=== PATIENT | male | born 1940 | race Caucasian/White ===

== ENCOUNTER 2016-10-30 15:02 | Outpatient (CLI) | payer MEDICARE | END 2016-10-30 15:03 | disposition home or self-care (01) | DX: Z95.4 Presence of other heart-valve replacement (principal) ==

== ENCOUNTER 2016-11-02 15:19 | Outpatient (CLI) | payer MEDICARE | END 2016-11-02 15:20 | disposition home or self-care (01) | DX: Z95.4 Presence of other heart-valve replacement (principal) ==

== ENCOUNTER 2016-11-15 14:00 | Outpatient (CLI) | payer MEDICARE | END 2016-11-15 14:01 | disposition home or self-care (01) | DX: Z95.4 Presence of other heart-valve replacement (principal) ==

== ENCOUNTER 2016-11-27 15:44 | Outpatient (CLI) | payer MEDICARE | END 2016-11-27 15:45 | disposition home or self-care (01) | DX: Z95.4 Presence of other heart-valve replacement (principal) ==

== ENCOUNTER 2016-12-11 08:00 | Outpatient (CLI) | payer MEDICARE | END 2016-12-11 08:01 | DX: Z95.4 Presence of other heart-valve replacement (principal) ==

== ENCOUNTER 2016-12-26 08:00 | Outpatient (CLI) | payer MEDICARE | END 2016-12-26 08:01 | disposition home or self-care (01) | DX: Z95.4 Presence of other heart-valve replacement (principal) ==

== ENCOUNTER 2017-01-08 14:13 | Outpatient (CLI) | payer MEDICARE | END 2017-01-08 14:14 | disposition home or self-care (01) | DX: Z95.4 Presence of other heart-valve replacement (principal) ==

== ENCOUNTER 2017-01-22 08:00 | Outpatient (CLI) | payer MEDICARE | END 2017-01-22 08:01 | disposition home or self-care (01) | DX: Z95.4 Presence of other heart-valve replacement (principal) ==

== ENCOUNTER 2017-01-30 15:36 | Outpatient (CLI) | payer MEDICARE | END 2017-01-30 15:37 | disposition home or self-care (01) | DX: I10 Essential (primary) hypertension (principal); Z95.4 Presence of other heart-valve replacement; E11.9 Type 2 diabetes mellitus without complications; N40.0 Benign prostatic hyperplasia without lower urinary tract symptoms | CPT/HCPCS: 36415; 80053; 80061; 83036; 84443; 85025; 85610; G0103 ==

== ENCOUNTER 2017-02-13 08:00 | Outpatient (CLI) | payer MEDICARE | END 2017-02-13 08:01 | DX: Z95.4 Presence of other heart-valve replacement (principal) ==

== ENCOUNTER 2017-03-07 08:00 | Outpatient (CLI) | payer MEDICARE | END 2017-03-07 08:01 | disposition home or self-care (01) | DX: Z95.4 Presence of other heart-valve replacement (principal) ==

== ENCOUNTER 2017-04-01 14:45 | Outpatient (CLI) | payer MEDICARE | END 2017-04-01 14:46 | disposition home or self-care (01) | LOC: LAB.F 14:45 | PROVIDERS: ATTEND Internal Medicine Cardiovascular Disease | DX: Z95.4 Presence of other heart-valve replacement (principal) | CPT/HCPCS: 85610 ==

== ENCOUNTER 2017-04-29 16:26 | Outpatient (CLI) | payer MEDICARE | END 2017-04-29 16:27 | disposition home or self-care (01) | LOC: LAB.F 16:26 | PROVIDERS: ATTEND Internal Medicine Cardiovascular Disease | DX: Z95.4 Presence of other heart-valve replacement (principal) | CPT/HCPCS: 85610 ==

== ENCOUNTER 2017-05-13 15:21 | Outpatient (CLI) | payer MEDICARE | END 2017-05-13 15:22 | disposition home or self-care (01) | LOC: LAB.F 15:21 | PROVIDERS: ATTEND Internal Medicine Cardiovascular Disease | DX: Z95.4 Presence of other heart-valve replacement (principal) | CPT/HCPCS: 85610 ==

== ENCOUNTER 2017-05-29 13:32 | Outpatient (CLI) | payer MEDICARE | END 2017-05-29 13:33 | disposition home or self-care (01) | LOC: LAB.F 13:32 | PROVIDERS: ATTEND Internal Medicine Cardiovascular Disease | DX: Z95.4 Presence of other heart-valve replacement (principal) | CPT/HCPCS: 85610 ==

== ENCOUNTER 2017-05-31 13:19 | Outpatient (CLI) | payer MEDICARE | END 2017-05-31 13:20 | disposition home or self-care (01) | LOC: LAB.F 13:19 | PROVIDERS: ATTEND Internal Medicine Cardiovascular Disease | DX: Z95.4 Presence of other heart-valve replacement (principal) | CPT/HCPCS: 85610 ==

== ENCOUNTER 2017-06-03 14:26 | Outpatient (CLI) | payer MEDICARE | END 2017-06-03 14:27 | disposition home or self-care (01) | LOC: LAB.F 14:26 | PROVIDERS: ATTEND Internal Medicine Cardiovascular Disease | DX: Z95.4 Presence of other heart-valve replacement (principal) | CPT/HCPCS: 85610 ==

== ENCOUNTER 2017-06-10 14:35 | Outpatient (CLI) | payer MEDICARE | END 2017-06-10 14:36 | disposition home or self-care (01) | LOC: LAB.F 14:35 | PROVIDERS: ATTEND Internal Medicine Cardiovascular Disease | DX: Z95.4 Presence of other heart-valve replacement (principal) | CPT/HCPCS: 85610 ==

== ENCOUNTER 2017-06-17 15:08 | Outpatient (CLI) | payer MEDICARE | END 2017-06-17 15:09 | disposition home or self-care (01) | LOC: LAB.F 15:08 | PROVIDERS: ATTEND Internal Medicine Cardiovascular Disease | DX: Z95.4 Presence of other heart-valve replacement (principal) | CPT/HCPCS: 85610 ==

== ENCOUNTER 2017-07-04 14:24 | Outpatient (CLI) | payer MEDICARE | END 2017-07-04 14:25 | disposition home or self-care (01) | LOC: LAB.F 14:24 | PROVIDERS: ATTEND Internal Medicine Cardiovascular Disease | DX: Z95.4 Presence of other heart-valve replacement (principal) | CPT/HCPCS: 85610 ==

== ENCOUNTER → 2017-07-18 | Outpatient (CLI) | payer MEDICARE | LOC: LAB.F 08:00 | PROVIDERS: ATTEND Internal Medicine Cardiovascular Disease | DX: Z95.4 Presence of other heart-valve replacement (principal) | CPT/HCPCS: 85610 ==

== ENCOUNTER 2017-08-02 14:09 | Outpatient (CLI) | payer MEDICARE | END 2017-08-02 14:10 | disposition home or self-care (01) | LOC: LAB.F 14:09 | PROVIDERS: ATTEND Internal Medicine Cardiovascular Disease | DX: Z95.4 Presence of other heart-valve replacement (principal) | CPT/HCPCS: 85610 ==

== ENCOUNTER 2017-08-22 15:53 | Outpatient (CLI) | payer MEDICARE | END 2017-08-22 15:54 | disposition home or self-care (01) | LOC: LAB.F 15:53 | PROVIDERS: ATTEND Internal Medicine Cardiovascular Disease | DX: Z95.4 Presence of other heart-valve replacement (principal) | CPT/HCPCS: 85610 ==

== ENCOUNTER 2017-08-29 08:00 | Outpatient (CLI) | payer MEDICARE | END 2017-08-29 08:01 | LOC: LAB.F 08:00 | PROVIDERS: ATTEND Internal Medicine Cardiovascular Disease | DX: Z95.4 Presence of other heart-valve replacement (principal) | CPT/HCPCS: 85610 ==

== ENCOUNTER 2017-09-13 08:00 | Outpatient (CLI) | payer MEDICARE | END 2017-09-13 08:01 | disposition home or self-care (01) | LOC: LAB.F 08:00 | PROVIDERS: ATTEND Internal Medicine Cardiovascular Disease | DX: Z95.4 Presence of other heart-valve replacement (principal) | CPT/HCPCS: 85610 ==

== ENCOUNTER 2017-09-23 16:22 | Outpatient (CLI) | payer MEDICARE | END 2017-09-23 16:23 | disposition home or self-care (01) | LOC: LAB.F 16:22 | PROVIDERS: ATTEND Internal Medicine Cardiovascular Disease | DX: Z95.4 Presence of other heart-valve replacement (principal) | CPT/HCPCS: 85610 ==

== ENCOUNTER 2017-10-07 08:00 | Outpatient (CLI) | payer MEDICARE | END 2017-10-07 08:01 | disposition home or self-care (01) | LOC: LAB.F 08:00 | PROVIDERS: ATTEND Internal Medicine Cardiovascular Disease | DX: Z95.4 Presence of other heart-valve replacement (principal) | CPT/HCPCS: 85610 ==

== ENCOUNTER 2017-10-23 08:00 | Outpatient (CLI) | payer MEDICARE | END 2017-10-23 08:01 | disposition home or self-care (01) | LOC: LAB.F 08:00 | PROVIDERS: ATTEND Internal Medicine Cardiovascular Disease | DX: Z95.4 Presence of other heart-valve replacement (principal) | CPT/HCPCS: 85610 ==

== ENCOUNTER 2017-11-07 15:19 | Outpatient (CLI) | payer MEDICARE | END 2017-11-07 15:20 | disposition home or self-care (01) | LOC: LAB.F 15:19 | PROVIDERS: ATTEND Internal Medicine Cardiovascular Disease | DX: Z95.4 Presence of other heart-valve replacement (principal) | CPT/HCPCS: 85610 ==

== ENCOUNTER 2017-11-14 08:00 | Outpatient (CLI) | payer MEDICARE | END 2017-11-14 08:01 | LOC: LAB.F 08:00 | PROVIDERS: ATTEND Internal Medicine Cardiovascular Disease | DX: Z95.4 Presence of other heart-valve replacement (principal) | CPT/HCPCS: 85610 ==

== ENCOUNTER 2017-11-18 08:00 | Outpatient (CLI) | payer MEDICARE | END 2017-11-18 08:01 | disposition home or self-care (01) | LOC: LAB.F 08:00 | PROVIDERS: ATTEND Internal Medicine Cardiovascular Disease | DX: Z95.4 Presence of other heart-valve replacement (principal) | CPT/HCPCS: 85610 ==

== ENCOUNTER 2017-11-29 15:10 | Outpatient (CLI) | payer MEDICARE | END 2017-11-29 15:11 | disposition home or self-care (01) | LOC: LAB.F 15:10 | PROVIDERS: ATTEND Internal Medicine Cardiovascular Disease | DX: Z95.4 Presence of other heart-valve replacement (principal) | CPT/HCPCS: 85610 ==

== ENCOUNTER 2017-12-06 15:08 | Outpatient (CLI) | payer MEDICARE | END 2017-12-06 15:09 | disposition home or self-care (01) | LOC: LAB.F 15:08 | PROVIDERS: ATTEND Internal Medicine Cardiovascular Disease | DX: Z95.4 Presence of other heart-valve replacement (principal) | CPT/HCPCS: 85610 ==

== ENCOUNTER 2017-12-18 08:00 | Outpatient (CLI) | payer MEDICARE | END 2017-12-18 08:01 | LOC: LAB.F 08:00 | PROVIDERS: ATTEND Internal Medicine Cardiovascular Disease | DX: Z95.4 Presence of other heart-valve replacement (principal) | CPT/HCPCS: 85610 ==

== ENCOUNTER 2018-01-01 15:47 | Outpatient (CLI) | payer MEDICARE | END 2018-01-01 15:48 | disposition home or self-care (01) | LOC: LAB.F 15:47 | PROVIDERS: ATTEND Internal Medicine Cardiovascular Disease | DX: Z95.4 Presence of other heart-valve replacement (principal) | CPT/HCPCS: 85610 ==

== ENCOUNTER 2018-01-07 08:00 | Outpatient (CLI) | payer MEDICARE | END 2018-01-07 08:01 | disposition home or self-care (01) | LOC: LAB.F 08:00 | PROVIDERS: ATTEND Internal Medicine Cardiovascular Disease | DX: Z95.4 Presence of other heart-valve replacement (principal) | CPT/HCPCS: 85610 ==

== ENCOUNTER 2018-01-14 08:00 | Outpatient (CLI) | payer MEDICARE | END 2018-01-14 08:01 | disposition home or self-care (01) | LOC: LAB.F 08:00 | PROVIDERS: ATTEND Internal Medicine Cardiovascular Disease | DX: Z95.4 Presence of other heart-valve replacement (principal) | CPT/HCPCS: 85610 ==

== ENCOUNTER 2018-01-28 15:58 | Outpatient (CLI) | payer MEDICARE | END 2018-01-28 15:59 | disposition home or self-care (01) | LOC: LAB.F 15:58 | PROVIDERS: ATTEND Internal Medicine Cardiovascular Disease | DX: Z95.4 Presence of other heart-valve replacement (principal) | CPT/HCPCS: 85610 ==

== ENCOUNTER 2018-02-11 14:42 | Outpatient (CLI) | payer MEDICARE | END 2018-02-11 14:43 | disposition home or self-care (01) | LOC: LAB.F 14:42 | PROVIDERS: ATTEND Internal Medicine Cardiovascular Disease | DX: Z95.4 Presence of other heart-valve replacement (principal) | CPT/HCPCS: 85610 ==

== ENCOUNTER 2018-03-05 14:45 | Outpatient (CLI) | payer MEDICARE | END 2018-03-05 14:46 | disposition home or self-care (01) | LOC: LAB.F 14:45 | PROVIDERS: ATTEND Internal Medicine Cardiovascular Disease | DX: Z95.4 Presence of other heart-valve replacement (principal) | CPT/HCPCS: 85610 ==

== ENCOUNTER 2018-03-20 15:00 | Outpatient (CLI) | payer MEDICARE | END 2018-03-20 15:01 | disposition home or self-care (01) | LOC: LAB.F 15:00 | PROVIDERS: ATTEND Internal Medicine Cardiovascular Disease | DX: Z95.4 Presence of other heart-valve replacement (principal) | CPT/HCPCS: 85610 ==

== ENCOUNTER 2018-04-03 14:56 | Outpatient (CLI) | payer MEDICARE | END 2018-04-03 14:57 | disposition home or self-care (01) | LOC: LAB.F 14:56 | PROVIDERS: ATTEND Internal Medicine Cardiovascular Disease | DX: Z95.4 Presence of other heart-valve replacement (principal) | CPT/HCPCS: 85610 ==

== ENCOUNTER 2018-05-02 13:25 | Outpatient (CLI) | payer MEDICARE | END 2018-05-02 13:26 | disposition home or self-care (01) | LOC: LAB.F 13:25 | PROVIDERS: ATTEND Internal Medicine Cardiovascular Disease | DX: Z95.4 Presence of other heart-valve replacement (principal) | CPT/HCPCS: 85610 ==

== ENCOUNTER 2018-05-21 14:55 | Outpatient (CLI) | payer MEDICARE | END 2018-05-21 14:56 | disposition home or self-care (01) | LOC: LAB.F 14:55 | PROVIDERS: ATTEND Internal Medicine Cardiovascular Disease | DX: Z95.4 Presence of other heart-valve replacement (principal) | CPT/HCPCS: 85610 ==

== ENCOUNTER 2018-06-05 14:16 | Outpatient (CLI) | payer MEDICARE | END 2018-06-05 14:17 | disposition home or self-care (01) | LOC: LAB.F 14:16 | PROVIDERS: ATTEND Internal Medicine Cardiovascular Disease | DX: Z95.4 Presence of other heart-valve replacement (principal) | CPT/HCPCS: 85610 ==

== ENCOUNTER 2018-06-26 14:22 | Outpatient (CLI) | payer MEDICARE | END 2018-06-26 14:23 | disposition home or self-care (01) | LOC: LAB.F 14:22 | PROVIDERS: ATTEND Internal Medicine Cardiovascular Disease | DX: Z95.4 Presence of other heart-valve replacement (principal) | CPT/HCPCS: 85610 ==

== ENCOUNTER 2018-07-10 14:47 | Outpatient (CLI) | payer MEDICARE | END 2018-07-10 14:48 | disposition home or self-care (01) | LOC: LAB.F 14:47 | PROVIDERS: ATTEND Internal Medicine Cardiovascular Disease | DX: Z95.4 Presence of other heart-valve replacement (principal) | CPT/HCPCS: 85610 ==

== ENCOUNTER 2018-07-17 13:20 | Outpatient (CLI) | payer MEDICARE ==
[2018-07-17] MEDS ORDERED: ALBUTEROL NEB 2.5 MG/3 ML INH ONE (15:00)
== END 2018-07-17 13:21 | disposition home or self-care (01) ==
LOC: RT 13:20
PROVIDERS: ATTEND Physician Assistant
DX: R06.02 Shortness of breath (principal); I48.0 Paroxysmal atrial fibrillation; E66.01 Morbid (severe) obesity due to excess calories; E11.9 Type 2 diabetes mellitus without complications
CPT/HCPCS: 94060

== ENCOUNTER 2018-07-24 14:57 | Outpatient (CLI) | payer MEDICARE | END 2018-07-24 14:58 | disposition home or self-care (01) | LOC: LAB.F 14:57 | PROVIDERS: ATTEND Internal Medicine Cardiovascular Disease | DX: Z95.4 Presence of other heart-valve replacement (principal) | CPT/HCPCS: 85610 ==

== ENCOUNTER 2018-07-29 13:53 | Outpatient (CLI) | payer MEDICARE | END 2018-07-29 13:54 | disposition home or self-care (01) | LOC: DI 13:53 | PROVIDERS: ATTEND Physician Assistant | DX: I48.91 Unspecified atrial fibrillation (principal); R60.0 Localized edema; Z95.2 Presence of prosthetic heart valve | CPT/HCPCS: 93306 ==

== ENCOUNTER 2018-08-07 08:00 | Outpatient (CLI) | payer MEDICARE ==
[2018-08-07 17:34] LABS: INR 4.4 (0.8-1.2); PT - PROTHROMBIN TIME 47.2 secs (9.9-12.6)
== END 2018-08-07 08:01 | disposition home or self-care (01) ==
LOC: LAB.F 08:00
PROVIDERS: ATTEND Internal Medicine Cardiovascular Disease
DX: I48.91 Unspecified atrial fibrillation (principal)
CPT/HCPCS: 36415; 85610

== ENCOUNTER 2018-08-15 14:41 | Outpatient (CLI) | payer MEDICARE | END 2018-08-15 14:42 | disposition home or self-care (01) | LOC: LAB.F 14:41 | PROVIDERS: ATTEND Internal Medicine Cardiovascular Disease | DX: Z95.4 Presence of other heart-valve replacement (principal) | CPT/HCPCS: 85610 ==

== ENCOUNTER 2018-09-03 14:42 | Outpatient (CLI) | payer MEDICARE ==
[2018-09-03 18:17] LABS: INR 3.8 (0.8-1.2); PT - PROTHROMBIN TIME 42.4 secs (9.9-12.6)
== END 2018-09-03 14:43 | disposition home or self-care (01) ==
LOC: LAB.F 14:42
PROVIDERS: ATTEND Internal Medicine Cardiovascular Disease
DX: Z51.81 Encounter for therapeutic drug level monitoring (principal); Z79.01 Long term (current) use of anticoagulants; I48.91 Unspecified atrial fibrillation
CPT/HCPCS: 36415; 85610

== ENCOUNTER 2018-09-26 14:20 | Outpatient (CLI) | payer MEDICARE | END 2018-09-26 14:21 | disposition home or self-care (01) | LOC: LAB.F 14:20 | PROVIDERS: ATTEND Internal Medicine Cardiovascular Disease | DX: Z95.4 Presence of other heart-valve replacement (principal) | CPT/HCPCS: 85610 ==

== ENCOUNTER 2018-10-22 14:43 | Outpatient (CLI) | payer MEDICARE | END 2018-10-22 14:44 | disposition home or self-care (01) | LOC: LAB.F 14:43 | PROVIDERS: ATTEND Internal Medicine Cardiovascular Disease | DX: Z95.4 Presence of other heart-valve replacement (principal) | CPT/HCPCS: 85610 ==

== ENCOUNTER 2018-11-20 14:27 | Outpatient (CLI) | payer MEDICARE | END 2018-11-20 14:28 | disposition home or self-care (01) | LOC: LAB.F 14:27 | PROVIDERS: ATTEND Internal Medicine Cardiovascular Disease | DX: Z95.4 Presence of other heart-valve replacement (principal) | CPT/HCPCS: 85610 ==

== ENCOUNTER 2018-12-18 15:44 | Outpatient (CLI) | payer MEDICARE | END 2018-12-18 15:45 | disposition home or self-care (01) | LOC: LAB.F 15:44 | PROVIDERS: ATTEND Internal Medicine Cardiovascular Disease | DX: Z95.4 Presence of other heart-valve replacement (principal) | CPT/HCPCS: 85610 ==

== ENCOUNTER 2019-01-01 14:52 | Outpatient (CLI) | payer MEDICARE | END 2019-01-01 14:53 | disposition home or self-care (01) | LOC: LAB.F 14:52 | PROVIDERS: ATTEND Internal Medicine Cardiovascular Disease | DX: Z95.4 Presence of other heart-valve replacement (principal) | CPT/HCPCS: 85610 ==

== ENCOUNTER 2019-01-16 13:52 | Outpatient (CLI) | payer MEDICARE | END 2019-01-16 13:53 | disposition home or self-care (01) | LOC: LAB.F 13:52 | PROVIDERS: ATTEND Internal Medicine Cardiovascular Disease | DX: Z95.4 Presence of other heart-valve replacement (principal) | CPT/HCPCS: 85610 ==

== ENCOUNTER 2019-02-12 14:59 | Outpatient (CLI) | payer MEDICARE | END 2019-02-12 15:00 | disposition home or self-care (01) | LOC: LAB.F 14:59 | PROVIDERS: ATTEND Internal Medicine Cardiovascular Disease | DX: Z95.4 Presence of other heart-valve replacement (principal) | CPT/HCPCS: 85610 ==

== ENCOUNTER 2019-03-13 14:57 | Outpatient (CLI) | payer MEDICARE | END 2019-03-13 14:58 | disposition home or self-care (01) | LOC: LAB.F 14:57 | PROVIDERS: ATTEND Internal Medicine Cardiovascular Disease | DX: Z95.4 Presence of other heart-valve replacement (principal) | CPT/HCPCS: 85610 ==

== ENCOUNTER 2019-04-10 14:48 | Outpatient (CLI) | payer MEDICARE | END 2019-04-10 14:49 | disposition home or self-care (01) | LOC: LAB.F 14:48 | PROVIDERS: ATTEND Internal Medicine Cardiovascular Disease | DX: Z95.4 Presence of other heart-valve replacement (principal) | CPT/HCPCS: 85610 ==

== ENCOUNTER 2019-04-23 16:05 | Outpatient (CLI) | payer MEDICARE | END 2019-04-23 23:59 | disposition home or self-care (01) | LOC: LAB.F 16:05 | PROVIDERS: ATTEND Internal Medicine Cardiovascular Disease | DX: Z95.4 Presence of other heart-valve replacement (principal) | CPT/HCPCS: 85610 ==

== ENCOUNTER 2019-05-08 14:29 | Outpatient (CLI) | payer MEDICARE | END 2019-05-08 14:30 | disposition home or self-care (01) | LOC: LAB.S 14:29 | PROVIDERS: ATTEND Internal Medicine Cardiovascular Disease | DX: Z95.4 Presence of other heart-valve replacement (principal) | CPT/HCPCS: 85610 ==

== ENCOUNTER 2019-06-01 | Outpatient (CLI) | payer MEDICARE | END 2019-06-01 15:54 | disposition home or self-care (01) | DX: Z95.4 Presence of other heart-valve replacement (principal) ==

== ENCOUNTER 2019-06-15 13:47 | Outpatient (CLI) | payer MEDICARE | END 2019-06-15 13:48 | disposition home or self-care (01) | LOC: LAB.S 13:47 | PROVIDERS: ATTEND Internal Medicine Cardiovascular Disease | DX: Z95.4 Presence of other heart-valve replacement (principal) | CPT/HCPCS: 85610 ==

== ENCOUNTER 2019-07-07 10:44 | Outpatient (CLI) | payer MEDICARE ==
[2019-07-07 17:59] LABS: BASOPHILS % (AUTO) 0.5 %; EOSINOPHILS # (AUTO) 0.1 10^3/uL (0.0-0.7); EOSINOPHILS % (AUTO) 1.7 %; HGB - HEMOGLOBIN 14.2 g/dL (14.0-18.0); LYMPHOCYTES # (AUTO) 0.9 10^3/uL (1.5-3.5); LYMPHOCYTES % (AUTO) 12.3 %; MEAN CORPUSCULAR HEMOGLOBIN 32.1 pg (27.0-31.0); MEAN CORPUSCULAR HGB CONC 32.7 g/dL (32.0-36.0); MEAN PLATELET VOLUME 11.6 fL (7.4-11.4); MONOCYTES # (AUTO) 0.7 10^3/uL (0.0-1.0); NEUTROPHILS # (AUTO) 5.7 10^3/uL (1.5-6.6); NEUTROPHILS % (AUTO) 75.8 %; PLT - PLATELET COUNT 123 10^3/uL (130-450); RED BLOOD COUNT 4.43 10^6/uL (4.70-6.10); RED CELL DISTRIBUTION WIDTH 14.4 % (12.0-15.0); WHITE BLOOD COUNT 7.5 x10^3/uL (4.8-10.8)
[2019-07-07 18:00] LABS: INR 2.7 (0.8-1.2); PT - PROTHROMBIN TIME 30.2 secs (9.9-12.6)
[2019-07-07 18:52] LABS: HB2 TOTAL 14.2 g/dL; HEMOGLOBIN A1C 0.67 g/dL; HEMOGLOBIN A1C % 6.5 % (4.6-6.2)
[2019-07-07 18:58] LABS: ALBUMIN 3.7 g/dL (3.2-5.5); ALBUMIN/GLOBULIN RATIO 0.9 (1.0-2.2); ALKALINE PHOSPHATASE 60 IU/L (42-121); ALT ALANINE AMINOTRANSFERASE 22 IU/L (10-60); AST ASPARTATE AMINOTRANSFERASE 23 IU/L (10-42); BILIRUBIN,TOTAL 0.8 mg/dL (0.2-1.0); BUN - BLOOD UREA NITROGEN 17 mg/dL (6-20); CALCIUM 9.2 mg/dL (8.5-10.3); CARBON DIOXIDE - CO2 27 mmol/L (21-32); CHLORIDE 102 mmol/L (101-111); CHOL/HDL RATIO 4.3 (<5.0); CHOLESTEROL 138 mg/dL; CREATININE 0.8 mg/dL (0.6-1.2); GFR - MDRD 93 (>89); GLUCOSE 134 mg/dL (70-100); HDL CHOLESTEROL 32 mg/dL; LDL CHOLESTEROL,CALCULATED 87 mg/dL; LDL/HDL RATIO 2.7 (<3.6); SODIUM 138 mmol/L (135-145); TOTAL PROTEIN 7.7 g/dL (6.7-8.2); VLDL CHOLESTEROL 19 mg/dL
== END 2019-07-07 10:45 | disposition home or self-care (01) ==
LOC: LAB.S 10:44
PROVIDERS: ATTEND Physician Assistant
DX: Z95.4 Presence of other heart-valve replacement (principal); I87.2 Venous insufficiency (chronic) (peripheral); E78.5 Hyperlipidemia, unspecified; N40.1 Benign prostatic hyperplasia with lower urinary tract symptoms; E11.9 Type 2 diabetes mellitus without complications
CPT/HCPCS: 36415; 80053; 80061; 83036; 83721; 84153; 85025; 85610

== ENCOUNTER 2019-07-24 15:01 | Outpatient (CLI) | payer MEDICARE | END 2019-07-24 15:02 | disposition home or self-care (01) | LOC: LAB.S 15:01 | PROVIDERS: ATTEND Internal Medicine Cardiovascular Disease | DX: Z95.4 Presence of other heart-valve replacement (principal) | CPT/HCPCS: 85610 ==

== ENCOUNTER 2019-08-10 15:55 | Outpatient (CLI) | payer MEDICARE | END 2019-08-10 15:56 | disposition home or self-care (01) | LOC: LAB.S 15:55 | PROVIDERS: ATTEND Internal Medicine Cardiovascular Disease | DX: Z95.4 Presence of other heart-valve replacement (principal) | CPT/HCPCS: 85610 ==

== ENCOUNTER 2019-08-18 15:30 | Outpatient (CLI) | payer MEDICARE | END 2019-08-18 15:31 | disposition EMS.NT | LOC: EMS 15:30 | PROVIDERS: ATTEND Surgery | DX: R42 Dizziness and giddiness (principal) ==

== ENCOUNTER 2019-09-08 15:20 | Outpatient (CLI) | payer MEDICARE | END 2019-09-08 15:21 | disposition home or self-care (01) | LOC: LAB.S 15:20 | PROVIDERS: ATTEND Internal Medicine Cardiovascular Disease | DX: Z51.81 Encounter for therapeutic drug level monitoring (principal); Z95.4 Presence of other heart-valve replacement; Z79.01 Long term (current) use of anticoagulants; I48.91 Unspecified atrial fibrillation | CPT/HCPCS: 85610 ==

== ENCOUNTER 2019-09-30 14:56 | Outpatient (CLI) | payer MEDICARE ==
--- NOTE | 2019-10-01 16:10 | XRAY Report ---
Reason: DYSPNEA, UNSPECIFIED Procedure Date: 09/30/2019 Accession Number: [id number] / [id number] Procedure: XRS - Chest 2 View X-Ray CPT Code: 86025 Final Report FULL RESULT: EXAM: CHEST RADIOGRAPHY EXAM DATE: 09/30/2019 03:15 PM. CLINICAL HISTORY: DYSPNEA, UNSPECIFIED. COMPARISON: 05/20/2013 5:00 AM, CHEST CT W/O 10/25/2016 2:16 PM. TECHNIQUE: 2 views. FINDINGS: Lungs/Pleura: Vascular redistribution, indistinct density at both lung bases. New since the most recent CT from 10/25/2016. Mediastinum: Cardiomegaly, previous median sternal suture placement. Mitral valve prosthesis. Other: None. IMPRESSION: 1. Vascular redistribution, indistinct density both lung bases, probably related to early pulmonary venous redistribution, perhaps early edema and right heart dysfunction. 2. These features are new since the CT study from 10/25/2016. RADIA
== END 2019-09-30 14:57 | disposition home or self-care (01) ==
LOC: DI.S 14:56
PROVIDERS: ATTEND Nurse Practitioner Family
DX: R91.8 Other nonspecific abnormal finding of lung field (principal)
CPT/HCPCS: 71046

== ENCOUNTER 2019-10-08 14:58 | Outpatient (CLI) | payer MEDICARE ==
[2019-10-08 17:27] LABS: BASOPHILS % (AUTO) 0.7 %; EOSINOPHILS # (AUTO) 0.1 10^3/uL (0.0-0.7); EOSINOPHILS % (AUTO) 1.6 %; HGB - HEMOGLOBIN 13.9 g/dL (14.0-18.0); LYMPHOCYTES # (AUTO) 0.9 10^3/uL (1.5-3.5); LYMPHOCYTES % (AUTO) 14.7 %; MEAN CORPUSCULAR HGB CONC 31.9 g/dL (32.0-36.0); MEAN CORPUSCULAR VOLUME 100.5 fL (80.0-94.0); MONOCYTES # (AUTO) 0.6 10^3/uL (0.0-1.0); MONOCYTES % (AUTO) 9.3 %; NEUTROPHILS # (AUTO) 4.5 10^3/uL (1.5-6.6); PLT - PLATELET COUNT 98 10^3/uL (130-450); RED BLOOD COUNT 4.34 10^6/uL (4.70-6.10); RED CELL DISTRIBUTION WIDTH 14.7 % (12.0-15.0); WHITE BLOOD COUNT 6.1 x10^3/uL (4.8-10.8)
[2019-10-08 17:39] LABS: ALBUMIN 3.8 g/dL (3.2-5.5); BILIRUBIN,TOTAL 1.1 mg/dL (0.2-1.0); CREATININE 0.8 mg/dL (0.6-1.2); TOTAL PROTEIN 7.8 g/dL (6.7-8.2)
[2019-10-08 17:47] LABS: HB2 TOTAL 13.7 g/dL; HEMOGLOBIN A1C 0.68 g/dL; HEMOGLOBIN A1C % 6.7 % (4.6-6.2)
== END 2019-10-08 14:59 | disposition home or self-care (01) ==
LOC: LAB.S 14:58
PROVIDERS: ATTEND Internal Medicine Cardiovascular Disease
DX: Z51.81 Encounter for therapeutic drug level monitoring (principal); Z79.01 Long term (current) use of anticoagulants; R06.00 Dyspnea, unspecified
CPT/HCPCS: 36415; 80053; 83036; 83880; 85025; 85610

== ENCOUNTER 2019-10-15 12:14 | Outpatient (CLI) | payer MEDICARE | END 2019-10-15 12:15 | disposition home or self-care (01) | LOC: DI 12:14 | PROVIDERS: ATTEND Physician Assistant | DX: R06.00 Dyspnea, unspecified (principal); I07.1 Rheumatic tricuspid insufficiency | CPT/HCPCS: 93306 ==

== ENCOUNTER 2019-11-17 15:45 | Outpatient (CLI) | payer MEDICARE | END 2019-11-17 23:59 | disposition home or self-care (01) | LOC: LAB.S 15:45 | PROVIDERS: ATTEND Internal Medicine Cardiovascular Disease | DX: Z51.81 Encounter for therapeutic drug level monitoring (principal); Z79.01 Long term (current) use of anticoagulants | CPT/HCPCS: 85610 ==

== ENCOUNTER 2019-12-10 15:50 | Outpatient (CLI) | payer MEDICARE | END 2019-12-10 23:59 | disposition home or self-care (01) | LOC: LAB.S 15:50 | PROVIDERS: ATTEND Internal Medicine Cardiovascular Disease | DX: Z51.81 Encounter for therapeutic drug level monitoring (principal); Z79.01 Long term (current) use of anticoagulants | CPT/HCPCS: 85610 ==

== ENCOUNTER 2020-01-14 12:05 | Outpatient (CLI) | payer MEDICARE | END 2020-01-14 12:06 | disposition critical access hospital (66) | LOC: EMS 12:05 | PROVIDERS: ATTEND Surgery | DX: K92.0 Hematemesis (principal); R53.1 Weakness; R11.0 Nausea | CPT/HCPCS: A0425; A0429 ==

== ENCOUNTER 2020-01-14 12:43 | Inpatient (IN) | payer MEDICARE ==
[2020-01-14] MEDS ORDERED: SODIUM CHLORIDE 0.9% 1,000 ML IV ONE (12:52)
[2020-01-14] MEDS ORDERED: PANTOPRAZOLE 40 MG VIAL IVP STA (12:56)
[2020-01-14] MEDS ORDERED: ONDANSETRON 4 MG/2 ML VIAL IVP STA (12:56)
--- NOTE | 2020-01-14 12:57 | ED Physician Documentation ---
PD HPI GI BLEED - Stated complaint Stated Complaint: VOMITING BLOOD - History obtained from History obtained from: Patient, EMS - History of Present Illness Timing - onset: Last night Timing - duration: Days (1) Timing - details: Gradual onset Associated symptoms: Vomiting, Coffee ground emesis Contributing factors: Anticoagulated (warfarin for an artificial heart valve 15 years ago.). No: Sick contact, Bad food, Travel, Recent antibiotics, Alcohol use, Aspirin use, NSAID use, Stress, Diabetes, Other Improved by: Other (nothing) Worsened by: Other (nothing) Similar symptoms before: Has not had sx before Recently seen: Not recently seen Review of Systems Constitutional: denies: Fever, Chills Nose: denies: Rhinorrhea / runny nose, Congestion Respiratory: denies: Cough GI: reports: Nausea, Vomiting. denies: Diarrhea, Bloody / black stool : denies: Dysuria Skin: denies: Rash Musculoskeletal: denies: Neck pain, Back pain Neurologic: denies: Headache PD PAST MEDICAL HISTORY - Past Medical History Cardiovascular: Hypertension Endocrine/Autoimmune: Type 2 diabetes Psych: Depression - Past Surgical History Past Surgical History: Yes Cardiovascular: Valve replacement - Present Medications Home Medications: Ambulatory Orders Medication Instructions Recorded Confirmed Carvedilol 1 tab BID 11/15/14 08/29/17 Doxazosin [Cardura] 8 mg DAILY 11/15/14 08/29/17 Hydrochlorothiazide 1 tab DAILY 11/15/14 08/29/17 Loratadine [Claritin] 1 tab DAILY PRN 11/15/14 08/29/17 Losartan [Cozaar] 2 tab DAILY 11/15/14 08/29/17 Phenazopyridine [Pyridium] 200 mg PO TID 6 Days tablet 11/15/14 08/29/17 Warfarin [Coumadin] 1 tab DAILY 11/15/14 08/29/17 lisinopriL [Lisinopril] 1 tab DAILY 11/15/14 08/29/17 metFORMIN [Glucophage] 250 mg DAILY 11/15/14 08/29/17 Amoxicillin 1 tab PO DAILY 08/29/17 08/29/17 Cephalexin [Keflex] 500 mg PO Q6HR #28 capsule 08/29/17 Furosemide 1 tab PO DAILY 08/29/17 08/29/17 Terbinafine HCl [Lamisil] 1 applic TP BID #1 spray 08/29/17 Cephalexin [Keflex] 500 mg PO Q6H #40 capsule 07/25/19 Furosemide [Lasix] 40 mg PO DAILY #7 tablet 07/25/19 - Allergies Allergies/Adverse Reactions: Allergies Allergy/AdvReac Type Severity Reaction Status Date / Time No Known Drug Allergies Allergy Verified 01/14/20 13:04 - Social History Does the pt smoke?: No Smoking Status: Former smoker Does the pt drink ETOH?: Yes Does the pt have substance abuse?: No - Immunizations Immunizations are current?: Yes - POLST Patient has POLST: No PD ED PE NORMAL - Vitals Vital signs reviewed: Yes - General General: Alert and oriented X 3, No acute distress - HEENT HEENT: Moist mucous membranes - Neck Neck: Supple, no meningeal sign - Cardiac Cardiac: RRR, Strong equal pulses - Respiratory Respiratory: No respiratory distress, Clear bilaterally - Abdomen Abdomen: Soft, Non tender, Non distended - Back Back: No spinal TTP - Derm Derm: Warm and dry - Extremities Extremities: Other (1+ B LE edema, scaling to B legs, chronic skin changes) - Neuro Neuro: Alert and oriented X 3 Results - Vitals Vitals: Vital Signs - 24 hr 01/14/20 01/14/20 12:42 13:07 Temperature 37 C Heart Rate 85 86 Respiratory 28 H 24 Rate Blood Pressure 161/94 H 149/77 H O2 Saturation 93 92 Oxygen O2 Source Room air - Labs Labs: Laboratory Tests 01/14/20 01/14/20 01/14/20 12:46 12:46 12:46 WBC 10.8 RBC 3.82 L Hgb 12.4 L Hct 38.2 L MCV 100.0 H MCH 32.5 H MCHC 32.5 RDW 15.1 H Plt Count 179 MPV 11.6 H Neut # (Auto) 8.5 H Lymph # (Auto) 1.3 L [place] # (Auto) 0.9 Eos # (Auto) 0.0 Baso # (Auto) 0.0 Absolute Nucleated RBC 0.00 Nucleated RBC % 0.0 PT 45.0 H INR 4.3 H APTT 40.4 H Sodium 141 Potassium 3.8 Chloride 103 Carbon Dioxide 29 Anion Gap 9.0 BUN 47 H Creatinine 0.8 Estimated GFR (MDRD) 93 Glucose 168 H Calcium 9.3 Total Bilirubin 1.5 H AST 24 ALT 23 Alkaline Phosphatase 56 Total Protein 7.4 Albumin 3.4 Globulin 4.0 Albumin/Globulin Ratio 0.9 L Lipase 24 Urine Color Urine Clarity Urine pH Ur Specific [place] Urine Protein Urine Glucose (UA) Urine Ketones Urine Occult Blood Urine Nitrite Urine Bilirubin Urine Urobilinogen Ur Leukocyte Esterase Urine RBC Urine WBC Ur Squamous Epith Cells Urine Bacteria Ur Microscopic Review Urine Culture Comments Blood Type Antibody Screen 01/14/20 01/14/20 12:46 13:59 WBC RBC Hgb Hct MCV MCH MCHC RDW Plt Count MPV Neut # (Auto) Lymph # (Auto) [place] # (Auto) Eos # (Auto) Baso # (Auto) Absolute Nucleated RBC Nucleated RBC % PT INR APTT Sodium Potassium Chloride Carbon Dioxide Anion Gap BUN Creatinine Estimated GFR (MDRD) Glucose Calcium Total Bilirubin AST ALT Alkaline Phosphatase Total Protein Albumin Globulin Albumin/Globulin Ratio Lipase Urine Color YELLOW Urine Clarity CLEAR Urine pH 7.0 Ur Specific [place] 1.010 Urine Protein NEGATIVE Urine Glucose (UA) NEGATIVE Urine Ketones TRACE Urine Occult Blood TRACE-INTA Urine Nitrite NEGATIVE Urine Bilirubin NEGATIVE Urine Urobilinogen 0.2 (NORMAL) Ur Leukocyte Esterase TRACE H Urine RBC 0-5 Urine WBC 0-3 Ur Squamous Epith Cells RARE Squamous Urine Bacteria Rare Ur Microscopic Review INDICATED Urine Culture Comments INDICATED Blood Type A POSITIVE Antibody Screen NEGATIVE - Rads (name of study) CT abdomen pelvis Radiology: Prelim report reviewed, EMP read contemporaneously, See rad report (1. No acute abnormality of the bowel demonstrated. No evidence of obstruction. There is moderate fluid distention of the stomach. 2. Stable cardiac enlargement. 3. Prostate enlargement, mildly improved. 4. Small bandlike area of high density along the posterior inferior wall of the bladder on this postcontrast exam could represent calcium/calcification. Focal wall enhancement such as can be seen with urothelial neoplasm cannot be excluded on this exam. Follow-up CT with pre-and post imaging could be considered, versus cystoscopy. 5. Additional chronic findings, as above. ) PD MEDICAL DECISION MAKING - ED course Complexity details: reviewed results, re-evaluated patient, considered differential, d/w patient, d/w risk control consultant ED course: 79-year-old male with hematemesis. Given IV fluids, Protonix, Zofran. CT scan does not show any acute abnormalities. Discussed the case with Dr. Freeman, general surgery who will consult on the patient. Also discussed with Dr. Baltazar, hospitalist who accepts. FFP given to lower his supratherapeutic INR. Does have a mechanical heart valve. This document was made in part using voice recognition software. While efforts are made to proofread this document, sound alike and grammatical errors may occur. Departure - Departure Disposition: 66 [facility] DC/Xfer Clinical Impression: Over-anticoagulated Hematemesis Qualifiers: Nausea presence: with nausea Qualified Code(s): K92.0 - Hematemesis Condition: Stable
[2020-01-14 13:12] LABS: BASOPHILS % (AUTO) 0.4 %; EOSINOPHILS % (AUTO) 0.1 %; HGB - HEMOGLOBIN 12.4 g/dL (14.0-18.0); LYMPHOCYTES # (AUTO) 1.3 10^3/uL (1.5-3.5); LYMPHOCYTES % (AUTO) 12.3 %; MEAN CORPUSCULAR HEMOGLOBIN 32.5 pg (27.0-31.0); MEAN CORPUSCULAR HGB CONC 32.5 g/dL (32.0-36.0); MEAN PLATELET VOLUME 11.6 fL (7.4-11.4); MONOCYTES # (AUTO) 0.9 10^3/uL (0.0-1.0); MONOCYTES % (AUTO) 7.9 %; NEUTROPHILS # (AUTO) 8.5 10^3/uL (1.5-6.6); NEUTROPHILS % (AUTO) 78.7 %; PLT - PLATELET COUNT 179 10^3/uL (130-450); RED BLOOD COUNT 3.82 10^6/uL (4.70-6.10); RED CELL DISTRIBUTION WIDTH 15.1 % (12.0-15.0); WHITE BLOOD COUNT 10.8 x10^3/uL (4.8-10.8)
[2020-01-14 13:20] LABS: INR 4.3 (0.8-1.2)
[2020-01-14 13:25] LABS: ALBUMIN 3.4 g/dL (3.2-5.5); ALBUMIN/GLOBULIN RATIO 0.9 (1.0-2.2); BILIRUBIN,TOTAL 1.5 mg/dL (0.2-1.0); CALCIUM 9.3 mg/dL (8.5-10.3); CREATININE 0.8 mg/dL (0.6-1.2); TOTAL PROTEIN 7.4 g/dL (6.7-8.2)
[2020-01-14 13:27] LABS: PARTIAL THROMBOPLASTIN TIME 40.4 secs (24.9-33.3)
[2020-01-14] MEDS ORDERED: IOVERSOL 320 100 ML VIAL IVP ONE ×2 (13:36→14:18)
[2020-01-14] MEDS ORDERED: PHYTONADIONE 10 MG/ML AMP SUBQ STA (13:36)
[2020-01-14] MEDS ORDERED: ONDANSETRON ODT 4 MG TABLET TL PRN (14:10)
[2020-01-14 14:12] LABS: BILIRUBIN,URINE NEGATIVE (NEGATIVE); GLUCOSE, URINE (UA) NEGATIVE (NEGATIVE); KETONES,URINE (UA) TRACE mg/dL (NEGATIVE); LEUKOCYTE ESTERASE, URINE TRACE (NEGATIVE); NITRITE,URINE NEGATIVE (NEGATIVE); OCCULT BLOOD,URINE TRACE-INTA (NEGATIVE); PROTEIN,URINE NEGATIVE (NEGATIVE); UROBILINOGEN,URINE 0.2 (NORMAL) E.U./dL (NORMAL)
[2020-01-14 14:13] LABS: CLARITY,URINE CLEAR (CLEAR)
[2020-01-14 14:33] LABS: BACTERIA,URINE Rare /HPF (None Seen); RBC,URINE 0-5 /HPF (0-5); SQUAMOUS EPITHELIAL CELL,UR RARE Squamous (<= Few)
--- NOTE | 2020-01-14 14:45 | CT Report ---
Reason: vomiting, abd pain Procedure Date: 01/14/2020 Accession Number: [id number] / [id number] Procedure: CT - Abdomen/Pelvis W CPT Code: Final Report FULL RESULT: EXAM: CT ABDOMEN AND PELVIS EXAM DATE: 01/14/2020 02:16 PM. CLINICAL HISTORY: Vomiting, abd pain. COMPARISONS: CHEST W/O 10/25/2016 2:16 PM KUB 04/02/2016 4:06 PM. TECHNIQUE: Routine helical CT imaging was performed through the abdomen and pelvis. IV contrast: 100 cc OPTIRAY 320. Enteric contrast: No. Reconstructions: Coronal and sagittal. In accordance with CT protocol optimization, one or more of the following dose reduction techniques were utilized for this exam: automated exposure control, adjustment of mA and/or KV based on patient size, or use of iterative reconstructive technique. FINDINGS: Lung Bases: Motion artifact limits evaluation. Mild bibasilar probable atelectasis, scarring or fibrosis is mildly increased. Stable small right lower lobe solid nodule is consistent with a benign finding. Cardiac enlargement redemonstrated. Partial redemonstration of aortic valve replacement and median sternotomy changes. Liver: Mild diffuse fatty infiltration demonstrated. No mass. Gallbladder/Bile Ducts: Unremarkable. Spleen: Normal. Pancreas: Normal. Adrenal Glands: Normal. Kidneys: Normal. No masses or hydronephrosis. Peritoneal Cavity/Bowel: No free fluid or free air. Multiple subcentimeter para-aortic and pelvic lymph nodes are stable. There is a borderline enlarged 9-10 mm distal right external iliac lymph node (3/60) which is unchanged compared with 2016, consistent with a benign finding. No masses or acute inflammatory process. The appendix is not clearly visualized but there is no evidence of appendicitis. Moderate gastric fluid distention. No bowel dilatation/obstruction. Pelvic Organs: No definite bladder wall thickening or definite mass. Just left of the midline along the posterior, inferior floor of the bladder there is bandlike high density measuring approximately 4 x 17 x 13 mm. There is no other indication of excreted contrast within the urinary tract to suggest that this represents layering excreted contrast. Layering tiny stones or milk of calcium is a consideration. Bladder wall calcification is not excluded. Focal abnormal bladder wall enhancement such as can be seen in the setting of urothelial carcinoma cannot be excluded on this exam which was performed only following contrast administration (no precontrast images). The appearance was not present previously. Mild prostate enlargement has improved, transverse diameter 4.77 m, previously 5.1 cm. Vasculature: Moderate calcifications, without aneurysm. Bones: Stable small right pelvic sclerotic foci, consistent with benign findings. Degenerative disease of the spine appears similar. No definite acute abnormalities. Other: Small fat-containing umbilical hernia and left larger than right fat-containing inguinal hernias appear similar. IMPRESSION: 1. No acute abnormality of the bowel demonstrated. No evidence of obstruction. There is moderate fluid distention of the stomach. 2. Stable cardiac enlargement. 3. Prostate enlargement, mildly improved. 4. Small bandlike area of high density along the posterior inferior wall of the bladder on this postcontrast exam could represent calcium/calcification. Focal wall enhancement such as can be seen with urothelial neoplasm cannot be excluded on this exam. Follow-up CT with pre-and post imaging could be considered, versus cystoscopy. 5. Additional chronic findings, as above. RADIA
[2020-01-14] MEDS: SODIUM CHLORIDE 0.9% 1,000 ML IV SCH (15:16)
[2020-01-14] MEDS: SODIUM CHLORIDE FLUSH 0.9% 10 ML SYRINGE IVP PRN (15:16)
[2020-01-14 17:33] LABS: INR 3.3 (0.8-1.2); PT - PROTHROMBIN TIME 35.4 secs (9.9-12.6)
--- NOTE | 2020-01-14 17:44 | CONSULTATION NOTE ---
Referring Provider Name of Referring Provider:: ED Dr. Funk Consult Date: 01/14/20 Chief Complaint - Chief Complaint Chief Complaint: vomiting blood History of Present Illness - History of Present Illness HPI Comment/Other: 79yo M brought to hospital by gifted program teacher after several bouts of vomiting which included dark blood. He is a bit difficult to get a clear story from but he says he was experiencing 'personal issues' a few days ago and has not eaten much so he felt ill and started to vomit. He has never had blood in stools or vomit before. He is a remote smoker and says he is not a heavy drinker. No history of reflux or abd pain other than very intermittently. He is an unclear historian but does not state much in the way of medical or surgical history. He is on coumadin and has been for 15 years since he had a mechanical heart valve placed. He frequently has trouble with INR being off the teresita; it is currently 4.1. He has never had upper endoscopy but did have a flex sig around 15 years ago. History - Past Medical History Cardiovascular: reports: Hypertension Endocrine/Autoimmune: reports: Type 2 diabetes Psych: reports: Depression MRSA Hx?: No - Past Surgical History Cardiovascular: reports: Valve replacement (mechanical (Luanne's) valve) - Substance History Tobacco Details: Other (remote smoker) - POLST Patient has POLST: No Meds/Allgy - Home Medications Home Medications: Ambulatory Orders Medication Instructions Recorded Confirmed Carvedilol 1 tab BID 11/15/14 08/29/17 Doxazosin [Cardura] 8 mg DAILY 11/15/14 08/29/17 Hydrochlorothiazide 1 tab DAILY 11/15/14 08/29/17 Loratadine [Claritin] 1 tab DAILY PRN 11/15/14 08/29/17 Losartan [Cozaar] 2 tab DAILY 11/15/14 08/29/17 Phenazopyridine [Pyridium] 200 mg PO TID 6 Days tablet 11/15/14 08/29/17 Warfarin [Coumadin] 1 tab DAILY 11/15/14 08/29/17 lisinopriL [Lisinopril] 1 tab DAILY 11/15/14 08/29/17 metFORMIN [Glucophage] 250 mg DAILY 11/15/14 08/29/17 Amoxicillin 1 tab PO DAILY 08/29/17 08/29/17 Cephalexin [Keflex] 500 mg PO Q6HR #28 capsule 08/29/17 Furosemide 1 tab PO DAILY 08/29/17 08/29/17 Terbinafine HCl [Lamisil] 1 applic TP BID #1 spray 08/29/17 Cephalexin [Keflex] 500 mg PO Q6H #40 capsule 07/25/19 Furosemide [Lasix] 40 mg PO DAILY #7 tablet 07/25/19 - Allergies Allergies/Adverse Reactions: Allergies Allergy/AdvReac Type Severity Reaction Status Date / Time No Known Drug Allergies Allergy Verified 01/14/20 13:04 Review of Systems - Constitutional Constitutional: reports: Poor appetite - Gastrointestinal Gastrointestinal: reports: Nausea, Vomiting, Coffee grounds emesis - Psychiatric Psychiatric: reports: Other (loss of appetite due to emotional issues) - All Other Systems All Other Systems: reports: Reviewed and negative Exam - Vital Signs Reviewed Vital Signs: Yes Vital Signs: Vital Signs x48h Temp Pulse Pulse Resp BP BP Pulse Ox 01/14/20 15:13 37.4 C 95 22 162/76 H 93 01/14/20 14:57 36.2 C L 87 17 147/74 H 01/14/20 14:49 88 24 152/83 H 94 01/14/20 14:48 37.2 C 83 27 H 152/83 H 01/14/20 14:35 36 C L 92 22 154/62 H 01/14/20 14:29 36 C L 86 22 154/62 H 01/14/20 13:07 86 24 149/77 H 92 01/14/20 12:42 37 C 85 28 H 161/94 H 93 - Physical Exam Comments/Other: AAO, NAD, obese male; strong body odor EOMI, MMM unlabored RA soft, nt/nd MAEW Conclusion and Plan - Lab Results Laboratory Results 01/14/20 17:20: PT 35.4 H, INR 3.3 H 01/14/20 14:26: Whole Blood INR 4.1 H 01/14/20 13:59: Urine Color YELLOW, Urine Clarity CLEAR, Urine pH 7.0, Ur Specific [place] 1.010, Urine Protein NEGATIVE, Urine Glucose (UA) NEGATIVE, Urine Ketones TRACE, Urine Occult Blood TRACE-INTA, Urine Nitrite NEGATIVE, Urine Bilirubin NEGATIVE, Urine Urobilinogen 0.2 (NORMAL), Ur Leukocyte Esterase TRACE H, Urine RBC 0-5, Urine WBC 0-3, Ur Squamous Epith Cells RARE Squamous, Urine Bacteria Rare, Ur Microscopic Review INDICATED, Urine Culture Comments INDICATED 01/14/20 12:46: Blood Type A POSITIVE, Antibody Screen NEGATIVE 01/14/20 12:46: PT 45.0 H, INR 4.3 H, APTT 40.4 H 01/14/20 12:46: Sodium 141, Potassium 3.8, Chloride 103, Carbon Dioxide 29, Anion Gap 9.0, BUN 47 H, Creatinine 0.8, Estimated GFR (MDRD) 93, Glucose 168 H, Calcium 9.3, Total Bilirubin 1.5 H, AST 24, ALT 23, Alkaline Phosphatase 56, Total Protein 7.4, Albumin 3.4, Globulin 4.0, Albumin/Globulin Ratio 0.9 L, Lipase 24 01/14/20 12:46: WBC 10.8, RBC 3.82 L, Hgb 12.4 L, Hct 38.2 L, MCV 100.0 H, MCH 32.5 H, MCHC 32.5, RDW 15.1 H, Plt Count 179, MPV 11.6 H, Neut # (Auto) 8.5 H, Lymph # (Auto) 1.3 L, [place] # (Auto) 0.9, Eos # (Auto) 0.0, Baso # (Auto) 0.0, Absolute Nucleated RBC 0.00, Nucleated RBC % 0.0 - Diagnostic Imaging Results Diagnostic Imaging Results: positive: Final report reviewed - Diagnosis Diagnosis: UGIB. supratherapeutic INR - Plan Plan: - no clear etiology for gastritis or ulcer disease but poor historian - supratherapeutic INR: getting FFP, not able to truly stop anticoagulation due to valve - plan for EGD tomorrow pending INR --> NPO at midnight, ok for CLD now from my standpoint - not on PPI at home
[2020-01-14 18:16] LABS: HGB - HEMOGLOBIN 10.8 g/dL (14.0-18.0); MEAN CORPUSCULAR HEMOGLOBIN 32.3 pg (27.0-31.0); MEAN CORPUSCULAR VOLUME 100.9 fL (80.0-94.0); MEAN PLATELET VOLUME 10.5 fL (7.4-11.4); RED BLOOD COUNT 3.34 10^6/uL (4.70-6.10); RED CELL DISTRIBUTION WIDTH 15.1 % (12.0-15.0); WHITE BLOOD COUNT 9.8 x10^3/uL (4.8-10.8)
[2020-01-14 18:21] LABS: INR 3.4 (0.8-1.2); PT - PROTHROMBIN TIME 35.7 secs (9.9-12.6)
[2020-01-14] MEDS: SODIUM CHLORIDE FLUSH 0.9% 10 ML SYRINGE IVP SCH (18:31)
[2020-01-14] MEDS: LOSARTAN 50 MG TABLET PO SCH (19:27)
--- NOTE | 2020-01-14 20:11 | ADVANCE CARE PLANNING NOTE ---
Advance Care Planning - Planning Encounter Date: 01/14/20 Time: 19:00 Purpose: establish code status Parties in Attendance: patient and hospitalist Decisional Capacity of the Patient: alert, oriented, but has cognitive deficit with suttering slow speech - Encounter Subjective/Patient's Story: He is 79 years old and was born in [place]. From [place] he immigrated to [place] within the [place]. He has been twice, has 2 daughters with his first and his son with a second . He has been from his second for probably 27 years. He is a loner. I did speak to the son on the phone before speaking to the patient and he is not taking care of himself. The house is a mess, the patient is not bathing, and he seems to be slowing down with regards to endurance. His second told her their son that dad was an alcoholic anonymous in the past. But he stopped going because "it was of no use to him". Patient states that he is drinking 2 glasses of wine every other day and 2 bottles of wine a week. He loves his home. [place] of [place]. His face lights up when he talks about this and tells me how happy he is to live there in solitude. He hopes to live there until he dies. He never wants to leave it. His sister sees him about once a week for lunch. She last saw him 2 days ago. He describes himself as a private person. Gets anxious when people come over to the house. Reluctantly admits that he is probably a hoarder, and has not been taking care of himself and his become bad with personal hygiene. However, he still drives a car. Drives to the [employer] or to [employer] to get groceries. Pays his own bills. Has hired a emergency planning and response manager to help him around the house and stoutly maintains that someone has been hired to do his laundry, and clean his house at least once a week. Son belies that history. He says that he divides his eating habits between eating out. His favorite restaurant is [employer] in [place]. Or he makes food in his own kitchen. Son states that he last saw his father 4 months ago and spoke to him on the phone 3 months ago. He feels that his father has not done well and tried to visit him. Father kept on putting him off. Finally son put his foot down and said dad "on coming over anyway" [place] He found the house in a mess. Hoarding. Bottles of wine and cases of it in the bedroom. The patient acknowledges that he has to get his life in order. At this rate, if he does not straighten up his house, make arrangements, he acknowledges that he may have to leave his home which is something he never wants to do. He acknowledges that his son, Uriah, is his power of attorney general by legal right. Although he does like the idea of us keeping in contact with his good friend, Nirav Molina. His son's phone number is [phone]. His sister's phone number is [phone]. And Nirav's phone number is [phone]. We discussed his CODE STATUS. He states that he wants to be resuscitated in the event of a cardiopulmonary arrest. We talked about the poor statistics with in- hospital resuscitation. I explained that he may not end up at the baseline status that he started out with. If that happens, he may need to hire in-home caregivers, or be placed in a fpc facility. He did not want to do that but states he is willing to do that if he has to. However, if after resuscitation he is "brain ", he wants us to let him go. He does not want to be kept alive. Objective/Medical Story: 79-year-old white male with morbid obesity. He appears to be an alcohol abuser, has a history of hypertension, diabetes, obstructive sleep apnea, bioprosthetic aortic valve approximately 2002. He lives alone, appears to have poor hygiene, lack of self-care, and appears to be a hoarder by description. He has been failing with regards to self-care, and letting people help him. While he denies being an alcoholic, he was in AA in the past. Denies any history of alcoholic liver disease, esophageal varices. He is on Coumadin. He presents to the emergency room with hematemesis since the day before. His son states that dad has been failing for at least 4 to 6 months for unknown reasons. Less endurance, more "puffy puffy" when he tries to walk. They had an argument 4 months ago and son has not seen him since. In the emergency room he is hemodynamically stable. His hemoglobin and hematocrit appear stable. INR is greater than 4. The plan is to reverse anticoagulation keeping in mind that his INR needs to stay relatively high because of his bioprosthetic aortic valve. Check serial hemoglobins and hematocrits. Surgery consult for EGD. Goals of Care: 1. To remain in his house for the rest of his life if he can 2. We will consider SNF placement if he is so disabled he can no longer do that 3. Get more help in the house to clean it up and make it so that he can be safely in his home 4. Be evaluated for the vomiting of blood Plan: Endoscopy to evaluate for varices. Check serial hemoglobins and transfuse as needed. Will acknowledge in chart that the patient is a full code and the reasons stated why. Code Status: Attempt Resuscitation Time spent on advance care plannin minutes
[2020-01-14] MEDS ORDERED: PHYTONADIONE 10 MG/ML AMP PO ONE (20:30)
[2020-01-14] MEDS ORDERED: CHERRY SYRUP 10 ML UDC PO ONE (20:30)
--- NOTE | 2020-01-14 21:41 | HISTORY & PHYSICAL EXAMINATION ---
DATE OF SERVICE: 01/14/2020 Physician: Julianna Baltazar MD PRIMARY CARE PROVIDER: Jeanne Trujillo ADMITTING PROVIDER: Julianna Baltazar MD CHIEF COMPLAINT: Vomiting blood. HISTORY OF PRESENT ILLNESS: The patient is an 79-year-old male who is morbidly obese, lives in his own home and has been gently failing. History is obtained from the patient, as well as his son. The patient reluctantly endorses two bottles of wine a week or two large glasses of wine "every other day." He denies alcohol abuse, but his son states that dad has been in AA in the remote past. This is when he was still to his second according to the patient's son. He does not use non-steroidals. He states that he feels like "all of this" is due to an encounter with his mobility specialist, Crow, two days ago. Crow is a gentleman that he hires to do some light work around the house and the yard. Crow showed up intoxicated at his house on Saturday. there was an "incident", and ever since then, the patient feels like he has had epigastric discomfort. He feels like he is "always hungry." But even if he ate, it did not make him feel better and sometimes made him feel worse, so he was not eating or drinking very much. Last night, he started having emesis, and the emesis changed from just regular vomit to dark blood. He is on Coumadin and takes that because he has a mechanical valve. He denies any melanotic stool. He has never had vomiting of blood before. He has never been told that he has alcoholic liver disease. He was seen in the Emergency Room by Dr. Funk. He is a morbidly obese, alert and oriented white male, who was hemodynamically stable, other than mild tachycardia. Hemoglobin is relatively stable. His highest hemoglobin has been 14.2 in review of the medical record and right now, he is 12.4. In September 2019, he was 13.9. His MCV is elevated. He has chronic macrocytosis. No thrombocytopenia. General Surgery has been contacted. Dr. Freeman has seen the patient and we are admitting the patient to our service under observation status. She will be evaluating him for possible EGD over the next few hours. He has had no recent travel, is not taking any antibiotics, is not taking any non-steroidals, doesn't smoke. He attributes all of this to the severe stress of the incident in his home on Saturday. PAST MEDICAL HISTORY 1. Hypertension. 2. TIA, a little over a year ago for which he was seen in our Emergency Room, but never admitted. 3. Aortic valve replacement, approximately 2002. Followed by Jacqui Mccracken MD. His last echocardiogram September 2019 showed an ejection fraction of 65- 70%. Right ventricular systolic pressure of 53 mmHg, and with moderate pulmonary hypertension. His aortic bioprosthetic valve was a good situation with minimal gradient of 3 mm. 4. Benign prostatic hypertrophy with a UTI admission October 2014. 5. 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 6. Chronic leg edema with an episode of cellulitis, treated in the outpatient setting in June 2019. MEDICATIONS 1. Carvedilol 25 b.i.d. 2. Cardura 8 mg daily. 3. Hydrochlorothiazide daily. 4. Claritin daily. 5. Cozaar 50 mg tablets, 2 tablets daily. 6. Coumadin, unknown dose, 1 tablet daily. 7. Metformin 250 mg daily. 8. He is also on lisinopril, but he is not sure if he is really on that tablet or not. Medication reconciliation needs to occur with pharmacy and I will confer with pharmacy again at a later date. ALLERGIES: NO KNOWN DRUG ALLERGIES. SOCIAL HISTORY: He is from [place]. Left [place] in his 20s and moved to [place] and then from [place] to [facility]. He has lived on [facility] ever since he got work, working on the [employer] system for 20 years. He has been twice. from both wives. With his first , he had two daughters who live in [place], probably [place] and [place]. With his second , he has a son who lives in the [place] area. He denies any tobacco use in the past. Alcohol use is two bottles a week of wine and two glasses of wine every other day. He is most likely underestimating this use after speaking to his son, who describes a bedroom full of used bottles of wine, as well as cases of bottles of wine still yet to be drank. FAMILY HISTORY: Dad at age 57 of an unknown type of cancer that was diffusely metastatic at his . Mom at age 72 with alcoholism. He has one sister, Tabitha, who he describes as healthy. He is not in contact with his two older daughters, but he thinks they are healthy. He thinks his son is healthy. REVIEW OF SYSTEMS GENERAL: He denies any recent weight changes, constitutional complaints of sweats or fevers. ENT: Vision is occasionally blurred, he is developing presbyopia he thinks. He denies dysphagia or dysarthria. Sometimes he has problems finding words. The more stressed out he is, the harder it is for him to speak. PULMONARY: He denies cough, wheezing, chest congestion. CARDIOVASCULAR: He has chronic pedal edema and chronic changes of his legs with that. That is unchanged. He denies orthopnea, chest pain, palpitations, or s change in his heart rhythm. He acknowledges that is getting harder and harder for him to do things. His son describes him as being with diminished endurance and more dyspneic on exertion than the last time he was seen four months ago. The patient will agree with that. He uses a cane at home. GASTROINTESTINAL: Denies melena. Hematemesis started last night. Epigastric pain started two days ago. Denies any other generalized abdominal pain and had a flexible sigmoidoscopy years ago. Denies any other abdominal pain until two days ago. GENITOURINARY: He has urgency, frequency, but no dysuria. He has nocturia, decreased stream. No flank pain. This status is unchanged over several months, if not years. JOINTS: Kind of hurts all over. Hard to pin down what exactly the problem is, but all of this worsened when his mobility specialist showed up drunk on Saturday. He just has a general sense of arthralgias and myalgias, but no specific joint effusions. SKIN: Easily bruised. No new rashes. PSYCHIATRIC: He says that change is difficult for him. Just having his mobility specialist have a confrontation with his sister deeply upset him. He will deteriorate with regard to speech patterns and memory because of this. He states that he probably is a hoarder, is not taking care of himself very well, probably has not had a bath in close to a week. When I speak to his son, son endorses that dad is most likely a hoarder. One of the reasons he and his father have had an argument is that his father kept putting off seeing him. He kept on saying that his house was not clean enough for his son to see him. It had been several months since his son saw him, so finally son put his foot down and said "dad, I am coming over." Found the bedroom with the creases of empty wine and full wine bottles. That was the last time they saw each other, was about four months ago after the argument. APPEALS BOARD REFEREE:The patient says that he has no real problems with memory, but does have a problem walking around because his feet are numb. Denies seizures or syncope. Denies alcohol withdrawal. PHYSICAL EXAMINATION GENERAL: He is a slow moving, slow speaking, slightly stuttering, white male with probable cognitive deficits. He is 6 feet tall, weighs 131.5 kilograms and is very disheveled and malodorous. HEENT: Shows bad dentition, unshaven, stringy hair, but normal facial symmetry. Oral mucosa is pink and moist. NECK: Shotty adenopathy. Thick neck and difficult to assess for JVD, but none seen. No bruit. No goiter palpable. LUNGS: Diminished breath sounds at the bases without crackles, rhonchi or wheezing. As he gets up out of the bed to sit up and let me examine him, there is a little bit of increased respiratory effort, but quickly resolves within 1-2 breaths of sitting up and being stable. HEART: PMI is not palpable, distant cardiac tones with a regular rate and rhythm. ABDOMEN: Obese, soft, nontender. Difficult to assess for organomegaly and I am not able to palpate a fluid wave. Underneath the pannus, there is dirt, mild Meghan intertrigo. EXTREMITIES: Large legs, pitting edema. Again, poor hygiene of the toes and feet. Minimal pinkness of venous stasis. No skin breakdown. NEUROLOGIC: With effort, he is able to grunt himself up to a sitting position. Cooperative with my exam with no focal deficits. The main thing I am noticing is deafness, psychomotor slowing, word finding difficulty. IMAGING: Abdomen and pelvis CT shows mild bibasilar probable atelectasis, scarring or fibrosis. Stable small right lower lobe nodule when compared to 2016 CT. Cardiac enlargement. Aortic valve replacement. Median sternotomy changes. Mild diffuse fatty liver. No masses. No free fluid or free air in the peritoneal cavity. Multiple subcentimeter periaortic and pelvic lymph nodes. No masses. Moderate gastric fluid distention. No bowel dilatation. Just left of the midline along the posterior inferior floor of the bladder, there is a band-like high density measuring 4 x 17 x 13 mm. Layering tiny stones or milk of calcium is a consideration. Bladder wall calcification is not excluded. Focal abnormal bladder wall enhancement such as seen in the setting of urothelial carcinoma cannot be excluded. This was not present previously. Moderate prostate enlargement has improved with this CT. Small fat-containing umbilical hernia and left larger than right fat-containing inguinal hernias present. LABORATORY: Sodium 141, potassium 3.8, BUN 47, creatinine 0.8, random glucose 168, total bilirubin 1.5. INR is 4.3. Given FFP and INR is 3.3 and then 3.4. White cell count is 10.8. Hemoglobin 12.4. Repeat hemoglobin 6 hours later is 10.8. MCV is 100. Platelet count is 179. Urinalysis has trace leukocyte esterase, trace ketones. Rare squamous cells and rare bacteria. ASSESSMENT/PLAN 1. Hematemesis. In a gentleman who does not take non-steroidals, does not smoke, but does have a history of alcohol abuse, I would think that the differential would include gastritis (alcoholic), esophagitis, or esophageal variceal bleeding. PLAN a. Observation status. b. ATTESTATION that the patient will be discharged within 96 hours. c. Surgery consult with possible EGD in the morning. d. N.p.o. after midnight. e. Clear liquid diet. f. Reversal of INR. He has been given FFP. I will give him oral vitamin K tonight at 2.5 mg and repeat INR in the morning. 2. Alcohol abuse. The patient feels that "culturally" [facility] is much more forgiving. He would not regard this as alcohol abuse. Nevertheless, I explained to him that alcohol use in a patient with Coumadin use is contraindicated. In spite of his cultural beliefs, he is probably drinking too much right now. He denies a history of alcohol withdrawal. PLAN a. I will give him a banana bag. b. Encouraged to stop drinking. c. If he gets tachycardic and hypertensive, consider CIWA protocol. 3. Anxiety disorder. At this time, unknown type. He exhibits hoarding by description, anxiety with people coming into the house and helping clean, and has become a slight danger to himself with regard to self neglect. He is disheveled, is malodorous, and does not appear to have a good social support system in that he refuses to let people into his house. PLAN: Social work consult. 4. Status post aortic valve replacement. He has a bioprosthetic valve. Reversal of anticoagulation will need to be bridged if he drops below 2. I have discussed this with surgery. I would like him to be at an INR of at least less than 2 during his stay so that surgery feels comfortable doing an EGD with an INR of 2. With FFP, he has gone down to 3.4 INR. We will give him oral vitamin K tonight and recheck in the morning. If he drops below 2, he will need Lovenox and then quick resumption of Coumadin once the EGD is done (if it is done). 5. Hypertension. The patient will be resumed on his usual medications. 6. Type 2 diabetes mellitus, by history. Check A1c. In 2019, his glucoses, random, have all been in the 130s to 140s. Not severely elevated. As such, I do not think I am going to do a sliding scale. 7. Obstructive sleep apnea. Unfortunately, he did not bring his mask with him and he says he really does not use it at home right now. Anesthesia will need to take that into account, as will General Surgery if they do his endoscopy tomorrow. 8. FULL CODE status. Please see advanced care planning discussion. 9. Deep venous thrombosis prophylaxis will be BON zabala. TD: 01/14/2020 19:55 cc: Jeanne DENNIS
[2020-01-14] MEDS: carvediloL 12.5 MG TABLET PO SCH (21:44)
[2020-01-14] MEDS: DOXAZOSIN 4 MG TABLET PO SCH (21:44)
[2020-01-14] MEDS: ONDANSETRON 4 MG/2 ML VIAL IVP PRN (23:55)
[2020-01-15 00:28] LABS: HGB - HEMOGLOBIN 10.6 g/dL (14.0-18.0); MEAN CORPUSCULAR HEMOGLOBIN 32.3 pg (27.0-31.0); MEAN CORPUSCULAR HGB CONC 31.7 g/dL (32.0-36.0); MEAN CORPUSCULAR VOLUME 101.8 fL (80.0-94.0); MEAN PLATELET VOLUME 11.3 fL (7.4-11.4); RED BLOOD COUNT 3.28 10^6/uL (4.70-6.10); RED CELL DISTRIBUTION WIDTH 15.3 % (12.0-15.0); WHITE BLOOD COUNT 13.6 x10^3/uL (4.8-10.8)
[2020-01-15] MEDS: SODIUM CHLORIDE 0.9% 1,000 ML IV SCH ×2 (00:28→20:56)
[2020-01-15] MEDS: ONDANSETRON 4 MG/2 ML VIAL IVP PRN (02:54)
[2020-01-15 05:49] LABS: INR 3.3 (0.8-1.2); PT - PROTHROMBIN TIME 35.4 secs (9.9-12.6)
[2020-01-15 06:00] LABS: ALBUMIN 3.1 g/dL (3.2-5.5); BILIRUBIN,TOTAL 0.9 mg/dL (0.2-1.0); CALCIUM 8.6 mg/dL (8.5-10.3); CREATININE 0.7 mg/dL (0.6-1.2); TOTAL PROTEIN 6.2 g/dL (6.7-8.2)
[2020-01-15 06:09] LABS: HGB - HEMOGLOBIN 9.5 g/dL (14.0-18.0); MEAN CORPUSCULAR HEMOGLOBIN 32.3 pg (27.0-31.0); MEAN CORPUSCULAR HGB CONC 31.6 g/dL (32.0-36.0); MEAN CORPUSCULAR VOLUME 102.4 fL (80.0-94.0); MEAN PLATELET VOLUME 11.4 fL (7.4-11.4); RED BLOOD COUNT 2.94 10^6/uL (4.70-6.10); RED CELL DISTRIBUTION WIDTH 15.6 % (12.0-15.0); WHITE BLOOD COUNT 14.3 x10^3/uL (4.8-10.8)
[2020-01-15] MEDS: SODIUM CHLORIDE FLUSH 0.9% 10 ML SYRINGE IVP SCH ×3 (06:27→20:41)
[2020-01-15] MEDS ORDERED: PANTOPRAZOLE 40 MG VIAL IVP SCH (07:00)
[2020-01-15] MEDS ORDERED: LORazepam 2 MG/ML VIAL IVP STA (09:05)
[2020-01-15] MEDS: NYSTATIN POWDER 15 GM TOP SCH ×2 (09:16→20:42)
[2020-01-15] MEDS: MULTIVITAMIN 10 ML, THIAMINE INJ 100 MG, FOLIC ACID INJ 1 MG in D5.45NS W/20 MEQ KCL 1,... IV SCH (10:00)
--- NOTE | 2020-01-15 10:36 | PROVIDER PROGRESS NOTE ---
Subjective - Prog Note Date Prog Note Date: 01/15/20 Prog Note Time: 10:34 - Subjective Pt reports feeling: No change Objective - Vital Signs/Intake & Output Vital Signs: Vital Signs x48h Temp Pulse Pulse Pulse Resp BP BP 01/15/20 09:56 36.5 C 119 H 26 H 162/88 H 01/15/20 09:45 36.5 C 107 H 24 166/75 H 01/15/20 09:35 36.4 C L 115 H 26 H 157/65 H 01/15/20 09:30 36.4 C L 108 H 26 H 142/66 H 01/15/20 08:43 36.6 C 88 26 H 138/76 H 01/15/20 08:36 36.4 C L 91 26 H 120/62 01/15/20 08:26 36.5 C 93 22 142/67 H 01/15/20 08:18 37 C 100 22 149/79 H 01/15/20 08:16 37 C 94 20 149/79 H 01/15/20 05:40 93 01/15/20 03:14 36.5 C 86 20 152/78 H Pulse Ox 01/15/20 09:56 01/15/20 09:45 01/15/20 09:35 01/15/20 09:30 01/15/20 08:43 01/15/20 08:36 01/15/20 08:26 01/15/20 08:18 96 01/15/20 08:16 01/15/20 05:40 95 01/15/20 03:14 94 Intake & Output: Intake & Output 01/12/20 01/13/20 01/14/20 01/15/20 23:59 23:59 23:59 23:59 Intake Total 500 2420.33 Output Total 1900 800 Balance -1400 1620.33 - Objective General Appearance: positive: Other Respiratory: positive: No respiratory distress Cardiovascular: positive: Regular rate & rhythm Abdomen: positive: Non-tender, No distention - Lab Results Fish Bones: 01/15/20 05:15 01/15/20 05:15 Other Labs: Lab Results x24hrs 01/15/20 01/15/20 01/15/20 Range/Units 05:15 05:15 05:15 WBC 14.3 H (4.8-10.8) x10^3/uL RBC 2.94 L (4.70-6.10) 10^6/uL Hgb 9.5 L (14.0-18.0) g/dL Hct 30.1 L (42.0-52.0) % MCV 102.4 H (80.0-94.0) fL MCH 32.3 H (27.0-31.0) pg MCHC 31.6 L (32.0-36.0) g/dL RDW 15.6 H (12.0-15.0) % Plt Count 176 (130-450) 10^3/uL MPV 11.4 (7.4-11.4) fL Neut # (Auto) (1.5-6.6) 10^3/uL Lymph # (Auto) (1.5-3.5) 10^3/uL [place] # (Auto) (0.0-1.0) 10^3/uL Eos # (Auto) (0.0-0.7) 10^3/uL Baso # (Auto) (0.0-0.1) 10^3/uL Absolute Nucleated RBC x10^3/uL Nucleated RBC % /100WBC PT 35.4 H (9.9-12.6) secs INR 3.3 H (0.8-1.2) Whole Blood INR (0.8-1.2) APTT (24.9-33.3) secs Sodium 146 H (135-145) mmol/L Potassium 3.8 (3.5-5.0) mmol/L Chloride 115 H (101-111) mmol/L Carbon Dioxide 26 (21-32) mmol/L Anion Gap 5.0 L (6-13) BUN 54 H (6-20) mg/dL Creatinine 0.7 (0.6-1.2) mg/dL Estimated GFR (MDRD) 109 (>89) Glucose 167 H (70-100) mg/dL Calcium 8.6 (8.5-10.3) mg/dL Total Bilirubin 0.9 (0.2-1.0) mg/dL AST 21 (10-42) IU/L ALT 18 (10-60) IU/L Alkaline Phosphatase 42 (42-121) IU/L Total Protein 6.2 L (6.7-8.2) g/dL Albumin 3.1 L (3.2-5.5) g/dL Globulin 3.1 (2.1-4.2) g/dL Albumin/Globulin Ratio 1.0 (1.0-2.2) Lipase (22-51) U/L Urine Color Urine Clarity (CLEAR) Urine pH (5.0-7.5) PH Ur Specific Arion (1.002-1.030) Urine Protein (NEGATIVE) mg/dL Urine Glucose (UA) (NEGATIVE) mg/dL Urine Ketones (NEGATIVE) mg/dL Urine Occult Blood (NEGATIVE) Urine Nitrite (NEGATIVE) Urine Bilirubin (NEGATIVE) Urine Urobilinogen (NORMAL) E.U./dL Ur Leukocyte Esterase (NEGATIVE) Urine RBC (0-5) /HPF Urine WBC (0-3) /HPF Ur Squamous Epith Cells (<= Few) Urine Bacteria (None Seen) /HPF Ur Microscopic Review Urine Culture Comments Blood Type Blood Type Recheck Antibody Screen 01/15/20 01/14/20 01/14/20 Range/Units 00:10 18:08 18:08 WBC 13.6 H 9.8 (4.8-10.8) x10^3/uL RBC 3.28 L 3.34 L (4.70-6.10) 10^6/uL Hgb 10.6 L 10.8 L (14.0-18.0) g/dL Hct 33.4 L 33.7 L (42.0-52.0) % MCV 101.8 H 100.9 H (80.0-94.0) fL MCH 32.3 H 32.3 H (27.0-31.0) pg MCHC 31.7 L 32.0 (32.0-36.0) g/dL RDW 15.3 H 15.1 H (12.0-15.0) % Plt Count 176 162 (130-450) 10^3/uL MPV 11.3 10.5 (7.4-11.4) fL Neut # (Auto) (1.5-6.6) 10^3/uL Lymph # (Auto) (1.5-3.5) 10^3/uL [place] # (Auto) (0.0-1.0) 10^3/uL Eos # (Auto) (0.0-0.7) 10^3/uL Baso # (Auto) (0.0-0.1) 10^3/uL Absolute Nucleated RBC x10^3/uL Nucleated RBC % /100WBC PT 35.7 H (9.9-12.6) secs INR 3.4 H (0.8-1.2) Whole Blood INR (0.8-1.2) APTT (24.9-33.3) secs Sodium (135-145) mmol/L Potassium (3.5-5.0) mmol/L Chloride (101-111) mmol/L Carbon Dioxide (21-32) mmol/L Anion Gap (6-13) BUN (6-20) mg/dL Creatinine (0.6-1.2) mg/dL Estimated GFR (MDRD) (>89) Glucose (70-100) mg/dL Calcium (8.5-10.3) mg/dL Total Bilirubin (0.2-1.0) mg/dL AST (10-42) IU/L ALT (10-60) IU/L Alkaline Phosphatase (42-121) IU/L Total Protein (6.7-8.2) g/dL Albumin (3.2-5.5) g/dL Globulin (2.1-4.2) g/dL Albumin/Globulin Ratio (1.0-2.2) Lipase (22-51) U/L Urine Color Urine Clarity (CLEAR) Urine pH (5.0-7.5) PH Ur Specific Arion (1.002-1.030) Urine Protein (NEGATIVE) mg/dL Urine Glucose (UA) (NEGATIVE) mg/dL Urine Ketones (NEGATIVE) mg/dL Urine Occult Blood (NEGATIVE) Urine Nitrite (NEGATIVE) Urine Bilirubin (NEGATIVE) Urine Urobilinogen (NORMAL) E.U./dL Ur Leukocyte Esterase (NEGATIVE) Urine RBC (0-5) /HPF Urine WBC (0-3) /HPF Ur Squamous Epith Cells (<= Few) Urine Bacteria (None Seen) /HPF Ur Microscopic Review Urine Culture Comments Blood Type Blood Type Recheck Antibody Screen 01/14/20 01/14/20 01/14/20 Range/Units 17:20 17:20 14:26 WBC (4.8-10.8) x10^3/uL RBC (4.70-6.10) 10^6/uL Hgb (14.0-18.0) g/dL Hct (42.0-52.0) % MCV (80.0-94.0) fL MCH (27.0-31.0) pg MCHC (32.0-36.0) g/dL RDW (12.0-15.0) % Plt Count (130-450) 10^3/uL MPV (7.4-11.4) fL Neut # (Auto) (1.5-6.6) 10^3/uL Lymph # (Auto) (1.5-3.5) 10^3/uL [place] # (Auto) (0.0-1.0) 10^3/uL Eos # (Auto) (0.0-0.7) 10^3/uL Baso # (Auto) (0.0-0.1) 10^3/uL Absolute Nucleated RBC x10^3/uL Nucleated RBC % /100WBC PT 35.4 H (9.9-12.6) secs INR 3.3 H (0.8-1.2) Whole Blood INR 4.1 H (0.8-1.2) APTT (24.9-33.3) secs Sodium (135-145) mmol/L Potassium (3.5-5.0) mmol/L Chloride (101-111) mmol/L Carbon Dioxide (21-32) mmol/L Anion Gap (6-13) BUN (6-20) mg/dL Creatinine (0.6-1.2) mg/dL Estimated GFR (MDRD) (>89) Glucose (70-100) mg/dL Calcium (8.5-10.3) mg/dL Total Bilirubin (0.2-1.0) mg/dL AST (10-42) IU/L ALT (10-60) IU/L Alkaline Phosphatase (42-121) IU/L Total Protein (6.7-8.2) g/dL Albumin (3.2-5.5) g/dL Globulin (2.1-4.2) g/dL Albumin/Globulin Ratio (1.0-2.2) Lipase (22-51) U/L Urine Color Urine Clarity (CLEAR) Urine pH (5.0-7.5) PH Ur Specific Arion (1.002-1.030) Urine Protein (NEGATIVE) mg/dL Urine Glucose (UA) (NEGATIVE) mg/dL Urine Ketones (NEGATIVE) mg/dL Urine Occult Blood (NEGATIVE) Urine Nitrite (NEGATIVE) Urine Bilirubin (NEGATIVE) Urine Urobilinogen (NORMAL) E.U./dL Ur Leukocyte Esterase (NEGATIVE) Urine RBC (0-5) /HPF Urine WBC (0-3) /HPF Ur Squamous Epith Cells (<= Few) Urine Bacteria (None Seen) /HPF Ur Microscopic Review Urine Culture Comments Blood Type Blood Type Recheck A POSITIVE Antibody Screen 01/14/20 01/14/20 01/14/20 Range/Units 13:59 12:46 12:46 WBC (4.8-10.8) x10^3/uL RBC (4.70-6.10) 10^6/uL Hgb (14.0-18.0) g/dL Hct (42.0-52.0) % MCV (80.0-94.0) fL MCH (27.0-31.0) pg MCHC (32.0-36.0) g/dL RDW (12.0-15.0) % Plt Count (130-450) 10^3/uL MPV (7.4-11.4) fL Neut # (Auto) (1.5-6.6) 10^3/uL Lymph # (Auto) (1.5-3.5) 10^3/uL [place] # (Auto) (0.0-1.0) 10^3/uL Eos # (Auto) (0.0-0.7) 10^3/uL Baso # (Auto) (0.0-0.1) 10^3/uL Absolute Nucleated RBC x10^3/uL Nucleated RBC % /100WBC PT 45.0 H (9.9-12.6) secs INR 4.3 H (0.8-1.2) Whole Blood INR (0.8-1.2) APTT 40.4 H (24.9-33.3) secs Sodium (135-145) mmol/L Potassium (3.5-5.0) mmol/L Chloride (101-111) mmol/L Carbon Dioxide (21-32) mmol/L Anion Gap (6-13) BUN (6-20) mg/dL Creatinine (0.6-1.2) mg/dL Estimated GFR (MDRD) (>89) Glucose (70-100) mg/dL Calcium (8.5-10.3) mg/dL Total Bilirubin (0.2-1.0) mg/dL AST (10-42) IU/L ALT (10-60) IU/L Alkaline Phosphatase (42-121) IU/L Total Protein (6.7-8.2) g/dL Albumin (3.2-5.5) g/dL Globulin (2.1-4.2) g/dL Albumin/Globulin Ratio (1.0-2.2) Lipase (22-51) U/L Urine Color YELLOW Urine Clarity CLEAR (CLEAR) Urine pH 7.0 (5.0-7.5) PH Ur Specific Arion 1.010 (1.002-1.030) Urine Protein NEGATIVE (NEGATIVE) mg/dL Urine Glucose (UA) NEGATIVE (NEGATIVE) mg/dL Urine Ketones TRACE (NEGATIVE) mg/dL Urine Occult Blood TRACE-INTA (NEGATIVE) Urine Nitrite NEGATIVE (NEGATIVE) Urine Bilirubin NEGATIVE (NEGATIVE) Urine Urobilinogen 0.2 (NORMAL) (NORMAL) E.U./dL Ur Leukocyte Esterase TRACE H (NEGATIVE) Urine RBC 0-5 (0-5) /HPF Urine WBC 0-3 (0-3) /HPF Ur Squamous Epith Cells RARE Squamous (<= Few) Urine Bacteria Rare (None Seen) /HPF Ur Microscopic Review INDICATED Urine Culture Comments INDICATED Blood Type A POSITIVE Blood Type Recheck Antibody Screen NEGATIVE 01/14/20 01/14/20 Range/Units 12:46 12:46 WBC 10.8 (4.8-10.8) x10^3/uL RBC 3.82 L (4.70-6.10) 10^6/uL Hgb 12.4 L (14.0-18.0) g/dL Hct 38.2 L (42.0-52.0) % MCV 100.0 H (80.0-94.0) fL MCH 32.5 H (27.0-31.0) pg MCHC 32.5 (32.0-36.0) g/dL RDW 15.1 H (12.0-15.0) % Plt Count 179 (130-450) 10^3/uL MPV 11.6 H (7.4-11.4) fL Neut # (Auto) 8.5 H (1.5-6.6) 10^3/uL Lymph # (Auto) 1.3 L (1.5-3.5) 10^3/uL [place] # (Auto) 0.9 (0.0-1.0) 10^3/uL Eos # (Auto) 0.0 (0.0-0.7) 10^3/uL Baso # (Auto) 0.0 (0.0-0.1) 10^3/uL Absolute Nucleated RBC 0.00 x10^3/uL Nucleated RBC % 0.0 /100WBC PT (9.9-12.6) secs INR (0.8-1.2) Whole Blood INR (0.8-1.2) APTT (24.9-33.3) secs Sodium 141 (135-145) mmol/L Potassium 3.8 (3.5-5.0) mmol/L Chloride 103 (101-111) mmol/L Carbon Dioxide 29 (21-32) mmol/L Anion Gap 9.0 (6-13) BUN 47 H (6-20) mg/dL Creatinine 0.8 (0.6-1.2) mg/dL Estimated GFR (MDRD) 93 (>89) Glucose 168 H (70-100) mg/dL Calcium 9.3 (8.5-10.3) mg/dL Total Bilirubin 1.5 H (0.2-1.0) mg/dL AST 24 (10-42) IU/L ALT 23 (10-60) IU/L Alkaline Phosphatase 56 (42-121) IU/L Total Protein 7.4 (6.7-8.2) g/dL Albumin 3.4 (3.2-5.5) g/dL Globulin 4.0 (2.1-4.2) g/dL Albumin/Globulin Ratio 0.9 L (1.0-2.2) Lipase 24 (22-51) U/L Urine Color Urine Clarity (CLEAR) Urine pH (5.0-7.5) PH Ur Specific Arion (1.002-1.030) Urine Protein (NEGATIVE) mg/dL Urine Glucose (UA) (NEGATIVE) mg/dL Urine Ketones (NEGATIVE) mg/dL Urine Occult Blood (NEGATIVE) Urine Nitrite (NEGATIVE) Urine Bilirubin (NEGATIVE) Urine Urobilinogen (NORMAL) E.U./dL Ur Leukocyte Esterase (NEGATIVE) Urine RBC (0-5) /HPF Urine WBC (0-3) /HPF Ur Squamous Epith Cells (<= Few) Urine Bacteria (None Seen) /HPF Ur Microscopic Review Urine Culture Comments Blood Type Blood Type Recheck Antibody Screen Assessment/Plan - Problem List (1) Hematemesis Impression: Small emesis this am. no bm or bloody bm. slow decline in hct. hct 30 mental status change concerning for etoh withdrawal receiving second unit ffp for inr > 3 good urine out put and vitals agree with current treatment follow hcts plan urgent egd if he seems to have active bleeding. hold on egd for now given lack of active bleeding and mental status change if bleeding is minimal or has stopped plan elective egd as an out patient Qualifiers: Nausea presence: with nausea Qualified Code(s): K92.0 - Hematemesis Assess/Plan - Patient Problems Active Problems List: Current Active Problems Hematemesis (Acute) Over-anticoagulated (Acute) - Additional Planning Condition/Complexity: Stable Consult/Specialty: Surgery
[2020-01-15] MEDS: carvediloL 12.5 MG TABLET PO SCH ×2 (11:47→20:42)
[2020-01-15] MEDS: LOSARTAN 50 MG TABLET PO SCH (11:47)
[2020-01-15 12:05] LABS: MEAN CORPUSCULAR HEMOGLOBIN 32.7 pg (27.0-31.0); MEAN CORPUSCULAR HGB CONC 31.7 g/dL (32.0-36.0); MEAN CORPUSCULAR VOLUME 102.9 fL (80.0-94.0); MEAN PLATELET VOLUME 11.2 fL (7.4-11.4); RED BLOOD COUNT 2.45 10^6/uL (4.70-6.10); RED CELL DISTRIBUTION WIDTH 15.8 % (12.0-15.0)
--- NOTE | 2020-01-15 12:15 | CONSULTATION NOTE ---
Consultation Report: I came into see this patient today. He has had some hematemesis and some drop in his HnH. EGD was recommended by the surgery. This patient is very likely an alcoholic and going through ETOH withdrawals right now. Dr Perkins requested that I see the patient. he thinks that the patient is not actively bleeding right now. As per nursing, he is confused, trying to get out of bed. He has been given some ativan. He is sleeping in the bed, barely opened his eyes when I called him, Does not follow commands. He is morbidly obese, has sleep apnea. He is on O2 via NC. He had a small emesis this morning at 0600. My concern as far as anesthesia goes is that there is a high likely durant of having to intubate him today to maintain his airway keeping his current condition/mentation in mind. I spoke with the hospitalist and she graciously agreed to move the EGD to tomorrow. Dr Perkins agrees as well. Please see Dr Perkins note. I have requested the hospitalist to hold any long acting sedatives and keep him NPO after midnight. I am hoping that his mentation will be a little improved tomorrow. Also, if he does not have anymore emesis that also decreases the chances of having to endotracheally intubate him.
--- NOTE | 2020-01-15 13:34 | PROVIDER PROGRESS NOTE ---
Subjective - Prog Note Date Prog Note Date: 01/15/20 Prog Note Time: 13:32 - Subjective Subjective: this morning wouldn't be promted and was starting to resist IV, treatment, disoriented. given 2 mg ativan and now sedated. slowly waking up. His hb has dropped but no emesis or melena. BP stable. Current Medications - Current Medications Current Medications: Active Medications Carvedilol (Coreg) 25 mg PO BID COUNTS INCLUDE 234 BEDS AT THE [facility] Last Admin: 01/15/20 11:47 Dose: Not Given Doxazosin Mesylate (Cardura) 4 mg PO QPM COUNTS INCLUDE 234 BEDS AT THE [facility] Last Admin: 01/14/20 21:44 Dose: 4 mg Sodium Chloride (Normal Saline 0.9%) 1,000 mls @ 100 mls/hr IV .Q10H COUNTS INCLUDE 234 BEDS AT THE [facility] Last Infusion: 01/15/20 10:03 Dose: Infused Multivitamins 10 ml/ Thiamine HCl 100 mg/ Folic Acid 1 mg/Potassium Chloride/Dextrose/Sod Cl 1,011.2 mls @ 100 mls/hr IV DAILY COUNTS INCLUDE 234 BEDS AT THE [facility] Last Admin: 01/15/20 10:00 Dose: 100 mls/hr Losartan Potassium (Cozaar) 50 mg PO DAILY COUNTS INCLUDE 234 BEDS AT THE [facility] Last Admin: 01/15/20 11:47 Dose: Not Given Nystatin (Nystop) 1 applic TOP BID COUNTS INCLUDE 234 BEDS AT THE [facility] Last Admin: 01/15/20 09:16 Dose: 1 applic Ondansetron HCl (Zofran Inj) 4 mg IVP Q6HR PRN PRN Reason: Nausea / Vomiting Last Admin: 01/14/20 23:55 Dose: 4 mg Ondansetron HCl (Zofran Odt) 4 mg TL Q6HR PRN PRN Reason: Nausea / Vomiting Last Admin: 01/14/20 19:30 Dose: 4 mg Pantoprazole Sodium (Protonix) 40 mg IVP QDAC COUNTS INCLUDE 234 BEDS AT THE [facility] Last Admin: 01/15/20 06:28 Dose: 40 mg Sodium Chloride (Normal Saline Flush 0.9%) 10 ml IVP PRN PRN PRN Reason: NEEDED PER PROVIDER ORDERS Last Admin: 01/14/20 15:16 Dose: 10 ml Sodium Chloride (Normal Saline Flush 0.9%) 10 ml IVP 0100,0900,1700 COUNTS INCLUDE 234 BEDS AT THE [facility] Last Admin: 01/15/20 10:02 Dose: 10 ml Carvedilol 25 mg PO BID 11/15/14 Doxazosin [Cardura] 8 mg PO DAILY 11/15/14 Losartan [Cozaar] 100 mg PO DAILY 11/15/14 Warfarin [Coumadin] 5 mg PO DAILY 11/15/14 metFORMIN [Glucophage] 250 mg DAILY 11/15/14 Albuterol Sulf [Ventolin Hfa Inhaler] 2 puffs INH Q4H 01/15/20 Finasteride 5 mg PO DAILY 01/15/20 Fluticasone/Salmeterol [Advair Hfa 230-21 Mcg Inhaler] 2 puffs INH BID 01/15/20 Fluticasone/Umeclidin/Vilanter [Trelegy Ellipta 100-62.5-25] 1 puffs INH DAILY 01/15/20 Mometasone Furoate [Asmanex Hfa] 2 puffs INH BID 01/15/20 Sertraline [Zoloft] 50 mg PO DAILY 01/15/20 Objective - Vital Signs/Intake & Output Reviewed Vital Signs: Yes Vital Signs: Vital Signs x48h Temp Pulse Pulse Pulse Resp BP BP 01/15/20 12:20 36.6 C 108 H 28 H 153/80 H 01/15/20 09:56 36.5 C 119 H 26 H 162/88 H 01/15/20 09:45 36.5 C 107 H 24 166/75 H 01/15/20 09:35 36.4 C L 115 H 26 H 157/65 H 01/15/20 09:30 36.4 C L 108 H 26 H 142/66 H 01/15/20 08:43 36.6 C 88 26 H 138/76 H 01/15/20 08:36 36.4 C L 91 26 H 120/62 01/15/20 08:26 36.5 C 93 22 142/67 H 01/15/20 08:18 37 C 100 22 149/79 H 01/15/20 08:16 37 C 94 20 149/79 H 01/15/20 05:40 93 Pulse Ox 01/15/20 12:20 94 01/15/20 09:56 01/15/20 09:45 01/15/20 09:35 01/15/20 09:30 01/15/20 08:43 01/15/20 08:36 01/15/20 08:26 01/15/20 08:18 96 01/15/20 08:16 01/15/20 05:40 95 Intake & Output: Intake & Output 01/12/20 01/13/20 01/14/20 01/15/20 23:59 23:59 23:59 23:59 Intake Total 500 2420.33 Output Total 1900 800 Balance -1400 1620.33 - Objective General Appearance: positive: No acute distress, Lethargic Eyes Bilateral: positive: PERRL Neck: positive: Other (difficult to assess for JVD due to thick neck). negative: Stiff neck Respiratory: positive: Chest non-tender, Other (sonorous respiration in obese man with CALEB). negative: Wheezes, Rales, Rhonchi Cardiovascular: positive: Regular rate & rhythm. negative: Systolic murmur, Gallop/S4, Friction rub Abdomen: positive: Non-tender, Nml bowel sounds, No distention. negative: Guarding, Rebound Skin: positive: Warm, Dry Extremities: positive: Pedal edema (mild) Neurologic/Psychiatric: positive: Motor nml, Disoriented to person, Disoriented to place, Disoriented to time - Lab Results Fish Bones: 01/15/20 11:50 01/15/20 05:15 Other Labs: Lab Results x24hrs 01/15/20 01/15/20 01/15/20 Range/Units 11:50 05:15 05:15 WBC 14.0 H 14.3 H (4.8-10.8) x10^3/uL RBC 2.45 L 2.94 L (4.70-6.10) 10^6/uL Hgb 8.0 L 9.5 L (14.0-18.0) g/dL Hct 25.2 L 30.1 L (42.0-52.0) % MCV 102.9 H 102.4 H (80.0-94.0) fL MCH 32.7 H 32.3 H (27.0-31.0) pg MCHC 31.7 L 31.6 L (32.0-36.0) g/dL RDW 15.8 H 15.6 H (12.0-15.0) % Plt Count 159 176 (130-450) 10^3/uL MPV 11.2 11.4 (7.4-11.4) fL PT (9.9-12.6) secs INR (0.8-1.2) Whole Blood INR (0.8-1.2) Sodium 146 H (135-145) mmol/L Potassium 3.8 (3.5-5.0) mmol/L Chloride 115 H (101-111) mmol/L Carbon Dioxide 26 (21-32) mmol/L Anion Gap 5.0 L (6-13) BUN 54 H (6-20) mg/dL Creatinine 0.7 (0.6-1.2) mg/dL Estimated GFR (MDRD) 109 (>89) Glucose 167 H (70-100) mg/dL Calcium 8.6 (8.5-10.3) mg/dL Total Bilirubin 0.9 (0.2-1.0) mg/dL AST 21 (10-42) IU/L ALT 18 (10-60) IU/L Alkaline Phosphatase 42 (42-121) IU/L Total Protein 6.2 L (6.7-8.2) g/dL Albumin 3.1 L (3.2-5.5) g/dL Globulin 3.1 (2.1-4.2) g/dL Albumin/Globulin Ratio 1.0 (1.0-2.2) Urine Color Urine Clarity (CLEAR) Urine pH (5.0-7.5) PH Ur Specific [place] (1.002-1.030) Urine Protein (NEGATIVE) mg/dL Urine Glucose (UA) (NEGATIVE) mg/dL Urine Ketones (NEGATIVE) mg/dL Urine Occult Blood (NEGATIVE) Urine Nitrite (NEGATIVE) Urine Bilirubin (NEGATIVE) Urine Urobilinogen (NORMAL) E.U./dL Ur Leukocyte Esterase (NEGATIVE) Urine RBC (0-5) /HPF Urine WBC (0-3) /HPF Ur Squamous Epith Cells (<= Few) Urine Bacteria (None Seen) /HPF Ur Microscopic Review Urine Culture Comments Blood Type Blood Type Recheck Antibody Screen 01/15/20 01/15/20 01/14/20 Range/Units 05:15 00:10 18:08 WBC 13.6 H 9.8 (4.8-10.8) x10^3/uL RBC 3.28 L 3.34 L (4.70-6.10) 10^6/uL Hgb 10.6 L 10.8 L (14.0-18.0) g/dL Hct 33.4 L 33.7 L (42.0-52.0) % MCV 101.8 H 100.9 H (80.0-94.0) fL MCH 32.3 H 32.3 H (27.0-31.0) pg MCHC 31.7 L 32.0 (32.0-36.0) g/dL RDW 15.3 H 15.1 H (12.0-15.0) % Plt Count 176 162 (130-450) 10^3/uL MPV 11.3 10.5 (7.4-11.4) fL PT 35.4 H (9.9-12.6) secs INR 3.3 H (0.8-1.2) Whole Blood INR (0.8-1.2) Sodium (135-145) mmol/L Potassium (3.5-5.0) mmol/L Chloride (101-111) mmol/L Carbon Dioxide (21-32) mmol/L Anion Gap (6-13) BUN (6-20) mg/dL Creatinine (0.6-1.2) mg/dL Estimated GFR (MDRD) (>89) Glucose (70-100) mg/dL Calcium (8.5-10.3) mg/dL Total Bilirubin (0.2-1.0) mg/dL AST (10-42) IU/L ALT (10-60) IU/L Alkaline Phosphatase (42-121) IU/L Total Protein (6.7-8.2) g/dL Albumin (3.2-5.5) g/dL Globulin (2.1-4.2) g/dL Albumin/Globulin Ratio (1.0-2.2) Urine Color Urine Clarity (CLEAR) Urine pH (5.0-7.5) PH Ur Specific [place] (1.002-1.030) Urine Protein (NEGATIVE) mg/dL Urine Glucose (UA) (NEGATIVE) mg/dL Urine Ketones (NEGATIVE) mg/dL Urine Occult Blood (NEGATIVE) Urine Nitrite (NEGATIVE) Urine Bilirubin (NEGATIVE) Urine Urobilinogen (NORMAL) E.U./dL Ur Leukocyte Esterase (NEGATIVE) Urine RBC (0-5) /HPF Urine WBC (0-3) /HPF Ur Squamous Epith Cells (<= Few) Urine Bacteria (None Seen) /HPF Ur Microscopic Review Urine Culture Comments Blood Type Blood Type Recheck Antibody Screen 01/14/20 01/14/20 01/14/20 Range/Units 18:08 17:20 17:20 WBC (4.8-10.8) x10^3/uL RBC (4.70-6.10) 10^6/uL Hgb (14.0-18.0) g/dL Hct (42.0-52.0) % MCV (80.0-94.0) fL MCH (27.0-31.0) pg MCHC (32.0-36.0) g/dL RDW (12.0-15.0) % Plt Count (130-450) 10^3/uL MPV (7.4-11.4) fL PT 35.7 H 35.4 H (9.9-12.6) secs INR 3.4 H 3.3 H (0.8-1.2) Whole Blood INR (0.8-1.2) Sodium (135-145) mmol/L Potassium (3.5-5.0) mmol/L Chloride (101-111) mmol/L Carbon Dioxide (21-32) mmol/L Anion Gap (6-13) BUN (6-20) mg/dL Creatinine (0.6-1.2) mg/dL Estimated GFR (MDRD) (>89) Glucose (70-100) mg/dL Calcium (8.5-10.3) mg/dL Total Bilirubin (0.2-1.0) mg/dL AST (10-42) IU/L ALT (10-60) IU/L Alkaline Phosphatase (42-121) IU/L Total Protein (6.7-8.2) g/dL Albumin (3.2-5.5) g/dL Globulin (2.1-4.2) g/dL Albumin/Globulin Ratio (1.0-2.2) Urine Color Urine Clarity (CLEAR) Urine pH (5.0-7.5) PH Ur Specific [place] (1.002-1.030) Urine Protein (NEGATIVE) mg/dL Urine Glucose (UA) (NEGATIVE) mg/dL Urine Ketones (NEGATIVE) mg/dL Urine Occult Blood (NEGATIVE) Urine Nitrite (NEGATIVE) Urine Bilirubin (NEGATIVE) Urine Urobilinogen (NORMAL) E.U./dL Ur Leukocyte Esterase (NEGATIVE) Urine RBC (0-5) /HPF Urine WBC (0-3) /HPF Ur Squamous Epith Cells (<= Few) Urine Bacteria (None Seen) /HPF Ur Microscopic Review Urine Culture Comments Blood Type Blood Type Recheck A POSITIVE Antibody Screen 01/14/20 01/14/20 01/14/20 Range/Units 14:26 13:59 12:46 WBC (4.8-10.8) x10^3/uL RBC (4.70-6.10) 10^6/uL Hgb (14.0-18.0) g/dL Hct (42.0-52.0) % MCV (80.0-94.0) fL MCH (27.0-31.0) pg MCHC (32.0-36.0) g/dL RDW (12.0-15.0) % Plt Count (130-450) 10^3/uL MPV (7.4-11.4) fL PT (9.9-12.6) secs INR (0.8-1.2) Whole Blood INR 4.1 H (0.8-1.2) Sodium (135-145) mmol/L Potassium (3.5-5.0) mmol/L Chloride (101-111) mmol/L Carbon Dioxide (21-32) mmol/L Anion Gap (6-13) BUN (6-20) mg/dL Creatinine (0.6-1.2) mg/dL Estimated GFR (MDRD) (>89) Glucose (70-100) mg/dL Calcium (8.5-10.3) mg/dL Total Bilirubin (0.2-1.0) mg/dL AST (10-42) IU/L ALT (10-60) IU/L Alkaline Phosphatase (42-121) IU/L Total Protein (6.7-8.2) g/dL Albumin (3.2-5.5) g/dL Globulin (2.1-4.2) g/dL Albumin/Globulin Ratio (1.0-2.2) Urine Color YELLOW Urine Clarity CLEAR (CLEAR) Urine pH 7.0 (5.0-7.5) PH Ur Specific [place] 1.010 (1.002-1.030) Urine Protein NEGATIVE (NEGATIVE) mg/dL Urine Glucose (UA) NEGATIVE (NEGATIVE) mg/dL Urine Ketones TRACE (NEGATIVE) mg/dL Urine Occult Blood TRACE-INTA (NEGATIVE) Urine Nitrite NEGATIVE (NEGATIVE) Urine Bilirubin NEGATIVE (NEGATIVE) Urine Urobilinogen 0.2 (NORMAL) (NORMAL) E.U./dL Ur Leukocyte Esterase TRACE H (NEGATIVE) Urine RBC 0-5 (0-5) /HPF Urine WBC 0-3 (0-3) /HPF Ur Squamous Epith Cells RARE Squamous (<= Few) Urine Bacteria Rare (None Seen) /HPF Ur Microscopic Review INDICATED Urine Culture Comments INDICATED Blood Type A POSITIVE Blood Type Recheck Antibody Screen NEGATIVE ABX Reporting Has patient been on IV antibiotics over the past 48 hours?: No Assessment/Plan - Problem List (1) Hematemesis Impression: General surgery has seen the patient in consultation. Anesthesia has also evaluated him. Due to his sedation with Ativan this morning, they feel that he is too sleepy to undergo the procedure safely. He would have to be intubated. General surgery is leaning toward not scoping him at all but will see how he is exam does over the next day. So far the patient has not had any further hematemesis. He did have emesis this morning in spite of being n.p.o. since midnight. He has not had any black tarry stools. At this time source of bleeding is undocumented. He is an alcoholic so the idea of alcoholic gastritis or esophageal varices are at the forefront. Hemoglobin started at 12.4 on admission and he then went to 10.8> 10.6> 9.5> 8.0 Plan: Continue observation status after discussing with case management Continue to check hemoglobin and hematocrit but decrease interval to every 8 hours -Continue Protonix -Maintain n.p.o. for the rest of the day per request of anesthesia -Reevaluate with surgery and anesthesia tomorrow to see if he can go to scope tomorrow. Qualifiers: Nausea presence: with nausea Qualified Code(s): K92.0 - Hematemesis (2) Supratherapeutic INR Impression: He received FFP in the emergency room, then vitamin K last night, this morning he was 3.3. Received more FFP with the idea that he was going to the OR today for endoscopy. Since he is not going to the OR, will recheck INR, bridge with Lovenox. (3) Aortic valve prosthesis present Impression: Risk of emboli is 4% in a non anticoagulated aortic valve. 2% with use of aspirin, less than 1% with Coumadin. At this time, I will check his INR. Bridge with Lovenox if necessary. Plan for possibility of scope tomorrow morning. If not he will need to be resumed on his anticoagulation. General surgery feels that the risk is low of rebleed at this time if they opt to do the EGD in the outpatient setting. (4) Alcohol abuse Impression: Mild disorientation this morning, resistant to care, and received Ativan. Now very sedated and gradually waking up. I will give a banana bag, and watch for withdrawal. (5) HTN (hypertension) Impression: Hypertensive in the 140s to 160s systolic. His home medication list has been reconciled. He is not on lisinopril but only on losartan. That will be continued. Qualifiers: Hypertension type: essential hypertension Qualified Code(s): I10 - Essential (primary) hypertension (6) Type 2 diabetes mellitus with complication, without long-term current use of insulin Impression: Random glucose was 168 yesterday, and fasting glucose was 167 this morning. We will start low-dose sliding scale insulin. (7) At risk for unsafe behavior Impression: bottle line worker shared with me a video the son brought in from his home. He is public living areas of kitchen and living room seem relatively tidy and safe. However when you go into the patient's bathroom and bedroom the bottles of alcohol, and empty bottles of alcohol with urine instead are everywhere. They were stacked up against the sheth. As such social work will be doing and Adult Protective Services referral for evaluation.
[2020-01-15 19:54] LABS: HGB - HEMOGLOBIN 7.3 g/dL (14.0-18.0)
[2020-01-15] MEDS: DOXAZOSIN 4 MG TABLET PO SCH (20:42)
[2020-01-15] MEDS: LORazepam 2 MG/ML VIAL IVP PRN (22:48)
[2020-01-16] MEDS ORDERED: DEXTROSE 5% 500 ML IV ONE ×2 (00:34→19:26)
[2020-01-16] MEDS: LORazepam 2 MG/ML VIAL IVP PRN ×3 (01:41→17:03)
[2020-01-16] MEDS: SODIUM CHLORIDE FLUSH 0.9% 10 ML SYRINGE IVP SCH ×3 (01:42→20:33)
[2020-01-16 02:16] LABS: HGB - HEMOGLOBIN 7.4 g/dL (14.0-18.0)
[2020-01-16 07:57] LABS: INR 2.5 (0.8-1.2); PT - PROTHROMBIN TIME 26.8 secs (9.9-12.6)
[2020-01-16] MEDS: SODIUM CHLORIDE 0.9% 1,000 ML IV SCH ×2 (08:07→09:17)
--- NOTE | 2020-01-16 08:56 | XRAY Report ---
Reason: hypoxia, tachypnea, persistent leukocytosis Procedure Date: 01/16/2020 Accession Number: [id number] / [id number] Procedure: XR - Chest 1 View X-Ray CPT Code: 41540 Final Report FULL RESULT: EXAM: CHEST RADIOGRAPHY EXAM DATE: 01/16/2020 08:34 AM. CLINICAL HISTORY: Hypoxia, tachypnea, persistent leukocytosis. COMPARISON: CHEST 2 VIEW 09/30/2019 3:24 PM. TECHNIQUE: 1 view. FINDINGS: Lungs/Pleura: Unchanged interstitial pulmonary prominence. Hazy left mid and right basilar opacities are also unchanged. No new focal dense consolidation. No pneumothorax. Mediastinum: Stable heart size and mediastinum. Tortuous thoracic aorta without a splenic calcification of the arch. Other: Sternal wires again noted. IMPRESSION: 1. Interstitial prominence and mild lower lung opacities are unchanged. No new focal airspace consolidation. 2. Stable heart size. RADIA
[2020-01-16] MEDS: LOSARTAN 50 MG TABLET PO SCH ×2 (09:16→09:26)
[2020-01-16] MEDS: carvediloL 12.5 MG TABLET PO SCH ×3 (09:16→21:13)
[2020-01-16] MEDS: MULTIVITAMIN 10 ML, THIAMINE INJ 100 MG, FOLIC ACID INJ 1 MG in D5.45NS W/20 MEQ KCL 1,... IV SCH (09:17)
[2020-01-16] MEDS: NYSTATIN POWDER 15 GM TOP SCH ×2 (09:20→20:46)
[2020-01-16] MEDS ORDERED: OCTREOTIDE 100 MCG/ML VIAL IVP SCH (10:00)
[2020-01-16] MEDS ORDERED: OCTREOTIDE 500 MCG in SODIUM CHLORIDE 0.9% 100ML 99 ML IV SCH (10:00)
[2020-01-16 10:08] LABS: HGB - HEMOGLOBIN 7.2 g/dL (14.0-18.0)
[2020-01-16] MEDS ORDERED: FUROSEMIDE 20 MG/2 ML VIAL IVP SCH ×2 (10:30→20:00)
[2020-01-16] MEDS ORDERED: LIDO GARGLE 30 ML BOTTLE ONE (11:03)
[2020-01-16] MEDS ORDERED: LIDO GARGLE 30 ML BOTTLE PO ONE (11:10)
[2020-01-16] MEDS ORDERED: EPINEPHrine 1 MG/ML AMP ONE (11:14)
--- NOTE | 2020-01-16 11:21 | ANESTHESIA ---
Pre-Anesthesia VS, & Labs - Diagnosis Diagnosis UGIB supratherapeutic INR - Procedure EGD Vital Signs: Temp Pulse Resp BP Pulse Ox 36.6 C 91 25 H 158/72 H 100 01/16/20 08:21 01/16/20 08:21 01/16/20 08:21 01/16/20 08:21 01/16/20 08:21 Height 6 ft Weight (kg) 131.5 kg Body Mass Index 39.3 - NPO >8 hours - Lab Results Current Lab Results: Laboratory Tests 01/16/20 10:03: Hgb 7.2 L, Hct 23.4 L 01/16/20 07:18: PT 26.8 H, INR 2.5 H 01/16/20 02:08: Hgb 7.4 L, Hct 23.7 L 01/15/20 19:47: Hgb 7.3 L, Hct 23.6 L 01/15/20 11:50: WBC 14.0 H, RBC 2.45 L, Hgb 8.0 L, Hct 25.2 L, MCV 102.9 H, MCH 32.7 H, MCHC 31.7 L, RDW 15.8 H, Plt Count 159, MPV 11.2 01/15/20 05:15: WBC 14.3 H, RBC 2.94 L, Hgb 9.5 L, Hct 30.1 L, MCV 102.4 H, MCH 32.3 H, MCHC 31.6 L, RDW 15.6 H, Plt Count 176, MPV 11.4 01/15/20 05:15: Sodium 146 H, Potassium 3.8, Chloride 115 H, Carbon Dioxide 26, Anion Gap 5.0 L, BUN 54 H, Creatinine 0.7, Estimated GFR (MDRD) 109, Glucose 167 H, Calcium 8.6, Total Bilirubin 0.9, AST 21, ALT 18, Alkaline Phosphatase 42, Total Protein 6.2 L, Albumin 3.1 L, Globulin 3.1, Albumin/Globulin Ratio 1.0 01/15/20 05:15: PT 35.4 H, INR 3.3 H 01/15/20 00:10: WBC 13.6 H, RBC 3.28 L, Hgb 10.6 L, Hct 33.4 L, MCV 101.8 H, MCH 32.3 H, MCHC 31.7 L, RDW 15.3 H, Plt Count 176, MPV 11.3 01/14/20 18:08: WBC 9.8, RBC 3.34 L, Hgb 10.8 L, Hct 33.7 L, MCV 100.9 H, MCH 32.3 H, MCHC 32.0, RDW 15.1 H, Plt Count 162, MPV 10.5 01/14/20 18:08: PT 35.7 H, INR 3.4 H 01/14/20 17:20: PT 35.4 H, INR 3.3 H 01/14/20 17:20: Blood Type Recheck A POSITIVE 01/14/20 14:26: Whole Blood INR 4.1 H 01/14/20 12:46: Blood Type A POSITIVE, Antibody Screen NEGATIVE, Crossmatch IS Only See Detail 01/14/20 12:46: PT 45.0 H, INR 4.3 H, APTT 40.4 H 01/14/20 12:46: Sodium 141, Potassium 3.8, Chloride 103, Carbon Dioxide 29, Anion Gap 9.0, BUN 47 H, Creatinine 0.8, Estimated GFR (MDRD) 93, Glucose 168 H, Calcium 9.3, Total Bilirubin 1.5 H, AST 24, ALT 23, Alkaline Phosphatase 56, Total Protein 7.4, Albumin 3.4, Globulin 4.0, Albumin/Globulin Ratio 0.9 L, Lipase 24 01/14/20 12:46: WBC 10.8, RBC 3.82 L, Hgb 12.4 L, Hct 38.2 L, MCV 100.0 H, MCH 32.5 H, MCHC 32.5, RDW 15.1 H, Plt Count 179, MPV 11.6 H, Neut # (Auto) 8.5 H, Lymph # (Auto) 1.3 L, [place] # (Auto) 0.9, Eos # (Auto) 0.0, Baso # (Auto) 0.0, Absolute Nucleated RBC 0.00, Nucleated RBC % 0.0 Lab results reviewed: Yes Fish Bones: 01/16/20 10:03 01/15/20 05:15 Home Medications and Allergies Home Medications: Ambulatory Orders Albuterol Sulf [Ventolin Hfa Inhaler] 2 puffs INH Q4H 01/15/20 Finasteride 5 mg PO DAILY 01/15/20 Fluticasone/Salmeterol [Advair Hfa 230-21 Mcg Inhaler] 2 puffs INH BID 01/15/20 Fluticasone/Umeclidin/Vilanter [Trelegy Ellipta 100-62.5-25] 1 puffs INH DAILY 01/15/20 Mometasone Furoate [Asmanex Hfa] 2 puffs INH BID 01/15/20 Sertraline [Zoloft] 50 mg PO DAILY 01/15/20 Active Medications Doxazosin Mesylate (Cardura) 4 mg PO QPM [facility] Last Admin: 01/15/20 20:42 Dose: Not Given Furosemide (Lasix Inj 20mg Vial) 20 mg IVP BID [facility] Stop: 01/16/20 21:01 Sodium Chloride (Normal Saline 0.9%) 1,000 mls @ 100 mls/hr IV .Q10H [facility] Last Admin: 01/16/20 09:17 Dose: Not Given Multivitamins 10 ml/ Thiamine HCl 100 mg/ Folic Acid 1 mg/Potassium Chloride/Dextrose/Sod Cl 1,011.2 mls @ 100 mls/hr IV DAILY [facility] Last Admin: 01/16/20 09:17 Dose: 100 mls/hr Octreotide Acetate 500 mcg/ (Sodium Chloride) 100 mls @ 10 mls/hr IV .Q10H [facility] Last Admin: 01/16/20 10:53 Dose: 50 mcg/hr, 10 mls/hr Lorazepam (Ativan Inj (Vial)) 0.5 mg IVP Q2H PRN PRN Reason: Anxiety Last Admin: 01/16/20 01:41 Dose: 0.5 mg Losartan Potassium (Cozaar) 50 mg PO DAILY [facility] Last Admin: 01/16/20 09:26 Dose: Not Given Metoprolol Tartrate (Lopressor Inj) 2.5 mg IVP Q6HR [facility] Nystatin (Nystop) 1 applic TOP BID [facility] Last Admin: 01/16/20 09:20 Dose: 1 applic Ondansetron HCl (Zofran Inj) 4 mg IVP Q6HR PRN PRN Reason: Nausea / Vomiting Last Admin: 01/14/20 23:55 Dose: 4 mg Ondansetron HCl (Zofran Odt) 4 mg TL Q6HR PRN PRN Reason: Nausea / Vomiting Last Admin: 01/14/20 19:30 Dose: 4 mg Pantoprazole Sodium (Protonix) 40 mg IV BID [facility] Sodium Chloride (Normal Saline Flush 0.9%) 10 ml IVP PRN PRN PRN Reason: NEEDED PER PROVIDER ORDERS Last Admin: 01/14/20 15:16 Dose: 10 ml Sodium Chloride (Normal Saline Flush 0.9%) 10 ml IVP 0100,0900,1700 [facility] Last Admin: 01/16/20 09:20 Dose: 10 ml Carvedilol 25 mg PO BID 11/15/14 Doxazosin [Cardura] 8 mg PO DAILY 11/15/14 Losartan [Cozaar] 100 mg PO DAILY 11/15/14 Warfarin [Coumadin] 5 mg PO DAILY 11/15/14 Albuterol Sulf [Ventolin Hfa Inhaler] 2 puffs INH Q4H 01/15/20 Finasteride 5 mg PO DAILY 01/15/20 Fluticasone/Salmeterol [Advair Hfa 230-21 Mcg Inhaler] 2 puffs INH BID 01/15/20 Fluticasone/Umeclidin/Vilanter [Trelegy Ellipta 100-62.5-25] 1 puffs INH DAILY 01/15/20 Mometasone Furoate [Asmanex Hfa] 2 puffs INH BID 01/15/20 Sertraline [Zoloft] 50 mg PO DAILY 01/15/20 Allergies/Adverse Reactions: Allergies Allergy/AdvReac Type Severity Reaction Status Date / Time No Known Drug Allergies Allergy Verified 01/14/20 13:04 Anes History & Medical History - Anesthetic History Anesthesia Complications: reports: No previous complications Family history of Anesthesia Complications: Denies Family history of Malignant Hyperthermia: Denies - Medical History Cardiovascular: reports: Hypertension Endocrine/Autoimmune: reports: Type 2 diabetes Smoking Status: Former smoker - Surgical History Cardiothoracic: Valve replacement (mechanical (Luanne's) valve) Exam General: Cooperative, Mild distress Mouth Openin Fingerbreadth Neck Mobility: Normal Thyromental Distance: greater than 6 cm Respiratory: Decreased breath sounds, Other (cpap) Cardiovascular: Regular rate Mental/Cognitive Status: Lethargic, Oriented to name Cognitive Status: Drug/alcohol affected, Other (describe below) (uncooperative t/o noc) Plan Anesthesia Type: MAC Consent for Procedure(s) Verified and Reviewed: Yes Code Status: Attempt Resuscitation ASA classification: 3-Severe systemic disease Is this case an emergency?: Yes
[2020-01-16] MEDS ORDERED: LACTATED RINGERS 1,000 ML IV ONE (11:58)
[2020-01-16] MEDS ORDERED: METOPROLOL 5 MG/5 ML VIAL IVP SCH (12:00)
[2020-01-16] MEDS: METOPROLOL 5 MG/5 ML VIAL IVP SCH ×2 (13:59→14:02)
[2020-01-16] MEDS ORDERED: PHENOL THROAT SPRAY 177 ML MM PRN (14:00)
--- NOTE | 2020-01-16 14:21 | PROVIDER PROGRESS NOTE ---
Subjective - Prog Note Date Prog Note Date: 01/16/20 Prog Note Time: 14:12 - Subjective Subjective: Reports mild SOB, no cough. Able to follow simple commands. Pt slept well overnight on CPAP. Patient denies abdominal pain, nausea, or vomiting. Current Medications - Current Medications Current Medications: Doxazosin Mesylate (Cardura) 4 mg PO QPM [facility] Last Admin: 01/15/20 20:42 Dose: Not Given Folic Acid () 1 mg PO DAILY [facility] Furosemide (Lasix Inj 20mg Vial) 20 mg IVP BID [facility] Stop: 01/16/20 21:01 Last Admin: 01/16/20 11:17 Dose: 20 mg Sodium Chloride (Normal Saline 0.9%) 1,000 mls @ 100 mls/hr IV .Q10H [facility] Last Admin: 01/16/20 09:17 Dose: Not Given Octreotide Acetate 500 mcg/ (Sodium Chloride) 100 mls @ 10 mls/hr IV .Q10H [facility] Last Admin: 01/16/20 10:53 Dose: 50 mcg/hr, 10 mls/hr Lorazepam (Ativan Inj (Vial)) 0.5 mg IVP Q2H PRN PRN Reason: Anxiety Last Admin: 01/16/20 01:41 Dose: 0.5 mg Losartan Potassium (Cozaar) 50 mg PO DAILY [facility] Last Admin: 01/16/20 09:26 Dose: Not Given Metoprolol Tartrate (Lopressor Inj) 2.5 mg IVP Q6HR [facility] Last Admin: 01/16/20 14:02 Dose: 2.5 mg Multivitamins (Theragran) 1 tab PO DAILYWM [facility] Nystatin (Nystop) 1 applic TOP BID [facility] Last Admin: 01/16/20 09:20 Dose: 1 applic Ondansetron HCl (Zofran Inj) 4 mg IVP Q6HR PRN PRN Reason: Nausea / Vomiting Last Admin: 01/14/20 23:55 Dose: 4 mg Ondansetron HCl (Zofran Odt) 4 mg TL Q6HR PRN PRN Reason: Nausea / Vomiting Last Admin: 01/14/20 19:30 Dose: 4 mg Pantoprazole Sodium (Protonix) 40 mg IV BID [facility] Phenol/Menthol (Chloraseptic) 2 sprays MM Q6HR PRN PRN Reason: Mouth Sore Pain Stop: 01/17/20 23:59 Sodium Chloride (Normal Saline Flush 0.9%) 10 ml IVP PRN PRN PRN Reason: NEEDED PER PROVIDER ORDERS Last Admin: 01/14/20 15:16 Dose: 10 ml Sodium Chloride (Normal Saline Flush 0.9%) 10 ml IVP 0100,0900,1700 [facility] Last Admin: 01/16/20 09:20 Dose: 10 ml Thiamine HCl (Vitamin B-1) 100 mg PO DAILY [facility] Objective - Vital Signs/Intake & Output Reviewed Vital Signs: Yes Vital Signs: Vital Signs x48h Temp Pulse Pulse Resp BP BP Pulse Ox 01/16/20 14:02 121/64 01/16/20 13:00 36.5 C 106 H 20 127/63 90 L 01/16/20 12:29 36.2 C L 102 H 27 H 111/59 L 98 01/16/20 12:23 102 H 27 H 88/66 L 96 01/16/20 12:18 36.2 C L 99 23 104/44 L 97 01/16/20 11:21 36.6 C 87 20 141/70 H 01/16/20 11:04 36.5 C 89 20 149/81 H 01/16/20 08:21 36.6 C 91 25 H 158/72 H 100 Intake & Output: Intake & Output 01/13/20 01/14/20 01/15/20 01/16/20 23:59 23:59 23:59 23:59 Intake Total 500 3564.863 866.667 Output Total 1900 1100 250 Balance -1400 2464.863 616.667 - Objective General Appearance: positive: No acute distress Eyes Bilateral: positive: Conjunctivae nml ENT: positive: No signs of dehydration Respiratory: positive: Other (Tachypnea, bibasilar rales) Cardiovascular: positive: Irregularly irregular Abdomen: positive: Non-tender, No organomegaly, No distention Skin: positive: Pallor Extremities: positive: No pedal edema Neurologic/Psychiatric: positive: Other (Mild tremors of bilateral BUE) - Lab Results Fish Bones: 01/16/20 10:03 01/15/20 05:15 Other Labs: Lab Results x24hrs 01/16/20 01/16/20 01/16/20 Range/Units 10:03 07:18 02:08 Hgb 7.2 L 7.4 L (14.0-18.0) g/dL Hct 23.4 L 23.7 L (42.0-52.0) % PT 26.8 H (9.9-12.6) secs INR 2.5 H (0.8-1.2) Blood Type Antibody Screen Crossmatch IS Only 01/15/20 01/14/20 Range/Units 19:47 12:46 Hgb 7.3 L (14.0-18.0) g/dL Hct 23.6 L (42.0-52.0) % PT (9.9-12.6) secs INR (0.8-1.2) Blood Type A POSITIVE Antibody Screen NEGATIVE Crossmatch IS Only See Detail - Diagnostic Imaging Diagnostic Imaging Results: positive: Final report reviewed (Personally reviewed imaging, bilateral vascular congestion), Other ABX Reporting Has patient been on IV antibiotics over the past 48 hours?: No Assessment/Plan - Problem List (1) Hematemesis Qualifiers: Nausea presence: without nausea Qualified Code(s): K92.0 - Hematemesis (2) Acute blood loss anemia Impression: Secondary to GI bleed characterized by hematemesis and melena. Downtrending H&H with increasing, elevated BUN. Hemodynamically stable Plan: Continue with transfusion 1U PRBC. Transfuse for Hb<7 Trend H&H every 8 hours General surgery to perform EGD today. Follow up report Increase IV PPI from QAM BID Started IV octreotide gtt this AM. Will discontinue if no varices per pending EGD report Hold home warfarin. No NSAIDS Hold chemical DVT ppx Evaluate macrocytic anemia with B12/folate and TSH (3) Leukocytosis Impression: Negative UA. Possibly reactive due to GI bleed and probable ETOH withdrawal. Difficult to exclude aspiration in setting of SOB, no cough Plan: -CXR ordered today and reviewed lung findings of CT AP. No new focal consolidation -Hold off on antibiotics for now -Recheck CBC in AM Qualifiers: Leukocytosis type: unspecified Qualified Code(s): D72.829 - Elevated white blood cell count, unspecified (4) Shortness of breath Impression: Suspect due to volume overload in setting of elevated BNP and CXR findings on 01/15. Suspect due to blood transfusions and IVF Plan: -Gentle IV diuresis in setting of GI bleed and mild hypernatremia (6) Supratherapeutic INR Impression: Secondary to warfarin for AVR. Admit INR 4.3. Improved to INR 2.5 status post PO vitamin K on 01/13 and 3 units of FFP. Plan: -Recheck INR in AM -Will consider restart warfarin tomorrow pending EGD report and repeat INR (7) Atrial fibrillation Impression: Pt with history of this on chart review since at least 2013. EKG ordered 01/15 confirmed this. Borderline RVR with HR 90-100s. Already on home anticoagulation Plan: -Hold warfarin. Start heparin gtt as above pending EGD report -Continue carvedilol. Received IV metoprolol 2.5mg q6h while pt NPO Qualifiers: Atrial fibrillation type: unspecified Qualified Code(s): I48.91 - Unspecified atrial fibrillation (9) Alcohol withdrawal Impression: Pt with hypertension, tachycardia, mild confusion, and mild BUE tremors Plan: -IV PRN Ativan -CIWA protocol -Thiamine, folate, multivitamin (10) Hypernatremia Impression: Mild, due to decreased free water intake Plan: -Recheck BMP in AM (11) HTN (hypertension) Impression: Mildly elevated SBPs 140-160s Plan: -Continue losartan, carvedilol, and doxazosin Qualifiers: Hypertension type: essential hypertension Qualified Code(s): I10 - Essential (primary) hypertension (12) Type 2 diabetes mellitus with complication, without long-term current use of insulin Impression: Mildly elevated blood sugars Plan: -Start low dose insulin sliding scale
[2020-01-16] MEDS: INSULIN ASPART 300 UNIT/3 ML PEN SUBQ SCH ×2 (17:14→20:58)
[2020-01-16 18:05] LABS: BILIRUBIN,URINE NEGATIVE (NEGATIVE); GLUCOSE, URINE (UA) NEGATIVE (NEGATIVE); KETONES,URINE (UA) NEGATIVE (NEGATIVE); LEUKOCYTE ESTERASE, URINE NEGATIVE (NEGATIVE); NITRITE,URINE NEGATIVE (NEGATIVE); OCCULT BLOOD,URINE SMALL (NEGATIVE); PROTEIN,URINE NEGATIVE (NEGATIVE); UROBILINOGEN,URINE 0.2 (NORMAL) E.U./dL (NORMAL)
[2020-01-16 18:11] LABS: CLARITY,URINE CLEAR (CLEAR)
[2020-01-16 18:16] LABS: BACTERIA,URINE None Seen /HPF (None Seen); CASTS, URINE 0-2 Hyaline Casts /LPF; SQUAMOUS EPITHELIAL CELL,UR NONE SEEN (<= Few)
[2020-01-16 18:56] LABS: THYROID STIMULATING HORMONE 0.19 uIU/mL (0.34-5.60)
[2020-01-16] MEDS ORDERED: LIDOCAINE 2% URO-JET 5 ML SYRINGE UR ONE ×2 (18:59→19:49)
[2020-01-16 19:07] LABS: FOLATE 13.12 ng/mL (5.90 - >24.8)
[2020-01-16 19:14] LABS: CALCIUM 8.3 mg/dL (8.5-10.3); CREATININE 0.8 mg/dL (0.6-1.2)
[2020-01-16 19:14] LABS: HB2 TOTAL 7.6 g/dL; HEMOGLOBIN A1C 0.34 g/dL; HEMOGLOBIN A1C % 6.2 % (4.6-6.2)
[2020-01-16] MEDS ORDERED: POTASSIUM CHLOR 20 MEQ/100 ML 20 MEQ/100 ML BAG IV ONE (19:26)
[2020-01-16] MEDS ORDERED: LIDOCAINE JELLY 2% 5 ML TUBE TOP ONE (19:52)
[2020-01-16] MEDS: SODIUM CHLORIDE FLUSH 0.9% 10 ML SYRINGE IVP PRN (20:27)
[2020-01-16] MEDS ORDERED: MORPHINE 2 MG/ML CARPUJECT IVP ONE (20:30)
[2020-01-16] MEDS: PANTOPRAZOLE 40 MG VIAL IV SCH (20:46)
[2020-01-16] MEDS: DOXAZOSIN 4 MG TABLET PO SCH (21:13)
[2020-01-16] MEDS ORDERED: LIDOCAINE 1% 2 ML VIAL SUBQ STA (21:29)
[2020-01-16] MEDS ORDERED: LIDOCAINE 2% 50 ML MDV SUBQ SCH (22:00)
[2020-01-16] MEDS: CLOTRIMAZOLE 1% CREAM 15 GM TUBE TOP SCH (22:41)
[2020-01-17 00:12] LABS: HGB - HEMOGLOBIN 8.4 g/dL (14.0-18.0)
[2020-01-17 00:24] LABS: CALCIUM 8.4 mg/dL (8.5-10.3); CREATININE 0.8 mg/dL (0.6-1.2)
[2020-01-17] MEDS: LORazepam 2 MG/ML VIAL IVP PRN ×7 (01:16→22:47)
[2020-01-17] MEDS: POTASSIUM CHLOR 10 MEQ/100 ML 10 MEQ/100 ML BAG IV SCH ×12 (01:21→22:55)
[2020-01-17] MEDS: SODIUM CHLORIDE FLUSH 0.9% 10 ML SYRINGE IVP SCH ×5 (01:52→21:41)
[2020-01-17] MEDS: SODIUM CHLORIDE FLUSH 0.9% 10 ML SYRINGE IVP PRN ×5 (03:12→22:50)
[2020-01-17 05:48] LABS: BASOPHILS # (AUTO) 0.1 10^3/uL (0.0-0.1); BASOPHILS % (AUTO) 0.4 %; EOSINOPHILS # (AUTO) 0.2 10^3/uL (0.0-0.7); EOSINOPHILS % (AUTO) 1.3 %; HGB - HEMOGLOBIN 8.4 g/dL (14.0-18.0); LYMPHOCYTES % (AUTO) 6.7 %; MEAN CORPUSCULAR HEMOGLOBIN 30.9 pg (27.0-31.0); MEAN CORPUSCULAR HGB CONC 29.7 g/dL (32.0-36.0); MEAN PLATELET VOLUME 11.4 fL (7.4-11.4); MONOCYTES # (AUTO) 1.3 10^3/uL (0.0-1.0); MONOCYTES % (AUTO) 8.3 %; NEUTROPHILS # (AUTO) 12.5 10^3/uL (1.5-6.6); NEUTROPHILS % (AUTO) 82.6 %; PLT - PLATELET COUNT 185 10^3/uL (130-450); RED BLOOD COUNT 2.72 10^6/uL (4.70-6.10); RED CELL DISTRIBUTION WIDTH 17.4 % (12.0-15.0); WHITE BLOOD COUNT 15.1 x10^3/uL (4.8-10.8)
[2020-01-17 05:51] LABS: INR 2.1 (0.8-1.2); PT - PROTHROMBIN TIME 22.8 secs (9.9-12.6)
[2020-01-17 06:00] LABS: CALCIUM 8.4 mg/dL (8.5-10.3); CREATININE 0.8 mg/dL (0.6-1.2); MAGNESIUM 2.2 mg/dL (1.7-2.8); PHOSPHORUS 3.3 mg/dL (2.5-4.6)
--- NOTE | 2020-01-17 08:48 | PROCEDURE REPORT ---
DATE OF SERVICE: 01/16/2020 Physician: Leonid Perkins MD PREOPERATIVE DIAGNOSIS: Acute upper gastrointestinal bleed 2 days ago. POSTOPERATIVE DIAGNOSES 1. Acute upper gastrointestinal bleed 2 days ago. 2. No active bleeding. PROCEDURE: Esophagogastroduodenoscopy. SURGEON: Leonid Perkins MD TYPE OF ANESTHESIA: Monitored anesthesia care, IV sedation. SPECIMENS: None. COMPLICATIONS: None. FINDINGS: Mild inflammation and swelling at the pylorus and first portion of the duodenum. No evide nce of cancer, gastric inflammation, or esophagitis. PATHOLOGY: None. INDICATIONS FOR PROCEDURE: The patient is an 79-year-old gentleman who presented 2 days earlier to [facility] medical service with acute upper GI bleed. He had a large emesis prior to admission. Since admis artis, he had 1 small emesis and then today had dark stools. Shortly after admission, he developed al cohol withdrawal with agitation. This has improved. He presents for EGD. Risks discussed. Alterna tives discussed. All questions answered, and consent was obtained from the family. At the time of [facility] procedure, the patient was more coherent; however, not coherent enough to allow for personal conse nt. DETAILS OF PROCEDURE: The patient was properly identified, brought to the operating room. While on his hospital bed, he was positioned head up. Monitored anesthesia care was given as well as IV sedat ion. Endoscopy was performed. The scope was placed into the mouth. Copious secretions were aspirat ed. The scope was then placed down the esophagus. There was no evidence of esophagitis, esophageal varices, or ulcerations. The scope was retroflexed. There was no evidence of Sunday ulcers or hiat al hernia. The scope was then further placed on the body of the stomach. Again, no gastric inflamma tion. A small amount of old clot was present. He had swelling and mild inflammation of the pylorus. The scope was then placed through the pylorus, which was slightly tight. The scope was placed easi ly. There was no evidence of an ulcer at the duodenum; however, there was inflammation and swelling at the pylorus and early first portion of the duodenum. The scope was placed down towards the third portion of the duodenum and slowly withdrawn twice. There was no evidence of inflammation. Scope wa s then withdrawn and the stomach further aspirated. He tolerated the procedure well and was brought to his hospital room in stable condition, similar to his condition prior to the procedure. TD: 01/16/2020 17:40
[2020-01-17] MEDS: DEXTROSE 5% 1,000 ML IV SCH ×2 (08:57→17:50)
[2020-01-17] MEDS: INSULIN ASPART 300 UNIT/3 ML PEN SUBQ SCH ×4 (08:57→21:12)
[2020-01-17] MEDS: FOLIC ACID 1 MG TABLET PO SCH (08:58)
[2020-01-17] MEDS: carvediloL 12.5 MG TABLET PO SCH ×2 (08:58→21:28)
[2020-01-17] MEDS: MULTIVITAMIN TABLET PO SCH (08:58)
[2020-01-17] MEDS: LOSARTAN 50 MG TABLET PO SCH (08:58)
[2020-01-17] MEDS ORDERED: THIAMINE 100 MG TABLET PO SCH (09:00)
[2020-01-17] MEDS: CLOTRIMAZOLE 1% CREAM 15 GM TUBE TOP SCH ×2 (10:14→21:11)
[2020-01-17] MEDS: PANTOPRAZOLE 40 MG VIAL IV SCH ×2 (10:14→21:39)
[2020-01-17] MEDS: NYSTATIN POWDER 15 GM TOP SCH ×2 (10:15→21:11)
--- NOTE | 2020-01-17 11:54 | PHARMACY PROGRESS NOTE ---
- Monitoring Indication for anticoagulation: Atrial Fibrillation Previous home regime: 5 MG PO DAILY Risk factors for bleed: Recent injury or surgery, Hypertension, History of past bleeding, Cerebrovascular disease, Age >65, Hematocrit <30%, Diabetes - Recommendations Dosing: Anticoagulation Monitoring 01/17/20 01/17/20 01/17/20 05:12 05:12 00:04 Hgb 8.4 L 8.4 L Hct 28.3 L 28.4 L PT 22.8 H INR 2.1 H Whole Blood INR 01/16/20 01/16/20 01/16/20 10:03 07:18 02:08 Hgb 7.2 L 7.4 L Hct 23.4 L 23.7 L PT 26.8 H INR 2.5 H Whole Blood INR 01/15/20 01/15/20 01/15/20 19:47 11:50 05:15 Hgb 7.3 L 8.0 L 9.5 L Hct 23.6 L 25.2 L 30.1 L PT INR Whole Blood INR 01/15/20 01/15/20 01/14/20 05:15 00:10 18:08 Hgb 10.6 L 10.8 L Hct 33.4 L 33.7 L PT 35.4 H INR 3.3 H Whole Blood INR 01/14/20 01/14/20 01/14/20 18:08 17:20 14:26 Hgb Hct PT 35.7 H 35.4 H INR 3.4 H 3.3 H Whole Blood INR 4.1 H 01/14/20 01/14/20 12:46 12:46 Hgb 12.4 L Hct 38.2 L PT 45.0 H INR 4.3 H Whole Blood INR GIVE 5 MG ON 01/16 ONE TIME DOSE, WILL FOLLOW WITH DAILY INR AND DOSING S&S of bleeding: Pharmacy recommendation: Continue current regime
[2020-01-17] MEDS ORDERED: THIAMINE INJ 500 MG in SODIUM CHLORIDE 0.9% 50 ML IV SCH (12:00)
[2020-01-17] MEDS: METOPROLOL 5 MG/5 ML VIAL IVP PRN ×2 (12:45→21:26)
--- NOTE | 2020-01-17 13:14 | PROVIDER PROGRESS NOTE ---
Subjective - Prog Note Date Prog Note Date: 01/17/20 Prog Note Time: 13:02 - Subjective Subjective: Today, pt with more confusion and lethargy compared to yesterday. CIWA score 13 this AM. He moans/mumbles incoherently and not following simple commands or answer simple questions like yesterday. Wrist restraints placed yesterday as pt became agitated post-EGD Current Medications - Current Medications Current Medications: Carvedilol (Coreg) 25 mg PO BID [facility] Last Admin: 01/17/20 08:58 Dose: Not Given Clotrimazole (Lotrimin 1% Cream) 1 applic TOP BID [facility] Last Admin: 01/17/20 10:14 Dose: 1 applic Doxazosin Mesylate (Cardura) 4 mg PO QPM [facility] Last Admin: 01/16/20 21:13 Dose: Not Given Folic Acid () 1 mg PO DAILY [facility] Last Admin: 01/17/20 08:58 Dose: Not Given Dextrose (D5w) 1,000 mls @ 125 mls/hr IV .Q8H [facility] Last Admin: 01/17/20 08:57 Dose: 125 mls/hr Thiamine HCl 500 mg/ Sodium (Chloride) 55 mls @ 100 mls/hr IV Q8HR [facility] Insulin Aspart (Novolog) 1 - 5 unit SUBQ 0800,1200,1700,2100 [facility]; Protocol Last Admin: 01/17/20 12:42 Dose: 1 unit Lorazepam (Ativan Inj (Vial)) 1 mg IVP Q2H PRN PRN Reason: Anxiety Last Admin: 01/17/20 09:08 Dose: 1 mg Losartan Potassium (Cozaar) 50 mg PO DAILY [facility] Last Admin: 01/17/20 08:58 Dose: Not Given Metoprolol Tartrate (Lopressor Inj) 2.5 mg IVP Q6H PRN PRN Reason: PER PHYSICIAN ORDER Last Admin: 01/17/20 12:45 Dose: 2.5 mg Multivitamins (Theragran) 1 tab PO DAILYWM [facility] Last Admin: 01/17/20 08:58 Dose: Not Given Nystatin (Nystop) 1 applic TOP BID [facility] Last Admin: 01/17/20 10:15 Dose: 1 applic Ondansetron HCl (Zofran Inj) 4 mg IVP Q6HR PRN PRN Reason: Nausea / Vomiting Last Admin: 01/14/20 23:55 Dose: 4 mg Ondansetron HCl (Zofran Odt) 4 mg TL Q6HR PRN PRN Reason: Nausea / Vomiting Last Admin: 01/14/20 19:30 Dose: 4 mg Pantoprazole Sodium (Protonix) 40 mg IV BID [facility] Last Admin: 01/17/20 10:14 Dose: 40 mg Phenol/Menthol (Chloraseptic) 2 sprays MM Q6HR PRN PRN Reason: Mouth Sore Pain Stop: 01/17/20 23:59 Sodium Chloride (Normal Saline Flush 0.9%) 10 ml IVP PRN PRN PRN Reason: NEEDED PER PROVIDER ORDERS Last Admin: 01/17/20 03:12 Dose: 10 ml Sodium Chloride (Normal Saline Flush 0.9%) 10 ml IVP 0100,0900,1700 [facility] Last Admin: 01/17/20 10:15 Dose: 10 ml Warfarin Sodium (Coumadin) 5 mg PO ONCE ONE Stop: 01/17/20 17:01 Objective - Vital Signs/Intake & Output Vital Signs: Vital Signs x48h Temp Pulse Pulse Resp BP BP Pulse Ox 01/17/20 12:55 84 95/50 L 01/17/20 12:50 88 103/57 L 01/17/20 12:45 116/67 01/17/20 08:21 36.7 C 104 H 22 131/68 H 92 Intake & Output: Intake & Output 01/14/20 01/15/20 01/16/20 01/17/20 23:59 23:59 23:59 23:59 Intake Total 500 3564.863 2427.867 1152.083 Output Total 1900 1100 3275 625 Balance -1400 2464.863 -847.133 527.083 - Objective General Appearance: positive: No acute distress, Lethargic, Other (COnfused) Eyes Bilateral: positive: Conjunctivae nml ENT: positive: ENT inspection nml Respiratory: positive: No respiratory distress, Other (Bibasilar rales) Cardiovascular: positive: Regular rate & rhythm, Other (Systolic murmur with click c/w mAVR) Abdomen: positive: Non-tender, No organomegaly, Other (Soft) Skin: positive: Color nml, Warm, Dry Extremities: positive: No pedal edema Neurologic/Psychiatric: positive: Disoriented to place, Disoriented to time, Other (Moving all extremities) - Lab Results Fish Bones: 01/17/20 05:12 01/17/20 05:12 Other Labs: Lab Results x24hrs 01/17/20 01/17/20 01/17/20 Range/Units 05:12 05:12 05:12 WBC 15.1 H (4.8-10.8) x10^3/uL RBC 2.72 L (4.70-6.10) 10^6/uL Hgb 8.4 L (14.0-18.0) g/dL Hct 28.3 L (42.0-52.0) % MCV 104.0 H (80.0-94.0) fL MCH 30.9 (27.0-31.0) pg MCHC 29.7 L (32.0-36.0) g/dL RDW 17.4 H (12.0-15.0) % Plt Count 185 (130-450) 10^3/uL MPV 11.4 (7.4-11.4) fL Neut # (Auto) 12.5 H (1.5-6.6) 10^3/uL Lymph # (Auto) 1.0 L (1.5-3.5) 10^3/uL [place] # (Auto) 1.3 H (0.0-1.0) 10^3/uL Eos # (Auto) 0.2 (0.0-0.7) 10^3/uL Baso # (Auto) 0.1 (0.0-0.1) 10^3/uL Absolute Nucleated RBC 0.09 x10^3/uL Nucleated RBC % 0.6 /100WBC PT 22.8 H (9.9-12.6) secs INR 2.1 H (0.8-1.2) Sodium 153 H (135-145) mmol/L Potassium 3.2 L (3.5-5.0) mmol/L Chloride 117 H (101-111) mmol/L Carbon Dioxide 30 (21-32) mmol/L Anion Gap 6.0 (6-13) BUN 25 H (6-20) mg/dL Creatinine 0.8 (0.6-1.2) mg/dL Estimated GFR (MDRD) 93 (>89) Glucose 147 H (70-100) mg/dL Glycated Hemoglobin (4.6-6.2) % Estim Average Glucose (70-100) Calcium 8.4 L (8.5-10.3) mg/dL Phosphorus 3.3 (2.5-4.6) mg/dL Magnesium 2.2 (1.7-2.8) mg/dL B-Natriuretic Peptide (5-100) pg/mL Vitamin B12 (180-914) pg/mL Folate (5.90 - >24.8) ng/mL TSH (0.34-5.60) uIU/mL Urine Color Urine Clarity (CLEAR) Urine pH (5.0-7.5) PH Ur Specific [place] (1.002-1.030) Urine Protein (NEGATIVE) mg/dL Urine Glucose (UA) (NEGATIVE) mg/dL Urine Ketones (NEGATIVE) mg/dL Urine Occult Blood (NEGATIVE) Urine Nitrite (NEGATIVE) Urine Bilirubin (NEGATIVE) Urine Urobilinogen (NORMAL) E.U./dL Ur Leukocyte Esterase (NEGATIVE) Urine RBC (0-5) /HPF Urine WBC (0-3) /HPF Ur Squamous Epith Cells (<= Few) Urine Bacteria (None Seen) /HPF Urine Casts /LPF Urine Culture Comments Blood Type Antibody Screen Crossmatch IS Only 01/17/20 01/17/20 01/16/20 Range/Units 00:04 00:04 18:20 WBC (4.8-10.8) x10^3/uL RBC (4.70-6.10) 10^6/uL Hgb 8.4 L (14.0-18.0) g/dL Hct 28.4 L (42.0-52.0) % MCV (80.0-94.0) fL MCH (27.0-31.0) pg MCHC (32.0-36.0) g/dL RDW (12.0-15.0) % Plt Count (130-450) 10^3/uL MPV (7.4-11.4) fL Neut # (Auto) (1.5-6.6) 10^3/uL Lymph # (Auto) (1.5-3.5) 10^3/uL [place] # (Auto) (0.0-1.0) 10^3/uL Eos # (Auto) (0.0-0.7) 10^3/uL Baso # (Auto) (0.0-0.1) 10^3/uL Absolute Nucleated RBC x10^3/uL Nucleated RBC % /100WBC PT (9.9-12.6) secs INR (0.8-1.2) Sodium 154 H 153 H (135-145) mmol/L Potassium 3.0 L 3.2 L (3.5-5.0) mmol/L Chloride 116 H 120 H* (101-111) mmol/L Carbon Dioxide 28 27 (21-32) mmol/L Anion Gap 10.0 6.0 (6-13) BUN 27 H 30 H (6-20) mg/dL Creatinine 0.8 0.8 (0.6-1.2) mg/dL Estimated GFR (MDRD) 93 93 (>89) Glucose 154 H 178 H (70-100) mg/dL Glycated Hemoglobin (4.6-6.2) % Estim Average Glucose (70-100) Calcium 8.4 L 8.3 L (8.5-10.3) mg/dL Phosphorus (2.5-4.6) mg/dL Magnesium (1.7-2.8) mg/dL B-Natriuretic Peptide (5-100) pg/mL Vitamin B12 (180-914) pg/mL Folate (5.90 - >24.8) ng/mL TSH (0.34-5.60) uIU/mL Urine Color Urine Clarity (CLEAR) Urine pH (5.0-7.5) PH Ur Specific [place] (1.002-1.030) Urine Protein (NEGATIVE) mg/dL Urine Glucose (UA) (NEGATIVE) mg/dL Urine Ketones (NEGATIVE) mg/dL Urine Occult Blood (NEGATIVE) Urine Nitrite (NEGATIVE) Urine Bilirubin (NEGATIVE) Urine Urobilinogen (NORMAL) E.U./dL Ur Leukocyte Esterase (NEGATIVE) Urine RBC (0-5) /HPF Urine WBC (0-3) /HPF Ur Squamous Epith Cells (<= Few) Urine Bacteria (None Seen) /HPF Urine Casts /LPF Urine Culture Comments Blood Type Antibody Screen Crossmatch IS Only 01/16/20 01/16/20 01/16/20 Range/Units 18:20 18:20 17:40 WBC (4.8-10.8) x10^3/uL RBC (4.70-6.10) 10^6/uL Hgb (14.0-18.0) g/dL Hct (42.0-52.0) % MCV (80.0-94.0) fL MCH (27.0-31.0) pg MCHC (32.0-36.0) g/dL RDW (12.0-15.0) % Plt Count (130-450) 10^3/uL MPV (7.4-11.4) fL Neut # (Auto) (1.5-6.6) 10^3/uL Lymph # (Auto) (1.5-3.5) 10^3/uL [place] # (Auto) (0.0-1.0) 10^3/uL Eos # (Auto) (0.0-0.7) 10^3/uL Baso # (Auto) (0.0-0.1) 10^3/uL Absolute Nucleated RBC x10^3/uL Nucleated RBC % /100WBC PT (9.9-12.6) secs INR (0.8-1.2) Sodium (135-145) mmol/L Potassium (3.5-5.0) mmol/L Chloride (101-111) mmol/L Carbon Dioxide (21-32) mmol/L Anion Gap (6-13) BUN (6-20) mg/dL Creatinine (0.6-1.2) mg/dL Estimated GFR (MDRD) (>89) Glucose (70-100) mg/dL Glycated Hemoglobin (4.6-6.2) % Estim Average Glucose (70-100) Calcium (8.5-10.3) mg/dL Phosphorus (2.5-4.6) mg/dL Magnesium (1.7-2.8) mg/dL B-Natriuretic Peptide 156 H (5-100) pg/mL Vitamin B12 606 (180-914) pg/mL Folate 13.12 (5.90 - >24.8) ng/mL TSH 0.19 L (0.34-5.60) uIU/mL Urine Color YELLOW Urine Clarity CLEAR (CLEAR) Urine pH 5.0 (5.0-7.5) PH Ur Specific [place] 1.020 (1.002-1.030) Urine Protein NEGATIVE (NEGATIVE) mg/dL Urine Glucose (UA) NEGATIVE (NEGATIVE) mg/dL Urine Ketones NEGATIVE (NEGATIVE) mg/dL Urine Occult Blood SMALL H (NEGATIVE) Urine Nitrite NEGATIVE (NEGATIVE) Urine Bilirubin NEGATIVE (NEGATIVE) Urine Urobilinogen 0.2 (NORMAL) (NORMAL) E.U./dL Ur Leukocyte Esterase NEGATIVE (NEGATIVE) Urine RBC 6-10 H (0-5) /HPF Urine WBC 0-3 (0-3) /HPF Ur Squamous Epith Cells NONE SEEN (<= Few) Urine Bacteria None Seen (None Seen) /HPF Urine Casts 0-2 Hyaline Casts /LPF Urine Culture Comments NOT INDICATED Blood Type Antibody Screen Crossmatch IS Only 01/16/20 01/14/20 Range/Units 14:08 12:46 WBC (4.8-10.8) x10^3/uL RBC (4.70-6.10) 10^6/uL Hgb (14.0-18.0) g/dL Hct (42.0-52.0) % MCV (80.0-94.0) fL MCH (27.0-31.0) pg MCHC (32.0-36.0) g/dL RDW (12.0-15.0) % Plt Count (130-450) 10^3/uL MPV (7.4-11.4) fL Neut # (Auto) (1.5-6.6) 10^3/uL Lymph # (Auto) (1.5-3.5) 10^3/uL [place] # (Auto) (0.0-1.0) 10^3/uL Eos # (Auto) (0.0-0.7) 10^3/uL Baso # (Auto) (0.0-0.1) 10^3/uL Absolute Nucleated RBC x10^3/uL Nucleated RBC % /100WBC PT (9.9-12.6) secs INR (0.8-1.2) Sodium (135-145) mmol/L Potassium (3.5-5.0) mmol/L Chloride (101-111) mmol/L Carbon Dioxide (21-32) mmol/L Anion Gap (6-13) BUN (6-20) mg/dL Creatinine (0.6-1.2) mg/dL Estimated GFR (MDRD) (>89) Glucose (70-100) mg/dL Glycated Hemoglobin 6.2 (4.6-6.2) % Estim Average Glucose 131 H (70-100) Calcium (8.5-10.3) mg/dL Phosphorus (2.5-4.6) mg/dL Magnesium (1.7-2.8) mg/dL B-Natriuretic Peptide (5-100) pg/mL Vitamin B12 (180-914) pg/mL Folate (5.90 - >24.8) ng/mL TSH (0.34-5.60) uIU/mL Urine Color Urine Clarity (CLEAR) Urine pH (5.0-7.5) PH Ur Specific [place] (1.002-1.030) Urine Protein (NEGATIVE) mg/dL Urine Glucose (UA) (NEGATIVE) mg/dL Urine Ketones (NEGATIVE) mg/dL Urine Occult Blood (NEGATIVE) Urine Nitrite (NEGATIVE) Urine Bilirubin (NEGATIVE) Urine Urobilinogen (NORMAL) E.U./dL Ur Leukocyte Esterase (NEGATIVE) Urine RBC (0-5) /HPF Urine WBC (0-3) /HPF Ur Squamous Epith Cells (<= Few) Urine Bacteria (None Seen) /HPF Urine Casts /LPF Urine Culture Comments Blood Type A POSITIVE Antibody Screen NEGATIVE Crossmatch IS Only See Detail - Diagnostic Imaging Diagnostic Imaging Results: positive: Final report reviewed (Imaging personally reviewed) Assessment/Plan - Problem List (1) Hematemesis Impression: (2) Acute blood loss anemia (3) GI bleed (4) Macrocytic anemia Impression: Secondary to duodenitis per verbal report from general surgery Dr. Perkins. Characterized by hematemesis and melena. BUN currently downtrending and H&H appropriately increased after 1U PRBC. Hemodynamically stable. B12/folate levels normal Plan: -Status post 1U PRBC on 01/15. Continue with transfusion 1U PRBC. Transfuse for Hb<7 -Trend H&H -IV PPI BID -No NSAIDS. Warfarin initally held, will restart warfarin today, pharmacy to dose -Hold chemical DVT ppx (5) Leukocytosis Impression: Possibly reactive due to GI bleed and probable ETOH withdrawal, but leukocytosis worsening. Negative UA. Difficult to exclude aspiration in setting of SOB, no cough Plan: -Start empiric ceftriaxone and Flagyl Qualifiers: Leukocytosis type: unspecified Qualified Code(s): D72.829 - Elevated white blood cell count, unspecified (6) Acute hypoxemic respiratory failure Impression: Suspect secondary to acute on chronic diastolic CHF in setting of pulmonary hypertension. Elevated BNP and CXR findings on 01/15, suspect due to daily, bana na bags, blood transfusions and IVF. TTE from 10/15/2019 reviewed, preserved EF 65-70 Plan: -Restart gentle IV diuresis possibly later today when hypernatremia improves -Repeat BNP in AM -D/C'ed daily banana bags (7) Alcohol withdrawal (8) Acute metabolic encephalopathy Impression: Significant alcohol use, refer to HPI and son confirmed numerous empty wine bottles found at pt's home. Pt with hypertension, tachycardia, mild confusion, and mild BUE tremors. Suspect worsened by sedation medications for EGD and hypernatremia Plan: -Obtain CT head without contrast -Start empiric IV thiamine at [place] doses -IV PRN Ativan -CIWA protocol -PO folate and multivitamin -Avoid deliriogenic meds (9) Supratherapeutic INR (10) Status post mechanical aortic valve replacement Impression: Secondary to warfarin. Admit INR 4.3. Improved to INR 2.5 status post PO vitamin K on 01/13 and 3 units of FFP. Attempted chart review, no cardiology notes; presume goal INR 2.5 Plan: -Restart warfarin today, pharmacy to dose. If unable to do take PO in the afternoon, will consider SQ therapeutic Lovenox q12h in the interim (11) Hypernatremia Impression: Worsened since yesterday due to decreased free water intake while NPO and encephalopathic, as well as IV diuresis. Plan: -Recheck BMP in AM -Continue D5W infusion. Serial Na (12) Atrial fibrillation Impression: Pt with history of Afib on chart review since at least 2013. EKG ordered 01/15 confirmed this. Borderline RVR with HR 90-100s. Already on home anticoagulation Plan: -Restart warfarin today, pharmacy to dose. If unable to do take PO in the afternoon, will consider SQ therapeutic Lovenox q12h in the interim -Continue carvedilol. IV metoprolol 2.5mg q6h PRN pt's inability to take PO Qualifiers: Atrial fibrillation type: unspecified Qualified Code(s): I48.91 - Unspecified atrial fibrillation (13) HTN (hypertension) Impression: Mildly elevated SBPs 140-160s. Suspect due to inability to take PO antihypertensives and ETOH withdrawal Plan: -Continue losartan, carvedilol, and doxazosin Qualifiers: Hypertension type: essential hypertension Qualified Code(s): I10 - Essential (primary) hypertension (14) Type 2 diabetes mellitus with complication, without long-term current use of insulin Impression: Blood sugars improved after starting sliding scale on 01/15 Plan: -Low dose insulin sliding scale Qualifiers: Nausea presence: without nausea Qualified Code(s): K92.0 - Hematemesis
[2020-01-17] MEDS: THIAMINE INJ 500 MG in SODIUM CHLORIDE 0.9% 50 ML IV SCH ×2 (13:49→22:27)
--- NOTE | 2020-01-17 14:03 | CT Report ---
Reason: acute encephalopathy Procedure Date: 01/17/2020 Accession Number: [id number] / [id number] Procedure: CT - HEAD WO CPT Code: Final Report FULL RESULT: EXAM: CT HEAD EXAM DATE: 01/17/2020 12:00 PM. CLINICAL HISTORY: 79 -year-old male. Acute encephalopathy. COMPARISON: CT head 05/20/2013 TECHNIQUE: Multiaxial CT images were obtained from the foramen magnum to the vertex. Reformats: Sagittal and coronal. IV contrast: None. In accordance with CT protocol optimization, one or more of the following dose reduction techniques were utilized for this exam: automated exposure control, adjustment of mA and/or KV based on patient size, or use of iterative reconstructive technique. FINDINGS: Parenchyma: No intraparenchymal hemorrhage. No evidence of mass, midline shift, or CT findings of acute infarction. Flanagan-white differentiation is distinct. Diffuse chronic microangiopathic white matter changes are evident. Redemonstration chronic left parieto-occipital infarction. Likely chronic right occipital infarction, although new since the prior CT (series 3 image 8). 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 No subdural or epidural collections identified. Ventricles: The ventricles and cortical sulci are enlarged, consistent with age-related tissue loss. Sinuses and orbits: Imaged paranasal sinuses, orbits, and mastoids show no significant abnormality. Bones: No evidence of fracture or calvarial defect. Other: None. IMPRESSION: 1. Generalized age-related cortical atrophic changes without evidence of acute intracranial abnormality. 2. Redemonstration chronic left parieto-occipital infarction. Likely chronic right occipital infarction, although new since the prior CT (series 3 image 8). 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
[2020-01-17 14:48] LABS: CALCIUM 8.6 mg/dL (8.5-10.3); CREATININE 0.9 mg/dL (0.6-1.2)
[2020-01-17] MEDS: cefTRIAXone 1 GM in SODIUM CHLORIDE 0.9% MINIBAG 100 ML IV SCH (14:51)
[2020-01-17 15:17] LABS: MAGNESIUM 2.3 mg/dL (1.7-2.8); PHOSPHORUS 2.2 mg/dL (2.5-4.6)
[2020-01-17] MEDS: metroNIDAZOLE 500 MG/100 ML 500 MG/100 ML BAG IV SCH ×2 (15:37→22:17)
[2020-01-17] MEDS ORDERED: POTASSIUM CHLOR 10 MEQ/100 ML 10 MEQ/100 ML BAG IV SCH (16:00)
[2020-01-17] MEDS ORDERED: WARFARIN 5 MG TABLET PO ONE (17:00)
[2020-01-17] MEDS ORDERED: WARFARIN 2.5 MG TABLET PO ONE (17:00)
[2020-01-17] MEDS ORDERED: POTASSIUM PHOSPHATE 15 MMOL in SODIUM CHLORIDE 0.9% 250 ML IV ONE (17:10)
[2020-01-17] MEDS: HALOPERIDOL 5 MG/ML VIAL IM PRN (19:37)
[2020-01-17] MEDS: ENOXAPARIN 120 MG/0.8 ML SYRINGE SUBQ SCH (21:17)
[2020-01-17] MEDS: DOXAZOSIN 4 MG TABLET PO SCH (21:28)
[2020-01-18] MEDS: MORPHINE 2 MG/ML CARPUJECT IVP PRN ×2 (00:31→16:59)
[2020-01-18] MEDS: SODIUM CHLORIDE FLUSH 0.9% 10 ML SYRINGE IVP PRN ×3 (00:34→06:08)
[2020-01-18] MEDS: LORazepam 2 MG/ML VIAL IVP PRN ×2 (00:59→05:15)
[2020-01-18] MEDS: DEXTROSE 5% 1,000 ML IV SCH ×3 (01:59→22:08)
[2020-01-18] MEDS ORDERED: INSULIN ASPART 300 UNIT/3 ML PEN SUBQ SCH (02:00)
[2020-01-18] MEDS: HALOPERIDOL 5 MG/ML VIAL IM PRN ×2 (04:41→22:12)
[2020-01-18] MEDS: INSULIN ASPART 300 UNIT/3 ML PEN SUBQ SCH ×3 (06:01→18:38)
[2020-01-18 06:05] LABS: BASOPHILS % (AUTO) 0.3 %; EOSINOPHILS # (AUTO) 0.4 10^3/uL (0.0-0.7); HGB - HEMOGLOBIN 7.9 g/dL (14.0-18.0); LYMPHOCYTES # (AUTO) 1.5 10^3/uL (1.5-3.5); LYMPHOCYTES % (AUTO) 12.5 %; MEAN CORPUSCULAR HEMOGLOBIN 32.2 pg (27.0-31.0); MEAN CORPUSCULAR HGB CONC 30.4 g/dL (32.0-36.0); MEAN CORPUSCULAR VOLUME 106.1 fL (80.0-94.0); MEAN PLATELET VOLUME 11.5 fL (7.4-11.4); MONOCYTES % (AUTO) 8.7 %; NEUTROPHILS # (AUTO) 8.8 10^3/uL (1.5-6.6); NEUTROPHILS % (AUTO) 74.7 %; PLT - PLATELET COUNT 167 10^3/uL (130-450); RED BLOOD COUNT 2.45 10^6/uL (4.70-6.10); RED CELL DISTRIBUTION WIDTH 17.4 % (12.0-15.0); WHITE BLOOD COUNT 11.8 x10^3/uL (4.8-10.8)
[2020-01-18] MEDS: metroNIDAZOLE 500 MG/100 ML 500 MG/100 ML BAG IV SCH ×3 (06:07→22:30)
[2020-01-18 06:10] LABS: INR 1.8 (0.8-1.2); PT - PROTHROMBIN TIME 19.4 secs (9.9-12.6)
[2020-01-18 06:13] LABS: CALCIUM 8.4 mg/dL (8.5-10.3); CREATININE 0.8 mg/dL (0.6-1.2)
[2020-01-18] MEDS: POTASSIUM CHLOR 10 MEQ/100 ML 10 MEQ/100 ML BAG IV SCH ×4 (06:54→10:18)
[2020-01-18] MEDS: THIAMINE INJ 500 MG in SODIUM CHLORIDE 0.9% 50 ML IV SCH ×3 (07:32→22:16)
[2020-01-18] MEDS ORDERED: GLYCOPYRROLATE 1 MG/5 ML VIAL IVP ONE (07:32)
[2020-01-18] MEDS ORDERED: MIDAZOLAM 2 MG/2 ML VIAL IVP ONE (07:32)
[2020-01-18] MEDS ORDERED: PROPOFOL 200 MG/20 ML VIAL IVP ONE (07:32)
[2020-01-18] MEDS ORDERED: KETAMINE 500 MG/10 ML VIAL IVP ONE (07:32)
[2020-01-18] MEDS: MULTIVITAMIN TABLET PO SCH (08:04)
[2020-01-18] MEDS: ENOXAPARIN 120 MG/0.8 ML SYRINGE SUBQ SCH ×2 (08:30→22:39)
[2020-01-18] MEDS: PANTOPRAZOLE 40 MG VIAL IV SCH ×2 (08:30→22:14)
[2020-01-18] MEDS: cefTRIAXone 1 GM in SODIUM CHLORIDE 0.9% MINIBAG 100 ML IV SCH (08:34)
[2020-01-18] MEDS: SODIUM CHLORIDE FLUSH 0.9% 10 ML SYRINGE IVP SCH ×7 (08:36→22:14)
[2020-01-18] MEDS ORDERED: THIAMINE INJ 500 MG in SODIUM CHLORIDE 0.9% 50 ML IV SCH (09:00)
[2020-01-18] MEDS: LOSARTAN 50 MG TABLET PO SCH (09:05)
[2020-01-18] MEDS: carvediloL 12.5 MG TABLET PO SCH ×2 (09:05→22:11)
[2020-01-18] MEDS: FOLIC ACID 1 MG TABLET PO SCH (09:05)
[2020-01-18 11:13] LABS: MAGNESIUM 2.2 mg/dL (1.7-2.8); PHOSPHORUS 2.7 mg/dL (2.5-4.6)
[2020-01-18] MEDS: NYSTATIN POWDER 15 GM TOP SCH ×2 (11:42→22:36)
[2020-01-18] MEDS: CLOTRIMAZOLE 1% CREAM 15 GM TUBE TOP SCH ×2 (11:43→22:11)
--- NOTE | 2020-01-18 13:50 | PROVIDER PROGRESS NOTE ---
Subjective - Prog Note Date Prog Note Date: 01/18/20 Prog Note Time: 15:46 - Subjective Subjective: He mutters. And when prompted or pokes, he grunts or moans. Otherwise is not tracking with his eyes, or verbally responsive in a lucid manner. Last Ativan was at 5:15 AM today. 1 mg. Nursing has noted foreskin of penis not coming down. Current Medications - Current Medications Current Medications: Active Medications Carvedilol (Coreg) 25 mg PO BID [facility] Last Admin: 01/18/20 09:05 Dose: Not Given Clotrimazole (Lotrimin 1% Cream) 1 applic TOP BID [facility] Last Admin: 01/18/20 11:43 Dose: 1 applic Doxazosin Mesylate (Cardura) 4 mg PO QPM [facility] Last Admin: 01/17/20 21:28 Dose: Not Given Enoxaparin Sodium (Lovenox) 120 mg SUBQ Q12H [facility] Last Admin: 01/18/20 08:30 Dose: 120 mg Folic Acid () 1 mg PO DAILY [facility] Last Admin: 01/18/20 09:05 Dose: Not Given Haloperidol (Haldol Inj) 2 mg IM Q6HR PRN PRN Reason: Agitation Last Admin: 01/18/20 04:41 Dose: 2 mg Dextrose (D5w) 1,000 mls @ 125 mls/hr IV .Q8H [facility] Last Admin: 01/18/20 10:08 Dose: 125 mls/hr Thiamine HCl 500 mg/ Sodium (Chloride) 55 mls @ 100 mls/hr IV Q8HR [facility] Last Infusion: 01/18/20 08:05 Dose: Infused Ceftriaxone Sodium 1 gm/ (Sodium Chloride) 100 mls @ 200 mls/hr IV DAILY [facility] Last Infusion: 01/18/20 09:05 Dose: Infused Metronidazole (Flagyl 500 Mg/100 Ml) 500 mg in 100 mls @ 100 mls/hr IV Q8H [facility] Last Infusion: 01/18/20 07:25 Dose: Infused Insulin Aspart (Novolog) 1 - 5 unit SUBQ Q6H [facility]; Protocol Last Admin: 01/18/20 06:01 Dose: Not Given Lorazepam (Ativan Inj (Vial)) 1 mg IVP Q30M PRN; Protocol PRN Reason: CIWA >8 Last Admin: 01/18/20 05:15 Dose: 1 mg Lorazepam (Ativan Inj (Vial)) 0.5 mg IVP Q2H PRN PRN Reason: Anxiety Last Admin: 01/17/20 20:37 Dose: 0.5 mg Losartan Potassium (Cozaar) 50 mg PO DAILY [facility] Last Admin: 01/18/20 09:05 Dose: Not Given Metoprolol Tartrate (Lopressor Inj) 2.5 mg IVP Q6H PRN PRN Reason: PER PHYSICIAN ORDER Last Admin: 01/17/20 21:26 Dose: 2.5 mg Morphine Sulfate (Morphine (Carpuject)) 1 mg IVP Q2HR PRN PRN Reason: PAIN Last Admin: 01/18/20 00:31 Dose: 1 mg Multivitamins (Theragran) 1 tab PO DAILYWM [facility] Last Admin: 01/18/20 08:04 Dose: Not Given Nystatin (Nystop) 1 applic TOP BID [facility] Last Admin: 01/18/20 11:42 Dose: 1 applic Ondansetron HCl (Zofran Inj) 4 mg IVP Q6HR PRN PRN Reason: Nausea / Vomiting Last Admin: 01/14/20 23:55 Dose: 4 mg Ondansetron HCl (Zofran Odt) 4 mg TL Q6HR PRN PRN Reason: Nausea / Vomiting Last Admin: 01/14/20 19:30 Dose: 4 mg Pantoprazole Sodium (Protonix) 40 mg IV BID [facility] Last Admin: 01/18/20 08:30 Dose: 40 mg Sodium Chloride (Normal Saline Flush 0.9%) 10 ml IVP PRN PRN PRN Reason: NEEDED PER PROVIDER ORDERS Last Admin: 01/18/20 06:08 Dose: 10 ml Sodium Chloride (Normal Saline Flush 0.9%) 10 ml IVP 0100,0900,1700 [facility] Last Admin: 01/18/20 08:36 Dose: 10 ml Sodium Chloride (Normal Saline Flush 0.9%) 10 ml IVP 0100,0900,1700 [facility] Last Admin: 01/18/20 08:36 Dose: 10 ml Sodium Chloride (Normal Saline Flush 0.9%) 10 ml IVP PRN PRN PRN Reason: NEEDED PER PROVIDER ORDERS Last Admin: 01/17/20 21:29 Dose: 10 ml Carvedilol 25 mg PO BID 11/15/14 Doxazosin [Cardura] 8 mg PO DAILY 11/15/14 Losartan [Cozaar] 100 mg PO DAILY 11/15/14 Warfarin [Coumadin] 5 mg PO DAILY 11/15/14 Albuterol Sulf [Ventolin Hfa Inhaler] 2 puffs INH Q4H 01/15/20 Finasteride 5 mg PO DAILY 01/15/20 Fluticasone/Salmeterol [Advair Hfa 230-21 Mcg Inhaler] 2 puffs INH BID 01/15/20 Fluticasone/Umeclidin/Vilanter [Trelegy Ellipta 100-62.5-25] 1 puffs INH DAILY 01/15/20 Mometasone Furoate [Asmanex Hfa] 2 puffs INH BID 01/15/20 Sertraline [Zoloft] 50 mg PO DAILY 01/15/20 Objective - Vital Signs/Intake & Output Reviewed Vital Signs: Yes Vital Signs: Vital Signs x48h Temp Pulse Resp BP Pulse Ox 01/18/20 10:42 77 16 97/67 100 01/18/20 09:00 94 20 131/84 H 98 01/18/20 08:00 36.4 C L 97 19 104/69 99 01/18/20 06:00 79 18 111/65 99 Intake & Output: Intake & Output 01/15/20 01/16/20 01/17/20 01/18/20 23:59 23:59 23:59 23:59 Intake Total 3564.863 2427.867 2987.750 3050.000 Output Total 1100 3275 1270 950 Balance 2464.863 -008.899 4053.750 2100.000 - Objective General Appearance: positive: No acute distress, Lethargic Eyes Bilateral: positive: PERRL ENT: positive: Other (Poor dentition). negative: Oral lesions Neck: positive: Other (Unable to assess JVD because of his thick neck. It is not stiff. No carotid bruit.) Respiratory: positive: Chest non-tender, No respiratory distress, Other (Sonorous upper airway tubular breathing.) Cardiovascular: positive: Regular rate & rhythm (He is in A. fib but I am hearing a predominantly regular rate.). negative: Gallop/S4, Friction rub Abdomen: positive: Non-tender, No organomegaly, Nml bowel sounds, No distention, Other (Rizo in place. Paraphimosis of one band of tissue from edema. Blanches well.) Skin: positive: Warm, Dry Extremities: positive: Non-tender, Pedal edema Neurologic/Psychiatric: positive: CN's nml (2-12), Motor nml, Disoriented to person, Disoriented to place, Disoriented to time, Slurred/abnml speech - Lab Results Fish Bones: 01/18/20 05:35 01/18/20 05:35 Other Labs: Lab Results x24hrs 01/18/20 01/18/20 01/18/20 Range/Units 07:30 05:35 05:35 WBC (4.8-10.8) x10^3/uL RBC (4.70-6.10) 10^6/uL Hgb (14.0-18.0) g/dL Hct (42.0-52.0) % MCV (80.0-94.0) fL MCH (27.0-31.0) pg MCHC (32.0-36.0) g/dL RDW (12.0-15.0) % Plt Count (130-450) 10^3/uL MPV (7.4-11.4) fL Neut # (Auto) (1.5-6.6) 10^3/uL Lymph # (Auto) (1.5-3.5) 10^3/uL Chase # (Auto) (0.0-1.0) 10^3/uL Eos # (Auto) (0.0-0.7) 10^3/uL Baso # (Auto) (0.0-0.1) 10^3/uL Absolute Nucleated RBC x10^3/uL Nucleated RBC % /100WBC PT (9.9-12.6) secs INR (0.8-1.2) Sodium (135-145) mmol/L Potassium (3.5-5.0) mmol/L Chloride (101-111) mmol/L Carbon Dioxide (21-32) mmol/L Anion Gap (6-13) BUN (6-20) mg/dL Creatinine (0.6-1.2) mg/dL Estimated GFR (MDRD) (>89) Glucose (70-100) mg/dL Calcium (8.5-10.3) mg/dL Phosphorus 2.7 (2.5-4.6) mg/dL Magnesium 2.2 (1.7-2.8) mg/dL Ammonia 27.7 (7-35) umol/L B-Natriuretic Peptide (5-100) pg/mL Albumin 2.9 L (3.2-5.5) g/dL Free T4 (0.58-1.64) ng/dL Nasal Screen MRSA (PCR) (NEGATIVE) 01/18/20 01/18/20 01/18/20 Range/Units 05:35 05:35 05:35 WBC (4.8-10.8) x10^3/uL RBC (4.70-6.10) 10^6/uL Hgb (14.0-18.0) g/dL Hct (42.0-52.0) % MCV (80.0-94.0) fL MCH (27.0-31.0) pg MCHC (32.0-36.0) g/dL RDW (12.0-15.0) % Plt Count (130-450) 10^3/uL MPV (7.4-11.4) fL Neut # (Auto) (1.5-6.6) 10^3/uL Lymph # (Auto) (1.5-3.5) 10^3/uL Chase # (Auto) (0.0-1.0) 10^3/uL Eos # (Auto) (0.0-0.7) 10^3/uL Baso # (Auto) (0.0-0.1) 10^3/uL Absolute Nucleated RBC x10^3/uL Nucleated RBC % /100WBC PT 19.4 H (9.9-12.6) secs INR 1.8 H (0.8-1.2) Sodium 148 H (135-145) mmol/L Potassium 3.4 L (3.5-5.0) mmol/L Chloride 114 H (101-111) mmol/L Carbon Dioxide 28 (21-32) mmol/L Anion Gap 6.0 (6-13) BUN 18 (6-20) mg/dL Creatinine 0.8 (0.6-1.2) mg/dL Estimated GFR (MDRD) 93 (>89) Glucose 153 H (70-100) mg/dL Calcium 8.4 L (8.5-10.3) mg/dL Phosphorus (2.5-4.6) mg/dL Magnesium (1.7-2.8) mg/dL Ammonia (7-35) umol/L B-Natriuretic Peptide 79 (5-100) pg/mL Albumin (3.2-5.5) g/dL Free T4 (0.58-1.64) ng/dL Nasal Screen MRSA (PCR) (NEGATIVE) 01/18/20 01/17/20 01/17/20 Range/Units 05:35 22:20 19:20 WBC 11.8 H (4.8-10.8) x10^3/uL RBC 2.45 L (4.70-6.10) 10^6/uL Hgb 7.9 L (14.0-18.0) g/dL Hct 26.0 L (42.0-52.0) % MCV 106.1 H (80.0-94.0) fL MCH 32.2 H (27.0-31.0) pg MCHC 30.4 L (32.0-36.0) g/dL RDW 17.4 H (12.0-15.0) % Plt Count 167 (130-450) 10^3/uL MPV 11.5 H (7.4-11.4) fL Neut # (Auto) 8.8 H (1.5-6.6) 10^3/uL Lymph # (Auto) 1.5 (1.5-3.5) 10^3/uL Chase # (Auto) 1.0 (0.0-1.0) 10^3/uL Eos # (Auto) 0.4 (0.0-0.7) 10^3/uL Baso # (Auto) 0.0 (0.0-0.1) 10^3/uL Absolute Nucleated RBC 0.05 x10^3/uL Nucleated RBC % 0.4 /100WBC PT (9.9-12.6) secs INR (0.8-1.2) Sodium 150 H (135-145) mmol/L Potassium (3.5-5.0) mmol/L Chloride (101-111) mmol/L Carbon Dioxide (21-32) mmol/L Anion Gap (6-13) BUN (6-20) mg/dL Creatinine (0.6-1.2) mg/dL Estimated GFR (MDRD) (>89) Glucose (70-100) mg/dL Calcium (8.5-10.3) mg/dL Phosphorus (2.5-4.6) mg/dL Magnesium (1.7-2.8) mg/dL Ammonia (7-35) umol/L B-Natriuretic Peptide (5-100) pg/mL Albumin (3.2-5.5) g/dL Free T4 (0.58-1.64) ng/dL Nasal Screen MRSA (PCR) NEGATIVE (NEGATIVE) 01/17/20 01/17/20 01/17/20 Range/Units 14:30 14:30 14:30 WBC (4.8-10.8) x10^3/uL RBC (4.70-6.10) 10^6/uL Hgb (14.0-18.0) g/dL Hct (42.0-52.0) % MCV (80.0-94.0) fL MCH (27.0-31.0) pg MCHC (32.0-36.0) g/dL RDW (12.0-15.0) % Plt Count (130-450) 10^3/uL MPV (7.4-11.4) fL Neut # (Auto) (1.5-6.6) 10^3/uL Lymph # (Auto) (1.5-3.5) 10^3/uL Chase # (Auto) (0.0-1.0) 10^3/uL Eos # (Auto) (0.0-0.7) 10^3/uL Baso # (Auto) (0.0-0.1) 10^3/uL Absolute Nucleated RBC x10^3/uL Nucleated RBC % /100WBC PT (9.9-12.6) secs INR (0.8-1.2) Sodium 152 H (135-145) mmol/L Potassium 3.2 L (3.5-5.0) mmol/L Chloride 114 H (101-111) mmol/L Carbon Dioxide 29 (21-32) mmol/L Anion Gap 9.0 (6-13) BUN 24 H (6-20) mg/dL Creatinine 0.9 (0.6-1.2) mg/dL Estimated GFR (MDRD) 81 L (>89) Glucose 155 H (70-100) mg/dL Calcium 8.6 (8.5-10.3) mg/dL Phosphorus 2.2 L (2.5-4.6) mg/dL Magnesium 2.3 (1.7-2.8) mg/dL Ammonia (7-35) umol/L B-Natriuretic Peptide (5-100) pg/mL Albumin (3.2-5.5) g/dL Free T4 0.79 (0.58-1.64) ng/dL Nasal Screen MRSA (PCR) (NEGATIVE) ABX Reporting Has patient been on IV antibiotics over the past 48 hours?: Yes Assessment/Plan - Problem List (1) Paraphimosis Impression: He needed a rizo put in and when foreskin pulled up, rizo inserted, foreskin n ot coming down. Will review Up to Date. General Surgery Consult requested but they have asked we call Urology. Will do so once we try what's in uptodate. (2) Upper GI bleed Impression: Presented as vomiting of blood and one melanotic stool. He is on Coumadin for a bioprosthetic aortic valve. As such INR had to be reversed for him to undergo EGD. Initially general surgery and anesthesia felt he was too "high risk" to scope January 14 due to sedation. Underwent EGD January 15. Found to have duodenitis per verbal report from general surgery Dr. Perkins. Reportedly there is some technical difficulties with OR reporting and formal EGD report is still not in the record. BUN currently downtrending and H&H appropriately increased after 1U PRBC. Hemodynamically stable. B12/folate levels normal . Baseline hemoglobin at home is 14. When he came into the hospital he was 12.4. Lowest hemoglobin was 7.2 and he was transfused 2 units to go back up to 8.4 g. Today is 7.9. Plan: -Status post 1U PRBC on 01/15. Transfuse for Hb<7 -Trend H&H -IV PPI BID -No NSAIDS. Warfarin initally held,Coumadin resumed January 16 with pharmacy to order. -Hold chemical DVT ppx (3) Leukocytosis Impression: Possibly reactive due to GI bleed and probable ETOH withdrawal, but leukocytosis worsening. Negative UA. Urine culture from January 13 with less than 10,000 colonies of urogenital susan. Difficult to exclude aspiration in setting of SOB, no cough Plan: -Start empiric ceftriaxone and Flagyl, Day #2 Qualifiers: Leukocytosis type: unspecified Qualified Code(s): D72.829 - Elevated white blood cell count, unspecified (4) Acute hypoxemic respiratory failure/CALEB with CPAP Impression: Suspect secondary to acute on chronic diastolic CHF in setting of pulmonary hypertension. Elevated BNP and CXR findings on 01/15, suspect due to daily, banana bags, blood transfusions and IVF. BNP was 156 January 15. It is 79 today. He also has CALEB and his mask wasn't working yesterday. recurrent problem with pt's home CPAP with nasal pillows due to the machine alarming and automatically turning off. Discussed [facility] RT who attempted to troubleshoot with machine and believes alarm due to pt's mouth breathing. Trialed different nasal mask with minimal success. Patient with intermittent but frequent desaturations to mid 80s whenever receiving IV Ativan PRN. Due to difficulty with CPAP and significant agitation/AMS secondary to ETOH withdrawal, will transfer to ICU . Overall no diuresis needed. TTE from 10/15/2019 reviewed, preserved EF 65-70 Plan: -Repeat BNP in AM -D/C'ed daily banana bags - on CPAP in ICU an working so far. (5) Alcohol withdrawal (6) Acute metabolic encephalopathy Impression: Significant alcohol use, refer to HPI and son confirmed numerous empty wine bottles found at pt's home. Pt with hypertension, tachycardia, mild confusion, and mild BUE tremors. Suspect worsened by sedation medications for EGD and hypernatremia. CT of head without intraparenchymal hemorrhage. No mass, midline shift, or acute infarction. 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 Likely chronic right occipital infarction although new since prior CT May 20, 2013. Chronic infarct right cerebellar hemisphere, also new since prior study. So his CT findings are chronic with acute superimposition of possible alcohol withdrawal. Plan: -Started empiric IV thiamine at [place] doses, Day #2/3 -IV PRN Ativan Only when absolutely necessary. This gentleman gets easily sedated. I would like to him to have less sedation to be able to get home. -CIMN protocol -PO folate and multivitamin -Avoid deliriogenic meds (7) Supratherapeutic INR (8) Status post mechanical aortic valve replacement Impression: Secondary to warfarin and use of alcohol. Admit INR 4.3. Improved to INR 2.5 status post PO vitamin K on 01/13 and 3 units of FFP. Attempted chart review, no cardiology notes; presume goal INR 2.5 Plan: -Restarted warfarin 01/16, pharmacy to dose. If unable to do take PO in the afternoon, will consider SQ therapeutic Lovenox q12h in the interim (9) Hypernatremia Impression: Worsened since 01/15 due to decreased free water intake while NPO and encephal opathic, as well as IV diuresis. Laboratory Tests 01/14/20 01/17/20 01/17/20 12:46 00:04 22: Sodium 141 154 H 150 H Started on D5W 01/16 and repeat this am: 01/18/20 05:35 Sodium 148 H Plan: -Recheck BMP in AM -Continue D5W infusion. Serial Na (10) Atrial fibrillation Impression: Pt with history of Afib on chart review since at least 2013. EKG ordered 01/15 confirmed this. Borderline RVR with HR 90-100s. Already on home anticoagulation Plan: -Restarted warfarin 01/16, pharmacy to dose. If unable to do take PO in the afternoon, will consider SQ therapeutic Lovenox q12h in the interim -Continue carvedilol when able to do po well, for now IV metoprolol 2.5mg q6h PRN pt's inability to take PO
[2020-01-18] MEDS ORDERED: LIDOCAINE 2% URO-JET 5 ML SYRINGE UR PRN (16:53)
--- NOTE | 2020-01-18 17:30 | MISCELLANEOUS PROVIDER NOTE ---
Miscellaneous Provider Note - - Note: The patient has continued swelling of his penis foreskin and it remains exquisitely painful on exam as he is reluctant to even allow cleaning or inspection. Exam findings: All areas are pink, juan m able, and tender with palpation. There are no necrotic areas, and no further attempts should be made to pull the skin over since he appears to be circumcised. There will not be penis necrosis if it is left the way it is and it should continue to heal if proper, frequent care is performed and manipulation does not occur. The patient appears to be circumcised upon my inspection, since there is a dorsal slit clearly seen on the posterior aspect. It appears that extra skin surrounding the penile shaft has been irritated causing more swelling to that area. Per [employer], using an osmotic to reduce swelling and compression may be helpful, which was trialed this afternoon x1 for just less than one hour without any reduced swelling noted. Plan: Add BID bacitracin which should be applied several times per day to heal any trauma caused by manipulation.
[2020-01-18 18:35] LABS: HGB - HEMOGLOBIN 8.7 g/dL (14.0-18.0); MEAN CORPUSCULAR HEMOGLOBIN 31.4 pg (27.0-31.0); MEAN CORPUSCULAR HGB CONC 30.6 g/dL (32.0-36.0); MEAN CORPUSCULAR VOLUME 102.5 fL (80.0-94.0); MEAN PLATELET VOLUME 11.6 fL (7.4-11.4); RED BLOOD COUNT 2.77 10^6/uL (4.70-6.10); RED CELL DISTRIBUTION WIDTH 17.5 % (12.0-15.0)
[2020-01-18] MEDS: BACITRACIN ZINC OINT 1 PACKET TOP SCH ×2 (18:39→22:36)
[2020-01-18] MEDS: METOPROLOL 5 MG/5 ML VIAL IVP PRN (21:02)
[2020-01-18] MEDS: DOXAZOSIN 4 MG TABLET PO SCH (22:11)
[2020-01-19] MEDS: LORazepam 2 MG/ML VIAL IVP PRN ×2 (01:50→12:17)
[2020-01-19] MEDS: SODIUM CHLORIDE FLUSH 0.9% 10 ML SYRINGE IVP SCH ×4 (01:51→18:01)
[2020-01-19] MEDS: BACITRACIN ZINC OINT 1 PACKET TOP SCH ×6 (04:11→23:38)
[2020-01-19] MEDS: SODIUM CHLORIDE FLUSH 0.9% 10 ML SYRINGE IVP PRN (04:11)
[2020-01-19] MEDS: MORPHINE 2 MG/ML CARPUJECT IVP PRN (04:11)
[2020-01-19] MEDS: metroNIDAZOLE 500 MG/100 ML 500 MG/100 ML BAG IV SCH ×3 (05:43→21:53)
[2020-01-19] MEDS: THIAMINE INJ 500 MG in SODIUM CHLORIDE 0.9% 50 ML IV SCH ×3 (05:45→21:14)
[2020-01-19] MEDS: INSULIN ASPART 300 UNIT/3 ML PEN SUBQ SCH ×4 (05:52→18:02)
[2020-01-19 06:19] LABS: BASOPHILS % (AUTO) 0.4 %; EOSINOPHILS # (AUTO) 0.4 10^3/uL (0.0-0.7); EOSINOPHILS % (AUTO) 3.6 %; HGB - HEMOGLOBIN 7.7 g/dL (14.0-18.0); LYMPHOCYTES # (AUTO) 1.2 10^3/uL (1.5-3.5); MEAN CORPUSCULAR HEMOGLOBIN 31.4 pg (27.0-31.0); MEAN CORPUSCULAR HGB CONC 30.1 g/dL (32.0-36.0); MEAN CORPUSCULAR VOLUME 104.5 fL (80.0-94.0); MEAN PLATELET VOLUME 11.9 fL (7.4-11.4); MONOCYTES % (AUTO) 9.1 %; NEUTROPHILS # (AUTO) 8.4 10^3/uL (1.5-6.6); NEUTROPHILS % (AUTO) 74.9 %; PLT - PLATELET COUNT 177 10^3/uL (130-450); RED BLOOD COUNT 2.45 10^6/uL (4.70-6.10); WHITE BLOOD COUNT 11.2 x10^3/uL (4.8-10.8)
[2020-01-19 06:31] LABS: CALCIUM 8.3 mg/dL (8.5-10.3); CREATININE 0.8 mg/dL (0.6-1.2)
[2020-01-19] MEDS: POTASSIUM CHLOR 10 MEQ/100 ML 10 MEQ/100 ML BAG IV SCH ×4 (08:15→11:21)
[2020-01-19] MEDS: DEXTROSE 5% 1,000 ML IV SCH (08:15)
[2020-01-19] MEDS: PANTOPRAZOLE 40 MG VIAL IV SCH ×2 (08:16→20:57)
[2020-01-19] MEDS: ENOXAPARIN 120 MG/0.8 ML SYRINGE SUBQ SCH ×2 (08:16→20:58)
[2020-01-19] MEDS: NYSTATIN POWDER 15 GM TOP SCH ×2 (08:17→20:57)
[2020-01-19] MEDS: cefTRIAXone 1 GM in SODIUM CHLORIDE 0.9% MINIBAG 100 ML IV SCH (08:17)
[2020-01-19] MEDS: METOPROLOL 5 MG/5 ML VIAL IVP PRN (08:29)
[2020-01-19] MEDS: carvediloL 12.5 MG TABLET PO SCH (10:02)
[2020-01-19] MEDS: CLOTRIMAZOLE 1% CREAM 15 GM TUBE TOP SCH ×2 (10:02→20:56)
--- NOTE | 2020-01-19 13:12 | PROVIDER PROGRESS NOTE ---
Assessment/Plan - Problem List (1) Acute tracheitis with airway obstruction Assessment/Plan: At about 1230 pm, the RN called me to see patient, who had acute upper airway obstruction after oral care was being done; she was concerned that a dry ball of secretions had become lodged in his trachea, and he could not cough it up, his BP and HR were rising, consistent with him being in distress. After I saw and examined the patient, I called for a STAT Anesthesia evaluation for laryngoscopy. Portillo Perry, Nurse [employer], saw the patient and needed to intubate him and put him on the ventilator, because he saw marked inflammation of the trachea along with dry, webbed secretions, partially covering the airway. The patient will be started on Solumedrol for treating airway inflammation. He will need about 48-72 hours of high dose steroids before attempting extubation. IV sedation needed while on the ventilator. Oral meds and diet stopped/NPO ordered. His iv fluids will be changed from D5 to D5NS with KCl for hydrating and mobilizing his secretions. Will start ng feeds with the ng that is needed for decompression of stomach while intubated. He will to be in the ICU for at least 3 days and his discharge postponed. (2) Altered mental status Assessment/Plan: Significant alcohol use history, and son had confirmed numerous empty wine bottles found at pt's home. He had hypertension, tachycardia, mild confusion, and mild BUE tremors. Then mental status worsened by sedation medications for EGD and by being hypernatremic. A CT of head was done and CT findings showed chronic findings. His altered mental status was felt to be acute superimposition of possible alcohol withdrawal on those chronic findings. He got 3 days of high dose iv Thiamine at [place] doses. We were avoiding sedatives to allow him to awaken. This morning, he was opening his eyes and starting to communicate. He needed to be intubated at 1300, for acute airway compromise, and will need sedation while on the ventilator now, however. Will use Propofol iv drip. (3) Upper GI bleed Assessment/Plan: Presented as vomiting of blood and one melanotic stool. He wa on Coumadin for a bioprosthetic aortic valve. As such INR had to be reversed for him to undergo EGD. Initially general surgery and anesthesia felt he was too "high risk" to scope January 14 due to sedation. Underwent EGD January 15. Found to have duodenitis per verbal report from general surgery Dr. Perkins. Hemodynamically stable. B12/folate levels normal . Baseline hemoglobin at home is 14. When he came into the hospital, Hgb was 12.4. Lowest hemoglobin was 7.2 and he was transfused 2 units to go back up to 8.4 g. Today Hgb down to 7.7 Continue IV PPI BID Monitor CBC daily. Transfuse if Hgb < 7 (4) Paraphimosis Assessment/Plan: Yesterday his penis was noted to have swelling from manipulation. A Beckman is in place now. The steroids to be started for airway inflammation, will help this as well. (5) Alcohol abuse Assessment/Plan: As in #2. He was getting a Banana bag which was stopped, he got 3 days of very high dose iv Thiamine, a CIWA protocol was in place. LFTs have not been followed daily, as they were normal 2 days at admission. (6) HTN (hypertension) Assessment/Plan: He was to be on Coreg and Losartan. This morning he was tachy and HTN when in respiratory distress. After intubation and sedation started his BP is low. Hold BP meds, give small bolus of saline and adjust his daily iv hydration from DS to D5NS with KCl. If BP rises, he will need iv forms of meds. (7) Leukocytosis Qualifiers: Leukocytosis type: unspecified Qualified Code(s): D72.829 - Elevated white blood cell count, unspecified Assessment/Plan: Possibly reactive due to stress of GI bleed and ETOH withdrawal. He had a negative UA. He may have also had aspiration in setting of hematemesis, intoxication. He was started on empiric ceftriaxone and Flagyl, Day #3 Follow CXR while intubated. (8) Hypokalemia Assessment/Plan: Related to iv hydration without K and getting no po diet for days. Will replace with ICU protocol. Follow BMP daily. (9) Atrial fibrillation Qualifiers: Atrial fibrillation type: unspecified Qualified Code(s): I48.91 - Unspeci fied atrial fibrillation Assessment/Plan: Patient has a history of Afib on chart review since at least 2013. Already on home anticoagulation; here he is currently on therapeutic dose of Lovenox. (10) Aortic valve prosthesis present Assessment/Plan: He has been NPO and unable to safely take his po meds for 4-5 days, therefore C oumadin was changed to therapeutic dose Lovenox at 120 mg sq b.i.d. The excessive INR at admission, has drifted down to subtherapeutic range. (11) Morbid obesity Assessment/Plan: BMI is 40 (12) CALEB on CPAP Assessment/Plan: The home CPAP device was being used here. Now he is on a vent. (13) Hypernatremia Assessment/Plan: Resolved after several days of D5 free water iv hydration. - Current Meds Current Meds: Current Medications Generic Name Dose Route Start Last Admin Trade Name Freq PRN Reason Stop Dose Admin Bacitracin 1 packet 01/18/20 19:00 01/19/20 06:45 Bacitracin TOP 1 packet Q4H THOMAS Administration Clotrimazole 1 applic 01/16/20 22:30 01/19/20 10:02 Lotrimin 1% Cream TOP Not Given BID THOMAS Enoxaparin Sodium 120 mg 01/17/20 21:00 01/19/20 08:16 Lovenox SUBQ 120 mg Q12H THOMAS Administration Haloperidol 2 mg 01/17/20 18:23 01/18/20 22:12 Haldol Inj IM 2 mg Q6HR PRN Administration Agitation Thiamine HCl 500 mg/ Sodium 55 mls @ 100 mls/hr 01/17/20 14:00 01/19/20 06:45 Chloride IV Infused Q8HR THOMAS Infusion Ceftriaxone Sodium 1 gm/ 100 mls @ 200 mls/hr 01/17/20 13:38 01/19/20 10:00 Sodium Chloride IV Infused DAILY THOMAS Infusion Metronidazole 500 mg in 100 mls @ 100 mls/hr 01/17/20 14:00 01/19/20 06:45 Flagyl 500 Mg/100 Ml IV Infused Q8H THOMAS Infusion Insulin Aspart 1 - 5 unit 01/18/20 06:00 01/19/20 05:52 Novolog SUBQ Not Given Q6H THOMAS Protocol Lidocaine HCl 2.5 ml 01/18/20 16:53 01/18/20 16:59 Xylocaine Uro-Jet 2% UR 2.5 ml Q6H PRN Administration PAIN Lorazepam 1 mg 01/17/20 17:26 01/19/20 12:17 Ativan Inj (Vial) IVP 1 mg Q30M PRN Administration CIWA >8 Protocol Lorazepam 0.5 mg 01/17/20 17:30 01/17/20 20:37 Ativan Inj (Vial) IVP 0.5 mg Q2H PRN Administration Anxiety Metoprolol Tartrate 2.5 mg 01/17/20 11:15 01/19/20 08:29 Lopressor Inj IVP 2.5 mg Q6H PRN Administration PER PHYSICIAN ORDER Nystatin 1 applic 01/15/20 09:00 01/19/20 08:17 Nystop TOP 1 applic BID THOMAS Administration Ondansetron HCl 4 mg 01/14/20 14:10 01/14/20 23:55 Zofran Inj IVP 4 mg Q6HR PRN Administration Nausea / Vomiting Ondansetron HCl 4 mg 01/14/20 14:10 01/14/20 19:30 Zofran Odt TL 4 mg Q6HR PRN Administration Nausea / Vomiting Pantoprazole Sodium 40 mg 01/16/20 21:00 01/19/20 08:16 Protonix IV 40 mg BID THOMAS Administration Sodium Chloride 10 ml 01/14/20 14:10 01/18/20 06:08 Normal Saline Flush 0.9% IVP 10 ml PRN PRN Administration NEEDED PER PROVIDER ORDERS Sodium Chloride 10 ml 01/14/20 17:00 01/19/20 08:17 Normal Saline Flush 0.9% IVP 10 ml 0100,0900,1700 THOMAS Administration Sodium Chloride 10 ml 01/18/20 01:00 01/19/20 08:18 Normal Saline Flush 0.9% IVP 10 ml 0100,0900,1700 THOMAS Administration Sodium Chloride 10 ml 01/17/20 18:25 01/19/20 04:11 Normal Saline Flush 0.9% IVP 10 ml PRN PRN Administration NEEDED PER PROVIDER ORDERS - Lab Result Fish Bone Diagrams: 01/19/20 05:18 01/19/20 05:18 - Additional Planning My Orders: My Active Orders 01/19/20 12:53 Chest for Line Placement [XR] Stat 01/19/20 12:58 Ng [Insert NG Tube] [RC] ONCE 01/19/20 13:09 Morphine Inj (Carpuject) [Morphine (Carpuject)] 2 mg IVP Q2HR PRN 03/24/20 14:00 D5ns W/20 Meq KCl 1,000 ml IV 100 mls/hr Propofol 1000 mg/100 ml [Diprivan] 100 ml IV 10 mcg/kg/min Objective Vital Signs: Vital Signs - 24 hr 01/18/20 01/18/20 01/18/20 14:00 15:00 16:00 Temperature 35.5 C L 36.5 C Heart Rate [ 104 H 77 75 Monitoring electrodes] Respiratory 21 16 15 Rate Blood Pressure Blood Pressure 102/89 H 124/76 125/63 [Right Brachial artery] O2 Saturation 99 100 100 01/18/20 01/18/20 01/18/20 17:00 19:00 20:00 Temperature 36.5 C Heart Rate [ 105 H 89 87 Monitoring electrodes] Respiratory 26 H 20 15 Rate Blood Pressure Blood Pressure 89/49 L 127/68 140/70 H [Right Brachial artery] O2 Saturation 99 100 100 01/18/20 01/18/20 01/18/20 21:00 21:02 21:15 Temperature Heart Rate [ 101 H 100 Monitoring electrodes] Respiratory 25 H 19 Rate Blood Pressure 156/72 H Blood Pressure 156/72 H 155/71 H [Right Brachial artery] O2 Saturation 97 100 01/18/20 01/18/20 01/18/20 21:30 21:32 22:00 Temperature Heart Rate [ 65 72 Monitoring electrodes] Respiratory 16 15 Rate Blood Pressure 118/65 Blood Pressure 118/65 114/71 [Right Brachial artery] O2 Saturation 100 100 01/18/20 01/19/20 01/19/20 23:00 00:00 01:00 Temperature 36.5 C Heart Rate [ 98 77 75 Monitoring electrodes] Respiratory 22 15 17 Rate Blood Pressure Blood Pressure 155/92 H 132/65 H 127/78 [Right Brachial artery] O2 Saturation 98 100 98 01/19/20 01/19/20 01/19/20 02:10 06:15 08:00 Temperature 36.5 C 36.9 C Heart Rate [ 93 96 105 H Monitoring electrodes] Respiratory 21 21 24 Rate Blood Pressure Blood Pressure 141/64 H 142/71 H 82/60 L [Right Brachial artery] O2 Saturation 96 98 100 01/19/20 01/19/20 01/19/20 08:29 08:59 09:00 Temperature Heart Rate [ 74 Monitoring electrodes] Respiratory 17 Rate Blood Pressure 160/70 H 109/69 Blood Pressure 109/57 L [Right Brachial artery] O2 Saturation 98 Oxygen O2 Source Nasal cannula I&O (Last 24 Hrs): Intake and Output Totals x24h 01/17/20 01/18/20 01/19/20 23:59 23:59 23:59 Intake Total 2987.750 4360.000 1555.000 Output Total 1270 1290 785 Balance 4280.669 7517.000 770.000 General: Moderate distress HEENT: Mucous membr. moist/pink Neck: Supple Neuro: Other (Obtunded) Cardiovascular: No murmurs, Other (Tachy) Respiratory: Other Abdomen: Other (Obese) Genitourinary: Abnormal Foreskin, Other (Beckman) Extremities: Other (edema vs lymphedema of legs) - Results Results: Laboratory Results WBC 11.2 x10^3/uL (4.8-10.8) H 01/19/20 05:18 RBC 2.45 10^6/uL (4.70-6.10) L 01/19/20 05:18 Hgb 7.7 g/dL (14.0-18.0) L 01/19/20 05:18 Hct 25.6 % (42.0-52.0) L 01/19/20 05:18 MCV 104.5 fL (80.0-94.0) H 01/19/20 05:18 MCH 31.4 pg (27.0-31.0) H 01/19/20 05:18 MCHC 30.1 g/dL (32.0-36.0) L 01/19/20 05:18 RDW 17.0 % (12.0-15.0) H 01/19/20 05:18 Plt Count 177 10^3/uL (130-450) 01/19/20 05:18 MPV 11.9 fL (7.4-11.4) H 01/19/20 05:18 Neut # (Auto) 8.4 10^3/uL (1.5-6.6) H 01/19/20 05:18 Lymph # (Auto) 1.2 10^3/uL (1.5-3.5) L 01/19/20 05:18 Payne # (Auto) 1.0 10^3/uL (0.0-1.0) 01/19/20 05:18 Eos # (Auto) 0.4 10^3/uL (0.0-0.7) 01/19/20 05:18 Baso # (Auto) 0.0 10^3/uL (0.0-0.1) 01/19/20 05:18 Absolute Nucleated RBC 0.07 x10^3/uL 01/19/20 05:18 Nucleated RBC % 0.6 /100WBC 01/19/20 05:18 PT 19.4 secs (9.9-12.6) H 01/18/20 05:35 INR 1.8 (0.8-1.2) H 01/18/20 05:35 Whole Blood INR 4.1 (0.8-1.2) H 01/14/20 14:26 APTT 40.4 secs (24.9-33.3) H 01/14/20 12:46 Sodium 144 mmol/L (135-145) 01/19/20 05:18 Potassium 3.1 mmol/L (3.5-5.0) L 01/19/20 05:18 Chloride 112 mmol/L (101-111) H 01/19/20 05:18 Carbon Dioxide 26 mmol/L (21-32) 01/19/20 05:18 Anion Gap 6.0 (6-13) 01/19/20 05:18 BUN 12 mg/dL (6-20) 01/19/20 05:18 Creatinine 0.8 mg/dL (0.6-1.2) 01/19/20 05:18 Estimated GFR (MDRD) 93 (>89) 01/19/20 05:18 Glucose 138 mg/dL (70-100) H 01/19/20 05:18 Glycated Hemoglobin 6.2 % (4.6-6.2) 01/16/20 14:08 Estim Average Glucose 131 (70-100) H 01/16/20 14:08 Calcium 8.3 mg/dL (8.5-10.3) L 01/19/20 05:18 Phosphorus 2.7 mg/dL (2.5-4.6) 01/19/20 05:18 Magnesium 1.9 mg/dL (1.7-2.8) 01/19/20 05:18 Total Bilirubin 0.9 mg/dL (0.2-1.0) 01/15/20 05:15 AST 21 IU/L (10-42) 01/15/20 05:15 ALT 18 IU/L (10-60) 01/15/20 05:15 Alkaline Phosphatase 42 IU/L (42-121) 01/15/20 05:15 Ammonia 27.7 umol/L (7-35) 01/18/20 07:30 B-Natriuretic Peptide 79 pg/mL (5-100) 01/18/20 05:35 Total Protein 6.2 g/dL (6.7-8.2) L 01/15/20 05:15 Albumin 2.9 g/dL (3.2-5.5) L 01/18/20 05:35 Globulin 3.1 g/dL (2.1-4.2) 01/15/20 05:15 Albumin/Globulin Ratio 1.0 (1.0-2.2) 01/15/20 05:15 Lipase 24 U/L (22-51) 01/14/20 12:46 Vitamin B12 606 pg/mL (180-914) 01/16/20 18:20 Folate 13.12 ng/mL (5.90 - >24.8) 01/16/20 18:20 TSH 0.19 uIU/mL (0.34-5.60) L 01/16/20 18:20 Free T4 0.79 ng/dL (0.58-1.64) 01/17/20 14:30 Urine Color YELLOW 01/16/20 17:40 Urine Clarity CLEAR (CLEAR) 01/16/20 17:40 Urine pH 5.0 PH (5.0-7.5) 01/16/20 17:40 Ur Specific [place] 1.020 (1.002-1.030) 01/16/20 17:40 Urine Protein NEGATIVE mg/dL (NEGATIVE) 01/16/20 17:40 Urine Glucose (UA) NEGATIVE mg/dL (NEGATIVE) 01/16/20 17:40 Urine Ketones NEGATIVE mg/dL (NEGATIVE) 01/16/20 17:40 Urine Occult Blood SMALL (NEGATIVE) H 01/16/20 17:40 Urine Nitrite NEGATIVE (NEGATIVE) 01/16/20 17:40 Urine Bilirubin NEGATIVE (NEGATIVE) 01/16/20 17:40 Urine Urobilinogen 0.2 (NORMAL) E.U./dL (NORMAL) 01/16/20 17:40 Ur Leukocyte Esterase NEGATIVE (NEGATIVE) 01/16/20 17:40 Urine RBC 6-10 /HPF (0-5) H 01/16/20 17:40 Urine WBC 0-3 /HPF (0-3) 01/16/20 17:40 Ur Squamous Epith Cells NONE SEEN (<= Few) 01/16/20 17:40 Urine Bacteria None Seen /HPF (None Seen) 01/16/20 17:40 Urine Casts 0-2 Hyaline Casts /LPF 01/16/20 17:40 Ur Microscopic Review INDICATED 01/14/20 13:59 Urine Culture Comments NOT INDICATED 01/16/20 17:40 Nasal Screen MRSA (PCR) NEGATIVE (NEGATIVE) 01/17/20 19:20 Blood Type A POSITIVE 01/14/20 12:46 Blood Type Recheck A POSITIVE 01/14/20 17:20 Antibody Screen NEGATIVE 01/14/20 12:46 Crossmatch IS Only See Detail 01/14/20 12:46
--- NOTE | 2020-01-19 13:40 | XRAY Report ---
Reason: ETT Procedure Date: 01/19/2020 Accession Number: [id number] / [id number] Procedure: XR - Chest for Line Placement CPT Code: Final Report FULL RESULT: EXAM: CHEST RADIOGRAPHY EXAM DATE: 01/19/2020 01:25 PM. CLINICAL HISTORY: Endotracheal tube placement. COMPARISON: CHEST 1 VIEW 01/16/2020 8:16 AM. TECHNIQUE: 1 view. FINDINGS: Lungs/Pleura: Groundglass opacities at the lung bases may represent small effusions and/or overlying soft tissue. Diffuse moderate pulmonary vascular congestion again present. No new focal opacities definitively identified. Mediastinum: The cardiac silhouette is moderately enlarged and increased in size in the interval. The vascular pedicle has also dilated. Other: A new endotracheal tube extends to 4.8 cm above the kyleigh in satisfactory position. An aortic valvular prosthesis is noted as before. Sternotomy wires overlie the midline. IMPRESSION: 1. Endotracheal tube in satisfactory position. 2. Increasing cardiopulmonary vascular congestion suggesting CHF or fluid overload. 3. Possible small bibasilar effusions. RADIA
--- NOTE | 2020-01-19 13:44 | ANESTHESIA PROCEDURE NOTE ---
Anesthesia Intubation Template - Intubation Blade: positive: Glidescope Tube: Size-enter number (8), Cuffed Route: Oral Placement Confirmation: End tidal CO2, Direct visualization (glidescope), Bilateral breath sounds Complications: No complications (Call to ICU for increased work of breathing. SAT 100% on SFM with nasal airway in. Audibly obstructing. Confused and moderately combative. HOB to 30 degrees. Propofol 100mg, [place] 10mg, Succ 120mg IV rapid push. Glidescope to view. Cords visualized but heavy strands of mucous and sputum obstructing direct path. Able to advance tube distal to cords and cuff inflated. BBS, +ETCO2, tube at 22@teeth, secured, to vent per RT.)
[2020-01-19] MEDS ORDERED: SODIUM CHLORIDE 0.9% 500 ML IV ONE (13:47)
--- NOTE | 2020-01-19 13:47 | CONSULTATION NOTE ---
Consultation Report: Asked to place additional working IVs. history of difficult start, infiltration. 18ga 1.88 placed at R AC attempt x2 with US. Easily aspirates and flushes with cap secured. 20ga 1.88" placed at L AC with attempt x1 using US. Easily aspirates and flushes with cap. secured.
[2020-01-19] MEDS: D5NS W/20 MEQ KCL 1,000 ML IV SCH ×2 (13:55→21:55)
[2020-01-19] MEDS ORDERED: PROPOFOL 1000 MG/100 ML 100 ML IV SCH (14:00)
[2020-01-19] MEDS ORDERED: D5NS W/20 MEQ KCL 1,000 ML IV SCH (14:00)
[2020-01-19] MEDS: methylPREDNISolone SUCCINATE 125 MG/2 ML VIAL IVP SCH ×2 (14:31→21:52)
[2020-01-19 14:43] LABS: ABG BASE EXCESS -0.4 mmol/L (-2.0-3.0); ABG HCO3 22.3 mmol/L (22.0-26.0); ABG PCO2 29 mmHg (34-45); ABG PO2 111 mmHg (80-100); ABG TCO2 23.2 MMOL/L (21.0-29.0)
[2020-01-19 14:44] LABS: ABG OXYGEN SATURATION 98 % (94-98); ALLEN TEST POSITIVE
[2020-01-19] MEDS ORDERED: DOBUTamine 500 MG/250 ML 500 MG/250 ML BAG IV ONE (14:52)
[2020-01-19] MEDS: DEXMEDETOMIDINE 400 MCG/100 ML 100 ML IV SCH ×2 (15:26→20:51)
[2020-01-19 15:52] LABS: ABG PH 7.46 (7.35-7.45)
[2020-01-19 15:53] LABS: ABG BASE EXCESS -1.2 mmol/L (-2.0-3.0); ABG HCO3 22.2 mmol/L (22.0-26.0); ABG OXYGEN SATURATION 98 % (94-98); ABG PCO2 32 mmHg (34-45); ABG PO2 110 mmHg (80-100); ABG TCO2 23.2 MMOL/L (21.0-29.0); ALLEN TEST POSITIVE
[2020-01-19] MEDS ORDERED: DOBUTamine 500 MG/250 ML 500 MG/250 ML BAG IV SCH (16:00)
[2020-01-19] MEDS: CHLORHEXIDINE GLUCONATE 15 ML UDC PO SCH (20:56)
[2020-01-20] MEDS: INSULIN ASPART 300 UNIT/3 ML PEN SUBQ SCH ×5 (00:03→23:58)
[2020-01-20] MEDS: SODIUM CHLORIDE FLUSH 0.9% 10 ML SYRINGE IVP SCH ×6 (00:04→17:58)
[2020-01-20] MEDS: MORPHINE 2 MG/ML CARPUJECT IVP PRN (00:39)
[2020-01-20] MEDS: DEXMEDETOMIDINE 400 MCG/100 ML 100 ML IV SCH ×4 (02:06→20:20)
[2020-01-20] MEDS: LORazepam 2 MG/ML VIAL IVP PRN ×3 (02:57→21:55)
[2020-01-20] MEDS: BACITRACIN ZINC OINT 1 PACKET TOP SCH ×6 (03:13→22:57)
[2020-01-20] MEDS: D5NS W/20 MEQ KCL 1,000 ML IV SCH (05:57)
[2020-01-20] MEDS: methylPREDNISolone SUCCINATE 125 MG/2 ML VIAL IVP SCH ×3 (05:57→22:01)
[2020-01-20] MEDS: THIAMINE INJ 500 MG in SODIUM CHLORIDE 0.9% 50 ML IV SCH ×3 (05:58→21:13)
[2020-01-20 06:04] LABS: BASOPHILS % (AUTO) 0.1 %; HGB - HEMOGLOBIN 7.9 g/dL (14.0-18.0); LYMPHOCYTES # (AUTO) 0.8 10^3/uL (1.5-3.5); LYMPHOCYTES % (AUTO) 7.4 %; MEAN CORPUSCULAR HEMOGLOBIN 33.2 pg (27.0-31.0); MEAN CORPUSCULAR HGB CONC 31.6 g/dL (32.0-36.0); MEAN PLATELET VOLUME 11.8 fL (7.4-11.4); MONOCYTES # (AUTO) 0.4 10^3/uL (0.0-1.0); MONOCYTES % (AUTO) 3.3 %; NEUTROPHILS # (AUTO) 9.3 10^3/uL (1.5-6.6); NEUTROPHILS % (AUTO) 88.3 %; PLT - PLATELET COUNT 170 10^3/uL (130-450); RED BLOOD COUNT 2.38 10^6/uL (4.70-6.10); WHITE BLOOD COUNT 10.6 x10^3/uL (4.8-10.8)
[2020-01-20 06:16] LABS: ALBUMIN 2.7 g/dL (3.2-5.5); ALBUMIN/GLOBULIN RATIO 0.9 (1.0-2.2); BILIRUBIN,TOTAL 1.3 mg/dL (0.2-1.0); CALCIUM 8.2 mg/dL (8.5-10.3); CREATININE 0.8 mg/dL (0.6-1.2); MAGNESIUM 2.2 mg/dL (1.7-2.8); PHOSPHORUS 2.8 mg/dL (2.5-4.6); TOTAL PROTEIN 5.8 g/dL (6.7-8.2)
[2020-01-20 06:26] LABS: ABG PCO2 33 mmHg (34-45); ABG PH 7.43 (7.35-7.45)
[2020-01-20 06:27] LABS: ABG BASE EXCESS -2.7 mmol/L (-2.0-3.0); ABG HCO3 21.2 mmol/L (22.0-26.0); ABG OXYGEN SATURATION 97 % (94-98); ABG PO2 101 mmHg (80-100); ABG TCO2 22.2 MMOL/L (21.0-29.0); ALLEN TEST POSITIVE
[2020-01-20] MEDS: metroNIDAZOLE 500 MG/100 ML 500 MG/100 ML BAG IV SCH ×3 (06:28→22:24)
[2020-01-20] MEDS: NYSTATIN POWDER 15 GM TOP SCH ×2 (08:52→21:12)
[2020-01-20] MEDS: cefTRIAXone 1 GM in SODIUM CHLORIDE 0.9% MINIBAG 100 ML IV SCH (09:03)
[2020-01-20] MEDS: CHLORHEXIDINE GLUCONATE 15 ML UDC PO SCH ×2 (09:04→21:11)
[2020-01-20] MEDS: PANTOPRAZOLE 40 MG VIAL IV SCH ×2 (09:04→21:12)
[2020-01-20] MEDS: ENOXAPARIN 120 MG/0.8 ML SYRINGE SUBQ SCH ×2 (09:04→21:12)
[2020-01-20] MEDS: CLOTRIMAZOLE 1% CREAM 15 GM TUBE TOP SCH ×2 (09:04→21:11)
--- NOTE | 2020-01-20 12:15 | PROVIDER PROGRESS NOTE ---
Assessment/Plan - Problem List (1) Acute tracheitis with airway obstruction Assessment/Plan: He is on Day#2 of iv steroids for tracheitis and getting gentle iv hydration for his dry secretions that were seen on yesterdays laryngoscopy done by Anesthesia when he got intubated. Continue vent today, wean planned for tomorrow NG tube feeds started yesterday (2) Altered mental status Assessment/Plan: He was slow to awaken over the past 4 days, after sedatives given during EGD and for CIWA protocol. Now he is purposefully sedated, while on vent. Will DC sedatives tomorrow a.m. to start weaning trials. Will follow ammonia levels when he is awake. (3) Upper GI bleed Assessment/Plan: NG tube feeds are doing fine. Hgb has been stable (4) Paraphimosis Assessment/Plan: Beckman in place. IV steroids for tracheitis are also treating the glans penis swelling (he is circumcised) (5) Alcohol abuse Assessment/Plan: The SW reported to me today, that the patient was hoarding empty wine boxes and bottles in his bedroom, which the son and family are dealing with currently. He got high dose Thiamine and iv Banana bags for hydration earlier this adm ission. NG tube feeds as per Slitting Machine Operator. Will follow ammonia levels when he is awake. (6) HTN (hypertension) Assessment/Plan: Current iv meds are controlling BP (7) Leukocytosis Qualifiers: Leukocytosis type: unspecified Qualified Code(s): D72.829 - Elevated white blood cell count, unspecified Assessment/Plan: Possibly reactive due to stress of GI bleed and ETOH withdrawal. He had a negative UA. He may have also had aspiration in setting of hematemesis during intoxication. He was started on empiric ceftriaxone and Flagyl, Day #4 WBC dropped to 10 today. Follow CXR while intubated. (8) Hypokalemia Assessment/Plan: Replace and follow BMP daily. (9) Atrial fibrillation Qualifiers: Atrial fibrillation type: unspecified Qualified Code(s): I48.91 - Unspecified atrial fibrillation Assessment/Plan: Patient has a history of Afib on chart review, since at least 2013. Already on home anticoagulation; here he is currently on therapeutic dose of Lovenox. (10) Aortic valve prosthesis present Assessment/Plan: As per Hx (11) Morbid obesity Assessment/Plan: As per Hx (12) CALEB on CPAP Assessment/Plan: As per Hx (13) Hypernatremia Assessment/Plan: Resolved - Current Meds Current Meds: Current Medications Generic Name Dose Route Start Last Admin Trade Name Freq PRN Reason Stop Dose Admin Bacitracin 1 packet 01/18/20 19:00 01/20/20 08:52 Bacitracin TOP 1 packet Q4H THOMAS Administration Chlorhexidine Gluconate 15 ml 01/19/20 21:00 01/20/20 09:04 Peridex PO 15 ml BID THOMAS Administration Clotrimazole 1 applic 01/16/20 22:30 01/20/20 09:04 Lotrimin 1% Cream TOP Not Given BID THOMAS Enoxaparin Sodium 120 mg 01/17/20 21:00 01/20/20 09:04 Lovenox SUBQ 120 mg Q12H THOMAS Administration Haloperidol 2 mg 01/17/20 18:23 01/18/20 22:12 Haldol Inj IM 2 mg Q6HR PRN Administration Agitation Thiamine HCl 500 mg/ Sodium 55 mls @ 100 mls/hr 01/17/20 14:00 01/20/20 06:44 Chloride IV Infused Q8HR THOMAS Infusion Ceftriaxone Sodium 1 gm/ 100 mls @ 200 mls/hr 01/17/20 13:38 01/20/20 09:30 Sodium Chloride IV Infused DAILY THOMAS Infusion Metronidazole 500 mg in 100 mls @ 100 mls/hr 01/17/20 14:00 01/20/20 07:25 Flagyl 500 Mg/100 Ml IV Infused Q8H THOMAS Infusion Potassium Chloride/Dextrose/Sod Cl 1,000 mls @ 125 mls/hr 01/19/20 14:00 01/20/20 11:00 IV 125 mls/hr .Q8H THOMAS Infusion Dexmedetomidine/Sodium Chloride 100 mls @ 6.15 mls/hr 01/19/20 15:00 01/20/20 10:48 Precedex Premix IV 0.6 mcg/kg/hr .[id number] THOMAS 18.45 mls/hr Administration Protocol 0.2 MCG/KG/HR Insulin Aspart 1 - 5 unit 01/18/20 06:00 01/20/20 06:26 Novolog SUBQ 2 unit Q6H THOMAS Administration Protocol Lidocaine HCl 2.5 ml 01/18/20 16:53 01/18/20 16:59 Xylocaine Uro-Jet 2% UR 2.5 ml Q6H PRN Administration PAIN Lorazepam 1 mg 01/17/20 17:26 01/19/20 12:17 Ativan Inj (Vial) IVP 1 mg Q30M PRN Administration CIWA >8 Protocol Lorazepam 0.5 mg 01/17/20 17:30 01/20/20 02:57 Ativan Inj (Vial) IVP 0.5 mg Q2H PRN Administration Anxiety Methylprednisolone Sodium Succinate 80 mg 01/19/20 14:00 01/20/20 05:57 Solu-Medrol (125mg Vial) IVP 80 mg TID THOMAS Administration Metoprolol Tartrate 2.5 mg 01/17/20 11:15 01/19/20 08:29 Lopressor Inj IVP 2.5 mg Q6H PRN Administration PER PHYSICIAN ORDER Morphine Sulfate 2 mg 01/19/20 13:09 01/20/20 00:39 Morphine (Carpuject) IVP 2 mg Q2HR PRN Administration PAIN Nystatin 1 applic 01/15/20 09:00 01/20/20 08:52 Nystop TOP 1 applic BID THOMAS Administration Ondansetron HCl 4 mg 01/14/20 14:10 01/14/20 23:55 Zofran Inj IVP 4 mg Q6HR PRN Administration Nausea / Vomiting Ondansetron HCl 4 mg 01/14/20 14:10 01/14/20 19:30 Zofran Odt TL 4 mg Q6HR PRN Administration Nausea / Vomiting Pantoprazole Sodium 40 mg 01/16/20 21:00 01/20/20 09:04 Protonix IV 40 mg BID THOMAS Administration Sodium Chloride 10 ml 01/14/20 14:10 01/18/20 06:08 Normal Saline Flush 0.9% IVP 10 ml PRN PRN Administration NEEDED PER PROVIDER ORDERS Sodium Chloride 10 ml 01/14/20 17:00 01/20/20 09:05 Normal Saline Flush 0.9% IVP 10 ml 0100,0900,1700 THOMAS Administration Sodium Chloride 10 ml 01/18/20 01:00 01/20/20 09:05 Normal Saline Flush 0.9% IVP 10 ml 0100,0900,1700 THOMAS Administration Sodium Chloride 10 ml 01/17/20 18:25 01/19/20 04:11 Normal Saline Flush 0.9% IVP 10 ml PRN PRN Administration NEEDED PER PROVIDER ORDERS - Lab Result Fish Bone Diagrams: 01/20/20 05:55 01/20/20 05:55 - Additional Planning My Orders: My Active Orders 01/19/20 13:00 Anesthesia Consult [CONS] Routine 01/19/20 13:09 Morphine Inj (Carpuject) [Morphine (Carpuject)] 2 mg IVP Q2HR PRN 01/19/20 14:00 D5ns W/20 Meq KCl 1,000 ml IV 125 mls/hr methylPREDNISolone SUCCINATE [SOLU-Medrol (125MG VIAL)] 80 mg IVP TID 01/19/20 14:59 Ventilator Setting Changes [RC] .ONCE 01/19/20 15:00 Dexmedetomidine 400 Mcg/100 ml [Precedex Premix] 100 ml IV 0.2 mcg/kg/hr 01/19/20 15:11 Daily Weight [RC] DAILY IO [RC] QSHIFT Tube Feeding [RC] QSHIFT 01/19/20 15:31 ABG [Arterial Blood Gases - RT] [RC] .ONCE 01/19/20 21:00 Chlorhexidine [Peridex] 15 ml PO BID 01/21/20 05:00 CBC - COMP BLD CT W/AUTO DIFF [HEME] DAILYLAB CMP [COMPREHENSIVE METABOLIC PANEL] [CHEM] DAILYLAB MAGNESIUM [CHEM] DAILYLAB PHOSPHORUS [CHEM] DAILYLAB 01/22/20 05:00 CBC - COMP BLD CT W/AUTO DIFF [HEME] DAILYLAB CMP [COMPREHENSIVE METABOLIC PANEL] [CHEM] DAILYLAB COMPREHENSIVE METABOLIC PANEL [CHEM] Timed MAGNESIUM [CHEM] DAILYLAB MAGNESIUM [CHEM] Timed PHOSPHORUS [CHEM] DAILYLAB PHOSPHORUS [CHEM] Timed PREALBUMIN [CHEM] Timed 01/23/20 05:00 CBC - COMP BLD CT W/AUTO DIFF [HEME] DAILYLAB 01/24/20 05:00 CBC - COMP BLD CT W/AUTO DIFF [HEME] DAILYLAB 01/25/20 05:00 COMPREHENSIVE METABOLIC PANEL [CHEM] Timed MAGNESIUM [CHEM] Timed PHOSPHORUS [CHEM] Timed PREALBUMIN [CHEM] Timed Subjective - Subjective Nursing Reports: Sedated (He is non iv sedatives while on the ventilator) Objective Vital Signs: Vital Signs - 24 hr 01/19/20 01/19/20 01/19/20 13:00 13:24 15:00 Temperature Heart Rate 92 60 Heart Rate [ 94 59 L Monitoring electrodes] Respiratory 18 29 H Rate Blood Pressure 135/74 H 79/45 L [Right Brachial artery] O2 Saturation 99 100 01/19/20 01/19/20 01/19/20 15:05 15:10 15:15 Temperature Heart Rate Heart Rate [ 70 68 70 Monitoring electrodes] Respiratory Rate Blood Pressure 83/50 L 96/60 91/51 L [Right Brachial artery] O2 Saturation 01/19/20 01/19/20 01/19/20 15:30 15:46 16:00 Temperature 37.2 C 37.2 C Heart Rate Heart Rate [ 85 74 Monitoring electrodes] Respiratory 27 H Rate Blood Pressure 112/67 119/68 [Right Brachial artery] O2 Saturation 100 01/19/20 01/19/20 01/19/20 17:00 17:19 19:00 Temperature Heart Rate 68 Heart Rate [ 75 67 Monitoring electrodes] Respiratory 25 H 19 Rate Blood Pressure 117/67 141/77 H [Right Brachial artery] O2 Saturation 100 100 01/19/20 01/19/20 01/19/20 20:00 20:10 21:00 Temperature 36.8 C Heart Rate 60 Heart Rate [ 60 60 Monitoring electrodes] Respiratory 19 21 Rate Blood Pressure 143/64 H 144/74 H [Right Brachial artery] O2 Saturation 100 100 01/19/20 01/19/20 01/19/20 22:00 22:45 23:00 Temperature Heart Rate 65 Heart Rate [ 66 68 Monitoring electrodes] Respiratory 19 20 Rate Blood Pressure 135/76 H 153/83 H [Right Brachial artery] O2 Saturation 100 100 01/20/20 01/20/20 01/20/20 00:00 01:00 02:00 Temperature 37.1 C Heart Rate 62 Heart Rate [ 66 57 L 50 L Monitoring electrodes] Respiratory 20 20 20 Rate Blood Pressure 164/76 H 107/60 136/59 H [Right Brachial artery] O2 Saturation 100 100 100 01/20/20 01/20/20 01/20/20 03:00 04:00 04:30 Temperature 36.9 C Heart Rate 53 L Heart Rate [ 48 L 44 L Monitoring electrodes] Respiratory 20 19 Rate Blood Pressure 112/55 L 105/53 L [Right Brachial artery] O2 Saturation 100 100 01/20/20 01/20/20 01/20/20 05:10 06:00 07:00 Temperature Heart Rate Heart Rate [ 51 L 48 L 65 Monitoring electrodes] Respiratory 18 18 19 Rate Blood Pressure 106/58 L 91/48 L 182/71 H [Right Brachial artery] O2 Saturation 100 100 100 01/20/20 01/20/20 01/20/20 07:35 08:00 09:00 Temperature 36.1 C L Heart Rate 75 Heart Rate [ 71 68 Monitoring electrodes] Respiratory 20 17 Rate Blood Pressure 157/63 H 177/76 H [Right Brachial artery] O2 Saturation 100 100 01/20/20 01/20/20 01/20/20 09:55 10:00 11:00 Temperature 36.3 C L Heart Rate 83 Heart Rate [ 64 75 Monitoring electrodes] Respiratory 19 21 Rate Blood Pressure 164/74 H 167/73 H [Right Brachial artery] O2 Saturation 100 100 Oxygen O2 Source Mechanical ventilator I&O (Last 24 Hrs): Intake and Output Totals x24h 01/18/20 01/19/20 01/20/20 23:59 23:59 23:59 Intake Total 4360.000 4768.157 3270.255 Output Total 1290 1230 468 Balance 3070.000 3538.157 2802.255 General: Other (sedated, HOB elevated) HEENT: Mucous membr. moist/pink, Other (ET tube and ng tube in place) Cardiovascular: No murmurs, Other (Distant heart sounds) Respiratory: Breath sounds nml Abdomen: Soft, Other (Obese with a pannus) Genitourinary: Other (Beckman in place) Extremities: No edema, Other (TEDS stockings on) - Results Results: Laboratory Results WBC 10.6 x10^3/uL (4.8-10.8) 01/20/20 05:55 RBC 2.38 10^6/uL (4.70-6.10) L 01/20/20 05:55 Hgb 7.9 g/dL (14.0-18.0) L 01/20/20 05:55 Hct 25.0 % (42.0-52.0) L 01/20/20 05:55 MCV 105.0 fL (80.0-94.0) H 01/20/20 05:55 MCH 33.2 pg (27.0-31.0) H 01/20/20 05:55 MCHC 31.6 g/dL (32.0-36.0) L 01/20/20 05:55 RDW 17.0 % (12.0-15.0) H 01/20/20 05:55 Plt Count 170 10^3/uL (130-450) 01/20/20 05:55 MPV 11.8 fL (7.4-11.4) H 01/20/20 05:55 Neut # (Auto) 9.3 10^3/uL (1.5-6.6) H 01/20/20 05:55 Lymph # (Auto) 0.8 10^3/uL (1.5-3.5) L 01/20/20 05:55 [place] # (Auto) 0.4 10^3/uL (0.0-1.0) 01/20/20 05:55 Eos # (Auto) 0.0 10^3/uL (0.0-0.7) 01/20/20 05:55 Baso # (Auto) 0.0 10^3/uL (0.0-0.1) 01/20/20 05:55 Absolute Nucleated RBC 0.06 x10^3/uL 01/20/20 05:55 Nucleated RBC % 0.6 /100WBC 01/20/20 05:55 PT 19.4 secs (9.9-12.6) H 01/18/20 05:35 INR 1.8 (0.8-1.2) H 01/18/20 05:35 Whole Blood INR 4.1 (0.8-1.2) H 01/14/20 14:26 APTT 40.4 secs (24.9-33.3) H 01/14/20 12:46 Bld Gas Analysis Time 0544 01/20/20 05:30 Sample Site RIGHT RADIAL 01/20/20 05:30 ABG pH 7.43 (7.35-7.45) 01/20/20 05:30 ABG pCO2 33 mmHg (34-45) L 01/20/20 05:30 ABG pO2 101 mmHg (80-100) H 01/20/20 05:30 ABG HCO3 21.2 mmol/L (22.0-26.0) L 01/20/20 05:30 ABG Total CO2 22.2 MMOL/L (21.0-29.0) 01/20/20 05:30 ABG O2 Saturation 97 % (94-98) 01/20/20 05:30 ABG Base Excess -2.7 mmol/L (-2.0-3.0) L 01/20/20 05:30 Yomi Test POSITIVE 01/20/20 05:30 Respiration Rate 16 b/min 01/20/20 05:30 O2 Delivery Device VENTILATOR 01/20/20 05:30 Vent Mode SIMV 01/20/20 05:30 FiO2 40.00 01/20/20 05:30 Tidal Volume 500 mL 01/20/20 05:30 PEEP 5 cmH2O 01/20/20 05:30 Pressure Support Vent 8 cmH2O 01/20/20 05:30 Sodium 141 mmol/L (135-145) 01/20/20 05:55 Potassium 4.1 mmol/L (3.5-5.0) 01/20/20 05:55 Chloride 115 mmol/L (101-111) H 01/20/20 05:55 Carbon Dioxide 21 mmol/L (21-32) 01/20/20 05:55 Anion Gap 5.0 (6-13) L 01/20/20 05:55 BUN 15 mg/dL (6-20) 01/20/20 05:55 Creatinine 0.8 mg/dL (0.6-1.2) 01/20/20 05:55 Estimated GFR (MDRD) 93 (>89) 01/20/20 05:55 Glucose 235 mg/dL (70-100) H 01/20/20 05:55 Glycated Hemoglobin 6.2 % (4.6-6.2) 01/16/20 14:08 Estim Average Glucose 131 (70-100) H 01/16/20 14:08 Calcium 8.2 mg/dL (8.5-10.3) L 01/20/20 05:55 Phosphorus 2.8 mg/dL (2.5-4.6) 01/20/20 05:55 Magnesium 2.2 mg/dL (1.7-2.8) 01/20/20 05:55 Total Bilirubin 1.3 mg/dL (0.2-1.0) H 01/20/20 05:55 AST 53 IU/L (10-42) H 01/20/20 05:55 ALT 38 IU/L (10-60) 01/20/20 05:55 Alkaline Phosphatase 42 IU/L (42-121) 01/20/20 05:55 Ammonia 54.6 umol/L (7-35) H 01/20/20 05:55 B-Natriuretic Peptide 182 pg/mL (5-100) H 01/20/20 05:55 Total Protein 5.8 g/dL (6.7-8.2) L 01/20/20 05:55 Albumin 2.7 g/dL (3.2-5.5) L 01/20/20 05:55 Globulin 3.1 g/dL (2.1-4.2) 01/20/20 05:55 Albumin/Globulin Ratio 0.9 (1.0-2.2) L 01/20/20 05:55 Prealbumin 9 mg/dL (18-45) L 01/20/20 05:55 Lipase 24 U/L (22-51) 01/14/20 12:46 Vitamin B12 606 pg/mL (180-914) 01/16/20 18:20 Folate 13.12 ng/mL (5.90 - >24.8) 01/16/20 18:20 TSH 0.19 uIU/mL (0.34-5.60) L 01/16/20 18:20 Free T4 0.79 ng/dL (0.58-1.64) 01/17/20 14:30 Urine Color YELLOW 01/16/20 17:40 Urine Clarity CLEAR (CLEAR) 01/16/20 17:40 Urine pH 5.0 PH (5.0-7.5) 01/16/20 17:40 Ur Specific [place] 1.020 (1.002-1.030) 01/16/20 17:40 Urine Protein NEGATIVE mg/dL (NEGATIVE) 01/16/20 17:40 Urine Glucose (UA) NEGATIVE mg/dL (NEGATIVE) 01/16/20 17:40 Urine Ketones NEGATIVE mg/dL (NEGATIVE) 01/16/20 17:40 Urine Occult Blood SMALL (NEGATIVE) H 01/16/20 17:40 Urine Nitrite NEGATIVE (NEGATIVE) 01/16/20 17:40 Urine Bilirubin NEGATIVE (NEGATIVE) 01/16/20 17:40 Urine Urobilinogen 0.2 (NORMAL) E.U./dL (NORMAL) 01/16/20 17:40 Ur Leukocyte Esterase NEGATIVE (NEGATIVE) 01/16/20 17:40 Urine RBC 6-10 /HPF (0-5) H 01/16/20 17:40 Urine WBC 0-3 /HPF (0-3) 01/16/20 17:40 Ur Squamous Epith Cells NONE SEEN (<= Few) 01/16/20 17:40 Urine Bacteria None Seen /HPF (None Seen) 01/16/20 17:40 Urine Casts 0-2 Hyaline Casts /LPF 01/16/20 17:40 Ur Microscopic Review INDICATED 01/14/20 13:59 Urine Culture Comments NOT INDICATED 01/16/20 17:40 Nasal Screen MRSA (PCR) NEGATIVE (NEGATIVE) 01/17/20 19:20 Blood Type A POSITIVE 01/14/20 12:46 Blood Type Recheck A POSITIVE 01/14/20 17:20 Antibody Screen NEGATIVE 01/14/20 12:46 Crossmatch IS Only See Detail 01/14/20 12:46
[2020-01-20] MEDS ORDERED: D5NS W/20 MEQ KCL 1,000 ML IV SCH (13:48)
--- NOTE | 2020-01-20 18:01 | XRAY Report ---
Reason: F/U ET tube position and CHF Procedure Date: 01/20/2020 Accession Number: [id number] / [id number] Procedure: XR - Chest 1 View X-Ray CPT Code: 19195 Final Report FULL RESULT: EXAM: CHEST RADIOGRAPHY EXAM DATE: 01/20/2020 05:39 PM. CLINICAL HISTORY: Congestive heart failure. The patient is intubated. COMPARISON: CHEST FOR LINE PLACEMENT 01/19/2020 12:53 PM. TECHNIQUE: 1 view. FINDINGS: Lungs/Pleura: Residual small bilateral pleural effusions. Improving [place] volume loss in the left lung base. Improving pulmonary vascular congestion and perihilar interstitial edema. No pneumothorax. No new focal opacities are evident. Mediastinum: Stable cardiomegaly and tortuous thoracic with arteriosclerosis. Stable postsurgical changes in the sternum and mediastinum. The endotracheal tube terminates 5.5 cm above the kyleigh. Other: Stable thoracic dextrocurvature with multilevel thoracic spondylosis. IMPRESSION: 1. The endotracheal tube terminates 5.5 cm above the kyleigh. 2. Stable cardiomegaly and postsurgical changes in the sternum and mediastinum. 3. Improving pulmonary vascular congestion and interstitial edema, with small residual bilateral pleural effusions. RADIA
[2020-01-20] MEDS: HALOPERIDOL 5 MG/ML VIAL IM PRN (22:54)
[2020-01-21] MEDS: SODIUM CHLORIDE FLUSH 0.9% 10 ML SYRINGE IVP SCH ×7 (00:13→23:05)
[2020-01-21] MEDS: DEXMEDETOMIDINE 400 MCG/100 ML 100 ML IV SCH (01:46)
[2020-01-21] MEDS ORDERED: SODIUM CHLORIDE 0.9% 500 ML IV PRN (02:50)
[2020-01-21] MEDS: BACITRACIN ZINC OINT 1 PACKET TOP SCH ×6 (03:13→23:05)
[2020-01-21] MEDS: LORazepam 2 MG/ML VIAL IVP PRN (03:52)
[2020-01-21] MEDS: MIN OIL/DIMETHICON/COCONUT OIL 92 GM TUBE TOP PRN ×2 (03:52→15:08)
[2020-01-21 05:25] LABS: BASOPHILS % (AUTO) 0.1 %; HGB - HEMOGLOBIN 7.8 g/dL (14.0-18.0); LYMPHOCYTES # (AUTO) 0.6 10^3/uL (1.5-3.5); LYMPHOCYTES % (AUTO) 3.7 %; MEAN CORPUSCULAR HEMOGLOBIN 32.6 pg (27.0-31.0); MEAN CORPUSCULAR VOLUME 105.4 fL (80.0-94.0); MEAN PLATELET VOLUME 12.5 fL (7.4-11.4); MONOCYTES # (AUTO) 0.7 10^3/uL (0.0-1.0); MONOCYTES % (AUTO) 4.4 %; NEUTROPHILS # (AUTO) 14.8 10^3/uL (1.5-6.6); NEUTROPHILS % (AUTO) 90.8 %; PLT - PLATELET COUNT 185 10^3/uL (130-450); RED BLOOD COUNT 2.39 10^6/uL (4.70-6.10); RED CELL DISTRIBUTION WIDTH 16.6 % (12.0-15.0); WHITE BLOOD COUNT 16.3 x10^3/uL (4.8-10.8)
[2020-01-21 05:37] LABS: ALBUMIN 2.5 g/dL (3.2-5.5); ALBUMIN/GLOBULIN RATIO 0.8 (1.0-2.2); CALCIUM 8.2 mg/dL (8.5-10.3); CREATININE 0.8 mg/dL (0.6-1.2); MAGNESIUM 2.4 mg/dL (1.7-2.8); PHOSPHORUS 2.6 mg/dL (2.5-4.6); TOTAL PROTEIN 5.5 g/dL (6.7-8.2)
[2020-01-21 06:03] LABS: ABG HCO3 24.4 mmol/L (22.0-26.0); ABG OXYGEN SATURATION 99 % (94-98); ABG PCO2 36 mmHg (34-45); ABG PH 7.44 (7.35-7.45); ABG PO2 135 mmHg (80-100); ALLEN TEST POSITIVE
[2020-01-21] MEDS: methylPREDNISolone SUCCINATE 125 MG/2 ML VIAL IVP SCH ×3 (06:03→21:36)
[2020-01-21] MEDS: THIAMINE INJ 500 MG in SODIUM CHLORIDE 0.9% 50 ML IV SCH (06:04)
[2020-01-21] MEDS: INSULIN ASPART 300 UNIT/3 ML PEN SUBQ SCH ×4 (06:09→23:54)
[2020-01-21] MEDS: metroNIDAZOLE 500 MG/100 ML 500 MG/100 ML BAG IV SCH ×3 (06:51→21:37)
[2020-01-21] MEDS: polyethylene glycoL 3350 17 GM PACKET PO SCH (08:08)
[2020-01-21] MEDS: cefTRIAXone 1 GM in SODIUM CHLORIDE 0.9% MINIBAG 100 ML IV SCH (08:10)
[2020-01-21] MEDS: CLOTRIMAZOLE 1% CREAM 15 GM TUBE TOP SCH ×2 (09:09→21:38)
[2020-01-21] MEDS: CHLORHEXIDINE GLUCONATE 15 ML UDC PO SCH ×2 (09:09→21:36)
[2020-01-21] MEDS: ENOXAPARIN 120 MG/0.8 ML SYRINGE SUBQ SCH ×2 (09:09→21:38)
[2020-01-21] MEDS: NYSTATIN POWDER 15 GM TOP SCH ×2 (09:10→21:36)
[2020-01-21] MEDS: PANTOPRAZOLE 40 MG VIAL IV SCH ×2 (09:10→21:36)
--- NOTE | 2020-01-21 12:05 | PROVIDER PROGRESS NOTE ---
Assessment/Plan - Problem List (1) Acute tracheitis with airway obstruction Assessment/Plan: He was able to be extubated this morning, after sedatives turned off. There is no stridor or upper airway sounds. Continue with high-dose iv steroids, today is day 3, tomorrow will start a rapid steroid taper (2) Altered mental status Assessment/Plan: When he was admitted he was intoxicated, he then needed sedatives to go through withdrawal. The sedatives took a long time to clear. Following that the intubation was required and he was on IV sedatives. This is the first day that he is awake and appropriate. Remain in ICU today since he has had hypotension and bradycardia during this hospitalization and since he was just extubated today. Will start with PT later today for dangling. Will start getting out of bed to chair for meals when he is able to swallow. (3) Anasarca Assessment/Plan: He got 4+ days of iv hydration when he was somnolent after alcohol withdrawal sedatives and during the days he was intubated. The Echo was done yesterday to assess fluid status and LV and RV contractility. This showed normal LV and RV sizes and normal LV and RV contractiltiy, indicating euvolemic. The iv hydration going at 125 cc/hr due to low BP, was stopped last night. He now has extensive 3rd spacing. Will try not to use diuretics,l which may cause hypotension, but await for him to absorb the third spaced fluids. Continue Beckman one more day, follow I's and O's. (4) Upper GI bleed Assessment/Plan: Stable even with 2 days of ng tube feeds. He is on iv protonix (5) Acute blood loss anemia Assessment/Plan: Hgb has been stable since transfused at admission. B12 and Folate levels are adequate. Will start oral Iron replacement when he is able to swallow. (6) Paraphimosis Assessment/Plan: Beckman in place due to edematous penile tip. The iv steroids are helping this problem as well as the tracheitis Will DC Beckman tomorrow (7) Alcohol abuse Assessment/Plan: The SW reported that the patient was hoarding empty wine boxes and bottles in his bedroom, which the son and family are dealing with currently. He got high dose Thiamine this admission. The son Osvaldo (DPOA) and I spoke on the phone and I got the information that the patient was in AA and was on Antabuse in his remote past. He also has had denial of being an alcoholic more recently, despite all the above hoarding. Will start oral diet slowly. Will change to oral daily Thaimine when possible. Will follow ammonia levels when he is awake. (8) HTN (hypertension) Assessment/Plan: BP labile, remain in ICU and on IV meds When he can swallow will transition to po meds (9) Leukocytosis Qualifiers: Leukocytosis type: unspecified Qualified Code(s): D72.829 - Elevated white blood cell count, unspecified Assessment/Plan: Possibly reactive due to stress of GI bleed and ETOH withdrawal. He had a negative UA. He may have also had aspiration in setting of hematemesis during intoxication. He was started on empiric ceftriaxone and Flagyl, Day #5 WBC dropped to 10 then kerrie, after startig iv steroids. Follow CBC daily. (10) Atrial fibrillation Qualifiers: Atrial fibrillation type: unspecified Qualified Code(s): I48.91 - Unspecified atrial fibrillation Assessment/Plan: Patient has a history of Afib since at least 2013. Already on home anticoagulation; here he is currently on therapeutic dose of Lovenox. 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 (11) Aortic valve prosthesis present Assessment/Plan: As per Hx, stable by echo exam done yesterday (12) Morbid obesity Assessment/Plan: As per Hx (13) CALEB on CPAP Assessment/Plan: Hs per Hx. Will resume the home device at bedtime, now that he is extubated. (14) Hypernatremia Assessment/Plan: Resolved (15) Hypokalemia Assessment/Plan: Resolved with replacement - Current Meds Current Meds: Current Medications Generic Name Dose Route Start Last Admin Trade Name Freq PRN Reason Stop Dose Admin Bacitracin 1 packet 01/18/20 19:00 01/21/20 11:29 Bacitracin TOP 1 packet Q4H THOMAS Administration Chlorhexidine Gluconate 15 ml 01/19/20 21:00 01/21/20 09:09 Peridex PO 15 ml BID THOMAS Administration Clotrimazole 1 applic 01/16/20 22:30 01/21/20 09:09 Lotrimin 1% Cream TOP 1 applic BID THOMAS Administration Enoxaparin Sodium 120 mg 03/22/20 21:00 01/21/20 09:09 Lovenox SUBQ 120 mg Q12H THOMAS Administration Haloperidol 2 mg 01/17/20 18:23 01/20/20 22:54 Haldol Inj IM 2 mg Q6HR PRN Administration Agitation Ceftriaxone Sodium 1 gm/ 100 mls @ 200 mls/hr 01/17/20 13:38 01/21/20 09:00 Sodium Chloride IV Infused DAILY THOMAS Infusion Metronidazole 500 mg in 100 mls @ 100 mls/hr 01/17/20 14:00 01/21/20 07:50 Flagyl 500 Mg/100 Ml IV Infused Q8H THOMAS Infusion Potassium Chloride/Dextrose/Sod Cl 1,000 mls @ 0 mls/hr 01/20/20 13:48 01/21/20 11:00 IV 20 mls/hr .Q0M THOMAS Infusion TKO Sodium Chloride 500 mls @ 0 mls/hr 01/21/20 02:50 01/21/20 11:00 Normal Saline 0.9% IV 20 mls/hr Q24H PRN Infusion TKO RATE TKO Insulin Aspart 1 - 5 unit 01/18/20 06:00 01/21/20 06:09 Novolog SUBQ 2 unit Q6H THOMAS Administration Protocol Lidocaine HCl 2.5 ml 01/18/20 16:53 01/18/20 16:59 Xylocaine Uro-Jet 2% UR 2.5 ml Q6H PRN Administration PAIN Lorazepam 0.5 mg 01/17/20 17:30 01/20/20 20:27 Ativan Inj (Vial) IVP 0.5 mg Q2H PRN Administration Anxiety Methylprednisolone Sodium Succinate 80 mg 01/19/20 14:00 01/21/20 06:03 Solu-Medrol (125mg Vial) IVP 80 mg TID THOMAS Administration Metoprolol Tartrate 2.5 mg 01/17/20 11:15 01/19/20 08:29 Lopressor Inj IVP 2.5 mg Q6H PRN Administration PER PHYSICIAN ORDER Mineral Oil 1 applic 01/21/20 04:00 01/21/20 03:52 Cavilon TOP 1 applic PRN PRN Administration Skin Care Morphine Sulfate 2 mg 01/19/20 13:09 01/20/20 00:39 Morphine (Carpuject) IVP 2 mg Q2HR PRN Administration PAIN Nystatin 1 applic 01/15/20 09:00 01/21/20 09:10 Nystop TOP 1 applic BID THOMAS Administration Ondansetron HCl 4 mg 01/14/20 14:10 01/14/20 23:55 Zofran Inj IVP 4 mg Q6HR PRN Administration Nausea / Vomiting Pantoprazole Sodium 40 mg 01/16/20 21:00 01/21/20 09:10 Protonix IV 40 mg BID THOMAS Administration Polyethylene Glycol 17 gm 01/21/20 09:00 01/21/20 08:08 Miralax PO 17 gm DAILY THOMAS Administration Sodium Chloride 10 ml 01/14/20 14:10 01/18/20 06:08 Normal Saline Flush 0.9% IVP 10 ml PRN PRN Administration NEEDED PER PROVIDER ORDERS Sodium Chloride 10 ml 01/14/20 17:00 01/21/20 09:11 Normal Saline Flush 0.9% IVP 10 ml 0100,0900,1700 THOMAS Administration Sodium Chloride 10 ml 01/18/20 01:00 01/21/20 09:12 Normal Saline Flush 0.9% IVP Not Given 0100,0900,1700 THOMAS Sodium Chloride 10 ml 01/17/20 18:25 01/19/20 04:11 Normal Saline Flush 0.9% IVP 10 ml PRN PRN Administration NEEDED PER PROVIDER ORDERS - Lab Result Fish Bone Diagrams: 01/21/20 04:30 01/21/20 04:30 - Additional Planning My Orders: My Active Orders 01/20/20 13:48 D5ns W/20 Meq KCl 1,000 ml IV TKO 01/20/20 14:38 Echo Transthoracic Complete [ECHO] Routine 01/21/20 02:50 Sodium Chloride 0.9% [Normal Saline 0.9%] 500 ml IV Q24H 01/21/20 04:00 Min Oil/Dimeth/Coconut Oil Crm [Cavilon] 1 applic TOP PRN PRN 01/21/20 08:31 Extubate [RC] ONCE 01/21/20 09:00 polyethylene glycoL 3350 [Miralax] 17 gm PO DAILY 01/22/20 05:00 AMMONIA [CHEM] DAILYLAB CBC - COMP BLD CT W/AUTO DIFF [HEME] DAILYLAB CMP [COMPREHENSIVE METABOLIC PANEL] [CHEM] DAILYLAB COMPREHENSIVE METABOLIC PANEL [CHEM] Timed MAGNESIUM [CHEM] DAILYLAB MAGNESIUM [CHEM] Timed PHOSPHORUS [CHEM] DAILYLAB PHOSPHORUS [CHEM] Timed PREALBUMIN [CHEM] Timed 01/23/20 05:00 AMMONIA [CHEM] DAILYLAB CBC - COMP BLD CT W/AUTO DIFF [HEME] DAILYLAB 01/24/20 05:00 AMMONIA [CHEM] DAILYLAB CBC - COMP BLD CT W/AUTO DIFF [HEME] DAILYLAB 01/25/20 05:00 MAGNESIUM [CHEM] Timed Subjective - Subjective Patient Reports: Other (Alert after extubation and spoke to me and his RN (in a whisper)) Nursing Reports: Other (Is tachypneic but no stridor or resp distress, after extubation this morning) Objective Vital Signs: Vital Signs - 24 hr 01/20/20 01/20/20 01/20/20 13:00 15:00 15:27 Temperature 36.2 C L Heart Rate 45 L Heart Rate [ 66 49 L Monitoring electrodes] Respiratory 20 20 Rate Blood Pressure 109/49 L 116/67 [Right Brachial artery] O2 Saturation 100 100 01/20/20 01/20/20 01/20/20 16:00 17:00 17:06 Temperature 36 C L 36 C L Heart Rate 60 Heart Rate [ 60 63 Monitoring electrodes] Respiratory 22 26 H Rate Blood Pressure 118/85 H 111/63 [Right Brachial artery] O2 Saturation 100 100 01/20/20 01/20/20 01/20/20 18:00 18:55 21:00 Temperature Heart Rate 64 Heart Rate [ 72 46 L Monitoring electrodes] Respiratory 26 H 20 Rate Blood Pressure 123/62 125/78 [Right Brachial artery] O2 Saturation 100 01/20/20 01/20/20 01/20/20 21:04 22:00 23:06 Temperature Heart Rate 49 L Heart Rate [ 48 L 49 L Monitoring electrodes] Respiratory 20 21 Rate Blood Pressure 130/73 131/59 H [Right Brachial artery] O2 Saturation 100 01/21/20 01/21/20 01/21/20 01:00 01:18 03:03 Temperature Heart Rate 58 L 56 L Heart Rate [ 50 L Monitoring electrodes] Respiratory 20 Rate Blood Pressure 124/71 [Right Brachial artery] O2 Saturation 95 01/21/20 01/21/20 01/21/20 03:11 04:00 05:00 Temperature 37.0 C Heart Rate Heart Rate [ 69 66 48 L Monitoring electrodes] Respiratory 26 H 29 H 19 Rate Blood Pressure 137/67 H 142/73 H 119/63 [Right Brachial artery] O2 Saturation 99 01/21/20 01/21/20 01/21/20 05:36 06:00 06:59 Temperature Heart Rate 86 Heart Rate [ 78 68 Monitoring electrodes] Respiratory 22 21 Rate Blood Pressure 135/67 H [Right Brachial artery] O2 Saturation 99 01/21/20 01/21/20 01/21/20 08:00 09:00 10:00 Temperature 36.5 C Heart Rate Heart Rate [ 79 88 94 Monitoring electrodes] Respiratory 28 H 30 H Rate Blood Pressure 123/66 122/69 142/72 H [Right Brachial artery] O2 Saturation 98 95 01/21/20 11:00 Temperature 36.5 C Heart Rate Heart Rate [ 92 Monitoring electrodes] Respiratory 25 H Rate Blood Pressure 136/84 H [Right Brachial artery] O2 Saturation 97 Oxygen O2 Source Cool Mist I&O (Last 24 Hrs): Intake and Output Totals x24h 01/19/20 01/20/20 01/21/20 23:59 23:59 23:59 Intake Total 4768.581 5212.088 2491.286 Output Total 1230 1183 1060 Balance 3538.581 4029.088 1431.286 General: Other (Lethargic but awakens and communicates, wearing O2 ventimask) HEENT: Mucous membr. moist/pink Neck: Supple Neuro: Non Focal Cardiovascular: No murmurs, Other (Distant heart sounds) Respiratory: No respiratory distress, Breath sounds nml Abdomen: Soft, Other (Obese with pannus) Extremities: Other (2+ edema of arms, 1+ edema of legs) - Results Results: Laboratory Results WBC 16.3 x10^3/uL (4.8-10.8) H 01/21/20 04:30 RBC 2.39 10^6/uL (4.70-6.10) L 01/21/20 04:30 Hgb 7.8 g/dL (14.0-18.0) L 01/21/20 04:30 Hct 25.2 % (42.0-52.0) L 01/21/20 04:30 MCV 105.4 fL (80.0-94.0) H 01/21/20 04:30 MCH 32.6 pg (27.0-31.0) H 01/21/20 04:30 MCHC 31.0 g/dL (32.0-36.0) L 01/21/20 04:30 RDW 16.6 % (12.0-15.0) H 01/21/20 04:30 Plt Count 185 10^3/uL (130-450) 01/21/20 04:30 MPV 12.5 fL (7.4-11.4) H 01/21/20 04:30 Neut # (Auto) 14.8 10^3/uL (1.5-6.6) H 01/21/20 04:30 Lymph # (Auto) 0.6 10^3/uL (1.5-3.5) L 01/21/20 04:30 [place] # (Auto) 0.7 10^3/uL (0.0-1.0) 01/21/20 04:30 Eos # (Auto) 0.0 10^3/uL (0.0-0.7) 01/21/20 04:30 Baso # (Auto) 0.0 10^3/uL (0.0-0.1) 01/21/20 04:30 Absolute Nucleated RBC 0.05 x10^3/uL 01/21/20 04:30 Nucleated RBC % 0.3 /100WBC 01/21/20 04:30 PT 19.4 secs (9.9-12.6) H 01/18/20 05:35 INR 1.8 (0.8-1.2) H 01/18/20 05:35 Whole Blood INR 4.1 (0.8-1.2) H 01/14/20 14:26 APTT 40.4 secs (24.9-33.3) H 01/14/20 12:46 Bld Gas Analysis Time 0600 01/21/20 05:50 Sample Site RIGHT BRACHIAL 01/21/20 05:50 ABG pH 7.44 (7.35-7.45) 01/21/20 05:50 ABG pCO2 36 mmHg (34-45) 01/21/20 05:50 ABG pO2 135 mmHg (80-100) H 01/21/20 05:50 ABG HCO3 24.4 mmol/L (22.0-26.0) 01/21/20 05:50 ABG Total CO2 25.0 MMOL/L (21.0-29.0) 01/21/20 05:50 ABG O2 Saturation 99 % (94-98) H 01/21/20 05:50 ABG Base Excess 0.0 mmol/L (-2.0-3.0) 01/21/20 05:50 Yomi Test POSITIVE 01/21/20 05:50 Respiration Rate 16 b/min 01/21/20 05:50 O2 Delivery Device VENTILATOR 01/21/20 05:50 Vent Mode SIMV 01/21/20 05:50 FiO2 40.00 01/21/20 05:50 Tidal Volume 500 mL 01/21/20 05:50 PEEP 5 cmH2O 01/21/20 05:50 Pressure Support Vent 40 cmH2O 01/21/20 05:50 Sodium 142 mmol/L (135-145) 01/21/20 04:30 Potassium 3.7 mmol/L (3.5-5.0) 01/21/20 04:30 Chloride 113 mmol/L (101-111) H 01/21/20 04:30 Carbon Dioxide 21 mmol/L (21-32) 01/21/20 04:30 Anion Gap 8.0 (6-13) 01/21/20 04:30 BUN 20 mg/dL (6-20) 01/21/20 04:30 Creatinine 0.8 mg/dL (0.6-1.2) 01/21/20 04:30 Estimated GFR (MDRD) 93 (>89) 01/21/20 04:30 Glucose 233 mg/dL (70-100) H 01/21/20 04:30 Glycated Hemoglobin 6.2 % (4.6-6.2) 01/16/20 14:08 Estim Average Glucose 131 (70-100) H 01/16/20 14:08 Calcium 8.2 mg/dL (8.5-10.3) L 01/21/20 04:30 Phosphorus 2.6 mg/dL (2.5-4.6) 01/21/20 04:30 Magnesium 2.4 mg/dL (1.7-2.8) 01/21/20 04:30 Total Bilirubin 1.0 mg/dL (0.2-1.0) 01/21/20 04:30 AST 71 IU/L (10-42) H 01/21/20 04:30 ALT 48 IU/L (10-60) 01/21/20 04:30 Alkaline Phosphatase 41 IU/L (42-121) L 01/21/20 04:30 Ammonia 27.9 umol/L (7-35) 01/21/20 09:02 B-Natriuretic Peptide 231 pg/mL (5-100) H 01/21/20 04:30 Total Protein 5.5 g/dL (6.7-8.2) L 01/21/20 04:30 Albumin 2.5 g/dL (3.2-5.5) L 01/21/20 04:30 Globulin 3.0 g/dL (2.1-4.2) 01/21/20 04:30 Albumin/Globulin Ratio 0.8 (1.0-2.2) L 01/21/20 04:30 Prealbumin 9 mg/dL (18-45) L 01/20/20 05:55 Lipase 24 U/L (22-51) 01/14/20 12:46 Vitamin B12 606 pg/mL (180-914) 01/16/20 18:20 Folate 13.12 ng/mL (5.90 - >24.8) 01/16/20 18:20 TSH 0.19 uIU/mL (0.34-5.60) L 01/16/20 18:20 Free T4 0.79 ng/dL (0.58-1.64) 01/17/20 14:30 Urine Color YELLOW 01/16/20 17:40 Urine Clarity CLEAR (CLEAR) 01/16/20 17:40 Urine pH 5.0 PH (5.0-7.5) 01/16/20 17:40 Ur Specific [place] 1.020 (1.002-1.030) 01/16/20 17:40 Urine Protein NEGATIVE mg/dL (NEGATIVE) 01/16/20 17:40 Urine Glucose (UA) NEGATIVE mg/dL (NEGATIVE) 01/16/20 17:40 Urine Ketones NEGATIVE mg/dL (NEGATIVE) 01/16/20 17:40 Urine Occult Blood SMALL (NEGATIVE) H 01/16/20 17:40 Urine Nitrite NEGATIVE (NEGATIVE) 01/16/20 17:40 Urine Bilirubin NEGATIVE (NEGATIVE) 01/16/20 17:40 Urine Urobilinogen 0.2 (NORMAL) E.U./dL (NORMAL) 01/16/20 17:40 Ur Leukocyte Esterase NEGATIVE (NEGATIVE) 01/16/20 17:40 Urine RBC 6-10 /HPF (0-5) H 01/16/20 17:40 Urine WBC 0-3 /HPF (0-3) 01/16/20 17:40 Ur Squamous Epith Cells NONE SEEN (<= Few) 01/16/20 17:40 Urine Bacteria None Seen /HPF (None Seen) 01/16/20 17:40 Urine Casts 0-2 Hyaline Casts /LPF 01/16/20 17:40 Ur Microscopic Review INDICATED 01/14/20 13:59 Urine Culture Comments NOT INDICATED 01/16/20 17:40 Nasal Screen MRSA (PCR) NEGATIVE (NEGATIVE) 01/17/20 19:20 Blood Type A POSITIVE 01/14/20 12:46 Blood Type Recheck A POSITIVE 01/14/20 17:20 Antibody Screen NEGATIVE 01/14/20 12:46 Crossmatch IS Only See Detail 01/14/20 12:46
[2020-01-21] MEDS: SODIUM CHLORIDE FLUSH 0.9% 10 ML SYRINGE IVP PRN (21:37)
[2020-01-22] MEDS: SODIUM CHLORIDE FLUSH 0.9% 10 ML SYRINGE IVP SCH ×6 (00:25→23:52)
[2020-01-22] MEDS: LORazepam 2 MG/ML VIAL IVP PRN (00:58)
[2020-01-22] MEDS: SODIUM CHLORIDE FLUSH 0.9% 10 ML SYRINGE IVP PRN ×3 (00:59→06:38)
[2020-01-22] MEDS: BACITRACIN ZINC OINT 1 PACKET TOP SCH ×6 (03:53→22:08)
[2020-01-22] MEDS: MORPHINE 2 MG/ML CARPUJECT IVP PRN (03:53)
[2020-01-22 04:47] LABS: BASOPHILS % (AUTO) 0.1 %; HGB - HEMOGLOBIN 7.8 g/dL (14.0-18.0); LYMPHOCYTES # (AUTO) 0.6 10^3/uL (1.5-3.5); LYMPHOCYTES % (AUTO) 4.2 %; MEAN CORPUSCULAR HEMOGLOBIN 30.8 pg (27.0-31.0); MEAN CORPUSCULAR VOLUME 102.8 fL (80.0-94.0); MEAN PLATELET VOLUME 12.2 fL (7.4-11.4); MONOCYTES # (AUTO) 0.6 10^3/uL (0.0-1.0); MONOCYTES % (AUTO) 4.1 %; NEUTROPHILS # (AUTO) 12.6 10^3/uL (1.5-6.6); NEUTROPHILS % (AUTO) 90.7 %; PLT - PLATELET COUNT 226 10^3/uL (130-450); RED BLOOD COUNT 2.53 10^6/uL (4.70-6.10); RED CELL DISTRIBUTION WIDTH 16.7 % (12.0-15.0); WHITE BLOOD COUNT 13.8 x10^3/uL (4.8-10.8)
[2020-01-22 04:56] LABS: ALBUMIN 2.8 g/dL (3.2-5.5); ALBUMIN/GLOBULIN RATIO 0.9 (1.0-2.2); BILIRUBIN,TOTAL 0.9 mg/dL (0.2-1.0); CALCIUM 8.3 mg/dL (8.5-10.3); CREATININE 0.8 mg/dL (0.6-1.2); MAGNESIUM 2.3 mg/dL (1.7-2.8); PHOSPHORUS 2.9 mg/dL (2.5-4.6)
[2020-01-22] MEDS: methylPREDNISolone SUCCINATE 125 MG/2 ML VIAL IVP SCH (06:38)
[2020-01-22] MEDS: metroNIDAZOLE 500 MG/100 ML 500 MG/100 ML BAG IV SCH ×3 (06:38→21:03)
--- NOTE | 2020-01-22 07:57 | PROVIDER PROGRESS NOTE ---
Assessment/Plan - Problem List (1) Acute tracheitis with airway obstruction Assessment/Plan: Extubated yesterday and tolerated nc and had no stridor He finished 3 days of high dose iv steroids Will order a Medrol dose-tesfaye orally to taper steroids down. Transfer out of ICU today (2) Weakness acquired in ICU Assessment/Plan: Patient to transfer out of ICU today. PT and OT rehab daily has been ordered>> the PT has indicated that he will need SNF for PT and OT rehab. The DC RN has been able to find a SNF that would accept him (in the near), if he is neg for COVID. Will do COVID nasal swab screening for the above reason, however, he does not have a clinical picture of COVID URI currently. Will not add COVID airborne isolation to his orders at this point. (3) Anasarca Assessment/Plan: He is >4L positive in fluids balance since in ICU. Because of low BPs, no LAsix was given, instead hopefully he will absorb and mobilize his peripheral edema as he moves and rehabs. (4) Upper GI bleed Assessment/Plan: Stable H/H since transfusions at admission. Protonix was used iv bid, will change to po bid, now that he is tolerating a diet. (5) Acute blood loss anemia Assessment/Plan: H/H stable since transfusions early this admission. Follow CBC daily. (6) Paraphimosis Assessment/Plan: Beckman to come out today. Medrol dose tesfaye will help any further swelling of tip (7) Alcohol abuse Assessment/Plan: He went thru alcohol withdrawal, was on a CIWA protocol. Following that he needed sedatives for intubation. Will start oral daily Thiamine instead of iv Follow daily ammonia level. Would start Lactulose if elevated ammonia is found and if he is encephalopathic. Transfer out of ICU and start PT ands OT rehab. I spoke to his son yesterday regarding the patient being in denial that the pt is abusing alcohol. Will have SW see the patient now that he is lucid, to determine what alcohol abuse management he needs now (he tried AA and "it didnt work for him" per the patient). (8) HTN (hypertension) Assessment/Plan: BP has actually been low in ICU, except when he is in distress Will change the iv Lopressor to po Toprol XL, with hold parameters in case of continued low BP (9) Leukocytosis Qualifiers: Leukocytosis type: unspecified Qualified Code(s): D72.829 - Elevated white blood cell count, unspecified Assessment/Plan: Expected on 3 days of high dose iv steroids. Will finish 7 days of empiric antibiotics (10) Atrial fibrillation Qualifiers: Atrial fibrillation type: unspecified Qualified Code(s): I48.91 - Unspecified atrial fibrillation Assessment/Plan: HR has been variable. Will change iv Lopressor to po Toprol. He has been on Lovenox at theraputic doses. Will resume Coumadin orally, and stop Lovenox, bridging, when INR therapeutic. Target INR is 1.8-2.5, due to recent GI bleed. (11) Aortic valve prosthesis present Assessment/Plan: Normal functioning bioprosthetic AVR by Echo. Since this is not a mechanical AVR, when his Coumadin is restarted, his target INR is 1.8-2.5 (due to recent GI bleed), the target INR is not 2.5-3.5 as it would be for a mechanical valve.. (12) Morbid obesity Assessment/Plan: as per Hx (13) CALEB on CPAP Assessment/Plan: Home CPAP device was reordered to use at night, after extubation yesterday (14) Hypokalemia Assessment/Plan: Replace and follow daily BMP (15) Hypernatremia Assessment/Plan: Resolved (16) Altered mental status Assessment/Plan: Resolved He is alert, communicative and swallowing his food. - Current Meds Current Meds: Current Medications Generic Name Dose Route Start Last Admin Trade Name Char PRN Reason Stop Dose Admin Bacitracin 1 packet 01/18/20 19:00 01/22/20 06:39 Bacitracin TOP Not Given Q4H THOMAS Clotrimazole 1 applic 01/16/20 22:30 01/21/20 21:38 Lotrimin 1% Cream TOP Not Given BID THOMAS Enoxaparin Sodium 120 mg 01/17/20 21:00 01/21/20 21:38 Lovenox SUBQ 120 mg Q12H THOMAS Administration Ceftriaxone Sodium 1 gm/ 100 mls @ 200 mls/hr 01/17/20 13:38 01/21/20 09:00 Sodium Chloride IV 01/24/20 00:00 Infused DAILY THMOAS Infusion Metronidazole 500 mg in 100 mls @ 100 mls/hr 01/17/20 14:00 01/22/20 06:38 Flagyl 500 Mg/100 Ml IV 01/24/20 00:00 100 mls/hr Q8H THOMAS Administration Potassium Chloride/Dextrose/Sod Cl 1,000 mls @ 0 mls/hr 01/20/20 13:48 01/21/20 18:00 IV 20 mls/hr .Q0M THOMAS Infusion TKO Insulin Aspart 1 - 9 unit 01/21/20 17:00 01/21/20 23:54 Novolog SUBQ 1 unit 0800,1200,1700,2100 THOMAS Administration Protocol Lidocaine HCl 2.5 ml 01/18/20 16:53 01/18/20 16:59 Xylocaine Uro-Jet 2% UR 2.5 ml Q6H PRN Administration PAIN Lorazepam 0.5 mg 01/17/20 17:30 01/22/20 00:58 Ativan Inj (Vial) IVP 0.5 mg Q2H PRN Administration Anxiety Mineral Oil 1 applic 01/21/20 04:00 01/21/20 15:08 Cavilon TOP 1 applic PRN PRN Administration Skin Care Nystatin 1 applic 01/15/20 09:00 01/21/20 21:36 Nystop TOP 1 applic BID THOMAS Administration Ondansetron HCl 4 mg 01/14/20 14:10 01/14/20 23:55 Zofran Inj IVP 4 mg Q6HR PRN Administration Nausea / Vomiting Polyethylene Glycol 17 gm 01/21/20 09:00 01/21/20 08:08 Miralax PO 17 gm DAILY THOMAS Administration Sodium Chloride 10 ml 01/14/20 14:10 01/22/20 06:38 Normal Saline Flush 0.9% IVP 10 ml PRN PRN Administration NEEDED PER PROVIDER ORDERS Sodium Chloride 10 ml 01/14/20 17:00 01/22/20 00:25 Normal Saline Flush 0.9% IVP Not Given 0100,0900,1700 THOMAS Sodium Chloride 10 ml 01/18/20 01:00 01/21/20 23:05 Normal Saline Flush 0.9% IVP 10 ml 0100,0900,1700 THOMAS Administration - Lab Result Fish Bone Diagrams: 01/22/20 04:10 01/22/20 04:10 - Additional Planning My Orders: My Active Orders 01/21/20 09:00 polyethylene glycoL 3350 [Miralax] 17 gm PO DAILY 01/21/20 12:20 Home CPAP/BiPAP [RC] .ONCE 01/21/20 17:00 Insulin Aspart [NovoLOG] 1 - 9 unit SUBQ 0800,1200,1700,2100 01/21/20 18:55 Miscellaenous Nursing Order [RC] QSHIFT 01/22/20 07:40 Telemetry- [RC] Q4HR Transfer [Admit \\ Transfer \\ Status] [RC] .ONCE 01/22/20 07:48 Beckman Discontinuation [RC] ONCE 01/22/20 09:00 Pantoprazole [Protonix] 40 mg PO BID 01/22/20 10:00 Metoprolol Succinate [Toprol Xl] 25 mg PO DAILY 01/22/20 12:00 methylPREDNISolone [Medrol] 16 mg PO ONCE 01/22/20 Breakfast Dysphagia Puree Diet [DIET] 01/22/20 Lunch Carb-controlled Diet [DIET] 01/23/20 05:00 AMMONIA [CHEM] DAILYLAB BMP - BASIC METABOLIC PANEL [CHEM] DAILYLAB CBC - COMP BLD CT W/AUTO DIFF [HEME] DAILYLAB 01/23/20 08:00 methylPREDNISolone [Medrol] 12 mg PO ONCE 01/23/20 09:00 Thiamine [Vitamin B-1] 100 mg PO DAILY 01/24/20 05:00 AMMONIA [CHEM] DAILYLAB BMP - BASIC METABOLIC PANEL [CHEM] DAILYLAB CBC - COMP BLD CT W/AUTO DIFF [HEME] DAILYLAB 01/24/20 08:00 methylPREDNISolone [Medrol] 8 mg PO ONCE 01/25/20 05:00 MAGNESIUM [CHEM] Timed 01/25/20 08:00 methylPREDNISolone [Medrol] 4 mg PO ONCE Subjective - Subjective Patient Reports: Feeling Better, Other (Slow speech) Nursing Reports: Other (Forgetful, needed promting) Objective Vital Signs: Vital Signs - 24 hr 01/21/20 01/21/20 01/21/20 08:00 09:00 10:00 Temperature 36.5 C Heart Rate [ 79 88 94 Monitoring electrodes] Respiratory 28 H 30 H Rate Blood Pressure 123/66 122/69 142/72 H [Right Brachial artery] O2 Saturation 98 95 01/21/20 01/21/20 01/21/20 11:00 12:00 13:00 Temperature 36.5 C 36.5 C Heart Rate [ 92 95 85 Monitoring electrodes] Respiratory 25 H 29 H 22 Rate Blood Pressure 136/84 H 146/80 H 139/71 H [Right Brachial artery] O2 Saturation 97 96 97 01/21/20 01/21/20 01/21/20 14:00 15:00 16:00 Temperature Heart Rate [ 90 78 90 Monitoring electrodes] Respiratory 22 24 24 Rate Blood Pressure 144/85 H 156/73 H 165/83 H [Right Brachial artery] O2 Saturation 98 92 92 01/21/20 01/21/20 01/21/20 17:00 18:00 19:00 Temperature 36.5 C 36.5 C Heart Rate [ 84 88 82 Monitoring electrodes] Respiratory 25 H 25 H 24 Rate Blood Pressure 160/80 H 163/72 H 158/76 H [Right Brachial artery] O2 Saturation 95 95 95 01/21/20 01/21/20 01/21/20 20:00 21:00 22:00 Temperature 36.9 C Heart Rate [ 87 90 89 Monitoring electrodes] Respiratory 26 H 26 H 22 Rate Blood Pressure 173/94 H 151/86 H 119/90 H [Right Brachial artery] O2 Saturation 97 01/21/20 01/22/20 01/22/20 23:00 00:00 01:00 Temperature 36.9 C Heart Rate [ 92 90 99 Monitoring electrodes] Respiratory 26 H 20 25 H Rate Blood Pressure 143/96 H 172/90 H [Right Brachial artery] O2 Saturation 95 01/22/20 01/22/20 01/22/20 02:00 03:45 04:00 Temperature 36.6 C Heart Rate [ 87 93 95 Monitoring electrodes] Respiratory 23 27 H 22 Rate Blood Pressure 138/82 H 164/88 H 156/95 H [Right Brachial artery] O2 Saturation 93 01/22/20 01/22/20 01/22/20 05:00 06:00 07:07 Temperature Heart Rate [ 95 93 95 Monitoring electrodes] Respiratory 27 H 25 H 18 Rate Blood Pressure 167/84 H 158/97 H 152/85 H [Right Brachial artery] O2 Saturation 95 Oxygen O2 Source Nasal cannula I&O (Last 24 Hrs): Intake and Output Totals x24h 01/20/20 01/21/20 01/22/20 23:59 23:59 23:59 Intake Total 5212.889 3661.286 250 Output Total 1183 2250 1600 Balance 4029.889 1411.286 -1350 General: Alert HEENT: Mucous membr. moist/pink Neck: Supple Neuro: Disoriented, Other (moving all extremities) Cardiovascular: Other (distant heart sounds) Abdomen: Soft, Other (Obese with pannus) Extremities: Other (1+ hand and pedal edema) - Results Results: Laboratory Results WBC 13.8 x10^3/uL (4.8-10.8) H 01/22/20 04:10 RBC 2.53 10^6/uL (4.70-6.10) L 01/22/20 04:10 Hgb 7.8 g/dL (14.0-18.0) L 01/22/20 04:10 Hct 26.0 % (42.0-52.0) L 01/22/20 04:10 MCV 102.8 fL (80.0-94.0) H 01/22/20 04:10 MCH 30.8 pg (27.0-31.0) 01/22/20 04:10 MCHC 30.0 g/dL (32.0-36.0) L 01/22/20 04:10 RDW 16.7 % (12.0-15.0) H 01/22/20 04:10 Plt Count 226 10^3/uL (130-450) 01/22/20 04:10 MPV 12.2 fL (7.4-11.4) H 01/22/20 04:10 Neut # (Auto) 12.6 10^3/uL (1.5-6.6) H 01/22/20 04:10 Lymph # (Auto) 0.6 10^3/uL (1.5-3.5) L 01/22/20 04:10 [place] # (Auto) 0.6 10^3/uL (0.0-1.0) 01/22/20 04:10 Eos # (Auto) 0.0 10^3/uL (0.0-0.7) 01/22/20 04:10 Baso # (Auto) 0.0 10^3/uL (0.0-0.1) 01/22/20 04:10 Absolute Nucleated RBC 0.03 x10^3/uL 01/22/20 04:10 Nucleated RBC % 0.2 /100WBC 01/22/20 04:10 PT 19.4 secs (9.9-12.6) H 01/18/20 05:35 INR 1.8 (0.8-1.2) H 01/18/20 05:35 Whole Blood INR 4.1 (0.8-1.2) H 01/14/20 14:26 APTT 40.4 secs (24.9-33.3) H 01/14/20 12:46 Bld Gas Analysis Time 0600 01/21/20 05:50 Sample Site RIGHT BRACHIAL 01/21/20 05:50 ABG pH 7.44 (7.35-7.45) 01/21/20 05:50 ABG pCO2 36 mmHg (34-45) 01/21/20 05:50 ABG pO2 135 mmHg (80-100) H 01/21/20 05:50 ABG HCO3 24.4 mmol/L (22.0-26.0) 01/21/20 05:50 ABG Total CO2 25.0 MMOL/L (21.0-29.0) 01/21/20 05:50 ABG O2 Saturation 99 % (94-98) H 01/21/20 05:50 ABG Base Excess 0.0 mmol/L (-2.0-3.0) 01/21/20 05:50 Yomi Test POSITIVE 01/21/20 05:50 Respiration Rate 16 b/min 01/21/20 05:50 O2 Delivery Device VENTILATOR 01/21/20 05:50 Vent Mode SIMV 01/21/20 05:50 FiO2 40.00 01/21/20 05:50 Tidal Volume 500 mL 01/21/20 05:50 PEEP 5 cmH2O 01/21/20 05:50 Pressure Support Vent 40 cmH2O 01/21/20 05:50 Sodium 142 mmol/L (135-145) 01/22/20 04:10 Potassium 3.4 mmol/L (3.5-5.0) L 01/22/20 04:10 Chloride 108 mmol/L (101-111) 01/22/20 04:10 Carbon Dioxide 26 mmol/L (21-32) 01/22/20 04:10 Anion Gap 8.0 (6-13) 01/22/20 04:10 BUN 20 mg/dL (6-20) 01/22/20 04:10 Creatinine 0.8 mg/dL (0.6-1.2) 01/22/20 04:10 Estimated GFR (MDRD) 93 (>89) 01/22/20 04:10 Glucose 172 mg/dL (70-100) H 01/22/20 04:10 Glycated Hemoglobin 6.2 % (4.6-6.2) 01/16/20 14:08 Estim Average Glucose 131 (70-100) H 01/16/20 14:08 Calcium 8.3 mg/dL (8.5-10.3) L 01/22/20 04:10 Phosphorus 2.9 mg/dL (2.5-4.6) 01/22/20 04:10 Magnesium 2.3 mg/dL (1.7-2.8) 01/22/20 04:10 Total Bilirubin 0.9 mg/dL (0.2-1.0) 01/22/20 04:10 AST 65 IU/L (10-42) H 01/22/20 04:10 ALT 56 IU/L (10-60) 01/22/20 04:10 Alkaline Phosphatase 45 IU/L (42-121) 01/22/20 04:10 Ammonia 26.5 umol/L (7-35) 01/22/20 04:10 B-Natriuretic Peptide 231 pg/mL (5-100) H 01/21/20 04:30 Total Protein 6.0 g/dL (6.7-8.2) L 01/22/20 04:10 Albumin 2.8 g/dL (3.2-5.5) L 01/22/20 04:10 Globulin 3.2 g/dL (2.1-4.2) 01/22/20 04:10 Albumin/Globulin Ratio 0.9 (1.0-2.2) L 01/22/20 04:10 Prealbumin 17 mg/dL (18-45) L 01/22/20 04:10 Lipase 24 U/L (22-51) 01/14/20 12:46 Vitamin B12 606 pg/mL (180-914) 01/16/20 18:20 Folate 13.12 ng/mL (5.90 - >24.8) 01/16/20 18:20 TSH 0.19 uIU/mL (0.34-5.60) L 01/16/20 18:20 Free T4 0.79 ng/dL (0.58-1.64) 01/17/20 14:30 Urine Color YELLOW 01/16/20 17:40 Urine Clarity CLEAR (CLEAR) 01/16/20 17:40 Urine pH 5.0 PH (5.0-7.5) 01/16/20 17:40 Ur Specific [place] 1.020 (1.002-1.030) 01/16/20 17:40 Urine Protein NEGATIVE mg/dL (NEGATIVE) 01/16/20 17:40 Urine Glucose (UA) NEGATIVE mg/dL (NEGATIVE) 01/16/20 17:40 Urine Ketones NEGATIVE mg/dL (NEGATIVE) 01/16/20 17:40 Urine Occult Blood SMALL (NEGATIVE) H 01/16/20 17:40 Urine Nitrite NEGATIVE (NEGATIVE) 01/16/20 17:40 Urine Bilirubin NEGATIVE (NEGATIVE) 01/16/20 17:40 Urine Urobilinogen 0.2 (NORMAL) E.U./dL (NORMAL) 01/16/20 17:40 Ur Leukocyte Esterase NEGATIVE (NEGATIVE) 01/16/20 17:40 Urine RBC 6-10 /HPF (0-5) H 01/16/20 17:40 Urine WBC 0-3 /HPF (0-3) 01/16/20 17:40 Ur Squamous Epith Cells NONE SEEN (<= Few) 01/16/20 17:40 Urine Bacteria None Seen /HPF (None Seen) 01/16/20 17:40 Urine Casts 0-2 Hyaline Casts /LPF 01/16/20 17:40 Ur Microscopic Review INDICATED 01/14/20 13:59 Urine Culture Comments NOT INDICATED 01/16/20 17:40 Nasal Screen MRSA (PCR) NEGATIVE (NEGATIVE) 01/17/20 19:20 Blood Type A POSITIVE 01/14/20 12:46 Blood Type Recheck A POSITIVE 01/14/20 17:20 Antibody Screen NEGATIVE 01/14/20 12:46 Crossmatch IS Only See Detail 01/14/20 12:46
[2020-01-22] MEDS ORDERED: methylPREDNISolone 4 MG TABLET PO SCH ×2 (08:00→12:00)
[2020-01-22] MEDS: polyethylene glycoL 3350 17 GM PACKET PO SCH (08:50)
[2020-01-22] MEDS: NYSTATIN POWDER 15 GM TOP SCH ×2 (08:50→21:02)
[2020-01-22] MEDS: ENOXAPARIN 120 MG/0.8 ML SYRINGE SUBQ SCH ×2 (08:52→21:02)
[2020-01-22] MEDS: PANTOPRAZOLE 40 MG TABLET PO SCH ×2 (08:55→21:01)
[2020-01-22] MEDS: FINASTERIDE 5 MG TABLET PO SCH (08:55)
[2020-01-22] MEDS ORDERED: POTASSIUM CHLORIDE 20 MEQ/15 ML UDC PO SCH (09:00)
[2020-01-22] MEDS ORDERED: THIAMINE INJ 100 MG in SODIUM CHLORIDE 0.9% 50 ML IV SCH (09:00)
[2020-01-22] MEDS: INSULIN ASPART 300 UNIT/3 ML PEN SUBQ SCH ×4 (09:19→21:02)
[2020-01-22] MEDS: METOPROLOL SUCCINATE 25 MG TABLET PO SCH (10:19)
[2020-01-22] MEDS: CLOTRIMAZOLE 1% CREAM 15 GM TUBE TOP SCH ×2 (13:25→21:03)
[2020-01-22] MEDS: cefTRIAXone 1 GM in SODIUM CHLORIDE 0.9% MINIBAG 100 ML IV SCH (13:44)
[2020-01-22] MEDS: WARFARIN 5 MG TABLET PO SCH (15:54)
[2020-01-22] MEDS: FERROUS SULFATE 325 MG TABLET PO SCH (17:38)
[2020-01-22 18:28] LABS: MAGNESIUM 2.5 mg/dL (1.7-2.8)
[2020-01-23] MEDS: SODIUM CHLORIDE FLUSH 0.9% 10 ML SYRINGE IVP SCH ×6 (00:06→23:45)
[2020-01-23] MEDS: BACITRACIN ZINC OINT 1 PACKET TOP SCH ×6 (03:16→23:44)
[2020-01-23] MEDS: SODIUM CHLORIDE FLUSH 0.9% 10 ML SYRINGE IVP PRN ×2 (05:45→21:15)
[2020-01-23] MEDS: metroNIDAZOLE 500 MG/100 ML 500 MG/100 ML BAG IV SCH ×3 (05:45→21:16)
[2020-01-23 06:51] LABS: BASOPHILS % (AUTO) 0.2 %; LYMPHOCYTES # (AUTO) 0.8 10^3/uL (1.5-3.5); LYMPHOCYTES % (AUTO) 6.4 %; MEAN CORPUSCULAR HEMOGLOBIN 31.7 pg (27.0-31.0); MEAN CORPUSCULAR HGB CONC 30.5 g/dL (32.0-36.0); MEAN PLATELET VOLUME 12.2 fL (7.4-11.4); MONOCYTES # (AUTO) 1.3 10^3/uL (0.0-1.0); MONOCYTES % (AUTO) 10.1 %; NEUTROPHILS # (AUTO) 10.3 10^3/uL (1.5-6.6); NEUTROPHILS % (AUTO) 82.3 %; PLT - PLATELET COUNT 215 10^3/uL (130-450); RED BLOOD COUNT 2.52 10^6/uL (4.70-6.10); RED CELL DISTRIBUTION WIDTH 16.3 % (12.0-15.0); WHITE BLOOD COUNT 12.5 x10^3/uL (4.8-10.8)
[2020-01-23 06:56] LABS: CALCIUM 7.9 mg/dL (8.5-10.3); CREATININE 0.8 mg/dL (0.6-1.2)
[2020-01-23] MEDS ORDERED: methylPREDNISolone 4 MG TABLET PO SCH (08:00)
[2020-01-23] MEDS: INSULIN ASPART 300 UNIT/3 ML PEN SUBQ SCH ×4 (09:18→21:15)
[2020-01-23] MEDS ORDERED: methylPREDNISolone 4 MG TABLET PO ONE (09:34)
[2020-01-23] MEDS: cefTRIAXone 1 GM in SODIUM CHLORIDE 0.9% MINIBAG 100 ML IV SCH (10:00)
[2020-01-23] MEDS: PRENATAL VITAMIN TABLET PO SCH (10:12)
[2020-01-23] MEDS: FERROUS SULFATE 325 MG TABLET PO SCH (10:12)
[2020-01-23] MEDS: METOPROLOL SUCCINATE 25 MG TABLET PO SCH (10:12)
[2020-01-23] MEDS: FINASTERIDE 5 MG TABLET PO SCH (10:12)
[2020-01-23] MEDS: THIAMINE 100 MG TABLET PO SCH (10:13)
[2020-01-23] MEDS: PANTOPRAZOLE 40 MG TABLET PO SCH ×2 (10:13→21:15)
[2020-01-23] MEDS: NYSTATIN POWDER 15 GM TOP SCH ×2 (10:13→21:17)
[2020-01-23] MEDS: polyethylene glycoL 3350 17 GM PACKET PO SCH (10:14)
--- NOTE | 2020-01-23 12:13 | PROVIDER PROGRESS NOTE ---
Assessment/Plan - Problem List (1) Acute tracheitis with airway obstruction Assessment/Plan: He is on a tapering down Medrol dose pack schedule (2) Weakness acquired in ICU Assessment/Plan: He is participating with PT and OT, with noticable improvement. He will need a SNF for PT and OT rehab. COVID testing is pending, it was done yesterday since SNFs now want to know the pt's COVID status (3) Anasarca Assessment/Plan: Improving without Lasix, just with mobility increasing. (4) Upper GI bleed Assessment/Plan: Resolved He is getting Protonix po bid Coumadin for a mechanical valve is being resumed (5) Acute blood loss anemia Assessment/Plan: Following H/H daily (6) Paraphimosis Assessment/Plan: Steroids are helping this as well as tracheitis Beckman out (7) Alcohol abuse Assessment/Plan: He did admit that he was "overdoing it" but has mentioned that AA did not help him in the past. SW to give resources (8) HTN (hypertension) Assessment/Plan: Stable on current meds (9) Leukocytosis Qualifiers: Leukocytosis type: unspecified Qualified Code(s): D72.829 - Elevated white blood cell count, unspecified Assessment/Plan: Related to high dose steroids for tracheitis (10) Atrial fibrillation Qualifiers: Atrial fibrillation type: unspecified Qualified Code(s): I48.91 - Unspecified atrial fibrillation Assessment/Plan: HR controlled Coumadin being restarted (11) Aortic valve prosthesis present Assessment/Plan: Coumadin is being restarted and continue full dose therapeutic Lovenox dose b.i.d. for bridging. Will stop Lovenox when the INR is > 1.8, today was 1.2. (12) Morbid obesity Assessment/Plan: As per Hx (13) CALEB on CPAP Assessment/Plan: Home device ordered to use here (14) Hypokalemia Assessment/Plan: Replace and follow electrolytes daily (15) Hypernatremia Assessment/Plan: resolved (16) Altered mental status Assessment/Plan: Resolved - Current Meds Current Meds: Current Medications Generic Name Dose Route Start Last Admin Trade Name Freq PRN Reason Stop Dose Admin Bacitracin 1 packet 01/18/20 19:00 01/23/20 06:11 Bacitracin TOP 1 packet Q4H THOMAS Administration Clotrimazole 1 applic 01/16/20 22:30 01/22/20 21:03 Lotrimin 1% Cream TOP Not Given BID THOMAS Enoxaparin Sodium 120 mg 01/17/20 21:00 01/22/20 21:02 Lovenox SUBQ 120 mg Q12H THOMAS Administration Ferrous Sulfate 325 mg 01/22/20 16:00 01/23/20 10:12 Feosol PO 325 mg DAILYWM THOMAS Administration Finasteride 5 mg 01/22/20 09:00 01/23/20 10:12 Proscar PO 5 mg DAILY THOMAS Administration Ceftriaxone Sodium 1 gm/ 100 mls @ 200 mls/hr 01/17/20 13:38 01/23/20 10:00 Sodium Chloride IV 01/24/20 00:00 200 mls/hr DAILY THOMAS Administration Metronidazole 500 mg in 100 mls @ 100 mls/hr 01/17/20 14:00 01/23/20 05:45 Flagyl 500 Mg/100 Ml IV 01/24/20 00:00 100 mls/hr Q8H THOMAS Administration Potassium Chloride/Dextrose/Sod Cl 1,000 mls @ 0 mls/hr 01/20/20 13:48 01/22/20 17:07 IV Infused .Q0M THOMAS Infusion TKO Insulin Aspart 1 - 9 unit 01/21/20 17:00 01/23/20 09:18 Novolog SUBQ Not Given 0800,1200,1700,2100 [facility] Protocol Lidocaine HCl 2.5 ml 01/18/20 16:53 01/18/20 16:59 Xylocaine Uro-Jet 2% UR 2.5 ml Q6H PRN Administration PAIN Lorazepam 0.5 mg 01/17/20 17:30 01/22/20 00:58 Ativan Inj (Vial) IVP 0.5 mg Q2H PRN Administration Anxiety Metoprolol Succinate 25 mg 01/22/20 10:00 01/23/20 10:12 Toprol Xl PO 25 mg DAILY THOMAS Administration Mineral Oil 1 applic 01/21/20 04:00 01/21/20 15:08 Cavilon TOP 1 applic PRN PRN Administration Skin Care Nystatin 1 applic 01/15/20 09:00 01/23/20 10:13 Nystop TOP 1 applic BID THOMAS Administration Ondansetron HCl 4 mg 01/14/20 14:10 01/14/20 23:55 Zofran Inj IVP 4 mg Q6HR PRN Administration Nausea / Vomiting Pantoprazole Sodium 40 mg 01/22/20 09:00 01/23/20 10:13 Protonix PO 40 mg BID THOMAS Administration Polyethylene Glycol 17 gm 01/21/20 09:00 01/23/20 10:14 Miralax PO 17 gm DAILY THOMAS Administration Multivit/Folic Acid/Iron 1 tab 01/23/20 08:00 01/23/20 10:12 Trinatal Rx 1 PO 1 tab DAILYWM THOMAS Administration Sodium Chloride 10 ml 01/14/20 14:10 01/23/20 05:45 Normal Saline Flush 0.9% IVP 10 ml PRN PRN Administration NEEDED PER PROVIDER ORDERS Sodium Chloride 10 ml 01/14/20 17:00 01/23/20 10:14 Normal Saline Flush 0.9% IVP 10 ml 0100,0900,1700 THOMAS Administration Sodium Chloride 10 ml 01/18/20 01:00 01/23/20 10:14 Normal Saline Flush 0.9% IVP 10 ml 0100,0900,1700 THOMAS Administration Thiamine HCl 100 mg 01/23/20 09:00 01/23/20 10:13 Vitamin B-1 PO 100 mg DAILY THOMAS Administration Warfarin Sodium 5 mg 01/22/20 14:00 01/22/20 15:54 Coumadin PO 5 mg 1400 THOMAS Administration - Lab Result Fish Bone Diagrams: 01/23/20 06:40 01/23/20 06:40 - Additional Planning My Orders: My Active Orders 01/22/20 14:00 Warfarin [Coumadin] 5 mg PO 1400 01/22/20 16:00 Ferrous Sulfate [Feosol] 325 mg PO DAILYWM 01/22/20 16:30 COVID-19 REFERENCE TEST Routine 01/22/20 Lunch Carb-controlled Diet [DIET] 01/23/20 08:00 Vitamin [Trinatal Rx 1] 1 tab PO DAILYWM 01/23/20 09:00 Thiamine [Vitamin B-1] 100 mg PO DAILY 01/24/20 05:00 AMMONIA [CHEM] DAILYLAB BMP - BASIC METABOLIC PANEL [CHEM] DAILYLAB CBC - COMP BLD CT W/AUTO DIFF [HEME] DAILYLAB INR [WHOLE BLOOD PT/INR] [COAG] Routine 01/24/20 08:00 methylPREDNISolone [Medrol] 8 mg PO ONCE 01/25/20 05:00 MAGNESIUM [CHEM] Timed PT WITH INR [COAG] Routine 01/25/20 08:00 methylPREDNISolone [Medrol] 4 mg PO ONCE Subjective - Subjective Patient Reports: Feeling Better Nursing Reports: Other (Speech is more lucid and not as slow as yesterday) Objective Vital Signs: Vital Signs - 24 hr 01/22/20 01/22/20 01/22/20 13:00 17:26 21:00 Temperature 36.5 C 36.3 C L 36.7 C Heart Rate [ Brachial] Heart Rate [ 86 90 79 Monitoring electrodes] Respiratory 18 20 20 Rate Blood Pressure [Left Brachial artery] Blood Pressure 135/75 H 147/61 H 128/74 [Right Brachial artery] O2 Saturation 97 97 99 01/23/20 01/23/20 01/23/20 00:32 03:42 09:00 Temperature 37 C 36.6 C 37.1 C Heart Rate [ 81 96 Brachial] Heart Rate [ 90 Monitoring electrodes] Respiratory 18 18 22 Rate Blood Pressure 138/68 H [Left Brachial artery] Blood Pressure 141/72 H 142/86 H [Right Brachial artery] O2 Saturation 93 94 92 Oxygen O2 Source Room air Oxygen Flow Rate 2 I&O (Last 24 Hrs): Intake and Output Totals x24h 01/21/20 01/22/20 01/23/20 23:59 23:59 23:59 Intake Total 3661.286 2186 500 Output Total 2250 2145 1000 Balance 1411.286 41 -500 General: Alert HEENT: Mucous membr. moist/pink Neck: Supple, No JVD Neuro: Alert, Non Focal Cardiovascular: No murmurs Respiratory: No respiratory distress, Breath sounds nml Abdomen: Soft, Other (Obese with pannus) Extremities: No edema - Results Results: Laboratory Results WBC 12.5 x10^3/uL (4.8-10.8) H 01/23/20 06:40 RBC 2.52 10^6/uL (4.70-6.10) L 01/23/20 06:40 Hgb 8.0 g/dL (14.0-18.0) L 01/23/20 06:40 Hct 26.2 % (42.0-52.0) L 01/23/20 06:40 MCV 104.0 fL (80.0-94.0) H 01/23/20 06:40 MCH 31.7 pg (27.0-31.0) H 01/23/20 06:40 MCHC 30.5 g/dL (32.0-36.0) L 01/23/20 06:40 RDW 16.3 % (12.0-15.0) H 01/23/20 06:40 Plt Count 215 10^3/uL (130-450) 01/23/20 06:40 MPV 12.2 fL (7.4-11.4) H 01/23/20 06:40 Neut # (Auto) 10.3 10^3/uL (1.5-6.6) H 01/23/20 06:40 Lymph # (Auto) 0.8 10^3/uL (1.5-3.5) L 01/23/20 06:40 [place] # (Auto) 1.3 10^3/uL (0.0-1.0) H 01/23/20 06:40 Eos # (Auto) 0.0 10^3/uL (0.0-0.7) 01/23/20 06:40 Baso # (Auto) 0.0 10^3/uL (0.0-0.1) 01/23/20 06:40 Absolute Nucleated RBC 0.06 x10^3/uL 01/23/20 06:40 Nucleated RBC % 0.5 /100WBC 01/23/20 06:40 PT 19.4 secs (9.9-12.6) H 01/18/20 05:35 INR 1.8 (0.8-1.2) H 01/18/20 05:35 Whole Blood INR 1.2 (0.8-1.2) 01/23/20 06:35 APTT 40.4 secs (24.9-33.3) H 01/14/20 12:46 Bld Gas Analysis Time 0600 01/21/20 05:50 Sample Site RIGHT BRACHIAL 01/21/20 05:50 ABG pH 7.44 (7.35-7.45) 01/21/20 05:50 ABG pCO2 36 mmHg (34-45) 01/21/20 05:50 ABG pO2 135 mmHg (80-100) H 01/21/20 05:50 ABG HCO3 24.4 mmol/L (22.0-26.0) 01/21/20 05:50 ABG Total CO2 25.0 MMOL/L (21.0-29.0) 01/21/20 05:50 ABG O2 Saturation 99 % (94-98) H 01/21/20 05:50 ABG Base Excess 0.0 mmol/L (-2.0-3.0) 01/21/20 05:50 Yomi Test POSITIVE 01/21/20 05:50 Respiration Rate 16 b/min 01/21/20 05:50 O2 Delivery Device VENTILATOR 01/21/20 05:50 Vent Mode SIMV 01/21/20 05:50 FiO2 40.00 01/21/20 05:50 Tidal Volume 500 mL 01/21/20 05:50 PEEP 5 cmH2O 01/21/20 05:50 Pressure Support Vent 40 cmH2O 01/21/20 05:50 Sodium 139 mmol/L (135-145) 01/23/20 06:40 Potassium 3.1 mmol/L (3.5-5.0) L 01/23/20 06:40 Chloride 110 mmol/L (101-111) 01/23/20 06:40 Carbon Dioxide 23 mmol/L (21-32) 01/23/20 06:40 Anion Gap 6.0 (6-13) 01/23/20 06:40 BUN 23 mg/dL (6-20) H 01/23/20 06:40 Creatinine 0.8 mg/dL (0.6-1.2) 01/23/20 06:40 Estimated GFR (MDRD) 93 (>89) 01/23/20 06:40 Glucose 153 mg/dL (70-100) H 01/23/20 06:40 POC Whole Bld Glucose 150 mg/dL (70 - 100) H 01/23/20 11:47 Glycated Hemoglobin 6.2 % (4.6-6.2) 01/16/20 14:08 Estim Average Glucose 131 (70-100) H 01/16/20 14:08 Calcium 7.9 mg/dL (8.5-10.3) L 01/23/20 06:40 Phosphorus 2.9 mg/dL (2.5-4.6) 01/22/20 04:10 Magnesium 2.5 mg/dL (1.7-2.8) 01/22/20 18:00 Total Bilirubin 0.9 mg/dL (0.2-1.0) 01/22/20 04:10 AST 65 IU/L (10-42) H 01/22/20 04:10 ALT 56 IU/L (10-60) 01/22/20 04:10 Alkaline Phosphatase 45 IU/L (42-121) 01/22/20 04:10 Ammonia 44.7 umol/L (7-35) H 01/23/20 06:40 B-Natriuretic Peptide 231 pg/mL (5-100) H 01/21/20 04:30 Total Protein 6.0 g/dL (6.7-8.2) L 01/22/20 04:10 Albumin 2.8 g/dL (3.2-5.5) L 01/22/20 04:10 Globulin 3.2 g/dL (2.1-4.2) 01/22/20 04:10 Albumin/Globulin Ratio 0.9 (1.0-2.2) L 01/22/20 04:10 Prealbumin 17 mg/dL (18-45) L 01/22/20 04:10 Lipase 24 U/L (22-51) 01/14/20 12:46 Vitamin B12 606 pg/mL (180-914) 01/16/20 18:20 Folate 13.12 ng/mL (5.90 - >24.8) 01/16/20 18:20 TSH 0.19 uIU/mL (0.34-5.60) L 01/16/20 18:20 Free T4 0.79 ng/dL (0.58-1.64) 01/17/20 14:30 Urine Color YELLOW 01/16/20 17:40 Urine Clarity CLEAR (CLEAR) 01/16/20 17:40 Urine pH 5.0 PH (5.0-7.5) 01/16/20 17:40 Ur Specific [place] 1.020 (1.002-1.030) 01/16/20 17:40 Urine Protein NEGATIVE mg/dL (NEGATIVE) 01/16/20 17:40 Urine Glucose (UA) NEGATIVE mg/dL (NEGATIVE) 01/16/20 17:40 Urine Ketones NEGATIVE mg/dL (NEGATIVE) 01/16/20 17:40 Urine Occult Blood SMALL (NEGATIVE) H 01/16/20 17:40 Urine Nitrite NEGATIVE (NEGATIVE) 01/16/20 17:40 Urine Bilirubin NEGATIVE (NEGATIVE) 01/16/20 17:40 Urine Urobilinogen 0.2 (NORMAL) E.U./dL (NORMAL) 01/16/20 17:40 Ur Leukocyte Esterase NEGATIVE (NEGATIVE) 01/16/20 17:40 Urine RBC 6-10 /HPF (0-5) H 01/16/20 17:40 Urine WBC 0-3 /HPF (0-3) 01/16/20 17:40 Ur Squamous Epith Cells NONE SEEN (<= Few) 01/16/20 17:40 Urine Bacteria None Seen /HPF (None Seen) 01/16/20 17:40 Urine Casts 0-2 Hyaline Casts /LPF 01/16/20 17:40 Ur Microscopic Review INDICATED 01/14/20 13:59 Urine Culture Comments NOT INDICATED 01/16/20 17:40 Nasal Screen MRSA (PCR) NEGATIVE (NEGATIVE) 01/17/20 19:20 Blood Type A POSITIVE 01/14/20 12:46 Blood Type Recheck A POSITIVE 01/14/20 17:20 Antibody Screen NEGATIVE 01/14/20 12:46 Crossmatch IS Only See Detail 01/14/20 12:46
[2020-01-23] MEDS: ENOXAPARIN 120 MG/0.8 ML SYRINGE SUBQ SCH ×2 (12:41→13:49)
[2020-01-23] MEDS: CLOTRIMAZOLE 1% CREAM 15 GM TUBE TOP SCH ×2 (12:43→21:16)
[2020-01-23] MEDS: WARFARIN 5 MG TABLET PO SCH (13:49)
[2020-01-23] MEDS: LACTULOSE 10 GM /15 ML UDC PO SCH (18:17)
[2020-01-23] MEDS: LORazepam 2 MG/ML VIAL IVP PRN (21:15)
[2020-01-24] MEDS: SODIUM CHLORIDE FLUSH 0.9% 10 ML SYRINGE IVP SCH ×3 (02:21→08:31)
[2020-01-24] MEDS: ENOXAPARIN 120 MG/0.8 ML SYRINGE SUBQ SCH ×2 (02:33→14:15)
[2020-01-24] MEDS: BACITRACIN ZINC OINT 1 PACKET TOP SCH ×3 (02:35→10:57)
[2020-01-24 06:53] LABS: BASOPHILS % (AUTO) 0.1 %; EOSINOPHILS # (AUTO) 0.1 10^3/uL (0.0-0.7); EOSINOPHILS % (AUTO) 0.6 %; HGB - HEMOGLOBIN 8.3 g/dL (14.0-18.0); MEAN CORPUSCULAR HEMOGLOBIN 31.9 pg (27.0-31.0); MEAN CORPUSCULAR HGB CONC 31.9 g/dL (32.0-36.0); MEAN PLATELET VOLUME 12.2 fL (7.4-11.4); MONOCYTES # (AUTO) 0.9 10^3/uL (0.0-1.0); MONOCYTES % (AUTO) 9.2 %; NEUTROPHILS # (AUTO) 7.6 10^3/uL (1.5-6.6); NEUTROPHILS % (AUTO) 78.6 %; PLT - PLATELET COUNT 234 10^3/uL (130-450); RED CELL DISTRIBUTION WIDTH 16.3 % (12.0-15.0); WHITE BLOOD COUNT 9.7 x10^3/uL (4.8-10.8)
[2020-01-24 07:05] LABS: CALCIUM 7.8 mg/dL (8.5-10.3); CREATININE 0.7 mg/dL (0.6-1.2)
[2020-01-24] MEDS: INSULIN ASPART 300 UNIT/3 ML PEN SUBQ SCH (07:52)
[2020-01-24] MEDS ORDERED: methylPREDNISolone 4 MG TABLET PO SCH (08:00)
[2020-01-24] MEDS: LACTULOSE 10 GM /15 ML UDC PO SCH ×2 (08:26→17:57)
[2020-01-24] MEDS: FINASTERIDE 5 MG TABLET PO SCH (08:27)
[2020-01-24] MEDS: PANTOPRAZOLE 40 MG TABLET PO SCH ×2 (08:27→22:16)
[2020-01-24] MEDS: PRENATAL VITAMIN TABLET PO SCH (08:27)
[2020-01-24] MEDS: polyethylene glycoL 3350 17 GM PACKET PO SCH (08:27)
[2020-01-24] MEDS: FERROUS SULFATE 325 MG TABLET PO SCH (08:28)
[2020-01-24] MEDS: METOPROLOL SUCCINATE 25 MG TABLET PO SCH (08:28)
[2020-01-24] MEDS: THIAMINE 100 MG TABLET PO SCH (08:28)
[2020-01-24] MEDS: NYSTATIN POWDER 15 GM TOP SCH ×2 (08:29→22:17)
[2020-01-24] MEDS: CLOTRIMAZOLE 1% CREAM 15 GM TUBE TOP SCH ×2 (08:30→22:16)
[2020-01-24] MEDS ORDERED: polyethylene glycoL 3350 17 GM PACKET PO PRN (08:34)
--- NOTE | 2020-01-24 08:36 | PROVIDER PROGRESS NOTE ---
Assessment/Plan - Problem List (1) Weakness acquired in ICU Assessment/Plan: Pt is progressing with PT and OT well, strength and fine motor. He will need further PT and OT in a SNF. The COVID test was sent to be aware of his status for SNF placement. Result is still pending. I will stop the SCDs, continue TEDS. (2) Alcohol-induced persisting dementia Qualifiers: Dementia behavioral disturbance: without behavioral disturbance Qualified Code(s): F10.27 - Alcohol dependence with alcohol-induced persisting dementia Assessment/Plan: Frequent pauses in speech for word-finding, and he has no memory of many recent events. CT head was done at admission and did show previous strokes. 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 He does have Affb which may have been the reason for prior strokes. He is on a therapeutic Lovenox bridge as his Coumadin is being restarted. I will stop telemetry, since he pulls off the leads due to his confusion. (3) Alcohol abuse Assessment/Plan: LFTs stable. He is on daily po Thiamine and MOV. Ammonia levels daily and Lactulose was started 2 days ago. SW to provide resources for future management, but he has dementia or cognitive impairment and current counseling may be forgotten by him. OT will be requested to do a mini-mental exam tomorrow (today is Sun). (4) Acute tracheitis with airway obstruction Assessment/Plan: He is on his tapering down Medrol dose tesfaye schedule. No sx or complaints. (5) Upper GI bleed Assessment/Plan: Stable on po bid Protonix, no melena or hematemasisi since admission. The EGD found gastritis. (6) Acute blood loss anemia Assessment/Plan: Stable H/H since transfusions earlier this admission. He is now on daily po Iron replacement. (7) HTN (hypertension) Assessment/Plan: BP controlled on current meds and management. VS can be Qshift. (8) Atrial fibrillation Qualifiers: Atrial fibrillation type: unspecified Qualified Code(s): I48.91 - Unspecified atrial fibrillation Assessment/Plan: CT head was done at admission and did show previous strokes. He does have chronic Afib which may have been the reason for prior strokes. He is on a therapeutic Lovenox dose for bridging while his Coumadin is being restarted. Telemetry can be stopped. (9) Aortic valve prosthesis present Assessment/Plan: He is on a therapeutic Lovenox bridge as his Coumadin is being restarted. INR target is 2.5-3 (10) Hypokalemia Assessment/Plan: Replace po Follow Daily BMP (11) CALEB on CPAP Assessment/Plan: CPAP is ordered to use here at night (12) Morbid obesity Assessment/Plan: As per Hx. He is on a carb controlled diet, but does not have DM. I will stop the POC glu fingerstick checks. (13) Hypernatremia Assessment/Plan: Resolved (14) Anasarca Assessment/Plan: Resolved (15) Paraphimosis Assessment/Plan: Resolved. Beckman is out No further c/o pain. The high dose steroids treated this and his tracheitis. - Current Meds Current Meds: Current Medications Generic Name Dose Route Start Last Admin Trade Name Freq PRN Reason Stop Dose Admin Bacitracin 1 packet 01/18/20 19:00 01/24/20 07:06 Bacitracin TOP 1 packet Q4H THOMAS Administration Clotrimazole 1 applic 01/16/20 22:30 01/24/20 08:30 Lotrimin 1% Cream TOP 1 applic BID THOMAS Administration Enoxaparin Sodium 120 mg 01/23/20 14:00 01/24/20 02:33 Lovenox SUBQ 120 mg Q12H THOMAS Administration Ferrous Sulfate 325 mg 01/22/20 16:00 01/24/20 08:28 Feosol PO 325 mg DAILYWM THOMAS Administration Finasteride 5 mg 01/22/20 09:00 01/24/20 08:27 Proscar PO 5 mg DAILY THOMAS Administration Insulin Aspart 1 - 9 unit 01/21/20 17:00 01/24/20 07:52 Novolog SUBQ Not Given 0800,1200,1700,2100 THOMAS Protocol Lactulose 10 gm 01/23/20 17:00 01/24/20 08:26 Enulose PO 10 gm 0900,1700 THOMAS Administration Lidocaine HCl 2.5 ml 01/18/20 16:53 01/18/20 16:59 Xylocaine Uro-Jet 2% UR 2.5 ml Q6H PRN Administration PAIN Metoprolol Succinate 25 mg 01/22/20 10:00 01/24/20 08:28 Toprol Xl PO 25 mg DAILY THOMAS Administration Mineral Oil 1 applic 01/21/20 04:00 01/21/20 15:08 Cavilon TOP 1 applic PRN PRN Administration Skin Care Nystatin 1 applic 01/15/20 09:00 01/24/20 08:29 Nystop TOP 1 applic BID THOMAS Administration Pantoprazole Sodium 40 mg 01/22/20 09:00 01/24/20 08:27 Protonix PO 40 mg BID THOMAS Administration Multivit/Folic Acid/Iron 1 tab 01/23/20 08:00 01/24/20 08:27 Trinatal Rx 1 PO 1 tab DAILYWM THOMAS Administration Sodium Chloride 10 ml 01/14/20 14:10 01/23/20 21:15 Normal Saline Flush 0.9% IVP 10 ml PRN PRN Administration NEEDED PER PROVIDER ORDERS Thiamine HCl 100 mg 01/23/20 09:00 01/24/20 08:28 Vitamin B-1 PO 100 mg DAILY THOMAS Administration Warfarin Sodium 5 mg 01/22/20 14:00 01/23/20 13:49 Coumadin PO 5 mg 1400 THOMAS Administration - Lab Result Fish Bone Diagrams: 01/24/20 06:44 01/24/20 06:44 - Additional Planning My Orders: My Active Orders 01/23/20 08:00 Vitamin [Trinatal Rx 1] 1 tab PO DAILYWM 01/23/20 09:00 Thiamine [Vitamin B-1] 100 mg PO DAILY 01/23/20 14:00 Enoxaparin [Lovenox] 120 mg SUBQ Q12H 01/23/20 17:00 Lactulose [Enulose] 10 gm PO 0900,1700 01/24/20 08:00 methylPREDNISolone [Medrol] 8 mg PO ONCE 01/24/20 08:31 Telemetry-Discontinue [RC] .ONCE 01/24/20 08:34 polyethylene glycoL 3350 [Miralax] 17 gm PO DAILY PRN 01/25/20 05:00 MAGNESIUM [CHEM] Timed PT WITH INR [COAG] Routine 01/25/20 08:00 methylPREDNISolone [Medrol] 4 mg PO ONCE Subjective - Subjective Patient Reports: No Complaints Objective Vital Signs: Vital Signs - 24 hr 01/23/20 01/23/20 01/23/20 09:00 13:00 16:27 Temperature 37.1 C 36.7 C 36.6 C Heart Rate [ 86 Brachial] Heart Rate [ 90 98 Monitoring electrodes] Respiratory 22 20 18 Rate Blood Pressure 115/60 [Left Brachial artery] Blood Pressure 142/86 H 145/73 H [Right Brachial artery] O2 Saturation 92 93 94 01/23/20 01/23/20 01/23/20 21:03 21:16 23:18 Temperature 37 C 36.3 C L 36.5 C Heart Rate [ 90 89 101 H Brachial] Heart Rate [ Monitoring electrodes] Respiratory 20 20 20 Rate Blood Pressure 120/66 [Left Brachial artery] Blood Pressure 139/82 H 145/91 H [Right Brachial artery] O2 Saturation 92 94 93 01/24/20 03:04 Temperature 36.4 C L Heart Rate [ 97 Brachial] Heart Rate [ Monitoring electrodes] Respiratory 20 Rate Blood Pressure 147/69 H [Left Brachial artery] Blood Pressure [Right Brachial artery] O2 Saturation 93 Oxygen O2 Source Room air Oxygen Flow Rate 2 I&O (Last 24 Hrs): Intake and Output Totals x24h 01/22/20 01/23/20 01/24/20 23:59 23:59 23:59 Intake Total 2186 2100 Output Total 2145 1750 Balance 41 350 General: Alert HEENT: Mucous membr. moist/pink Neck: Supple Neuro: Alert, Disoriented Respiratory: No respiratory distress Abdomen: Soft, Other (Obesed with pannus) Extremities: No edema - Results Results: Laboratory Results WBC 9.7 x10^3/uL (4.8-10.8) 01/24/20 06:44 RBC 2.60 10^6/uL (4.70-6.10) L 01/24/20 06:44 Hgb 8.3 g/dL (14.0-18.0) L 01/24/20 06:44 Hct 26.0 % (42.0-52.0) L 01/24/20 06:44 MCV 100.0 fL (80.0-94.0) H 01/24/20 06:44 MCH 31.9 pg (27.0-31.0) H 01/24/20 06:44 MCHC 31.9 g/dL (32.0-36.0) L 01/24/20 06:44 RDW 16.3 % (12.0-15.0) H 01/24/20 06:44 Plt Count 234 10^3/uL (130-450) 01/24/20 06:44 MPV 12.2 fL (7.4-11.4) H 01/24/20 06:44 Neut # (Auto) 7.6 10^3/uL (1.5-6.6) H 01/24/20 06:44 Lymph # (Auto) 1.0 10^3/uL (1.5-3.5) L 01/24/20 06:44 [place] # (Auto) 0.9 10^3/uL (0.0-1.0) 01/24/20 06:44 Eos # (Auto) 0.1 10^3/uL (0.0-0.7) 01/24/20 06:44 Baso # (Auto) 0.0 10^3/uL (0.0-0.1) 01/24/20 06:44 Absolute Nucleated RBC 0.06 x10^3/uL 01/24/20 06:44 Nucleated RBC % 0.6 /100WBC 01/24/20 06:44 PT 19.4 secs (9.9-12.6) H 01/18/20 05:35 INR 1.8 (0.8-1.2) H 01/18/20 05:35 Whole Blood INR 1.3 (0.8-1.2) H 01/24/20 06:44 APTT 40.4 secs (24.9-33.3) H 01/14/20 12:46 Bld Gas Analysis Time 0600 01/21/20 05:50 Sample Site RIGHT BRACHIAL 01/21/20 05:50 ABG pH 7.44 (7.35-7.45) 01/21/20 05:50 ABG pCO2 36 mmHg (34-45) 01/21/20 05:50 ABG pO2 135 mmHg (80-100) H 01/21/20 05:50 ABG HCO3 24.4 mmol/L (22.0-26.0) 01/21/20 05:50 ABG Total CO2 25.0 MMOL/L (21.0-29.0) 01/21/20 05:50 ABG O2 Saturation 99 % (94-98) H 01/21/20 05:50 ABG Base Excess 0.0 mmol/L (-2.0-3.0) 01/21/20 05:50 Yomi Test POSITIVE 01/21/20 05:50 Respiration Rate 16 b/min 01/21/20 05:50 O2 Delivery Device VENTILATOR 01/21/20 05:50 Vent Mode SIMV 01/21/20 05:50 FiO2 40.00 01/21/20 05:50 Tidal Volume 500 mL 01/21/20 05:50 PEEP 5 cmH2O 01/21/20 05:50 Pressure Support Vent 40 cmH2O 01/21/20 05:50 Sodium 138 mmol/L (135-145) 01/24/20 06:44 Potassium 3.2 mmol/L (3.5-5.0) L 01/24/20 06:44 Chloride 108 mmol/L (101-111) 01/24/20 06:44 Carbon Dioxide 25 mmol/L (21-32) 01/24/20 06:44 Anion Gap 5.0 (6-13) L 01/24/20 06:44 BUN 18 mg/dL (6-20) 01/24/20 06:44 Creatinine 0.7 mg/dL (0.6-1.2) 01/24/20 06:44 Estimated GFR (MDRD) 109 (>89) 01/24/20 06:44 Glucose 127 mg/dL (70-100) H 01/24/20 06:44 POC Whole Bld Glucose 118 mg/dL (70 - 100) H 01/24/20 07:42 Glycated Hemoglobin 6.2 % (4.6-6.2) 01/16/20 14:08 Estim Average Glucose 131 (70-100) H 01/16/20 14:08 Calcium 7.8 mg/dL (8.5-10.3) L 01/24/20 06:44 Phosphorus 2.9 mg/dL (2.5-4.6) 01/22/20 04:10 Magnesium 2.5 mg/dL (1.7-2.8) 01/22/20 18:00 Total Bilirubin 0.9 mg/dL (0.2-1.0) 01/22/20 04:10 AST 65 IU/L (10-42) H 01/22/20 04:10 ALT 56 IU/L (10-60) 01/22/20 04:10 Alkaline Phosphatase 45 IU/L (42-121) 01/22/20 04:10 Ammonia 28.8 umol/L (7-35) 01/24/20 06:44 B-Natriuretic Peptide 231 pg/mL (5-100) H 01/21/20 04:30 Total Protein 6.0 g/dL (6.7-8.2) L 01/22/20 04:10 Albumin 2.8 g/dL (3.2-5.5) L 01/22/20 04:10 Globulin 3.2 g/dL (2.1-4.2) 01/22/20 04:10 Albumin/Globulin Ratio 0.9 (1.0-2.2) L 01/22/20 04:10 Prealbumin 17 mg/dL (18-45) L 01/22/20 04:10 Lipase 24 U/L (22-51) 01/14/20 12:46 Vitamin B12 606 pg/mL (180-914) 01/16/20 18:20 Folate 13.12 ng/mL (5.90 - >24.8) 01/16/20 18:20 TSH 0.19 uIU/mL (0.34-5.60) L 01/16/20 18:20 Free T4 0.79 ng/dL (0.58-1.64) 01/17/20 14:30 Urine Color YELLOW 01/16/20 17:40 Urine Clarity CLEAR (CLEAR) 01/16/20 17:40 Urine pH 5.0 PH (5.0-7.5) 01/16/20 17:40 Ur Specific [place] 1.020 (1.002-1.030) 01/16/20 17:40 Urine Protein NEGATIVE mg/dL (NEGATIVE) 01/16/20 17:40 Urine Glucose (UA) NEGATIVE mg/dL (NEGATIVE) 01/16/20 17:40 Urine Ketones NEGATIVE mg/dL (NEGATIVE) 01/16/20 17:40 Urine Occult Blood SMALL (NEGATIVE) H 01/16/20 17:40 Urine Nitrite NEGATIVE (NEGATIVE) 01/16/20 17:40 Urine Bilirubin NEGATIVE (NEGATIVE) 01/16/20 17:40 Urine Urobilinogen 0.2 (NORMAL) E.U./dL (NORMAL) 01/16/20 17:40 Ur Leukocyte Esterase NEGATIVE (NEGATIVE) 03/21/20 17:40 Urine RBC 6-10 /HPF (0-5) H 01/16/20 17:40 Urine WBC 0-3 /HPF (0-3) 01/16/20 17:40 Ur Squamous Epith Cells NONE SEEN (<= Few) 01/16/20 17:40 Urine Bacteria None Seen /HPF (None Seen) 01/16/20 17:40 Urine Casts 0-2 Hyaline Casts /LPF 01/16/20 17:40 Ur Microscopic Review INDICATED 01/14/20 13:59 Urine Culture Comments NOT INDICATED 01/16/20 17:40 Nasal Screen MRSA (PCR) NEGATIVE (NEGATIVE) 01/17/20 19:20 Blood Type A POSITIVE 01/14/20 12:46 Blood Type Recheck A POSITIVE 01/14/20 17:20 Antibody Screen NEGATIVE 01/14/20 12:46 Crossmatch IS Only See Detail 01/14/20 12:46
[2020-01-24] MEDS ORDERED: POTASSIUM CHLORIDE 20 MEQ TABLET PO SCH (09:00)
[2020-01-24] MEDS ORDERED: methylPREDNISolone 4 MG TABLET PO ONE (10:45)
[2020-01-24] MEDS: WARFARIN 5 MG TABLET PO SCH (14:10)
[2020-01-24] MEDS: BACITRACIN ZINC OINT 28.4 GM TUBE TOP SCH ×3 (17:57→22:18)
[2020-01-25] MEDS: SODIUM CHLORIDE FLUSH 0.9% 10 ML SYRINGE IVP PRN (00:52)
[2020-01-25] MEDS: ENOXAPARIN 120 MG/0.8 ML SYRINGE SUBQ SCH ×2 (01:14→14:57)
[2020-01-25] MEDS: BACITRACIN ZINC OINT 28.4 GM TUBE TOP SCH ×7 (04:00→22:48)
[2020-01-25 05:50] LABS: INR 1.7 (0.8-1.2)
[2020-01-25 07:30] LABS: CREATININE 0.8 mg/dL (0.6-1.2)
[2020-01-25 07:35] LABS: BASOPHILS % (AUTO) 0.1 %; EOSINOPHILS # (AUTO) 0.2 10^3/uL (0.0-0.7); HGB - HEMOGLOBIN 8.4 g/dL (14.0-18.0); LYMPHOCYTES # (AUTO) 1.1 10^3/uL (1.5-3.5); LYMPHOCYTES % (AUTO) 10.6 %; MEAN CORPUSCULAR HEMOGLOBIN 31.1 pg (27.0-31.0); MEAN CORPUSCULAR HGB CONC 30.4 g/dL (32.0-36.0); MEAN CORPUSCULAR VOLUME 102.2 fL (80.0-94.0); MEAN PLATELET VOLUME 12.5 fL (7.4-11.4); MONOCYTES # (AUTO) 0.7 10^3/uL (0.0-1.0); NEUTROPHILS % (AUTO) 79.1 %; PLT - PLATELET COUNT 246 10^3/uL (130-450); RED CELL DISTRIBUTION WIDTH 16.4 % (12.0-15.0); WHITE BLOOD COUNT 10.1 x10^3/uL (4.8-10.8)
[2020-01-25] MEDS ORDERED: methylPREDNISolone 4 MG TABLET PO SCH (08:00)
[2020-01-25] MEDS: FERROUS SULFATE 325 MG TABLET PO SCH (08:14)
[2020-01-25] MEDS: METOPROLOL SUCCINATE 25 MG TABLET PO SCH (08:14)
[2020-01-25] MEDS: PRENATAL VITAMIN TABLET PO SCH (08:14)
[2020-01-25] MEDS: POTASSIUM CHLORIDE 20 MEQ TABLET PO SCH (08:14)
[2020-01-25] MEDS: LACTULOSE 10 GM /15 ML UDC PO SCH ×2 (08:14→16:35)
[2020-01-25] MEDS: PANTOPRAZOLE 40 MG TABLET PO SCH ×2 (08:14→20:16)
[2020-01-25] MEDS: FINASTERIDE 5 MG TABLET PO SCH (08:14)
[2020-01-25] MEDS: THIAMINE 100 MG TABLET PO SCH (08:14)
[2020-01-25] MEDS: CLOTRIMAZOLE 1% CREAM 15 GM TUBE TOP SCH ×2 (08:15→20:16)
[2020-01-25] MEDS: NYSTATIN POWDER 15 GM TOP SCH ×2 (08:15→20:16)
[2020-01-25] MEDS ORDERED: methylPREDNISolone 4 MG TABLET PO ONE (08:42)
[2020-01-25] MEDS ORDERED: WARFARIN 1 MG TABLET PO SCH (14:00)
--- NOTE | 2020-01-25 15:21 | PROVIDER PROGRESS NOTE ---
Assessment/Plan - Problem List (1) Weakness acquired in ICU Assessment/Plan: Pt is progressing with PT and OT well, strength and fine motor. He will need further PT and OT in a SNF. The COVID test was sent to be aware of his status for SNF placement. Result is still pending. I stopped the SCDs, continue TEDS. (2) Alcohol-induced persisting dementia Qualifiers: Dementia behavioral disturbance: without behavioral disturbance Qualified Code(s): F10.27 - Alcohol dependence with alcohol-induced persisting dementia Assessment/Plan: Frequent pauses in speech for word-finding, and he has no memory of many recent events. OT eval of cognition done today and found he has slow processing, slow speech and is [place], but cognition was only mildly abnormal. CT head was done at admission and did show previous strokes. 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 He does have Afib which may have been the reason for prior strokes. He is on a therapeutic Lovenox bridge as his Coumadin is being restarted. I will stop telemetry, since he pulls off the leads due to his confusion. (3) Aortic valve prosthesis present Assessment/Plan: He is on a therapeutic Lovenox bridge as his Coumadin is being restarted. The dose was 5 mg ddaily which I increased slightly to 6 mg daily. Do not want to overshoot his INR target since he is at a risk of rebleeding from the acute GI bleed that he had this admission INR target is 2.5-3 (4) Alcohol abuse Assessment/Plan: LFTs stable. He is on daily po Thiamine and MOV. Ammonia levels daily and Lactulose was started several days ago. SW to provide resources for future management, but he has dementia or cognitive impairment and current counseling may be forgotten by him. (5) Acute tracheitis with airway obstruction Assessment/Plan: He needed intubation for this and was on iv steroids, nowhe is on his tapering down Medrol dose tesfaye schedule. No sx or complaints. (6) Upper GI bleed Assessment/Plan: Stable on po bid Protonix, no melena or hematemasisi since admission. The EGD found gastritis. (7) Acute blood loss anemia Assessment/Plan: Stable H/H since transfusions earlier this admission. He is now on daily po Iron replacement. (8) HTN (hypertension) Assessment/Plan: BP controlled on current meds and management. VS can be Qshift. (9) Atrial fibrillation Qualifiers: Atrial fibrillation type: unspecified Qualified Code(s): I48.91 - Unsp ecified atrial fibrillation Assessment/Plan: CT head was done at admission and did show previous strokes. He does have chronic Afib which may have been the reason for prior strokes. He is on a therapeutic Lovenox dose for bridging while his Coumadin is being restarted. Telemetry can be stopped. (10) CALEB on CPAP Assessment/Plan: His home CPAP is ordered to use here (11) Morbid obesity Assessment/Plan: As per Hx (12) Hypokalemia Assessment/Plan: Resolved (13) Hypernatremia Assessment/Plan: Resolved (14) Anasarca Assessment/Plan: Resolved after out of ICU (15) Paraphimosis Assessment/Plan: Resolved with Beckman use while in ICU and with the steroids he got for his tracheitis - Current Meds Current Meds: Current Medications Generic Name Dose Route Start Last Admin Trade Name Freq PRN Reason Stop Dose Admin Bacitracin 1 gm 01/24/20 15:00 01/25/20 14:57 Bacitracin Zinc Oint TOP Not Given Q4H THOMAS Clotrimazole 1 applic 01/16/20 22:30 01/25/20 08:15 Lotrimin 1% Cream TOP 1 applic BID THOMAS Administration Enoxaparin Sodium 120 mg 01/23/20 14:00 01/25/20 14:57 Lovenox SUBQ 120 mg Q12H THOMAS Administration Ferrous Sulfate 325 mg 01/22/20 16:00 01/25/20 08:14 Feosol PO 325 mg DAILYWM THOMAS Administration Finasteride 5 mg 01/22/20 09:00 01/25/20 08:14 Proscar PO 5 mg DAILY THOMAS Administration Lactulose 10 gm 01/23/20 17:00 01/25/20 08:14 Enulose PO 10 gm 0900,1700 THOMAS Administration Lidocaine HCl 2.5 ml 01/18/20 16:53 01/18/20 16:59 Xylocaine Uro-Jet 2% UR 2.5 ml Q6H PRN Administration PAIN Metoprolol Succinate 25 mg 01/22/20 10:00 01/25/20 08:14 Toprol Xl PO 25 mg DAILY THOMAS Administration Mineral Oil 1 applic 01/21/20 04:00 01/21/20 15:08 Cavilon TOP 1 applic PRN PRN Administration Skin Care Nystatin 1 applic 01/15/20 09:00 01/25/20 08:15 Nystop TOP 1 applic BID THOMAS Administration Pantoprazole Sodium 40 mg 01/22/20 09:00 01/25/20 08:14 Protonix PO 40 mg BID THOMAS Administration Potassium Chloride 20 meq 01/25/20 08:00 01/25/20 08:14 K-Dur PO 20 meq DAILYWM THOMAS Administration Multivit/Folic Acid/Iron 1 tab 01/23/20 08:00 01/25/20 08:14 Trinatal Rx 1 PO 1 tab DAILYWM THOMAS Administration Sodium Chloride 10 ml 01/14/20 14:10 01/25/20 00:52 Normal Saline Flush 0.9% IVP 10 ml PRN PRN Administration NEEDED PER PROVIDER ORDERS Thiamine HCl 100 mg 01/23/20 09:00 01/25/20 08:14 Vitamin B-1 PO 100 mg DAILY THOMAS Administration Warfarin Sodium 6 mg 01/25/20 14:00 01/25/20 14:57 Coumadin PO 6 mg 1400 THOMAS Administration - Lab Result Fish Bone Diagrams: 01/25/20 05:15 01/25/20 05:15 - Additional Planning My Orders: My Active Orders 01/25/20 08:00 Potassium Chloride [K-Dur] 20 meq PO DAILYWM 01/25/20 14:00 Warfarin [Coumadin] 6 mg PO 1400 Subjective - Subjective Patient Reports: No Complaints Objective Vital Signs: Vital Signs - 24 hr 01/24/20 01/24/20 01/25/20 16:57 23:30 07:32 Temperature 36.5 C 36.5 C 36.7 C Heart Rate [ 88 88 79 Brachial] Respiratory 20 18 18 Rate Blood Pressure 137/74 H [Left Brachial artery] Blood Pressure 141/87 H 147/71 H [Right Brachial artery] O2 Saturation 94 97 99 Oxygen O2 Source Room air Oxygen Flow Rate 2 I&O (Last 24 Hrs): Intake and Output Totals x24h 01/23/20 01/24/20 01/25/20 23:59 23:59 23:59 Intake Total 2100 1710 660 Output Total 1750 200 Balance 350 1710 460 General: Alert HEENT: Mucous membr. moist/pink Neck: No JVD Neuro: Other (Slow speech, [place]) Cardiovascular: No murmurs, Other (Irreg irreg) Respiratory: No respiratory distress Abdomen: Other (Obese with a pannus) Extremities: No edema - Results Results: Laboratory Results WBC 10.1 x10^3/uL (4.8-10.8) 01/25/20 05:15 RBC 2.70 10^6/uL (4.70-6.10) L 01/25/20 05:15 Hgb 8.4 g/dL (14.0-18.0) L 01/25/20 05:15 Hct 27.6 % (42.0-52.0) L 01/25/20 05:15 MCV 102.2 fL (80.0-94.0) H 01/25/20 05:15 MCH 31.1 pg (27.0-31.0) H 01/25/20 05:15 MCHC 30.4 g/dL (32.0-36.0) L 01/25/20 05:15 RDW 16.4 % (12.0-15.0) H 01/25/20 05:15 Plt Count 246 10^3/uL (130-450) 01/25/20 05:15 MPV 12.5 fL (7.4-11.4) H 01/25/20 05:15 Neut # (Auto) 8.0 10^3/uL (1.5-6.6) H 01/25/20 05:15 Lymph # (Auto) 1.1 10^3/uL (1.5-3.5) L 01/25/20 05:15 [place] # (Auto) 0.7 10^3/uL (0.0-1.0) 01/25/20 05:15 Eos # (Auto) 0.2 10^3/uL (0.0-0.7) 01/25/20 05:15 Baso # (Auto) 0.0 10^3/uL (0.0-0.1) 01/25/20 05:15 Absolute Nucleated RBC 0.03 x10^3/uL 01/25/20 05:15 Nucleated RBC % 0.3 /100WBC 01/25/20 05:15 PT 19.0 secs (9.9-12.6) H 01/25/20 05:15 INR 1.7 (0.8-1.2) H 01/25/20 05:15 Whole Blood INR 1.3 (0.8-1.2) H 01/24/20 06:44 APTT 40.4 secs (24.9-33.3) H 01/14/20 12:46 Bld Gas Analysis Time 0600 01/21/20 05:50 Sample Site RIGHT BRACHIAL 01/21/20 05:50 ABG pH 7.44 (7.35-7.45) 01/21/20 05:50 ABG pCO2 36 mmHg (34-45) 01/21/20 05:50 ABG pO2 135 mmHg (80-100) H 01/21/20 05:50 ABG HCO3 24.4 mmol/L (22.0-26.0) 01/21/20 05:50 ABG Total CO2 25.0 MMOL/L (21.0-29.0) 01/21/20 05:50 ABG O2 Saturation 99 % (94-98) H 01/21/20 05:50 ABG Base Excess 0.0 mmol/L (-2.0-3.0) 01/21/20 05:50 Yomi Test POSITIVE 01/21/20 05:50 Respiration Rate 16 b/min 01/21/20 05:50 O2 Delivery Device VENTILATOR 01/21/20 05:50 Vent Mode SIMV 01/21/20 05:50 FiO2 40.00 01/21/20 05:50 Tidal Volume 500 mL 01/21/20 05:50 PEEP 5 cmH2O 01/21/20 05:50 Pressure Support Vent 40 cmH2O 01/21/20 05:50 Sodium 137 mmol/L (135-145) 01/25/20 05:15 Potassium 3.5 mmol/L (3.5-5.0) 01/25/20 05:15 Chloride 105 mmol/L (101-111) 01/25/20 05:15 Carbon Dioxide 26 mmol/L (21-32) 01/25/20 05:15 Anion Gap 6.0 (6-13) 01/25/20 05:15 BUN 16 mg/dL (6-20) 01/25/20 05:15 Creatinine 0.8 mg/dL (0.6-1.2) 01/25/20 05:15 Estimated GFR (MDRD) 93 (>89) 01/25/20 05:15 Glucose 142 mg/dL (70-100) H 01/25/20 05:15 POC Whole Bld Glucose 118 mg/dL (70 - 100) H 01/24/20 07:42 Glycated Hemoglobin 6.2 % (4.6-6.2) 01/16/20 14:08 Estim Average Glucose 131 (70-100) H 01/16/20 14:08 Calcium 8.0 mg/dL (8.5-10.3) L 01/25/20 05:15 Phosphorus 2.9 mg/dL (2.5-4.6) 01/22/20 04:10 Magnesium 2.4 mg/dL (1.7-2.8) 01/25/20 05:15 Total Bilirubin 0.9 mg/dL (0.2-1.0) 01/22/20 04:10 AST 65 IU/L (10-42) H 01/22/20 04:10 ALT 56 IU/L (10-60) 01/22/20 04:10 Alkaline Phosphatase 45 IU/L (42-121) 01/22/20 04:10 Ammonia 19.5 umol/L (7-35) 01/25/20 08:35 B-Natriuretic Peptide 231 pg/mL (5-100) H 01/21/20 04:30 Total Protein 6.0 g/dL (6.7-8.2) L 01/22/20 04:10 Albumin 2.8 g/dL (3.2-5.5) L 01/22/20 04:10 Globulin 3.2 g/dL (2.1-4.2) 01/22/20 04:10 Albumin/Globulin Ratio 0.9 (1.0-2.2) L 01/22/20 04:10 Prealbumin 17 mg/dL (18-45) L 01/22/20 04:10 Lipase 24 U/L (22-51) 01/14/20 12:46 Vitamin B12 606 pg/mL (180-914) 01/16/20 18:20 Folate 13.12 ng/mL (5.90 - >24.8) 01/16/20 18:20 TSH 0.19 uIU/mL (0.34-5.60) L 01/16/20 18:20 Free T4 0.79 ng/dL (0.58-1.64) 01/17/20 14:30 Urine Color YELLOW 01/16/20 17:40 Urine Clarity CLEAR (CLEAR) 01/16/20 17:40 Urine pH 5.0 PH (5.0-7.5) 01/16/20 17:40 Ur Specific [place] 1.020 (1.002-1.030) 01/16/20 17:40 Urine Protein NEGATIVE mg/dL (NEGATIVE) 01/16/20 17:40 Urine Glucose (UA) NEGATIVE mg/dL (NEGATIVE) 01/16/20 17:40 Urine Ketones NEGATIVE mg/dL (NEGATIVE) 01/16/20 17:40 Urine Occult Blood SMALL (NEGATIVE) H 01/16/20 17:40 Urine Nitrite NEGATIVE (NEGATIVE) 01/16/20 17:40 Urine Bilirubin NEGATIVE (NEGATIVE) 01/16/20 17:40 Urine Urobilinogen 0.2 (NORMAL) E.U./dL (NORMAL) 01/16/20 17:40 Ur Leukocyte Esterase NEGATIVE (NEGATIVE) 01/16/20 17:40 Urine RBC 6-10 /HPF (0-5) H 01/16/20 17:40 Urine WBC 0-3 /HPF (0-3) 01/16/20 17:40 Ur Squamous Epith Cells NONE SEEN (<= Few) 01/16/20 17:40 Urine Bacteria None Seen /HPF (None Seen) 01/16/20 17:40 Urine Casts 0-2 Hyaline Casts /LPF 01/16/20 17:40 Ur Microscopic Review INDICATED 01/14/20 13:59 Urine Culture Comments NOT INDICATED 01/16/20 17:40 Nasal Screen MRSA (PCR) NEGATIVE (NEGATIVE) 01/17/20 19:20 Blood Type A POSITIVE 01/14/20 12:46 Blood Type Recheck A POSITIVE 01/14/20 17:20 Antibody Screen NEGATIVE 01/14/20 12:46 Crossmatch IS Only See Detail 01/14/20 12:46
[2020-01-26] MEDS: SODIUM CHLORIDE FLUSH 0.9% 10 ML SYRINGE IVP PRN (00:14)
[2020-01-26] MEDS: BACITRACIN ZINC OINT 28.4 GM TUBE TOP SCH ×6 (00:26→21:48)
[2020-01-26] MEDS: ENOXAPARIN 120 MG/0.8 ML SYRINGE SUBQ SCH ×2 (01:17→15:52)
[2020-01-26 06:02] LABS: BASOPHILS % (AUTO) 0.1 %; EOSINOPHILS # (AUTO) 0.4 10^3/uL (0.0-0.7); EOSINOPHILS % (AUTO) 2.5 %; HGB - HEMOGLOBIN 8.8 g/dL (14.0-18.0); LYMPHOCYTES # (AUTO) 1.2 10^3/uL (1.5-3.5); LYMPHOCYTES % (AUTO) 8.4 %; MEAN CORPUSCULAR HGB CONC 30.9 g/dL (32.0-36.0); MEAN CORPUSCULAR VOLUME 100.4 fL (80.0-94.0); MEAN PLATELET VOLUME 11.5 fL (7.4-11.4); MONOCYTES # (AUTO) 0.7 10^3/uL (0.0-1.0); MONOCYTES % (AUTO) 5.2 %; NEUTROPHILS # (AUTO) 11.5 10^3/uL (1.5-6.6); NEUTROPHILS % (AUTO) 82.4 %; PLT - PLATELET COUNT 267 10^3/uL (130-450); RED BLOOD COUNT 2.84 10^6/uL (4.70-6.10); RED CELL DISTRIBUTION WIDTH 16.6 % (12.0-15.0)
[2020-01-26 06:11] LABS: CALCIUM 8.4 mg/dL (8.5-10.3); CREATININE 0.8 mg/dL (0.6-1.2)
[2020-01-26 08:28] LABS: INR 1.8 (0.8-1.2); PT - PROTHROMBIN TIME 20.1 secs (9.9-12.6)
[2020-01-26] MEDS: LACTULOSE 10 GM /15 ML UDC PO SCH ×2 (08:29→15:53)
[2020-01-26] MEDS: METOPROLOL SUCCINATE 25 MG TABLET PO SCH (08:29)
[2020-01-26] MEDS: PANTOPRAZOLE 40 MG TABLET PO SCH ×2 (08:29→21:13)
[2020-01-26] MEDS: FERROUS SULFATE 325 MG TABLET PO SCH (08:29)
[2020-01-26] MEDS: FINASTERIDE 5 MG TABLET PO SCH (08:29)
[2020-01-26] MEDS: THIAMINE 100 MG TABLET PO SCH (08:29)
[2020-01-26] MEDS: POTASSIUM CHLORIDE 20 MEQ TABLET PO SCH (08:29)
[2020-01-26] MEDS: PRENATAL VITAMIN TABLET PO SCH (08:29)
[2020-01-26] MEDS: CLOTRIMAZOLE 1% CREAM 15 GM TUBE TOP SCH ×2 (08:32→21:13)
[2020-01-26] MEDS: NYSTATIN POWDER 15 GM TOP SCH ×2 (08:32→21:13)
--- NOTE | 2020-01-26 09:37 | XRAY Report ---
Reason: SOB Procedure Date: 01/26/2020 Accession Number: [id number] / [id number] Procedure: XR - Chest 1 View X-Ray CPT Code: 45266 Final Report FULL RESULT: EXAM: CHEST RADIOGRAPHY EXAM DATE: 01/26/2020 09:31 AM. CLINICAL HISTORY: SOB. COMPARISON: CHEST 1 VIEW 01/20/2020 5:15 PM. TECHNIQUE: 1 view. FINDINGS: Lungs/Pleura: Vasculature is mildly prominent. No consolidation. No pneumothorax. Mediastinum: Heart is enlarged. Aorta is tortuous. Aortic atherosclerosis. Other: Changes again seen from median sternotomy and valve surgery. IMPRESSION: 1. Borderline vascular congestion. 2. No vascular congestion. No pneumothorax. RADIA
[2020-01-26] MEDS ORDERED: WARFARIN 5 MG TABLET PO SCH (14:00)
--- NOTE | 2020-01-26 14:31 | PROVIDER PROGRESS NOTE ---
Assessment/Plan - Problem List (1) Weakness acquired in ICU Assessment/Plan: 01/25, improved. protective services social worker keep working to find the placement SNF for pt. Covid 19 test is negative. continue PT/OT and recommended pt for SNF pt is medical ready for d/c to SNF (2) Alcohol-induced persisting dementia great improved. pt is alert and oriented to person and location but no time today, no confused continue and Vitamin B1 (3) Aortic valve prosthesis present Assessment/Plan: Pt's INR is 1.8. pt had Mechanical valve. pt's INR goal is 2.5-3. increase Coumadin to 7.5 mg, continue check PT/INR, continue Lovenox bridge until reach to INR 2.3 (4) Alcohol abuse Assessment/Plan: LFTs stable, continue daily po Thiamine and MOV. Ammonia stable and Lactulose was started several days ago. (5) Acute tracheitis with airway obstruction Assessment/Plan: resolved (6) Upper GI bleed Assessment/Plan: Stable on po bid Protonix, no melena or hematemasisi since admission. The EGD found gastritis. (7) Acute blood loss anemia Assessment/Plan: Stable H/H, resolved (8) HTN (hypertension) Assessment/Plan: BP controlled on current meds and management. (9) Atrial fibrillation stable, continue Coumadin (10) CALEB on CPAP His home CPAP is ordered to use here (11) Morbid obesity As per Hx, discuss with pt for loss of weight (12) Hypokalemia Assessment/Plan: Resolved (13) Hypernatremia Assessment/Plan: Resolved (14) Anasarca Assessment/Plan: Resolved after out of ICU (15) Paraphimosis Assessment/Plan: Resolved with Beckman use while in ICU and with the steroids he got for his tracheitis - Current Meds Current Meds: Current Medications Generic Name Dose Route Start Last Admin Trade Name Freq PRN Reason Stop Dose Admin Bacitracin 1 gm 01/24/20 15:00 01/26/20 07:19 Bacitracin Zinc Oint TOP Not Given Q4H THOMAS Clotrimazole 1 applic 01/16/20 22:30 01/26/20 08:32 Lotrimin 1% Cream TOP 1 applic BID THOMAS Administration Enoxaparin Sodium 120 mg 01/23/20 14:00 01/26/20 01:17 Lovenox SUBQ 120 mg Q12H THOMAS Administration Ferrous Sulfate 325 mg 01/22/20 16:00 01/26/20 08:29 Feosol PO 325 mg DAILYWM THOMAS Administration Finasteride 5 mg 01/22/20 09:00 01/26/20 08:29 Proscar PO 5 mg DAILY THOMAS Administration Lactulose 10 gm 01/23/20 17:00 01/26/20 08:29 Enulose PO 10 gm 0900,1700 THOMAS Administration Lidocaine HCl 2.5 ml 01/18/20 16:53 01/18/20 16:59 Xylocaine Uro-Jet 2% UR 2.5 ml Q6H PRN Administration PAIN Metoprolol Succinate 25 mg 01/22/20 10:00 01/26/20 08:29 Toprol Xl PO 25 mg DAILY THOMAS Administration Mineral Oil 1 applic 01/21/20 04:00 01/21/20 15:08 Cavilon TOP 1 applic PRN PRN Administration Skin Care Nystatin 1 applic 01/15/20 09:00 01/26/20 08:32 Nystop TOP 1 applic BID THOMAS Administration Pantoprazole Sodium 40 mg 01/22/20 09:00 01/26/20 08:29 Protonix PO 40 mg BID THOMAS Administration Potassium Chloride 20 meq 01/25/20 08:00 01/26/20 08:29 K-Dur PO 20 meq DAILYWM THOMAS Administration Multivit/Folic Acid/Iron 1 tab 01/23/20 08:00 01/26/20 08:29 Trinatal Rx 1 PO 1 tab DAILYWM THOMAS Administration Sodium Chloride 10 ml 01/14/20 14:10 01/26/20 00:14 Normal Saline Flush 0.9% IVP 10 ml PRN PRN Administration NEEDED PER PROVIDER ORDERS Thiamine HCl 100 mg 01/23/20 09:00 01/26/20 08:29 Vitamin B-1 PO 100 mg DAILY THOMAS Administration - Lab Result Fish Bone Diagrams: 01/26/20 05:55 01/26/20 05:55 - Additional Planning My Orders: My Active Orders 01/26/20 14:00 Warfarin [Coumadin] 7.5 mg PO 1400 01/27/20 05:00 PT WITH INR [COAG] DAILYLAB 01/28/20 05:00 PT WITH INR [COAG] DAILYLAB 01/29/20 05:00 PT WITH INR [COAG] DAILYLAB 01/30/20 05:00 PT WITH INR [COAG] DAILYLAB 01/31/20 05:00 PT WITH INR [COAG] DAILYLAB Subjective - Subjective Patient Reports: Feeling Better Objective Vital Signs: Vital Signs - 24 hr 01/25/20 01/25/20 01/26/20 15:44 23:58 08:31 Temperature 36.8 C 36.6 C 36.6 C Heart Rate [ 82 84 79 Brachial] Respiratory 20 18 20 Rate Blood Pressure 126/73 [Left Brachial artery] Blood Pressure 167/80 H 149/82 H [Right Brachial artery] O2 Saturation 98 96 95 Oxygen O2 Source Room air Oxygen Flow Rate 2 I&O (Last 24 Hrs): Intake and Output Totals x24h 01/24/20 01/25/20 01/26/20 23:59 23:59 23:59 Intake Total 1710 1160 840 Output Total 200 Balance 1710 960 840 General: Alert, No acute distress HEENT: Atraumatic Neck: Supple Lymphatic: no adenopathy Neuro: Alert, Non Focal, Oriented Times 3 Cardiovascular: Regular rate, Normal S1, Normal S2 Respiratory: Chest non-tender, No respiratory distress, Breath sounds nml Abdomen: Normal bowel sounds, Soft Extremities: Normal pulses - Results Results: Laboratory Results WBC 14.0 x10^3/uL (4.8-10.8) H 01/26/20 05:55 RBC 2.84 10^6/uL (4.70-6.10) L 01/26/20 05:55 Hgb 8.8 g/dL (14.0-18.0) L 01/26/20 05:55 Hct 28.5 % (42.0-52.0) L 01/26/20 05:55 MCV 100.4 fL (80.0-94.0) H 01/26/20 05:55 MCH 31.0 pg (27.0-31.0) 01/26/20 05:55 MCHC 30.9 g/dL (32.0-36.0) L 01/26/20 05:55 RDW 16.6 % (12.0-15.0) H 01/26/20 05:55 Plt Count 267 10^3/uL (130-450) 01/26/20 05:55 MPV 11.5 fL (7.4-11.4) H 01/26/20 05:55 Neut # (Auto) 11.5 10^3/uL (1.5-6.6) H 01/26/20 05:55 Lymph # (Auto) 1.2 10^3/uL (1.5-3.5) L 01/26/20 05:55 [place] # (Auto) 0.7 10^3/uL (0.0-1.0) 01/26/20 05:55 Eos # (Auto) 0.4 10^3/uL (0.0-0.7) 01/26/20 05:55 Baso # (Auto) 0.0 10^3/uL (0.0-0.1) 01/26/20 05:55 Absolute Nucleated RBC 0.02 x10^3/uL 01/26/20 05:55 Nucleated RBC % 0.1 /100WBC 01/26/20 05:55 PT 20.1 secs (9.9-12.6) H 01/26/20 08:12 INR 1.8 (0.8-1.2) H 01/26/20 08:12 Whole Blood INR 1.3 (0.8-1.2) H 01/24/20 06:44 APTT 40.4 secs (24.9-33.3) H 01/14/20 12:46 Bld Gas Analysis Time 0600 01/21/20 05:50 Sample Site RIGHT BRACHIAL 01/21/20 05:50 ABG pH 7.44 (7.35-7.45) 01/21/20 05:50 ABG pCO2 36 mmHg (34-45) 01/21/20 05:50 ABG pO2 135 mmHg (80-100) H 01/21/20 05:50 ABG HCO3 24.4 mmol/L (22.0-26.0) 01/21/20 05:50 ABG Total CO2 25.0 MMOL/L (21.0-29.0) 01/21/20 05:50 ABG O2 Saturation 99 % (94-98) H 01/21/20 05:50 ABG Base Excess 0.0 mmol/L (-2.0-3.0) 01/21/20 05:50 [place]im Test POSITIVE 01/21/20 05:50 Respiration Rate 16 b/min 01/21/20 05:50 O2 Delivery Device VENTILATOR 01/21/20 05:50 Vent Mode SIMV 01/21/20 05:50 FiO2 40.00 01/21/20 05:50 Tidal Volume 500 mL 01/21/20 05:50 PEEP 5 cmH2O 01/21/20 05:50 Pressure Support Vent 40 cmH2O 01/21/20 05:50 Sodium 138 mmol/L (135-145) 01/26/20 05:55 Potassium 3.8 mmol/L (3.5-5.0) 01/26/20 05:55 Chloride 105 mmol/L (101-111) 01/26/20 05:55 Carbon Dioxide 25 mmol/L (21-32) 01/26/20 05:55 Anion Gap 8.0 (6-13) 01/26/20 05:55 BUN 14 mg/dL (6-20) 01/26/20 05:55 Creatinine 0.8 mg/dL (0.6-1.2) 01/26/20 05:55 Estimated GFR (MDRD) 93 (>89) 01/26/20 05:55 Glucose 126 mg/dL (70-100) H 01/26/20 05:55 POC Whole Bld Glucose 118 mg/dL (70 - 100) H 01/24/20 07:42 Glycated Hemoglobin 6.2 % (4.6-6.2) 01/16/20 14:08 Estim Average Glucose 131 (70-100) H 01/16/20 14:08 Calcium 8.4 mg/dL (8.5-10.3) L 01/26/20 05:55 Phosphorus 2.9 mg/dL (2.5-4.6) 01/22/20 04:10 Magnesium 2.4 mg/dL (1.7-2.8) 01/25/20 05:15 Total Bilirubin 0.9 mg/dL (0.2-1.0) 01/22/20 04:10 AST 65 IU/L (10-42) H 01/22/20 04:10 ALT 56 IU/L (10-60) 01/22/20 04:10 Alkaline Phosphatase 45 IU/L (42-121) 01/22/20 04:10 Ammonia 19.5 umol/L (7-35) 01/25/20 08:35 B-Natriuretic Peptide 231 pg/mL (5-100) H 01/21/20 04:30 Total Protein 6.0 g/dL (6.7-8.2) L 01/22/20 04:10 Albumin 2.8 g/dL (3.2-5.5) L 01/22/20 04:10 Globulin 3.2 g/dL (2.1-4.2) 01/22/20 04:10 Albumin/Globulin Ratio 0.9 (1.0-2.2) L 01/22/20 04:10 Prealbumin 17 mg/dL (18-45) L 01/22/20 04:10 Lipase 24 U/L (22-51) 01/14/20 12:46 Vitamin B12 606 pg/mL (180-914) 01/16/20 18:20 Folate 13.12 ng/mL (5.90 - >24.8) 01/16/20 18:20 TSH 0.19 uIU/mL (0.34-5.60) L 01/16/20 18:20 Free T4 0.79 ng/dL (0.58-1.64) 01/17/20 14:30 Urine Color YELLOW 01/16/20 17:40 Urine Clarity CLEAR (CLEAR) 01/16/20 17:40 Urine pH 5.0 PH (5.0-7.5) 01/16/20 17:40 Ur Specific [place] 1.020 (1.002-1.030) 01/16/20 17:40 Urine Protein NEGATIVE mg/dL (NEGATIVE) 01/16/20 17:40 Urine Glucose (UA) NEGATIVE mg/dL (NEGATIVE) 01/16/20 17:40 Urine Ketones NEGATIVE mg/dL (NEGATIVE) 01/16/20 17:40 Urine Occult Blood SMALL (NEGATIVE) H 01/16/20 17:40 Urine Nitrite NEGATIVE (NEGATIVE) 01/16/20 17:40 Urine Bilirubin NEGATIVE (NEGATIVE) 01/16/20 17:40 Urine Urobilinogen 0.2 (NORMAL) E.U./dL (NORMAL) 01/16/20 17:40 Ur Leukocyte Esterase NEGATIVE (NEGATIVE) 01/16/20 17:40 Urine RBC 6-10 /HPF (0-5) H 01/16/20 17:40 Urine WBC 0-3 /HPF (0-3) 01/16/20 17:40 Ur Squamous Epith Cells NONE SEEN (<= Few) 01/16/20 17:40 Urine Bacteria None Seen /HPF (None Seen) 01/16/20 17:40 Urine Casts 0-2 Hyaline Casts /LPF 01/16/20 17:40 Ur Microscopic Review INDICATED 01/14/20 13:59 Urine Culture Comments NOT INDICATED 01/16/20 17:40 Nasal Screen MRSA (PCR) NEGATIVE (NEGATIVE) 01/17/20 19:20 Coronavirus (PCR) NEGATIVE 01/22/20 16:30 Blood Type A POSITIVE 01/14/20 12:46 Blood Type Recheck A POSITIVE 01/14/20 17:20 Antibody Screen NEGATIVE 01/14/20 12:46 Crossmatch IS Only See Detail 01/14/20 12:46 Sepsis Event Note (H) - Evaluation Current Stage of Sepsis: Ruled out ABX Reporting Has patient been on IV antibiotics over the past 48 hours?: No Current Medications - Current Medications Current Medications: Active Medications Bacitracin (Bacitracin Zinc Oint) 1 gm TOP Q4H [facility] Last Admin: 01/26/20 14:35 Dose: Not Given Clotrimazole (Lotrimin 1% Cream) 1 applic TOP BID [facility] Last Admin: 01/26/20 08:32 Dose: 1 applic Enoxaparin Sodium (Lovenox) 120 mg SUBQ Q12H [facility] Last Admin: 01/26/20 01:17 Dose: 120 mg Ferrous Sulfate (Feosol) 325 mg PO DAILYWM [facility] Last Admin: 01/26/20 08:29 Dose: 325 mg Finasteride (Proscar) 5 mg PO DAILY [facility] Last Admin: 01/26/20 08:29 Dose: 5 mg Lactulose (Enulose) 10 gm PO 0900,1700 [facility] Last Admin: 01/26/20 08:29 Dose: 10 gm Lidocaine HCl (Xylocaine Uro-Jet 2%) 2.5 ml UR Q6H PRN PRN Reason: PAIN Last Admin: 01/18/20 16:59 Dose: 2.5 ml Metoprolol Succinate (Toprol Xl) 25 mg PO DAILY [facility] Last Admin: 01/26/20 08:29 Dose: 25 mg Mineral Oil (Cavilon) 1 applic TOP PRN PRN PRN Reason: Skin Care Last Admin: 01/21/20 15:08 Dose: 1 applic Nystatin (Nystop) 1 applic TOP BID [facility] Last Admin: 01/26/20 08:32 Dose: 1 applic Pantoprazole Sodium (Protonix) 40 mg PO BID [facility] Last Admin: 01/26/20 08:29 Dose: 40 mg Polyethylene Glycol (Miralax) 17 gm PO DAILY PRN PRN Reason: Constipation Potassium Chloride (K-Dur) 20 meq PO DAILYWM [facility] Last Admin: 01/26/20 08:29 Dose: 20 meq Multivit/Folic Acid/Iron (Trinatal Rx 1) 1 tab PO DAILYWM [facility] Last Admin: 01/26/20 08:29 Dose: 1 tab Sodium Chloride (Normal Saline Flush 0.9%) 10 ml IVP PRN PRN PRN Reason: NEEDED PER PROVIDER ORDERS Last Admin: 01/26/20 00:14 Dose: 10 ml Thiamine HCl (Vitamin B-1) 100 mg PO DAILY [facility] Last Admin: 01/26/20 08:29 Dose: 100 mg Warfarin Sodium (Coumadin) 7.5 mg PO 1400 [facility] Last Admin: 01/26/20 14:31 Dose: 7.5 mg Carvedilol 25 mg PO BID 11/15/14 Doxazosin [Cardura] 8 mg PO DAILY 11/15/14 Losartan [Cozaar] 100 mg PO DAILY 11/15/14 Warfarin [Coumadin] 5 mg PO DAILY 11/15/14 Albuterol Sulf [Ventolin Hfa Inhaler] 2 puffs INH Q4H 01/15/20 Finasteride 5 mg PO DAILY 01/15/20 Fluticasone/Salmeterol [Advair Hfa 230-21 Mcg Inhaler] 2 puffs INH BID 01/15/20 Fluticasone/Umeclidin/Vilanter [Trelegy Ellipta 100-62.5-25] 1 puffs INH DAILY 01/15/20 Mometasone Furoate [Asmanex Hfa] 2 puffs INH BID 01/15/20 Sertraline [Zoloft] 50 mg PO DAILY 01/15/20
[2020-01-26] MEDS ORDERED: ZINC OXIDE 20% OINT 30 GM TUBE TOP PRN (17:05)
[2020-01-27 05:20] LABS: BASOPHILS % (AUTO) 0.2 %; EOSINOPHILS # (AUTO) 0.4 10^3/uL (0.0-0.7); EOSINOPHILS % (AUTO) 3.1 %; HGB - HEMOGLOBIN 8.7 g/dL (14.0-18.0); LYMPHOCYTES # (AUTO) 0.9 10^3/uL (1.5-3.5); LYMPHOCYTES % (AUTO) 7.3 %; MEAN CORPUSCULAR HEMOGLOBIN 29.7 pg (27.0-31.0); MEAN CORPUSCULAR HGB CONC 29.3 g/dL (32.0-36.0); MEAN CORPUSCULAR VOLUME 101.4 fL (80.0-94.0); MEAN PLATELET VOLUME 11.5 fL (7.4-11.4); MONOCYTES # (AUTO) 0.8 10^3/uL (0.0-1.0); MONOCYTES % (AUTO) 6.6 %; NEUTROPHILS # (AUTO) 10.3 10^3/uL (1.5-6.6); NEUTROPHILS % (AUTO) 81.6 %; PLT - PLATELET COUNT 268 10^3/uL (130-450); RED BLOOD COUNT 2.93 10^6/uL (4.70-6.10); WHITE BLOOD COUNT 12.6 x10^3/uL (4.8-10.8)
[2020-01-27] MEDS: BACITRACIN ZINC OINT 28.4 GM TUBE TOP SCH ×3 (05:23→12:27)
[2020-01-27 05:25] LABS: CALCIUM 8.5 mg/dL (8.5-10.3); CREATININE 0.8 mg/dL (0.6-1.2)
[2020-01-27 05:26] LABS: PT - PROTHROMBIN TIME 21.7 secs (9.9-12.6)
[2020-01-27] MEDS: ENOXAPARIN 120 MG/0.8 ML SYRINGE SUBQ SCH (05:50)
[2020-01-27] MEDS: POTASSIUM CHLORIDE 20 MEQ TABLET PO SCH (08:53)
[2020-01-27] MEDS: LACTULOSE 10 GM /15 ML UDC PO SCH (08:53)
[2020-01-27] MEDS: FINASTERIDE 5 MG TABLET PO SCH (08:53)
[2020-01-27] MEDS: FERROUS SULFATE 325 MG TABLET PO SCH (08:53)
[2020-01-27] MEDS: METOPROLOL SUCCINATE 25 MG TABLET PO SCH (08:53)
[2020-01-27] MEDS: PANTOPRAZOLE 40 MG TABLET PO SCH (08:53)
[2020-01-27] MEDS: THIAMINE 100 MG TABLET PO SCH (08:53)
[2020-01-27] MEDS: PRENATAL VITAMIN TABLET PO SCH (08:53)
[2020-01-27] MEDS: NYSTATIN POWDER 15 GM TOP SCH (08:54)
[2020-01-27] MEDS: CLOTRIMAZOLE 1% CREAM 15 GM TUBE TOP SCH (08:54)
--- NOTE | 2020-01-27 10:17 | Discharge Plan ---
"Discharge Plan for SNF / [facility] - Discharge Plan And Transition Orders Problem Reviewed?: Yes Disposition: 03 SNF DC/Xfer Condition: Poor Allergies and Adverse Reactions: Allergies Allergy/AdvReac Type Severity Reaction Status Date / Time No Known Drug Allergies Allergy Verified 01/14/20 13:04 Health Concerns: weakness, alcohol abuse, alcoholic encephalopathy, aortic valve prosthesis, Upper GI bleed. Afib. morbid Obesity Plan of Treatment: continue PT/OT in SNF for weakness. pt is prescribed and vitamin B1 for his hx of alcohol abuse. lactulose is prescribed for pt's elevated Ammonia level. pt's INR is 2.0 today with bridge of Lovenox, pt is given Coumadin 7.5 mg today, resume home Coumadin and check PT/INR level within one week, pt has hx of aortic valve prosthesis. Pt's Upper GI bleeding was resolved, HGB is stable, Pt is prescribed Protonic, continue monitor HGB level and GI bleed because pt continue taking Coumadin. Pt is hemodynamic stable, resume home meds and continue Coumadin. Advise keep health life style and loss of weight. Care Goals: stabilization and improvement Assessment: discussed with pt for the care plan, he understood. - SNF / [facility] Transition Orders Admit to (Facility): [facility] Under the care of (Name): Jeanne Galindo or health provider of [facility] Discharge Diagnosis: weakness, alcohol abuse, aortic valve prosthesis, Upper GI bleed. Afib. morbid Obesity. HTN, Leukocytosis unspecified, CALEB, dementia Medicare Certification Statement: I certify that [facility] is medically necessary on a continuing basis for any of the conditions for which she/he is receiving care during hospitalization. Notify PCP of admission and forward orders to primary provider for signature. Weight on admission and: Daily Call PCP immediately if weight increases by: 2 kg Other Notification Orders: Call PCP immediately if patient develops dyspnea, chest pain/tightness or edema. House Bowel Program: Yes Additional Bowel Program Orders: If no BM after 2 days, nurse may give M.O.M. 30ml PO PRN and/or ducolax Supp 1 OH and/or LACEY 250mg P.O., and/or senna 1-2 tabs PO. On day 3 nurse may give repeat above order until residents constipation is resolved. Annual Influenza Vaccine (between Jun 28 and January 25): Yes Two-step PPD per [facility] [phone] or approved exception documents: Yes Treatments & Other Orders: pt may continue PT/OT in SNF for weakness. pt is prescribed and vitamin B1 for his hx of alcohol abuse. lactulose is prescribed for pt's elevated Ammonia level. pt's INR is 2.0 today with bridge of Lovenox, pt is given Coumadin 7.5 mg today, resume home Coumadin and check PT/INR level within one week, pt has hx of aortic valve prosthesis. Pt's Upper GI bleeding was resolved, HGB is stable, Pt is prescribed Protonic, continue monitor HGB level and GI bleed because pt continue taking Coumadin. Pt is hemodynamic stable, resume home meds and continue Coumadin. Advise keep health life style and loss of weight. Lab Tests or X-ray Orders: check PT/INR and HGB in one week or early as needed Medication Orders: PLEASE REFER TO THE DISCHARGE MEDICATION LIST. Insulin Orders?: No - Medications New Prescriptions: Ferrous Sulfate 325 mg PO DAILY #15 tablet Lactulose [Constulose] 10 gm PO BID #20 solution Pantoprazole [Protonix] 40 mg PO BID #20 tablet Vitamin [Trinatal Rx 1] 1 tab PO DAILYWM #10 tablet Thiamine [Vitamin B-1] 100 mg PO DAILY #10 tablet - Diet Type: Geriatric Texture: Regular Liquids: Thin May have monthly special meal: Yes - Therapies | Activity Therapy: Evaluation | Treat if indicated: PT, OT Rehabilitation Potential: Maximize functional status Activity: Activity as Tolerated Additional Instructions: pt may followup health provider when he is arrival at [facility]. pt may continue PT/OT in SNF for weakness. pt is prescribed and vitamin B1 for his hx of alcohol abuse. lactulose is prescribed for pt's elevated Ammonia level. pt's INR is 2.0 today with bridge of Lovenox, pt is giv en Coumadin 7.5 mg today, resume home Coumadin and check PT/INR level within one week, pt has hx of aortic valve prosthesis. Pt's Upper GI bleeding was resolved, HGB is stable, Pt is prescribed Protonic, continue monitor HGB level and GI bleed because pt continue taking Coumadin. Pt is hemodynamic stable, resume home meds and continue Coumadin. Advise keep health life style and loss of weight."
[2020-01-27 10:28] VITALS: BP 149/73
[2020-01-27] MEDS ORDERED: WARFARIN 5 MG TABLET PO SCH (11:00)
--- NOTE | 2020-01-27 11:10 | DISCHARGE SUMMARY ---
Discharge Summary Admit Date: 01/14/20 Discharge Date: 01/27/20 Discharging Provider: Caleb Angelo Primary Care Provider: Jeanne Talavera Condition at Discharge: Poor Discharge Disposition: 03 SNF DC/Xfer Discharge Facility Name: [facility] - DIAGNOSES Admission Diagnoses: (1) Hematemesis (2) Supratherapeutic INR (3) Aortic valve prosthesis present (4) Alcohol abuse (5) HTN (hypertension) (6) Type 2 diabetes mellitus with complication, without long-term current use of insulin (7) At risk for unsafe behavior Discharge Diagnoses with Status of Each Condition: (1) Weakness acquired in ICU improved, PT/OT evaluated and treated pt and recommended to SNF. pt was d/c to [facility] (2) Alcohol-induced persisting dementia improved. pt is prescribed and Vitamin B1 (3) Aortic valve prosthesis present Assessment/Plan: INR is 2.0. Coumadin was increased to dosage 7.5 mg and given to pt before pt was d/c and Lovenox was give pt for bridge before d/c. resume home Coumadin dosage. advise check PT/INR in one week. pt was advise to monitor his GI bleed and report to SNF immediately. (4) Alcohol abuse Assessment/Plan: LFTs stable, pt is prescribed po Thiamine and MOV. (5) Acute tracheitis with airway obstruction Assessment/Plan: resolved (6) Upper GI bleed Assessment/Plan: resolved. pt has no more GI bleed. HGB is stable. Pt is prescribed po bid Protonix, no melena. Pt had an EGD done by GI surgeon inpt and found gastritis. (7) Acute blood loss anemia Assessment/Plan: resolved, no more acute blood loss. HGB is stable. pt is prescribed iron pill (8) HTN (hypertension) Assessment/Plan: stable/chronic (9) Atrial fibrillation stable/chronic, resume home meds (10) CALEB on CPAP stable (11) Morbid obesity stable, discuss with pt for loss of weight (12) Hypokalemia Assessment/Plan: Resolved (13) Hypernatremia Assessment/Plan: Resolved (14) Anasarca Assessment/Plan: Resolved (15) Paraphimosis Resolved (16) alcoholic hepatic encephalopathy stable/resolved. pt is prescribed Lactulose for his elevated ammonia level. - HPI History of Present Illness: refer from 's HPI on 01/14/2020 This is a 79-year-old white male with morbid obesity. He appears to be an alcohol abuser, has a history of hypertension, diabetes, obstructive sleep apnea, bioprosthetic aortic valve approximately 2002. He lives alone, appears to have poor hygiene, lack of self-care, and appears to be a hoarder by desc ription. He has been failing with regards to self-care, and letting people help him. While he denies being an alcoholic, he was in AA in the past. Denies any history of alcoholic liver disease, esophageal varices. He is on Coumadin. he complain of vomiting of blood. - HOSPITAL COURSE Hospital Course: pt was admitted for vomiting of blood. pt took coumadin for his bioprosthetic valve. pt has hx of alcohol abuse, but pt denies esophageal varices. pt had EGD done by GI surgeon inpt. pt was found to have gastritis. pt was found to have profound weakness and was transferred to ICU and transfer out to medical floor. pt had PT/OT evaluation and treatment. PT/OT recommended to be d/c to SNF. The detail hospital course is as the below. (1) Weakness acquired in ICU improved, PT/OT evaluated and treated pt and recommended to SNF. pt was d/c to [facility] (2) Alcohol-induced persisting dementia improved. pt is prescribed and Vitamin B1 (3) Aortic valve prosthesis present Assessment/Plan: INR is 2.0. Coumadin was increased to dosage 7.5 mg and given to pt before pt was d/c and Lovenox was give pt for bridge before d/c. resume home Coumadin dosage. advise check PT/INR in one week. pt was advise to monitor his GI bleed and report to SNF immediately. (4) Alcohol abuse Assessment/Plan: LFTs stable, pt is prescribed po Thiamine and MOV. (5) Acute tracheitis with airway obstruction Assessment/Plan: resolved (6) Upper GI bleed Assessment/Plan: resolved. pt has no more GI bleed. HGB is stable. Pt is prescribed po bid Protonix, no melena. Pt had an EGD done by GI surgeon inpt and found gastritis. (7) Acute blood loss anemia Assessment/Plan: resolved, no more acute blood loss. HGB is stable. pt is prescribed iron pill (8) HTN (hypertension) Assessment/Plan: stable/chronic (9) Atrial fibrillation stable/chronic, resume home meds (10) CALEB on CPAP stable (11) Morbid obesity stable, discuss with pt for loss of weight (12) Hypokalemia Assessment/Plan: Resolved (13) Hypernatremia Assessment/Plan: Resolved (14) Anasarca Assessment/Plan: Resolved (15) Paraphimosis Resolved (16) alcoholic hepatic encephalopathy stable/resolved. pt is prescribed Lactulose for his elevated ammonia level. - ALLERGIES Allergies/Adverse Reactions: Allergies Allergy/AdvReac Type Severity Reaction Status Date / Time No Known Drug Allergies Allergy Verified 01/14/20 13:04 - MEDICATIONS Home Medications: Ambulatory Orders Medication Instructions Recorded Confirmed Carvedilol 25 mg PO BID 11/15/14 01/15/20 Doxazosin [Cardura] 8 mg PO DAILY 11/15/14 01/15/20 Losartan [Cozaar] 100 mg PO DAILY 11/15/14 01/15/20 Warfarin [Coumadin] 5 mg PO DAILY 11/15/14 01/15/20 Furosemide [Lasix] 40 mg PO DAILY #7 tablet 07/25/19 01/15/20 Albuterol Sulf [Ventolin Hfa 2 puffs INH Q4H 01/15/20 01/15/20 Inhaler] Finasteride 5 mg PO DAILY 01/15/20 01/15/20 Fluticasone/Salmeterol [Advair Hfa 2 puffs INH BID 01/15/20 01/15/20 230-21 Mcg Inhaler] Fluticasone/Umeclidin/Vilanter 1 puffs INH DAILY 01/15/20 01/15/20 [Trelegy Ellipta 100-62.5-25] Mometasone Furoate [Asmanex Hfa] 2 puffs INH BID 01/15/20 01/15/20 Sertraline [Zoloft] 50 mg PO DAILY 01/15/20 01/15/20 Ferrous Sulfate 325 mg PO DAILY #15 tablet 01/27/20 Lactulose [Constulose] 10 gm PO BID #20 solution 01/27/20 Pantoprazole [Protonix] 40 mg PO BID #20 tablet 01/27/20 Vitamin [Trinatal Rx 1] 1 tab PO DAILYWM #10 tablet 01/27/20 Thiamine [Vitamin B-1] 100 mg PO DAILY #10 tablet 01/27/20 - PHYSICAL EXAM AT DISCHARGE General Appearance: positive: No acute distress, Alert. negative: Lethargic Eyes Bilateral: positive: Normal inspection, PERRL, No lid inflammation ENT: positive: ENT inspection nml, Pharynx nml, No signs of dehydration. negative: Purulent nasal drainage Neck: positive: Nml inspection, Thyroid nml, No JVD, Trachea midline. negative: Thyromegaly, Lymphadenopathy (R), Lymphadenopathy (L), Stiff neck, Tracheal deviation Respiratory: positive: Chest non-tender, No respiratory distress, Breath sounds nml. negative: Wheezes Cardiovascular: positive: Regular rate & rhythm, No murmur, No gallop. negative: Irregularly irregular, Extrasystoles, Tachycardia, Bradycardia, JVD present, Systolic murmur, Diastolic murmur Peripheral Pulses: positive: 2+ Abdomen: positive: Non-tender, No organomegaly, Nml bowel sounds, No distention. negative: Tenderness, Guarding, Rebound Back: positive: Nml inspection. negative: CVA tenderness (R), CVA tenderness (L) Skin: positive: Color nml, No rash, Warm, Dry. negative: Cyanosis, Diaphoresis, Pallor Extremities: positive: Non-tender. negative: Calf tenderness, Alicia's sign/cords Neurologic/Psychiatric: positive: Oriented x3, Sensation nml, Mood/affect nml. negative: Weakness, Sensory loss, Facial droop, Slurred/abnml speech, Depressed mood/affect - LABS Result Diagrams: 01/27/20 05:00 01/27/20 05:00 - SEPSIS Current Stage of Sepsis: Ruled out - FOLLOW UP Follow Up: pt may continue PT/OT in SNF for weakness. pt is prescribed and vitamin B1 for his hx of alcohol abuse. lactulose is prescribed for pt's elevated Ammonia level. pt's INR is 2.0 today with bridge of Lovenox, pt is given Coumadin 7.5 mg today, resume home Coumadin and check PT/INR level within one week, pt has hx of aortic valve prosthesis. Pt's Upper GI bleeding was resolved, HGB is stable, Pt is prescribed Protonic, continue monitor HGB level and GI bleed because pt continue taking Coumadin. Pt is hemodynamic stable, resume home meds and continue Coumadin. Advise keep health life style and loss of weight. - TIME SPENT Time Spent in Discharge (Minutes): 40
== END 2020-01-27 13:05 | DRG 377 ==
LOC: EDUNIT# → ED 12:43 → SUPCPDRO 12:43 → MS2 14:10 → OBSVTOIN 01-16 10:03 → ICU 01-17 19:11 → MS2 01-22 07:40
PROVIDERS: ADMIT Specialist; ATTEND Nurse Practitioner Gerontology
PROC: 30233N1 Transfusion of Nonautologous Red Blood Cells into Peripheral Vein, Percutaneous Approach (ICD-10-PCS; 2020-01-16)
PROC: 0DJ08ZZ Inspection of Upper Intestinal Tract, Via Natural or Artificial Opening Endoscopic (ICD-10-PCS; principal; 2020-01-16 11:06)
PROC: 0BH17EZ Insertion of Endotracheal Airway into Trachea, Via Natural or Artificial Opening (ICD-10-PCS; 2020-01-19)
PROC: 5A1935Z Respiratory Ventilation, Less than 24 Consecutive Hours (ICD-10-PCS; 2020-01-20)
DX: K92.0 Hematemesis (principal); K29.81 Duodenitis with bleeding; J04.11 Acute tracheitis with obstruction; J96.01 Acute respiratory failure with hypoxia; F10.27 Alcohol dependence with alcohol-induced persisting dementia; F10.10 Alcohol abuse, uncomplicated; F10.239 Alcohol dependence with withdrawal, unspecified; Z68.41 Body mass index [BMI] 40.0-44.9, adult; F32.9 Major depressive disorder, single episode, unspecified; F41.9 Anxiety disorder, unspecified; N40.0 Benign prostatic hyperplasia without lower urinary tract symptoms; D62 Acute posthemorrhagic anemia; E87.0 Hyperosmolality and hypernatremia; I48.20 Chronic atrial fibrillation, unspecified; K70.40 Alcoholic hepatic failure without coma; I10 Essential (primary) hypertension; E66.01 Morbid (severe) obesity due to excess calories; G47.33 Obstructive sleep apnea (adult) (pediatric); E87.6 Hypokalemia; D72.829 Elevated white blood cell count, unspecified; N47.2 Paraphimosis; R60.1 Generalized edema; E11.9 Type 2 diabetes mellitus without complications; R79.1 Abnormal coagulation profile; Z78.1 Physical restraint status; Z79.84 Long term (current) use of oral hypoglycemic drugs; Z79.01 Long term (current) use of anticoagulants; Z95.2 Presence of prosthetic heart valve; Z87.891 Personal history of nicotine dependence; Z87.440 Personal history of urinary (tract) infections; Z86.73 Personal history of transient ischemic attack (TIA), and cerebral infarction without residual deficits
CPT/HCPCS: 36415; 36430; 36600; 70450; 71045; 74177; 80048; 80053; 81001; 82040; 82140; 82607; 82746; 82803; 83036; 83690; 83735; 83880; 84100; 84132; 84134; 84295; 84439; 84443; 85014; 85018; 85025; 85027; 85610; 85730; 86850; 86900; 86901; 86920; 87086; 87150; 93005; 93306; 94002; 94003; 96361; 96365; 96366; 96375; 96376; 97162; 97166; 97530; 97535; 99284; 99285; A6250; A9270; G0378; J1250; J1650; J2060; J2354; J3411; J3490; J7040; J7120; J7509; P9016; P9017; Q0162; Q9967; 81003; 94770

== ENCOUNTER 2020-02-19 17:30 | Outpatient (CLI) | payer MEDICARE ==
[2020-02-19 18:33] LABS: BASOPHILS # (AUTO) 0.1 10^3/uL (0.0-0.1); BASOPHILS % (AUTO) 0.7 %; EOSINOPHILS # (AUTO) 0.2 10^3/uL (0.0-0.7); EOSINOPHILS % (AUTO) 2.6 %; HGB - HEMOGLOBIN 10.7 g/dL (14.0-18.0); LYMPHOCYTES # (AUTO) 1.3 10^3/uL (1.5-3.5); MEAN CORPUSCULAR HGB CONC 31.2 g/dL (32.0-36.0); MEAN PLATELET VOLUME 11.2 fL (7.4-11.4); MONOCYTES # (AUTO) 0.8 10^3/uL (0.0-1.0); PLT - PLATELET COUNT 309 10^3/uL (130-450); RED BLOOD COUNT 3.69 10^6/uL (4.70-6.10); RED CELL DISTRIBUTION WIDTH 15.9 % (12.0-15.0); WHITE BLOOD COUNT 7.5 x10^3/uL (4.8-10.8)
[2020-02-19 18:40] LABS: CALCIUM 9.5 mg/dL (8.5-10.3); CREATININE 0.7 mg/dL (0.6-1.2)
== END 2020-02-19 23:59 | disposition home or self-care (01) ==
LOC: LAB.R 17:30
DX: D50.9 Iron deficiency anemia, unspecified (principal); E87.6 Hypokalemia; I50.30 Unspecified diastolic (congestive) heart failure
CPT/HCPCS: 80048; 85025

== ENCOUNTER 2020-12-07 16:07 | Outpatient (CLI) | payer MEDICARE | END 2020-12-07 16:08 | disposition EMS.NT | LOC: EMS 16:07 | DX: R07.81 Pleurodynia (principal) ==

== ENCOUNTER 2021-01-20 10:15 | Outpatient (CLI) | payer MEDICARE ==
--- NOTE | 2021-01-20 12:48 | Ultrasound Report ---
PROCEDURE: Abdomen Complete INDICATIONS: PANCREATIC STEATORRHEA TECHNIQUE: Real-time scanning was performed of the abdominal and retroperitoneal organs, with image documentatio n. COMPARISON: Comparison abdomen/pelvis CT 01/14/2020.. FINDINGS: Liver: Liver is normal in size and homogeneous in echotexture, mildly hyperechoic consistent with fa tty infiltration. Gallbladder: Within the gallbladder there are multiple small mobile stones, and the gallbladder wall is not abnormally thickened. Biliary ducts: Intrahepatic bile ducts are non-dilated. Extrahepatic bile duct caliber measures 5.0 mm. Normal is 6-7 mm or less in diameter, or 10 mm or less post-cholecystectomy. Pancreas: Visualized portions of the pancreas are sonographically normal. The pancreatic tail is po natali seen due to bowel gas. Spleen: Spleen is normal in size and homogeneous in echotexture. Kidneys: Kidneys are normal in size and echotexture. Right kidney measures 15.2 cm long; left kidne y measures 13.9 cm long. No hydronephrosis or nephrolithiasis. No definite solid masses. At the kid neys bilaterally there are several areas of what appear to be column of Bertine structures, relativel y poorly visualized. Similar structures were seen during review of CT scanning from 01/14/2020. Aorta: Visualized aorta is normal in caliber at less than 3 cm. Iliacs: Proximal common iliac arteries are normal in caliber at less than 2.5 cm. IVC: Intrahepatic inferior vena cava is patent. Miscellaneous: No free abdominal fluid. IMPRESSION: Quality of visualization of the pancreas is somewhat limited by bowel gas. No discrete pancreatic abn ormality seen. Additionally, quality of visualization of the renal sinus fat appears to show likely column of Jn e structures (renal cortex extending into the renal sinus fat) but exact etiology of that appearance is indeterminate. With reference to the prior CT study from 01/14/2020 these likely are normal variant s structures but CT scanning would be necessary to confirm stability of appearance over time. Reviewed by: Heladio Torres MD on 01/20/2021 12:47 PM PDT Approved by: Heladio Torres MD on 01/20/2021 12:47 PM PDT Station ID: [id number]
== END 2021-01-20 10:16 | disposition home or self-care (01) ==
LOC: DI 10:15
PROVIDERS: ATTEND Internal Medicine
DX: R93.5 Abnormal findings on diagnostic imaging of other abdominal regions, including retroperitoneum (principal); R31.9 Hematuria, unspecified
CPT/HCPCS: 81001; 87086

== ENCOUNTER 2021-01-20 11:11 | Outpatient (CLI) | payer MEDICARE ==
[2021-01-20 11:36] LABS: BILIRUBIN,URINE NEGATIVE (NEGATIVE); GLUCOSE, URINE (UA) NEGATIVE (NEGATIVE); KETONES,URINE (UA) NEGATIVE (NEGATIVE); LEUKOCYTE ESTERASE, URINE MODERATE (NEGATIVE); NITRITE,URINE NEGATIVE (NEGATIVE); OCCULT BLOOD,URINE LARGE (NEGATIVE); PH,URINE 5.5 PH (5.0-7.5); PROTEIN,URINE TRACE mg/dL (NEGATIVE); UROBILINOGEN,URINE 0.2 (NORMAL) E.U./dL (NORMAL)
[2021-01-20 11:37] LABS: CLARITY,URINE CLOUDY (CLEAR)
[2021-01-20 12:01] LABS: AMORPHOUS SEDIMENT,UR Marked /LPF; BACTERIA,URINE Many /HPF (None Seen); CASTS, URINE 0-2 Hyaline Casts /LPF; RBC,URINE TNTC /HPF (0-5); SQUAMOUS EPITHELIAL CELL,UR MOD Squamous (<= Few)
== END 2021-01-20 11:12 | disposition home or self-care (01) ==
LOC: LAB 11:11
PROVIDERS: ATTEND Registered Nurse
DX: R31.9 Hematuria, unspecified (principal)
CPT/HCPCS: 81001; 87086

== ENCOUNTER 2021-01-27 13:54 | Outpatient (CLI) | payer MEDICARE ==
[2021-01-27 14:05] LABS: CREATININE 0.9 mg/dL (0.6-1.2)
[2021-01-27] MEDS ORDERED: IOVERSOL 320 100 ML VIAL IVP ONE ×2 (14:16→15:14)
--- NOTE | 2021-01-27 17:01 | CT Report ---
PROCEDURE: IVP INDICATIONS: GROSS HEMATURIA CONTRAST: IV CONTRAST: Optiray 320 ml: 140 PO CONTRAST: *NO PO CONTRAST TECHNIQUE: After the administration of intravenous contrast, 5 mm thick sections acquired from the diaphragms to the symphysis. 5 mm thick coronal and sagittal reformats were acquired. For radiation dose reducti on, the following was used: automated exposure control, adjustment of mA and/or kV according to jose ent size. COMPARISON: CT abdomen and pelvis with contrast dated 01/14/2020. FINDINGS: Image quality: Excellent. Lung bases: Lung bases are clear. Stable moderate cardiomegaly, aortic valve surgery. Urinary system: Both kidneys are normal in size and enhancement. Contrast-filled renal calyces are normal in morphology. Contrast filled portions of both ureters are normal in caliber. Bladder wall thickness is normal. There is no filling defect seen in the bladder. There is no abnormal calcific d ensity in the posterior base of bladder. Solid organs: Liver and spleen are normal in size and enhancement. Gallbladder is contracted, unrem arkable. Biliary system is non dilated. Pancreas enhances normally. No adrenal nodules. Peritoneum and bowel: Bowel loops demonstrate normal wall thickness and caliber. No free fluid or a ir. Nodes and vessels: No retroperitoneal or mesenteric adenopathy by size criteria. Aorta and inferior vena cava are normal in size. Abdominal wall: No ventral hernias. Pelvis: No pathologic free pelvic fluid. No inguinal hernias or adenopathy. Prostate is enlarged. Bones: No suspicious bony lesions. No vertebral body compression fractures. Extensive lumbar degen erative change. IMPRESSION: 1. No evidence of renal stones, ureteral stones, hydronephrosis, or findings suspicious for malign andre. 2. Prostate enlargement. 3. Stable moderate cardiomegaly. Reviewed by: Clovis Dunn MD on 01/27/2021 5:00 PM PDT Approved by: Clovis Dunn MD on 01/27/2021 5:00 PM PDT Station ID: [id number]
== END 2021-01-27 13:55 | disposition home or self-care (01) ==
LOC: DI 13:54
PROVIDERS: ATTEND Registered Nurse
DX: R31.0 Gross hematuria (principal); N40.0 Benign prostatic hyperplasia without lower urinary tract symptoms
CPT/HCPCS: 36415; 74178; 82565; 84520; Q9967

== ENCOUNTER 2021-04-05 10:00 | Outpatient (CLI) | payer MEDICARE ==
[2021-04-05 15:29] LABS: CREATININE,URINE 103.3 mg/dL; MICROALBUM/CREATININE RATIO,UR 21.3 ug/mg (<30.0); MICROALBUMIN,URINE 2.2 mg/dL (0-300.0)
[2021-04-05 15:45] LABS: % IRON SATURATION 14 % (20-50); ALBUMIN/GLOBULIN RATIO 1.1 (1.0-2.2); ALKALINE PHOSPHATASE 75 IU/L (42-121); ALT ALANINE AMINOTRANSFERASE 15 IU/L (10-60); AST ASPARTATE AMINOTRANSFERASE 21 IU/L (10-42); BILIRUBIN,TOTAL 0.9 mg/dL (0.2-1.0); BUN - BLOOD UREA NITROGEN 10 mg/dL (6-20); CALCIUM 9.3 mg/dL (8.5-10.3); CARBON DIOXIDE - CO2 28 mmol/L (21-32); CHLORIDE 102 mmol/L (101-111); CHOL/HDL RATIO 4.6 (<5.0); CHOLESTEROL 137 mg/dL; CREATININE 0.9 mg/dL (0.6-1.2); GFR - MDRD 81 (>89); GLUCOSE 115 mg/dL (70-100); HDL CHOLESTEROL 30 mg/dL; IRON 43 ug/dL (45-182); LDL CHOLESTEROL,CALCULATED 91 mg/dL; POTASSIUM 3.8 mmol/L (3.5-5.0); SODIUM 139 mmol/L (135-145); TOTAL IRON BINDING CAPACITY 308 ug/dL (250-450); TOTAL PROTEIN 7.6 g/dL (6.7-8.2); TRANSFERRIN 220 mg/dL (180-329); TRIGLYCERIDES 82 mg/dL; VLDL CHOLESTEROL 16 mg/dL
[2021-04-05 15:47] LABS: BASOPHILS # (AUTO) 0.1 10^3/uL (0.0-0.1); BASOPHILS % (AUTO) 0.6 %; EOSINOPHILS # (AUTO) 0.3 10^3/uL (0.0-0.7); EOSINOPHILS % (AUTO) 3.1 %; HCT - HEMATOCRIT 43.2 % (42.0-52.0); HGB - HEMOGLOBIN 13.7 g/dL (14.0-18.0); LYMPHOCYTES # (AUTO) 1.3 10^3/uL (1.5-3.5); LYMPHOCYTES % (AUTO) 15.5 %; MEAN CORPUSCULAR HGB CONC 31.7 g/dL (32.0-36.0); MEAN CORPUSCULAR VOLUME 91.5 fL (80.0-94.0); MEAN PLATELET VOLUME 11.1 fL (7.4-11.4); MONOCYTES # (AUTO) 0.6 10^3/uL (0.0-1.0); MONOCYTES % (AUTO) 6.8 %; NEUTROPHILS % (AUTO) 73.6 %; PLT - PLATELET COUNT 208 10^3/uL (130-450); RED BLOOD COUNT 4.72 10^6/uL (4.70-6.10); RED CELL DISTRIBUTION WIDTH 15.5 % (12.0-15.0); WHITE BLOOD COUNT 8.1 x10^3/uL (4.8-10.8)
[2021-04-05 16:07] LABS: BILIRUBIN,URINE NEGATIVE (NEGATIVE); GLUCOSE, URINE (UA) NEGATIVE (NEGATIVE); KETONES,URINE (UA) NEGATIVE (NEGATIVE); LEUKOCYTE ESTERASE, URINE SMALL (NEGATIVE); NITRITE,URINE NEGATIVE (NEGATIVE); OCCULT BLOOD,URINE TRACE-INTA (NEGATIVE); PH,URINE 6.5 PH (5.0-7.5); PROTEIN,URINE NEGATIVE (NEGATIVE); UROBILINOGEN,URINE 0.2 (NORMAL) E.U./dL (NORMAL)
[2021-04-05 16:11] LABS: CLARITY,URINE HAZY (CLEAR)
[2021-04-05 16:31] LABS: BACTERIA,URINE Rare /HPF (None Seen); SQUAMOUS EPITHELIAL CELL,UR RARE Squamous (<= Few); WBC,URINE 0-3 /HPF (0-3)
[2021-04-05 20:15] LABS: ESTIMATED AVERAGE GLUCOSE 128 mg/dL (70-100); HEMOGLOBIN A1c% 6.1 % (4.27-6.07)
== END 2021-04-05 10:01 | disposition home or self-care (01) ==
LOC: LAB.S 10:00
PROVIDERS: ATTEND Registered Nurse
DX: R31.9 Hematuria, unspecified (principal); E11.42 Type 2 diabetes mellitus with diabetic polyneuropathy; Z86.39 Personal history of other endocrine, nutritional and metabolic disease
CPT/HCPCS: 36415; 80053; 80061; 81001; 82043; 82570; 82728; 83036; 83540; 83721; 84466; 85025; 87086

== ENCOUNTER 2021-07-14 16:22 | Outpatient (CLI) | payer MEDICARE | END 2021-07-14 16:23 | disposition home or self-care (01) | LOC: LAB.S 16:22 | PROVIDERS: ATTEND Internal Medicine Cardiovascular Disease | DX: R60.0 Localized edema (principal); D50.9 Iron deficiency anemia, unspecified; Z53.9 Procedure and treatment not carried out, unspecified reason ==

== ENCOUNTER 2021-07-18 16:43 | Outpatient (CLI) | payer MEDICARE ==
[2021-07-18 19:53] LABS: BASOPHILS % (AUTO) 0.4 %; EOSINOPHILS # (AUTO) 0.2 10^3/uL (0.0-0.7); EOSINOPHILS % (AUTO) 2.2 %; HCT - HEMATOCRIT 46.7 % (42.0-52.0); HGB - HEMOGLOBIN 14.9 g/dL (14.0-18.0); LYMPHOCYTES # (AUTO) 1.6 10^3/uL (1.5-3.5); LYMPHOCYTES % (AUTO) 15.7 %; MEAN CORPUSCULAR HEMOGLOBIN 29.1 pg (27.0-31.0); MEAN CORPUSCULAR HGB CONC 31.9 g/dL (32.0-36.0); MEAN CORPUSCULAR VOLUME 91.2 fL (80.0-94.0); MEAN PLATELET VOLUME 11.6 fL (7.4-11.4); MONOCYTES # (AUTO) 0.7 10^3/uL (0.0-1.0); MONOCYTES % (AUTO) 6.5 %; NEUTROPHILS # (AUTO) 7.7 10^3/uL (1.5-6.6); NEUTROPHILS % (AUTO) 74.9 %; PLT - PLATELET COUNT 192 10^3/uL (130-450); RED BLOOD COUNT 5.12 10^6/uL (4.70-6.10); RED CELL DISTRIBUTION WIDTH 15.1 % (12.0-15.0); WHITE BLOOD COUNT 10.3 x10^3/uL (4.8-10.8)
[2021-07-18 20:07] LABS: CALCIUM 9.1 mg/dL (8.5-10.3); CREATININE 0.8 mg/dL (0.6-1.2); POTASSIUM 3.8 mmol/L (3.5-5.0)
[2021-07-18 20:19] LABS: % IRON SATURATION 23 % (20-50); IRON 70 ug/dL (45-182); TOTAL IRON BINDING CAPACITY 305 ug/dL (250-450); TRANSFERRIN 218 mg/dL (180-329)
== END 2021-07-18 16:44 | disposition home or self-care (01) ==
LOC: LAB.S 16:43
PROVIDERS: ATTEND Internal Medicine Cardiovascular Disease
DX: R60.0 Localized edema (principal); D50.9 Iron deficiency anemia, unspecified
CPT/HCPCS: 36415; 80048; 82728; 83540; 84466; 85025

== ENCOUNTER 2021-08-14 02:46 | Outpatient (CLI) | payer MEDICARE | END 2021-08-14 02:47 | disposition home or self-care (01) | LOC: EMS 02:46 | DX: Z03.89 Encounter for observation for other suspected diseases and conditions ruled out (principal) ==

== ENCOUNTER 2021-08-21 11:36 | Outpatient (CLI) | payer MEDICARE | END 2021-08-21 11:37 | disposition home or self-care (01) | LOC: LAB.S 11:36 | PROVIDERS: ATTEND Internal Medicine Clinical Cardiac Electrophysiology | DX: Z51.81 Encounter for therapeutic drug level monitoring (principal) | CPT/HCPCS: 36416; 85610 ==

== ENCOUNTER 2021-11-08 13:48 | Outpatient (CLI) | payer MEDICARE | END 2021-11-08 13:49 | disposition EMS.NT | LOC: EMS 13:48 | DX: Z03.89 Encounter for observation for other suspected diseases and conditions ruled out (principal) ==

== ENCOUNTER 2021-11-12 18:59 | Emergency (ER) | payer MEDICARE ==
--- NOTE | 2021-11-12 19:44 | ED Physician Documentation ---
PD HPI LOWER EXT INJURY - Stated complaint Stated Complaint: SWOLLEN L LOWER LEG - Chief complaint Chief Complaint: Ext Problem - History obtained from History obtained from: Patient - Additional information Additional information: Skin tear to left leg 1 week ago in the tub now with progressive swelling of the left leg. No fevers/chills. PD PAST MEDICAL HISTORY - Past Medical History Cardiovascular: Hypertension Neuro: TIA Endocrine/Autoimmune: Type 2 diabetes Psych: Depression - Past Surgical History Past Surgical History: Yes Cardiovascular: Valve replacement - Present Medications Home Medications: Ambulatory Orders Medication Instructions Recorded Confirmed Carvedilol 25 mg PO BID 11/15/14 01/15/20 Doxazosin [Cardura] 8 mg PO DAILY 11/15/14 01/15/20 Losartan [Cozaar] 100 mg PO DAILY 11/15/14 01/15/20 Warfarin [Coumadin] 5 mg PO DAILY 11/15/14 01/15/20 Furosemide [Lasix] 40 mg PO DAILY #7 tablet 07/25/19 01/15/20 Albuterol Sulf [Ventolin Hfa 2 puffs INH Q4H 01/15/20 01/15/20 Inhaler] Finasteride 5 mg PO DAILY 01/15/20 01/15/20 Fluticasone/Salmeterol [Advair Hfa 2 puffs INH BID 01/15/20 01/15/20 230-21 Mcg Inhaler] Fluticasone/Umeclidin/Vilanter 1 puffs INH DAILY 01/15/20 01/15/20 [Trelegy Ellipta 100-62.5-25] Mometasone Furoate [Asmanex Hfa] 2 puffs INH BID 01/15/20 01/15/20 Sertraline [Zoloft] 50 mg PO DAILY 01/15/20 01/15/20 Ferrous Sulfate 325 mg PO DAILY #15 tablet 01/27/20 Lactulose [Constulose] 10 gm PO BID #20 solution 01/27/20 Pantoprazole [Protonix] 40 mg PO BID #20 tablet 01/27/20 Vitamin [Trinatal Rx 1] 1 tab PO DAILYWM #10 tablet 01/27/20 Thiamine [Vitamin B-1] 100 mg PO DAILY #10 tablet 01/27/20 cephALEXin [Keflex] 500 mg PO Q6H #28 cap 11/12/21 - Allergies Allergies/Adverse Reactions: Allergies Allergy/AdvReac Type Severity Reaction Status Date / Time No Known Drug Allergies Allergy Verified 11/12/21 19:20 - Social History Does the pt smoke?: No Smoking Status: Former smoker Does the pt drink ETOH?: Yes Does the pt have substance abuse?: No - Immunizations Immunizations are current?: Yes Immunizations: TDAP >10years/unknown - POLST Patient has POLST: No PD ED PE NORMAL - Vitals Vital signs reviewed: Yes - General General: Alert and oriented X 3, No acute distress - HEENT HEENT: PERRL, EOMI - Neck Neck: Supple, no meningeal sign, No bony TTP - Cardiac Cardiac: Other (irreg/irreg) - Respiratory Respiratory: No respiratory distress, Other (rhonchi B bases) - Extremities Extremities: Other (He has a skin tear with slightly necrotic base on the left anterior upper domínguez culture during exam. Both legs have venous stasis changes with good distal perfusion. He has warmth and cellulitis surrounding the left leg injury.) - Neuro Neuro: Alert and oriented X 3, Normal speech - Psych Psych: Normal mood, Normal affect Results - Vitals Vitals: Vital Signs - 24 hr 11/12/21 11/12/21 11/12/21 19:13 19:20 19:50 Temperature 36.4 C L 36.5 C Heart Rate 40 L 40 L 50 L Respiratory 20 20 24 Rate Blood Pressure 154/67 H 154/67 H 167/62 H O2 Saturation 97 97 98 11/12/21 20:02 Temperature 36.5 C Heart Rate 50 L Respiratory 24 Rate Blood Pressure 167/62 H O2 Saturation 98 Oxygen O2 Source Room air - Labs Labs: Microbiology 11/12/21 19:50 Wound Culture - Preliminary Leg - Left PD MEDICAL DECISION MAKING - ED course ED course: 80-year-old gentleman with multiple comorbidities presents with a left leg cellulitis related to a skin tear. It was cultured and he was placed on Keflex. Discussed need for frequent monitoring of INR and close follow-up as well as wound care. Departure - Departure Disposition: 01 Home, Self Care Clinical Impression: Cellulitis Qualifiers: Site of cellulitis: extremity Site of cellulitis of extremity: lower extremity Laterality: left Qualified Code(s): L03.116 - Cellulitis of left lower limb Condition: Good Record reviewed to determine appropriate education?: Yes Instructions: Cellulitis Dc Prescriptions: cephALEXin [Keflex] 500 mg PO Q6H #28 cap Comments: I sent the prescription electronically to [facility] in [place]. Often times when you start antibiotics while you are taking anticoagulants such as Coumadin or warfarin, your INR will go up. You need to have your INR checked frequently while on the antibiotics. Have it checked in 3 days, again in 6 days, and at least weekly while you are on antibiotics. Dose adjustments of your anticoagulants may be necessary. Discharge Date/Time: 11/12/21 20:12
[2021-11-12] MEDS ORDERED: CEPHALEXIN 250 MG Prepack 8 CAP BOTTLE PO STA (19:51)
[2021-11-12 20:00] VITALS: BP 167/62
== END 2021-11-12 20:12 | disposition home or self-care (01) ==
LOC: ED 18:59
DX: L03.116 Cellulitis of left lower limb (principal); S81.812A Laceration without foreign body, left lower leg, initial encounter; W18.30XA Fall on same level, unspecified, initial encounter; I87.8 Other specified disorders of veins; I48.91 Unspecified atrial fibrillation; Z95.2 Presence of prosthetic heart valve; Z79.01 Long term (current) use of anticoagulants; I10 Essential (primary) hypertension; E11.9 Type 2 diabetes mellitus without complications; Z87.891 Personal history of nicotine dependence
CPT/HCPCS: 87070; 87205; 93005; 99283; 99284

== ENCOUNTER 2021-12-04 16:08 | Outpatient (CLI) | payer MEDICARE ==
[2021-12-04 20:02] LABS: BASOPHILS % (AUTO) 0.4 %; EOSINOPHILS # (AUTO) 0.3 10^3/uL (0.0-0.7); EOSINOPHILS % (AUTO) 3.3 %; HCT - HEMATOCRIT 47.5 % (42.0-52.0); HGB - HEMOGLOBIN 15.2 g/dL (14.0-18.0); LYMPHOCYTES # (AUTO) 1.8 10^3/uL (1.5-3.5); LYMPHOCYTES % (AUTO) 19.9 %; MEAN CORPUSCULAR HEMOGLOBIN 29.3 pg (27.0-31.0); MEAN CORPUSCULAR VOLUME 91.7 fL (80.0-94.0); MEAN PLATELET VOLUME 12.6 fL (7.4-11.4); MONOCYTES # (AUTO) 0.8 10^3/uL (0.0-1.0); MONOCYTES % (AUTO) 8.3 %; NEUTROPHILS # (AUTO) 6.1 10^3/uL (1.5-6.6); NEUTROPHILS % (AUTO) 67.8 %; PLT - PLATELET COUNT 177 10^3/uL (130-450); RED BLOOD COUNT 5.18 10^6/uL (4.70-6.10); RED CELL DISTRIBUTION WIDTH 15.2 % (12.0-15.0)
[2021-12-04 20:24] LABS: % IRON SATURATION 14 % (20-50); BUN - BLOOD UREA NITROGEN 13 mg/dL (6-20); CALCIUM 8.9 mg/dL (8.5-10.3); CARBON DIOXIDE - CO2 26 mmol/L (21-32); CHLORIDE 105 mmol/L (101-111); CHOL/HDL RATIO 4.1 (<5.0); CHOLESTEROL 127 mg/dL; CREATININE 0.9 mg/dL (0.6-1.2); CREATININE,URINE 205.7 mg/dL; GFR - MDRD 81 (>89); GLUCOSE 107 mg/dL (70-100); HDL CHOLESTEROL 31 mg/dL; IRON 41 ug/dL (45-182); LDL CHOLESTEROL,CALCULATED 76 mg/dL; LDL/HDL RATIO 2.5 (<3.6); MICROALBUM/CREATININE RATIO,UR 58.8 ug/mg (<30.0); MICROALBUMIN,URINE 12.1 mg/dL (0-300.0); SODIUM 137 mmol/L (135-145); TOTAL IRON BINDING CAPACITY 291 ug/dL (250-450); TRANSFERRIN 208 mg/dL (180-329); TRIGLYCERIDES 102 mg/dL; VLDL CHOLESTEROL 20 mg/dL
[2021-12-04 20:58] LABS: ESTIMATED AVERAGE GLUCOSE 128 mg/dL (70-100); HEMOGLOBIN A1c% 6.1 % (4.27-6.07)
== END 2021-12-04 16:09 | disposition home or self-care (01) ==
LOC: LAB.S 16:08
PROVIDERS: ATTEND Registered Nurse
DX: E11.42 Type 2 diabetes mellitus with diabetic polyneuropathy (principal); D50.9 Iron deficiency anemia, unspecified; I50.30 Unspecified diastolic (congestive) heart failure
CPT/HCPCS: 36415; 80048; 80061; 82043; 82570; 82728; 83036; 83540; 83721; 84466; 85025

== ENCOUNTER 2021-12-25 06:45 | Outpatient (CLI) | payer MEDICARE | END 2021-12-25 06:46 | disposition critical access hospital (66) | LOC: EMS 06:45 | DX: S09.90XA Unspecified injury of head, initial encounter (principal); Z79.01 Long term (current) use of anticoagulants; W07.XXXA Fall from chair, initial encounter; Y92.009 Unspecified place in unspecified non-institutional (private) residence as the place of occurrence of the external cause | CPT/HCPCS: A0425; A0429 ==

== ENCOUNTER 2021-12-25 07:16 | Emergency (ER) | payer MEDICARE ==
--- NOTE | 2021-12-25 07:30 | ED Physician Documentation ---
History of Present Illness - Stated complaint Stated Complaint: GLF - History obtained from History obtained from: Patient, EMS - Additonal information Additional information: The patient is brought to the emergency department by EMS for chief complaint of fall and head injury. The patient was apparently in a recliner and was reclining the back of the chair further back when it suddenly became off balance and the top of the back of the chair tipped backward, the patient slid out of the chair headfirst, banging his head on the wall. Patient states that he did not lose consciousness and was not injured in any other way. He laid like that for some time, trying to twist his body so he could actually get out of the chair. He thinks he may have pulled a calf muscle doing this but denies any other pain or injury. He was able to get to his phone and call EMS. Patient has had no other complaints in route per EMS. The patient denies any spinal pain. No rib pain. No extremity pain other than some initial sense of cramping in his right calf. The patient has sustained a small abrasion to his superior scalp per EMS but no other scalp or head complaints. No neurologic symptoms. Patient states his last INR was 2.72 weeks ago. Review of Systems Ten Systems: 10 systems reviewed and negative Constitutional: reports: Reviewed and negative Eyes: reports: Reviewed and negative Ears: reports: Reviewed and negative Nose: reports: Reviewed and negative Throat: reports: Reviewed and negative Cardiac: reports: Reviewed and negative Respiratory: reports: Reviewed and negative GI: reports: Reviewed and negative : reports: Reviewed and negative Skin: reports: Reviewed and negative Musculoskeletal: reports: Reviewed and negative Neurologic: reports: Head injury. denies: LOC Psychiatric: reports: Reviewed and negative Endocrine: reports: Reviewed and negative Immunocompromised: reports: Reviewed and negative PD PAST MEDICAL HISTORY - Past Medical History Cardiovascular: Hypertension Neuro: TIA Endocrine/Autoimmune: Type 2 diabetes Psych: Depression - Past Surgical History Past Surgical History: Yes Cardiovascular: Valve replacement - Present Medications Home Medications: Ambulatory Orders Medication Instructions Recorded Confirmed Carvedilol 25 mg PO BID 11/15/14 01/15/20 Doxazosin [Cardura] 8 mg PO DAILY 11/15/14 01/15/20 Losartan [Cozaar] 100 mg PO DAILY 11/15/14 01/15/20 Warfarin [Coumadin] 5 mg PO DAILY 11/15/14 01/15/20 Furosemide [Lasix] 40 mg PO DAILY #7 tablet 07/25/19 01/15/20 Albuterol Sulf [Ventolin Hfa 2 puffs INH Q4H 01/15/20 01/15/20 Inhaler] Finasteride 5 mg PO DAILY 01/15/20 01/15/20 Fluticasone/Salmeterol [Advair Hfa 2 puffs INH BID 01/15/20 01/15/20 230-21 Mcg Inhaler] Fluticasone/Umeclidin/Vilanter 1 puffs INH DAILY 01/15/20 01/15/20 [Trelegy Ellipta 100-62.5-25] Mometasone Furoate [Asmanex Hfa] 2 puffs INH BID 01/15/20 01/15/20 Sertraline [Zoloft] 50 mg PO DAILY 01/15/20 01/15/20 Ferrous Sulfate 325 mg PO DAILY #15 tablet 01/27/20 Lactulose [Constulose] 10 gm PO BID #20 solution 01/27/20 Pantoprazole [Protonix] 40 mg PO BID #20 tablet 01/27/20 Vitamin [Trinatal Rx 1] 1 tab PO DAILYWM #10 tablet 01/27/20 Thiamine [Vitamin B-1] 100 mg PO DAILY #10 tablet 01/27/20 cephALEXin [Keflex] 500 mg PO Q6H #28 cap 11/12/21 - Allergies Allergies/Adverse Reactions: Allergies Allergy/AdvReac Type Severity Reaction Status Date / Time No Known Drug Allergies Allergy Verified 12/25/21 07:31 - Social History Does the pt smoke?: No Smoking Status: Former smoker Does the pt drink ETOH?: Yes Does the pt have substance abuse?: No - Immunizations Immunizations are current?: Yes Immunizations: TDAP >10years/unknown - POLST Patient has POLST: No PD ED PE NORMAL - Vitals Vital signs reviewed: Yes - General General: Alert and oriented X 3, No acute distress, Well developed/nourished - HEENT HEENT: PERRL, EOMI, Moist mucous membranes, Other (2 cm diameter superficial abrasion/skin avulsion to the apex of the patient's scalp. No laceration. No soft tissue swelling. No tenderness of the surrounding tissue.) - Neck Neck: Supple, no meningeal sign, No bony TTP - Cardiac Cardiac: RRR, No murmur, Strong equal pulses - Respiratory Respiratory: No respiratory distress, Clear bilaterally - Abdomen Abdomen: Soft, Non tender, Non distended - Back Back: No spinal TTP - Derm Derm: Normal color, Warm and dry, No rash - Extremities Extremities: No deformity, No tenderness to palpate, Normal ROM s pain, No edema, No calf tenderness / cord, Other (No tenderness or instability of pelvis. No hip tenderness.) - Neuro Neuro: Alert and oriented X 3, milk runner 2-12 intact, No motor deficit, Normal speech, Other (Grossly intact) - Psych Psych: Normal mood, Normal affect Results - Vitals Vitals: Vital Signs - 24 hr 12/25/21 12/25/21 12/25/21 07:17 08:06 08:30 Temperature 36.7 C Heart Rate 47 L 58 L 55 L Respiratory 20 21 23 Rate Blood Pressure 148/64 H 92/76 126/86 H O2 Saturation 96 97 96 12/25/21 09:00 Temperature 37.2 C Heart Rate 63 Respiratory 12 Rate Blood Pressure 136/90 H O2 Saturation 99 Oxygen O2 Source Room air - Labs Labs: Laboratory Tests 12/25/21 07:28 PT 32.1 H INR 2.9 H - Rads (name of study) CT head Radiology: Final report received, EMP read indepedently, See rad report (Negative) PD MEDICAL DECISION MAKING - ED course Complexity details: reviewed results, re-evaluated patient, considered differential, d/w patient ED course: Patient overall was quite well-appearing. He was evaluated with CT head and an INR. INR was found to be 2.[address] was negative. I felt the patient was stable for discharge home. We have discussed the usual indications for return. Departure - Departure Disposition: 01 Home, Self Care Clinical Impression: Fall Qualifiers: Encounter type: initial encounter Qualified Code(s): W19.XXXA - Unspecified fall, initial encounter Closed head injury Qualifiers: Encounter type: initial encounter Qualified Code(s): S09.90XA - Unspecified injury of head, initial encounter Condition: Stable Instructions: ED Head Injury Closed Comments: The CT scan of your head looks good. Your INR today is 2.9, which is within the therapeutic range. You may follow-up with your doctor as needed, and please continue to plan to follow-up for your next scheduled INR check. Discharge Date/Time: 12/25/21 10:39
[2021-12-25 07:39] LABS: INR 2.9 (0.8-1.2); PT - PROTHROMBIN TIME 32.1 secs (9.9-12.6)
--- NOTE | 2021-12-25 08:34 | CT Report ---
PROCEDURE: HEAD WO INDICATIONS: trauma/coumadin TECHNIQUE: Noncontrast 4.5 mm thick angled axial sections acquired from the foramen magnum to the vertex. For r adiation dose reduction, the following was used: automated exposure control, adjustment of mA and/or kV according to patient size. COMPARISON: None. FINDINGS: Image quality: Excellent. The ventricular system and cortical sulci demonstrate atrophy, consistent for patient's stated age. There are areas of hypodensity in the periventricular and subcortical white matter. There is no acut e intra or extra-axial fluid collection. No acute hemorrhage, mass lesion or midline shift. Prior in farction in the left posterior parietal-occipital lobe. Brainstem is unremarkable. Globes are symmetrical. Sinuses are aerated. Osseous structures are intact. IMPRESSION: 1. No acute intracranial process. 2. Moderate atrophy and chronic microvascular ischemic changes. Reviewed by: Anita Freedman MD on 12/25/2021 8:32 AM PST Approved by: Anita Freedman MD on 12/25/2021 8:32 AM PST Station ID: [id number]
[2021-12-25 09:14] VITALS: BP 136/90
== END 2021-12-25 10:39 | disposition home or self-care (01) ==
LOC: EDUNIT# → ED 07:16
DX: S09.90XA Unspecified injury of head, initial encounter (principal); W07.XXXA Fall from chair, initial encounter; W22.01XA Walked into wall, initial encounter; Y93.89 Activity, other specified; Y92.008 Other place in unspecified non-institutional (private) residence as the place of occurrence of the external cause; Z79.01 Long term (current) use of anticoagulants; Z87.891 Personal history of nicotine dependence
CPT/HCPCS: 36415; 85610; 99282; 99284

== ENCOUNTER 2022-01-09 10:55 | Outpatient (CLI) | payer MEDICARE | END 2022-01-09 10:56 | disposition home or self-care (01) | LOC: DI 10:55 | PROVIDERS: ATTEND Internal Medicine Cardiovascular Disease | DX: I35.0 Nonrheumatic aortic (valve) stenosis (principal); I51.7 Cardiomegaly; I27.20 Pulmonary hypertension, unspecified; Z95.2 Presence of prosthetic heart valve; I48.91 Unspecified atrial fibrillation; I34.8 Other nonrheumatic mitral valve disorders; I77.810 Thoracic aortic ectasia; I28.8 Other diseases of pulmonary vessels; I87.8 Other specified disorders of veins | CPT/HCPCS: 93306 ==

== ENCOUNTER 2022-03-02 12:04 | Outpatient (CLI) | payer MEDICARE ==
[2022-03-02] MEDS ORDERED: IOPAMIDOL-300 100 ML VIAL ONE (12:33)
[2022-03-02 12:36] LABS: CREATININE 0.9 mg/dL (0.6-1.2)
[2022-03-02] MEDS ORDERED: IOPAMIDOL-300 100 ML VIAL IVP ONE (14:24)
--- NOTE | 2022-03-02 18:04 | CT Report ---
PROCEDURE: ABDOMEN W/WO INDICATIONS: PANCREATIC STEATORRHEA CONTRAST: IV CONTRAST: Isovue 300 ml: 100 PO CONTRAST: *NO PO CONTRAST TECHNIQUE: 4 phase scanning was performed. After the administration of intravenous contrast, 5 mm thick section s acquired from the diaphragm to the symphysis. 5 mm coronal and sagittal reformats were acquired. For radiation dose reduction, the following was used: automated exposure control, adjustment of mA a nd/or kV according to patient size. COMPARISON: None. FINDINGS: Image quality: Excellent. Lung bases: Moderate reticulation at both lung bases. Heart is diffusely enlarged. Aortic valvuloplas ty and median sternotomy changes are seen. No pericardial effusion. Pancreas: Pancreas demonstrates overall normal gland contour and size. No ductal dilatation, calcifi cations, or enhancing mass. No peripancreatic fluid collections or inflammation. Other solid organs: Gallbladder contains dependently layering material, sludge versus granular stone s. The wall is of normal thickness. Biliary system is non dilated. Liver is normal in morphology. S pleen is normal in size and enhancement. No adrenal nodules. Both kidneys demonstrate normal size a nd enhancement, without hydronephrosis or nephrolithiasis. Nodes and vessels: No retroperitoneal or mesenteric adenopathy by size criteria. Aorta and inferior vena cava are normal in size. Moderate abdominal aortic calcification. Bowel and peritoneum: Unenhanced bowel loops are normal in caliber. No free fluid or air. Bones: No suspicious bony lesions. No vertebral body compression fractures. Mild scoliosis. Multil evel disc degeneration. Miscellaneous: No ventral hernias. IMPRESSION: 1. Unremarkable pancreas. 2. Cardiomegaly, post aortic valvuloplasty. 3. Bibasilar reticulation suggesting interstitial lung disease. 4. Possible gallbladder sludge. Reviewed by: Sindy Menard MD on 03/02/2022 6:02 PM PDT Approved by: Sindy Menard MD on 03/02/2022 6:02 PM PDT Station ID: [id number]
== END 2022-03-02 12:05 | disposition home or self-care (01) ==
LOC: LAB 12:04 → DI 12:05
PROVIDERS: ATTEND Internal Medicine Gastroenterology
DX: K90.3 Pancreatic steatorrhea (principal); I51.7 Cardiomegaly
CPT/HCPCS: 36415; 74170; 82565; 84520; Q9967

== ENCOUNTER 2022-03-16 21:06 | Outpatient (CLI) | payer MEDICARE | END 2022-03-16 21:07 | disposition EMS.NT | LOC: EMS 21:06 | DX: Z03.89 Encounter for observation for other suspected diseases and conditions ruled out (principal) ==

== ENCOUNTER 2022-08-01 22:06 | Outpatient (CLI) | payer MEDICARE | END 2022-08-01 22:07 | disposition EMS.NT | LOC: EMS 22:06 | DX: R53.1 Weakness (principal) ==

== ENCOUNTER 2022-08-22 11:08 | Outpatient (CLI) | payer MEDICARE | END 2022-08-22 11:09 | disposition EMS.NT | LOC: EMS 11:08 | DX: R53.1 Weakness (principal) ==

== ENCOUNTER 2022-11-14 12:01 | Outpatient (CLI) | payer MEDICARE ==
[2022-11-14 15:59] LABS: ALBUMIN 3.7 g/dL (3.2-5.5); BILIRUBIN,TOTAL 1.3 mg/dL (0.2-1.0); CREATININE 0.9 mg/dL (0.6-1.2); POTASSIUM 4.1 mmol/L (3.5-5.0); TOTAL PROTEIN 7.5 g/dL (6.7-8.2)
== END 2022-11-14 12:02 | disposition home or self-care (01) ==
LOC: LAB.S 12:01
PROVIDERS: ATTEND Nurse Practitioner
DX: R34 Anuria and oliguria (principal); R32 Unspecified urinary incontinence; R30.0 Dysuria
CPT/HCPCS: 36415; 80053

== ENCOUNTER 2022-11-16 08:00 | Outpatient (CLI) | payer MEDICARE ==
[2022-11-16 15:00] LABS: BILIRUBIN,URINE NEGATIVE (NEGATIVE); GLUCOSE, URINE (UA) NEGATIVE (NEGATIVE); KETONES,URINE (UA) NEGATIVE (NEGATIVE); LEUKOCYTE ESTERASE, URINE MODERATE (NEGATIVE); NITRITE,URINE NEGATIVE (NEGATIVE); OCCULT BLOOD,URINE MODERATE (NEGATIVE); PROTEIN,URINE TRACE mg/dL (NEGATIVE); UROBILINOGEN,URINE 0.2 (NORMAL) E.U./dL (NORMAL)
[2022-11-16 15:08] LABS: CLARITY,URINE CLOUDY (CLEAR)
[2022-11-16 15:24] LABS: BACTERIA,URINE Moderate /HPF (None Seen); SQUAMOUS EPITHELIAL CELL,UR FEW Squamous (<= Few); WBC,URINE >25 /HPF (0-3)
== END 2022-11-16 23:59 | disposition home or self-care (01) ==
LOC: LAB 08:00
PROVIDERS: ATTEND Nurse Practitioner
DX: R30.0 Dysuria (principal); R32 Unspecified urinary incontinence
CPT/HCPCS: 81001; 87077; 87086; 87181

== ENCOUNTER 2023-01-11 08:00 | Outpatient (CLI) | payer MEDICARE | END 2023-01-11 23:59 | disposition home or self-care (01) | LOC: LAB 08:00 | PROVIDERS: ATTEND Physician Assistant Medical | DX: N39.0 Urinary tract infection, site not specified (principal) | CPT/HCPCS: 87086 ==

== ENCOUNTER 2023-03-11 22:14 | Outpatient (CLI) | payer MEDICARE | END 2023-03-11 22:15 | disposition critical access hospital (66) | LOC: EMS 22:14 | DX: H53.8 Other visual disturbances (principal); R47.81 Slurred speech | CPT/HCPCS: A0425; A0429 ==

== ENCOUNTER 2023-03-11 22:43 | Inpatient (IN) | payer MEDICARE ==
--- NOTE | 2023-03-11 22:43 | ED Physician Documentation ---
PD HPI FOCAL NEURO - Stated complaint Stated Complaint: CODE STROKE - History obtained from History obtained from: Patient, EMS - Additional information Additional information: Patient is brought in by ambulance. Patient contributes to HPI to some extent, but his dysarthria limits the HPI/ROS. EMS contributes heavily to the HPI. Patient was at home reading a book when, at approximately 9 PM tonight, he began to have difficulty focusing on the words he was reading. This rapidly progressed to the point of not being able to read the words at all on the page due to both blurry and double vision. Patient lives alone. Patient called 911, and was only upon speaking to EMS did the patient realized he was having difficulty with speaking. EMS says patient's speech is difficult to understand, and this persists and is marked on my HPI. Patient tells me his visual problems and problems with speech just started tonight. Patient medication list includes warfarin. He denies fall, denies recent injury Review of Systems Unable to obtain: Other (limited due to dysarthria) Cardiac: denies: Chest pain / pressure Neurologic: denies: Generalized weakness, Focal weakness, Numbness, Headache, Head injury PD PAST MEDICAL HISTORY - Past Medical History Past Medical History: Yes Cardiovascular: Hypertension Endocrine/Autoimmune: Type 2 diabetes - Past Surgical History Past Surgical History: Yes Cardiovascular: Valve replacement (bioprosthetic aortic valve replacement 2002) - Present Medications Home Medications: Ambulatory Orders Medication Instructions Recorded Confirmed Losartan [Cozaar] 100 mg PO DAILY 11/15/14 03/13/23 Warfarin [Coumadin] 5 mg PO .ENZO 11/15/14 03/13/23 Finasteride 5 mg PO DAILY 01/15/20 03/13/23 Thiamine [Vitamin B-1] 100 mg PO DAILY #10 tablet 01/27/20 03/13/23 Cholecalciferol (Vitamin D3) 1,000 unit PO DAILY 03/13/23 03/13/23 [Vitamin D3] Digestive 8/L.acidoph/Pectin 1 each PO TIDWM 03/13/23 03/13/23 [Digestive Enzymes Tablet] Furosemide [Lasix] 40 mg PO BID 03/13/23 03/13/23 Multivitamin with Minerals 1 each PO DAILY 03/13/23 03/13/23 [Multivitamins with Minerals] Pantoprazole Sodium 20 mg PO DAILY 03/13/23 03/13/23 Potassium Chloride [Micro-K] 10 meq PO DAILY 03/13/23 03/13/23 Warfarin [Coumadin] 2.5 mg PO WE 03/13/23 03/13/23 carvediloL [Coreg] 3.125 mg PO BID 03/13/23 03/13/23 - Allergies Allergies/Adverse Reactions: Allergies Allergy/AdvReac Type Severity Reaction Status Date / Time No Known Drug Allergies Allergy Verified 12/25/21 07:31 - Living Situation Living Situation: reports: Alone Living Arrangement: reports: At home PD ED PE NORMAL - Vitals Vital signs reviewed: Yes - General General: Alert and oriented X 3, Other (obese male) - HEENT HEENT: Moist mucous membranes - Neck Neck: Supple, no meningeal sign - Respiratory Respiratory: No respiratory distress, Clear bilaterally - Neuro Eye Opening: Spontaneous Motor: Obeys Commands Verbal: Oriented GCS Score: 15 PD ED PE EXPANDED - HEENT HEENT: PERRL - Eyes Eyes: Other (left eye deviates laterally and does not cross midline when trying to look right ; frequently closing left eye to prevent double vision) - Cardiac Cardiac: Chandrakant, Irregularly irregular NIHSS - Level of Consciousness Level of consciousness: (0) Alert, Keenly responsive LOC Questions: (0) Answers both Q's correct LOC Commands: (0) Performs both correctly - Gaze Best Gaze: (2) Forced deviation - Visual Visual: (0) No loss - Facial Palsy Facial Palsy: (0) Normal, symmetrical movement - Motor Arms (both separate) Motor Arm (right): (0) No drift Motor Arm (left): (0) No drift - Motor Legs (both separate) Motor Leg (right): (0) No drift Motor Leg (left): (0) No drift - Limb Ataxia Limb Ataxia: (1) Present in 1 limb - Sensory Sensory: (0) Normal - Best Language Best Language: (2) Severe aphasia - Dysarthria Dysarthria: (2) Severe dysarthria - Extinction and Inattention (formally neg Extinction and inattention: (0) No abnormality - Total Score/Results Total Score/Result: 7 Results - Vitals Vitals: Oxygen O2 Source Oxymask - Labs Labs: Microbiology 03/11/23 23:11 Urine Culture - Final Urine,Clean Catch Laboratory Tests 05/03/11/23 03/11/23 23:07 23:07 23:07 WBC 8.6 RBC 4.48 L Hgb 12.9 L Hct 41.2 L MCV 92.0 MCH 28.8 MCHC 31.3 L RDW 15.0 Plt Count 174 MPV 11.1 Neut # (Auto) 6.1 Lymph # (Auto) 1.6 [place] # (Auto) 0.7 Eos # (Auto) 0.1 Baso # (Auto) 0.1 Absolute Nucleated RBC 0.00 Nucleated RBC % 0.0 PT 30.9 H INR 3.0 H APTT 38.4 H Sodium 139 Potassium 3.6 Chloride 102 Carbon Dioxide 28 Anion Gap 9.0 BUN 20 Creatinine 1.1 Estimated GFR (MDRD) 64 L Glucose 109 H POC Whole Bld Glucose Lactic Acid Calcium 8.7 Total Bilirubin 0.9 AST 14 ALT 11 Alkaline Phosphatase 57 Troponin I High Sens Total Protein 7.0 Albumin 3.5 Globulin 3.5 Albumin/Globulin Ratio 1.0 Lipase 30 TSH Urine Color Urine Clarity Urine pH Ur Specific [place] Urine Protein Urine Glucose (UA) Urine Ketones Urine Occult Blood Urine Nitrite Urine Bilirubin Urine Urobilinogen Ur Leukocyte Esterase Urine RBC Urine WBC Ur Squamous Epith Cells Urine Bacteria Ur Microscopic Review Urine Culture Comments Urine Opiates Screen Ur Oxycodone Screen Urine Methadone Screen Ur Propoxyphene Screen Ur Barbiturates Screen Ur Tricyclics Screen Ur Phencyclidine Scrn Ur Amphetamine Screen U Methamphetamines Scrn U Benzodiazepines Scrn Urine Cocaine Screen U Cannabinoids Screen Ethyl Alcohol < 5.0 03/11/23 03/11/23 03/11/23 23:07 23:07 23:11 WBC RBC Hgb Hct MCV MCH MCHC RDW Plt Count MPV Neut # (Auto) Lymph # (Auto) [place] # (Auto) Eos # (Auto) Baso # (Auto) Absolute Nucleated RBC Nucleated RBC % PT INR APTT Sodium Potassium Chloride Carbon Dioxide Anion Gap BUN Creatinine Estimated GFR (MDRD) Glucose POC Whole Bld Glucose Lactic Acid Calcium Total Bilirubin AST ALT Alkaline Phosphatase Troponin I High Sens 16.5 Total Protein Albumin Globulin Albumin/Globulin Ratio Lipase TSH 1.94 Urine Color YELLOW Urine Clarity CLOUDY Urine pH 7.0 Ur Specific [place] 1.020 Urine Protein 30 H Urine Glucose (UA) NEGATIVE Urine Ketones NEGATIVE Urine Occult Blood LARGE H Urine Nitrite POSITIVE H Urine Bilirubin NEGATIVE Urine Urobilinogen 0.2 (NORMAL) Ur Leukocyte Esterase LARGE H Urine RBC TNTC H Urine WBC >25 H Ur Squamous Epith Cells FEW Squamous Urine Bacteria Many H Ur Microscopic Review INDICATED Urine Culture Comments INDICATED Urine Opiates Screen Ur Oxycodone Screen Urine Methadone Screen Ur Propoxyphene Screen Ur Barbiturates Screen Ur Tricyclics Screen Ur Phencyclidine Scrn Ur Amphetamine Screen U Methamphetamines Scrn U Benzodiazepines Scrn Urine Cocaine Screen U Cannabinoids Screen Ethyl Alcohol 03/11/23 03/12/23 03/12/23 23:11 01:38 07:34 WBC RBC Hgb Hct MCV MCH MCHC RDW Plt Count MPV Neut # (Auto) Lymph # (Auto) [place] # (Auto) Eos # (Auto) Baso # (Auto) Absolute Nucleated RBC Nucleated RBC % PT INR APTT Sodium Potassium Chloride Carbon Dioxide Anion Gap BUN Creatinine Estimated GFR (MDRD) Glucose POC Whole Bld Glucose 121 H Lactic Acid 0.7 Calcium Total Bilirubin AST ALT Alkaline Phosphatase Troponin I High Sens Total Protein Albumin Globulin Albumin/Globulin Ratio Lipase TSH Urine Color Urine Clarity Urine pH Ur Specific [place] Urine Protein Urine Glucose (UA) Urine Ketones Urine Occult Blood Urine Nitrite Urine Bilirubin Urine Urobilinogen Ur Leukocyte Esterase Urine RBC Urine WBC Ur Squamous Epith Cells Urine Bacteria Ur Microscopic Review Urine Culture Comments Urine Opiates Screen NEGATIVE Ur Oxycodone Screen NEGATIVE Urine Methadone Screen NEGATIVE Ur Propoxyphene Screen NEGATIVE Ur Barbiturates Screen NEGATIVE Ur Tricyclics Screen NEGATIVE Ur Phencyclidine Scrn NEGATIVE Ur Amphetamine Screen NEGATIVE U Methamphetamines Scrn NEGATIVE U Benzodiazepines Scrn NEGATIVE Urine Cocaine Screen NEGATIVE U Cannabinoids Screen NEGATIVE Ethyl Alcohol - Rads (name of study) CTH Relevant Findings:: Prelim report reviewed, See rad report CTA head Relevant Findings:: Prelim report reviewed, See rad report (nondiagnostic due to incorrect timing of contrast) CTA neck Relevant Findings:: Prelim report reviewed, See rad report (nondiagnostic study due to incorrect timing of contrast) CTA head 2 Relevant Findings:: Prelim report reviewed, See rad report CTA neck 2 Relevant Findings:: Prelim report reviewed, See rad report chest xray Relevant Findings:: Prelim report reviewed, See rad report PD Medical Decision Making - ED course Complexity details: reviewed results, re-evaluated patient, considered differential, d/w patient ED course: Patient presents with stroke-like symptoms: Specifically, acute visual change with abnormal eye exam as noted above, as well as severe dysarthria. CT head is without acute finding, but CTA head and CTA of the neck are nondiagnostic due to incorrect timing of the contrast. I then consulted neurology on-call for telestroke (Dr. Kirk). At that time, blood tests were available including the INR which is 3.0; this INR result contraindicates thrombolytics. Dr. Kirk does recommend repeat of the CTA head and the CTA of the neck, and, regardless of results, recommends then undertaking brain MRI without contrast. Patient's neurologic exam remains unchanged on several repeat evaluations by me during my shift. The care of the patient is signed out to the oncoming ER physician pending MR test and results. The patient's deficits are quite significant and patient would likely benefit from admission to the hospital unless the MR has results that would indicate transfer - TPA CVA checklist Inclusion crititeria: positive: Sig neuro deficit, CT no bleed, Onset know < 4.5 hr Absolute contraindications: positive: INR >1.7 Absolute contraindications if 3-4.5 hr: positive: Coumadin (any INR) Departure - Departure Disposition: 66 [facility] DC/Xfer Clinical Impression: Cerebrovascular accident (CVA), Anticoagulant long-term use, Uncontrolled hypertension, UTI (urinary tract infection) Condition: Good Discharge Date/Time: 03/12/23 17:51
--- NOTE | 2023-03-11 23:00 | CT Report ---
PROCEDURE: Head W/O Stroke Protocol INDICATIONS: visual changes, slurred speech TECHNIQUE: Noncontrast 4.5 mm thick angled axial sections acquired from the foramen magnum to the vertex, with c oronal reformats. For radiation dose reduction, the following was used: automated exposure control, adjustment of mA and/or kV according to patient size. COMPARISON: Head CT 01/17/2020. FINDINGS: Image quality: Evaluation is markedly limited due to motion and streak artifact. CSF spaces: There is moderate cerebral volume loss with prominence of the ventricles and sulci. Basa l cisterns are patent. No extra-axial fluid collections. Brain: No definite intracranial hemorrhage, mass, or mass effect. There are subcortical and perivent ricular white matter hypodensities consistent with moderate chronic small vessel ischemic changes. A small region of encephalomalacia is redemonstrated within the left posterior temporal lobe. Skull and face: Calvarium and visualized facial bones are intact, without suspicious lesions. Sinuses: Visualized sinuses and mastoids are clear. IMPRESSION: 1. Markedly limited study due to motion and streak artifact. 2. No definite intracranial hemorrhage. Findings discussed with Dr. White on 03/11/2023 at 10:55 PM. This study fulfills neurological imaging criteria for inclusion or exclusion of acute stroke therapie s based on available published neurological imaging guidelines. Reviewed by: Julius Disla MD on 03/11/2023 10:59 PM PDT Approved by: Julius Disla MD on 03/11/2023 10:59 PM PDT Station ID: [id number]
[2023-03-11] MEDS ORDERED: iohexoL-300 100 ML VIAL ONE ×2 (23:11→23:29)
--- OUTSIDE RECORDS SUMMARY | 2023-03-11 23:16 | EXTERNAL MEDICAL SUMMARY RPT | Continuity of Care Document ---
Author Name Unknown Address [address] [place] [address] Phone Organization [facility] Address [address] [place] [address] Phone Care Team Providers Care Dietetics Director Name Role Phone Unavailable Unavailable Unavailable Jean Claude Rojas, Pillo Unavailable Unavailable Sharna Victoria, Isatu Unavailable Unavailable Medications date description facility 2023-01-12 00:00 [facility] 2023-01-15 00:00 [facility]artan [facility] 2023-01-16 00:00 [facility]artan [facility] 2023-01-22 00:00 losartan [facility] 2023-01-23 00:00 losartan [facility] 2023-01-12 00:00 finasteride [facility] 2023-01-15 00:00 finasteride [facility] 2023-01-16 00:00 finasteride [facility] 2023-01-22 00:00 finasteride [facility] 2023-01-23 00:00 finasteride [facility] 2023-01-12 00:00 [facility]othiazide [facility] 2023-01-15 00:00 hydrochlorothiazide [facility] 2023-01-16 00:00 hydrochlorothiazide [facility] 2023-01-22 00:00 hydrochlorothiazide [facility] 2023-01-23 00:00 hydrochlorothiazide [facility] 2023-01-12 00:00 furosemide [facility] 2023-01-15 00:00 furosemide [facility] 2023-01-16 00:00 furosemide [facility] 2023-01-22 00:00 furosemide [facility] 2023-01-23 00:00 furosemide [facility] 2023-01-12 00:00 potassium chloride [facility] 2023-01-15 00:00 potassium chloride [facility] 2023-01-16 00:00 potassium chloride [facility] 2023-01-22 00:00 potassium chloride [facility] 2023-01-23 00:00 potassium chloride [facility] 2023-01-12 00:00 lisinopril [facility] 2023-01-15 00:00 lisinopril [facility] 2023-01-16 00:00 lisinopril [facility] 2023-01-22 00:00 lisinopril [facility] 2023-01-23 00:00 lisinopril [facility] 2023-01-11 00:00 ciprofloxacin hcl [facility] 2023-01-11 00:00 ciprofloxacin hcl [facility] 2023-01-12 00:00 hydrochlorothiazide [facility] 2023-01-15 00:00 hydrochlorothiazide [facility] 2023-01-16 00:00 hydrochlorothiazide [facility] 2023-01-22 00:00 hydrochlorothiazide [facility] 2023-01-23 00:00 hydrochlorothiazide [facility] 2023-01-12 00:00 LORATADINE [facility] 2023-01-15 00:00 LORATADINE [facility] 2023-01-16 00:00 LORATADINE [facility] [place] 2023-01-22 00:00 LORATADINE [facility] 2023-01-23 00:00 LORATADINE [facility] 2023-01-12 00:00 POTASSIUM [facility] 2023-01-15 00:00 POTASSIUM [facility] 2023-01-16 00:00 POTASSIUM [facility] 2023-01-22 00:00 POTASSIUM [facility] 2023-01-23 00:00 POTASSIUM [facility] 2023-01-12 00:00 POTASSIUM [facility] 2023-01-15 00:00 POTASSIUM [facility] 2023-01-16 00:00 POTASSIUM [facility] 2023-01-22 00:00 POTASSIUM [facility] 2023-01-23 00:00 POTASSIUM [facility] 2023-01-12 00:00 doxazosin [facility] 2023-01-15 00:00 doxazosin [facility] 2023-01-16 00:00 doxazosin [facility] 2023-01-22 00:00 doxazosin [facility] 2023-01-23 00:00 doxazosin [facility] 2023-01-12 00:00 lisinopril [facility] 2023-01-15 00:00 lisinopril [facility] 2023-01-16 00:00 lisinopril [facility] 2023-01-22 00:00 lisinopril [facility] 2023-01-23 00:00 lisinopril [facility] 2023-01-12 00:00 melatonin [facility] 2023-01-15 00:00 melatonin [facility] 2023-01-16 00:00 melatonin [facility] 2023-01-22 00:00 melatonin [facility] 2023-01-23 00:00 melatonin [facility] 2023-01-12 00:00 carvedilol [facility] 2023-01-15 00:00 carvedilol [facility] 2023-01-16 00:00 carvedilol [facility] 2023-01-22 00:00 carvedilol [facility] 2023-01-23 00:00 carvedilol [facility] 2023-01-11 00:00 ciprofloxacin hcl [facility] 2023-01-11 00:00 ciprofloxacin hcl [facility] 2023-01-12 00:00 LORATADINE [facility] 2023-01-15 00:00 LORATADINE [facility] 2023-01-16 00:00 LORATADINE [facility] 2023-01-22 00:00 LORATADINE [facility] 2023-01-23 00:00 LORATADINE [facility] 2023-01-12 00:00 warfarin [facility] 2023-01-15 00:00 warfarin [facility] 2023-01-16 00:00 warfarin [facility] 2023-01-22 00:00 warfarin [facility] 2023-01-23 00:00 warfarin [facility] 2023-01-12 00:00 pantoprazole [facility] 2023-01-15 00:00 pantoprazole [facility] 2023-01-16 00:00 pantoprazole [facility] 2023-01-22 00:00 pantoprazole [facility] 2023-01-23 00:00 pantoprazole [facility] 2023-01-12 00:00 clobetasol [facility] 2023-01-15 00:00 clobetasol [facility] 2023-01-16 00:00 clobetasol [facility] 2023-01-22 00:00 clobetasol [facility] 2023-01-23 00:00 clobetasol [facility] 2023-01-12 00:00 doxazosin [facility] 2023-01-15 00:00 doxazosin [facility] 2023-01-16 00:00 doxazosin [facility] 2023-01-22 00:00 doxazosin [facility] 2023-01-23 00:00 doxazosin [facility] 2023-01-12 00:00 finasteride [facility] 2023-01-15 00:00 finasteride [facility] 2023-01-16 00:00 finasteride [facility] 2023-01-22 00:00 finasteride [facility] 2023-01-23 00:00 finasteride [facility] 2023-01-12 00:00 lisinopril [facility] 2023-01-15 00:00 lisinopril [facility] 2023-01-16 00:00 lisinopril [facility] 2023-01-22 00:00 lisinopril [facility] 2023-01-23 00:00 lisinopril [facility] 2023-01-12 00:00 finasteride [facility] 2023-01-15 00:00 finasteride [facility] 2023-01-16 00:00 finasteride [facility] 2023-01-22 00:00 finasteride [facility] 2023-01-23 00:00 finasteride [facility] 2023-01-12 00:00 furosemide [facility] 2023-01-15 00:00 furosemide [facility] 2023-01-16 00:00 furosemide [facility] 2023-01-22 00:00 furosemide [facility] 2023-01-23 00:00 furosemide [facility] 2023-01-12 00:00 hydrochlorothiazide [facility] 2023-01-15 00:00 hydrochlorothiazide [facility] 2023-01-16 00:00 hydrochlorothiazide [facility] 2023-01-22 00:00 hydrochlorothiazide [facility] 2023-01-23 00:00 hydrochlorothiazide [facility] 2023-01-12 00:00 [id number] [facility] 2023-01-15 00:00 [id number] [facility] 2023-01-16 00:00 [id number] [facility] 2023-01-22 00:00 [id number] [facility] 2023-01-23 00:00 [id number] [facility] 2023-01-12 00:00 potassium chloride [facility] 2023-01-15 00:00 potassium chloride [facility] 2023-01-16 00:00 potassium chloride [facility] 2023-01-22 00:00 potassium chloride [facility] 2023-01-23 00:00 potassium chloride [facility] 2023-01-12 00:00 carvedilol [facility] 2023-01-15 00:00 carvedilol [facility] 2023-01-16 00:00 carvedilol [facility] 2023-01-22 00:00 carvedilol [facility] 2023-01-23 00:00 carvedilol [facility] 2023-01-12 00:00 carvedilol [facility] 2023-01-15 00:00 carvedilol [facility] 2023-01-16 00:00 carvedilol [facility] 2023-01-22 00:00 carvedilol [facility] 2023-01-23 00:00 carvedilol [facility] 2023-01-12 00:00 lisinopril [facility] 2023-01-15 00:00 lisinopril [facility] 2023-01-16 00:00 lisinopril [facility] 2023-01-22 00:00 lisinopril [facility] 2023-01-23 00:00 lisinopril [facility] 2023-01-12 00:00 losartan [facility] 2023-01-15 00:00 losartan [facility] 2023-01-16 00:00 losartan [facility] 2023-01-22 00:00 losartan [facility] 2023-01-23 00:00 losartan [facility] 2023-01-12 00:00 doxazosin [facility] 2023-01-15 00:00 doxazosin [facility] 2023-01-16 00:00 doxazosin [facility] 2023-01-22 00:00 doxazosin [facility] 2023-01-23 00:00 doxazosin [facility] 2023-01-12 00:00 furosemide [facility] 2023-01-15 00:00 furosemide [facility] 2023-01-16 00:00 furosemide [facility] 2023-01-22 00:00 furosemide [facility] 2023-01-23 00:00 furosemide [facility] 2023-01-12 00:00 hydrochlorothiazide [facility] 2023-01-15 00:00 hydrochlorothiazide [facility] 2023-01-16 00:00 hydrochlorothiazide [facility] 2023-01-22 00:00 hydrochlorothiazide [facility] 2023-01-23 00:00 hydrochlorothiazide [facility] 2023-01-12 00:00 [id number] [facility] 2023-01-15 00:00 [id number] [facility] 2023-01-16 00:00 [id number] [facility] 2023-01-22 00:00 [id number] [facility] 2023-01-23 00:00 [id number] [facility] 2023-01-12 00:00 LORATADINE [facility] 2023-01-15 00:00 LORATADINE [facility] 2023-01-16 00:00 LORATADINE [facility] 2023-01-22 00:00 LORATADINE [facility] 2023-01-23 00:00 LORATADINE [facility] 2023-01-12 00:00 carvedilol [facility] 2023-01-15 00:00 carvedilol [facility] 2023-01-16 00:00 carvedilol [facility] 2023-01-22 00:00 carvedilol [facility] 2023-01-23 00:00 carvedilol [facility] 2023-01-12 00:00 melatonin [facility] 2023-01-15 00:00 melatonin [facility] 2023-01-16 00:00 melatonin [facility] 2023-01-22 00:00 melatonin [facility] 2023-01-23 00:00 melatonin [facility] 2023-01-11 00:00 ciprofloxacin hcl [facility] 2023-01-11 00:00 ciprofloxacin hcl [facility] 2023-01-12 00:00 LORATADINE [facility] 2023-01-15 00:00 LORATADINE [facility] 2023-01-16 00:00 LORATADINE [facility] 2023-01-22 00:00 LORATADINE [facility] 2023-01-23 00:00 LORATADINE [facility] 2023-01-12 00:00 carvedilol [facility] 2023-01-15 00:00 carvedilol [facility] 2023-01-16 00:00 carvedilol [facility] 2023-01-22 00:00 carvedilol [facility] 2023-01-23 00:00 carvedilol [facility] 2023-01-12 00:00 pantoprazole [facility] 2023-01-15 00:00 pantoprazole [facility] 2023-01-16 00:00 pantoprazole [facility] 2023-01-22 00:00 pantoprazole [facility] 2023-01-23 00:00 pantoprazole [facility] 2023-01-11 00:00 ciprofloxacin hcl [facility] 2023-01-11 00:00 ciprofloxacin hcl [facility] 2023-01-12 00:00 clobetasol [facility] 2023-01-15 00:00 clobetasol [facility] 2023-01-16 00:00 clobetasol [facility] 2023-01-22 00:00 clobetasol [facility] 2023-01-23 00:00 clobetasol [facility] 2023-01-12 00:00 warfarin [facility] 2023-01-15 00:00 warfarin [facility] 2023-01-16 00:00 warfarin [facility] 2023-01-22 00:00 warfarin [facility] 2023-01-23 00:00 warfarin [facility] 2023-01-12 00:00 melatonin [facility] 2023-01-15 00:00 melatonin [facility] 2023-01-16 00:00 melatonin [facility] 2023-01-22 00:00 melatonin [facility] 2023-01-23 00:00 melatonin [facility] 2023-01-12 00:00 losartan [facility] 2023-01-15 00:00 losartan [facility] 2023-01-16 00:00 losartan [facility] 2023-01-22 00:00 losartan [facility] 2023-01-23 00:00 losartan [facility] 2023-01-12 00:00 pantoprazole [facility] 2023-01-15 00:00 pantoprazole [facility] 2023-01-16 00:00 pantoprazole [facility] 2023-01-22 00:00 pantoprazole [facility] 2023-01-23 00:00 pantoprazole [facility] 2023-01-12 00:00 finasteride [facility] 2023-01-15 00:00 finasteride [facility] 2023-01-16 00:00 finasteride [facility] 2023-01-22 00:00 finasteride [facility] 2023-01-23 00:00 finasteride [facility] 2023-01-12 00:00 losartan [facility] 2023-01-15 00:00 losartan [facility] 2023-01-16 00:00 losartan [facility] 2023-01-22 00:00 losartan [facility] 2023-01-23 00:00 losartan [facility] 2023-01-12 00:00 doxazosin [facility] 2023-01-15 00:00 doxazosin [facility] 2023-01-16 00:00 doxazosin [facility] 2023-01-22 00:00 doxazosin [facility] 2023-01-23 00:00 doxazosin [facility] 2023-01-12 00:00 pantoprazole [facility] 2023-01-15 00:00 pantoprazole [facility] 2023-01-16 00:00 pantoprazole [facility] 2023-01-22 00:00 pantoprazole [facility] 2023-01-23 00:00 pantoprazole [facility] 2023-01-12 00:00 potassium chloride [facility] 2023-01-15 00:00 potassium chloride [facility] 2023-01-16 00:00 potassium chloride [facility] 2023-01-22 00:00 potassium chloride Walk-In [facility] 2023-01-23 00:00 potassium chloride Walk-In [facility] 2023-01-12 00:00 carvedilol [facility] 2023-01-15 00:00 carvedilol [facility] 2023-01-16 00:00 carvedilol [facility] 2023-01-22 00:00 carvedilol [facility] 2023-01-23 00:00 carvedilol [facility] 2023-01-12 00:00 carvedilol [facility] 2023-01-15 00:00 carvedilol [facility] 2023-01-16 00:00 carvedilol [facility] 2023-01-22 00:00 carvedilol [facility] 2023-01-23 00:00 carvedilol [facility] [facility] 2023-01-12 00:00 [facility]artan [facility] 2023-01-15 00:00 losartan [facility] 2023-01-16 00:00 losartan [facility] 2023-01-22 00:00 losartan [facility] 2023-01-23 00:00 losartan [facility] 2023-01-12 00:00 carvedilol [facility] 2023-01-15 00:00 carvedilol [facility] 2023-01-16 00:00 carvedilol [facility] 2023-01-22 00:00 carvedilol [facility] 2023-01-23 00:00 carvedilol [facility] 2023-01-12 00:00 [id number] [facility] 2023-01-15 00:00 [id number] [facility] 2023-01-16 00:00 [id number] [facility] 2023-01-22 00:00 [id number] [facility] 2023-01-23 00:00 [id number] [facility] 2023-01-12 00:00 POTASSIUM [facility] 2023-01-15 00:00 POTASSIUM [facility] 2023-01-16 00:00 POTASSIUM [facility] 2023-01-22 00:00 POTASSIUM [facility] 2023-01-23 00:00 POTASSIUM [facility] 2023-01-12 00:00 potassium chloride [facility] 2023-01-15 00:00 potassium chloride [facility] 2023-01-16 00:00 potassium chloride [facility] 2023-01-22 00:00 potassium chloride [facility] 2023-01-23 00:00 potassium chloride [facility] 2023-01-12 00:00 warfarin [facility] 2023-01-15 00:00 warfarin [facility] 2023-01-16 00:00 warfarin [facility] 2023-01-22 00:00 warfarin [facility] 2023-01-23 00:00 warfarin [facility] 2023-01-12 00:00 warfarin [facility] 2023-01-15 00:00 warfarin [facility] 2023-01-16 00:00 warfarin [facility] 2023-01-22 00:00 warfarin [facility] 2023-01-23 00:00 warfarin [facility] 2023-01-12 00:00 clobetasol [facility] 2023-01-15 00:00 clobetasol [facility] 2023-01-16 00:00 clobetasol [facility] 2023-01-22 00:00 clobetasol [facility] 2023-01-23 00:00 clobetasol [facility] 2023-01-12 00:00 furosemide [facility] 2023-01-15 00:00 furosemide [facility] 2023-01-16 00:00 furosemide [facility] 2023-01-22 00:00 furosemide [facility] 2023-01-23 00:00 furosemide [facility] 2023-01-12 00:00 clobetasol [facility] 2023-01-15 00:00 clobetasol [facility] 2023-01-16 00:00 clobetasol [facility] 2023-01-22 00:00 clobetasol [facility] 2023-01-23 00:00 clobetasol [facility] 2023-01-12 00:00 melatonin [facility] 2023-01-15 00:00 melatonin [facility] 2023-01-16 00:00 melatonin [facility] 2023-01-22 00:00 melatonin [facility] 2023-01-23 00:00 melatonin [facility] 2023-01-12 00:00 losartan [facility] 2023-01-15 00:00 losartan [facility] 2023-01-16 00:00 losartan [facility] 2023-01-22 00:00 losartan [facility] 2023-01-23 00:00 losartan [facility] 2023-01-12 00:00 losartan [facility] 2023-01-15 00:00 losartan [facility] 2023-01-16 00:00 losartan [facility] 2023-01-22 00:00 losartan [facility] 2023-01-23 00:00 losartan [facility] 2023-01-12 00:00 POTASSIUM [facility] 2023-01-15 00:00 POTASSIUM [facility] 2023-01-16 00:00 POTASSIUM [facility] 2023-01-22 00:00 POTASSIUM [facility] 2023-01-23 00:00 POTASSIUM [facility] Problems date description facility 2023-01-11 00:00 Acute urinary tract infection [facility] 2023-01-11 00:00 Acute urinary tract infection [facility] 2023-01-11 00:00 Urinary tract infect ion, site not specified [facility] 2023-01-11 00:00 Urinary tract infect ion, site not specified [facility] 2023-01-12 00:00 Foreign body - finger [facility] 2023-01-12 00:00 Screening for malign ant neoplasm of colon [facility] 2023-01-12 00:00 Benign essential hypertension [facility] 2023-01-12 00:00 Sleep apnea [facility] 2023-01-12 00:00 Unspecified sleep apnea [facility] 2023-01-12 00:00 Superficial foreign body (splinter) of fingers, without major open wound and without mention of infection [facility] 2023-01-12 00:00 Sleep apnea, unspecified [facility] 2023-01-12 00:00 Essential (primary) hypertensio n [facility] 2023-01-12 00:00 Superficial foreign body of unspecified finger [facility] 2023-01-12 00:00 Screening for malign ant neoplasms of colon [facility] 2023-01-12 00:00 Other specified postprocedural states [facility] 2023-01-15 00:00 Foreign body - finger [facility] 2023-01-15 00:00 Screening for malign ant neoplasm of colon [facility] 2023-01-15 00:00 Benign essential hypertension [facility] 2023-01-15 00:00 Sleep apnea [facility] 2023-01-15 00:00 Unspecified sleep apnea [facility] 2023-01-15 00:00 Superficial foreign body (splinter) of fingers, without major open wound and without mention of infection [facility] 2023-01-15 00:00 Sleep apnea, unspecified [facility] 2023-01-15 00:00 Essential (primary) hypertensio n [facility] 2023-01-15 00:00 Superficial foreign body of unspecified finger [facility] 2023-01-15 00:00 Screening for malign ant neoplasms of colon [facility] 2023-01-15 00:00 Other specified postprocedural states [facility] 2023-01-16 00:00 Foreign body - finger Walk-In [facility] [place] 2023-01-16 00:00 Screening for malign ant neoplasm of colon [facility] 2023-01-16 00:00 Benign essential hypertension [facility] 2023-01-16 00:00 Sleep apnea [facility] 2023-01-16 00:00 Unspecified sleep apnea [facility] 2023-01-16 00:00 Superficial foreign body (splinter) of fingers, without major open wound and without mention of infection [facility] 2023-01-16 00:00 Sleep apnea, unspecified [facility] 2023-01-16 00:00 Essential (primary) hypertensio n [facility] 2023-01-16 00:00 Superficial foreign body of unspecified finger [facility] 2023-01-16 00:00 Screening for malign ant neoplasms of colon [facility] 2023-01-16 00:00 Other specified postprocedural states [facility] 2023-01-22 00:00 Foreign body - finger [facility] 2023-01-22 00:00 Screening for malign ant neoplasm of colon [facility] 2023-01-22 00:00 Stasis dermatitis [facility] 2023-01-22 00:00 Benign essential hypertension [facility] 2023-01-22 00:00 Venous (peripheral) insufficiency, unspecified [facility] 2023-01-22 00:00 Sleep apnea [facility] 2023-01-22 00:00 Unspecified sleep apnea [facility] 2023-01-22 00:00 Superficial foreign body (splinter) of fingers, without major open wound and without mention of infection [facility] 2023-01-22 00:00 Sleep apnea, unspecified [facility] 2023-01-22 00:00 Essential (primary) hypertensio n [facility] 2023-01-22 00:00 Venous insufficiency (chronic) (peripheral) [facility] 2023-01-22 00:00 Superficial foreign body of unspecified finger [facility] 2023-01-22 00:00 Screening for malign ant neoplasms of colon [facility] 2023-01-22 00:00 Other specified postprocedural states [facility] 2023-01-23 00:00 Foreign body - finger Walk-In [facility] [place] 2023-01-23 00:00 Screening for malign ant neoplasm of colon [facility] 2023-01-23 00:00 Benign essential hypertension [facility] 2023-01-23 00:00 Sleep apnea [facility] 2023-01-23 00:00 Unspecified sleep apnea [facility] 2023-01-23 00:00 Superficial foreign body (splinter) of fingers, without major open wound and without mention of infection [facility] 2023-01-23 00:00 Sleep apnea, unspecified [facility] 2023-01-23 00:00 Essential (primary) hypertensio n [facility] 2023-01-23 00:00 Superficial foreign body of unspecified finger [facility] 2023-01-23 00:00 Screening for malign ant neoplasms of colon [facility] 2023-01-23 00:00 Other specified postprocedural states [facility] Procedures date description facility 2023-01-11 00:00 Visit Code Hold [facility] 2023-01-11 00:00 Visit Code Hold [facility] 2023-01-22 00:00 Visit Code Hold [facility] 2023-01-11 00:00 POC URINALYSIS DIP [facility] 2023-01-11 00:00 POC URINALYSIS DIP [facility] Results/Labs test date author facility value unit interpretation Result panel 1 (unknown) (no date) (unknown) [facility] [place] (no value) (units unknown) (unknown) Result panel 2 (unknown) (no date) (unknown) [facility] [place] (no value) (units unknown) (unknown) Result panel 3 (unknown) (no date) (unknown) [facility] [place] (no value) (units unknown) (unknown) Result panel 4 (unknown) (no date) (unknown) [facility] [place] (no value) (units unknown) (unknown) Result panel 5 (unknown) (no date) (unknown) [facility] [place] (no value) (units unknown) (unknown) Result panel 6 (unknown) (no date) (unknown) [facility] (no value) (units unknown) (unknown) Result panel 7 (unknown) (no date) (unknown) [facility] (no value) (units unknown) (unknown) Result panel 8 (unknown) (no date) (unknown) [facility] (no value) (units unknown) (unknown) Result panel 9 (unknown) (no date) (unknown) [facility] (no value) (units unknown) (unknown) Result panel 10 (unknown) (no date) (unknown) [facility] [place] (no value) (units unknown) (unknown) Result panel 11 (unknown) (no date) (unknown) [facility] [place] (no value) (units unknown) (unknown) Result panel 12 (unknown) (no date) (unknown) [facility] [place] (no value) (units unknown) (unknown) Result panel 13 (unknown) (no date) (unknown) [facility] [place] (no value) (units unknown) (unknown) Result panel 14 (unknown) (no date) (unknown) [facility] [place] (no value) (units unknown) (unknown) Result panel 15 (unknown) (no date) (unknown) [facility] [place] (no value) (units unknown) (unknown) Result panel 16 (unknown) (no date) (unknown) [facility] [place] (no value) (units unknown) (unknown) Result panel 17 (unknown) (no date) (unknown) [facility] (no value) (units unknown) (unknown) Result panel 18 (unknown) (no date) (unknown) [facility] [place] (no value) (units unknown) (unknown) Result panel 19 (unknown) (no date) (unknown) [facility] [place] (no value) (units unknown) (unknown) Result panel 20 (unknown) (no date) (unknown) [facility] [place] (no value) (units unknown) (unknown) Result panel 21 (unknown) (no date) (unknown) [facility] [place] (no value) (units unknown) (unknown) Result panel 22 (unknown) (no date) (unknown) [facility] [place] (no value) (units unknown) (unknown) Result panel 23 (unknown) (no date) (unknown) [facility] [place] (no value) (units unknown) (unknown) Result panel 24 (unknown) (no date) (unknown) [facility] (no value) (units unknown) (unknown) Result panel 25 (unknown) (no date) (unknown) [facility] [place] (no value) (units unknown) (unknown) Result panel 26 (unknown) (no date) (unknown) [facility] (no value) (units unknown) (unknown) Result panel 27 (unknown) (no date) (unknown) [facility] (no value) (units unknown) (unknown) Result panel 28 (unknown) (no date) (unknown) [facility] [place] (no value) (units unknown) (unknown) Result panel 29 (unknown) (no date) (unknown) [facility] [place] (no value) (units unknown) (unknown) Result panel 30 (unknown) (no date) (unknown) [facility] [place] (no value) (units unknown) (unknown) Result panel 31 (unknown) (no date) (unknown) [facility] [place] (no value) (units unknown) (unknown) Result panel 32 (unknown) (no date) (unknown) [facility] [place] (no value) (units unknown) (unknown) Result panel 33 (unknown) (no date) (unknown) [facility] [place] (no value) (units unknown) (unknown) Result panel 34 (unknown) (no date) (unknown) [facility] (no value) (units unknown) (unknown) Result panel 35 (unknown) (no date) (unknown) [facility] (no value) (units unknown) (unknown) Result panel 36 (unknown) (no date) (unknown) [facility] (no value) (units unknown) (unknown) Result panel 37 (unknown) (no date) (unknown) [facility] (no value) (units unknown) (unknown) Result panel 38 (unknown) (no date) (unknown) [facility] (no value) (units unknown) (unknown) Result panel 39 (unknown) (no date) (unknown) [facility] (no value) (units unknown) (unknown) Result panel 40 (unknown) (no date) (unknown) [facility] (no value) (units unknown) (unknown) Result panel 41 (unknown) (no date) (unknown) [facility] (no value) (units unknown) (unknown) Result panel 42 (unknown) (no date) (unknown) [facility] (no value) (units unknown) (unknown) Result panel 43 (unknown) (no date) (unknown) [facility] (no value) (units unknown) (unknown) Result panel 44 (unknown) (no date) (unknown) [facility] (no value) (units unknown) (unknown) Result panel 45 (unknown) (no date) (unknown) [facility] (no value) (units unknown) (unknown) Result panel 46 (unknown) (no date) (unknown) [facility] (no value) (units unknown) (unknown) Result panel 47 (unknown) (no date) (unknown) [facility] (no value) (units unknown) (unknown) Result panel 48 (unknown) (no date) (unknown) [facility] (no value) (units unknown) (unknown) Social History date description facility 2023-01-11 00:00 Former smoker [facility] 2023-01-11 00:00 Former smoker [facility] 2023-01-22 00:00 Former smoker [facility] Vital Signs date measurement value units 2023-01-11 00:00 BMI 39.20 kg/m2 2023-01-11 00:00 BP_diastolic 74 mmHg 2023-01-11 00:00 BP_systolic 150 mmHg 2023-01-11 00:00 heart_rate 54 /min 2023-01-11 00:00 height_metric 182.88 cm 2023-01-11 00:00 height_standard 72 in 2023-01-11 00:00 respiration_rate 24 /min 2023-01-11 00:00 temperature_metric 36.39 C 2023-01-11 00:00 temperature_standard 97.5 F 2023-01-11 00:00 weight_metric 130.63 kg 2023-01-11 00:00 weight_standard 288 lb 2023-01-22 00:00 BMI 39.20 kg/m2 2023-01-22 00:00 BP_diastolic 66 mmHg 2023-01-22 00:00 BP_systolic 118 mmHg 2023-01-22 00:00 heart_rate 77 /min 2023-01-22 00:00 height_metric 182.88 cm 2023-01-22 00:00 height_standard 72 in 2023-01-22 00:00 respiration_rate 18 /min 2023-01-22 00:00 temperature_metric 36.11 C 2023-01-22 00:00 temperature_standard 97 F 2023-01-22 00:00 weight_metric 130.63 kg 2023-01-22 00:00 weight_standard 288 lb
[2023-03-11 23:17] LABS: BASOPHILS # (AUTO) 0.1 10^3/uL (0.0-0.1); BASOPHILS % (AUTO) 0.6 %; EOSINOPHILS # (AUTO) 0.1 10^3/uL (0.0-0.7); EOSINOPHILS % (AUTO) 1.6 %; HCT - HEMATOCRIT 41.2 % (42.0-52.0); HGB - HEMOGLOBIN 12.9 g/dL (14.0-18.0); LYMPHOCYTES # (AUTO) 1.6 10^3/uL (1.5-3.5); LYMPHOCYTES % (AUTO) 18.8 %; MEAN CORPUSCULAR HEMOGLOBIN 28.8 pg (27.0-31.0); MEAN CORPUSCULAR HGB CONC 31.3 g/dL (32.0-36.0); MEAN PLATELET VOLUME 11.1 fL (7.4-11.4); MONOCYTES # (AUTO) 0.7 10^3/uL (0.0-1.0); MONOCYTES % (AUTO) 7.8 %; NEUTROPHILS # (AUTO) 6.1 10^3/uL (1.5-6.6); NEUTROPHILS % (AUTO) 71.1 %; PLT - PLATELET COUNT 174 10^3/uL (130-450); RED BLOOD COUNT 4.48 10^6/uL (4.70-6.10); WHITE BLOOD COUNT 8.6 x10^3/uL (4.8-10.8)
[2023-03-11 23:22] LABS: PT - PROTHROMBIN TIME 30.9 secs (9.9-12.6)
[2023-03-11 23:29] LABS: PARTIAL THROMBOPLASTIN TIME 38.4 secs (24.9-33.3)
--- NOTE | 2023-03-11 23:30 | CT Report ---
PROCEDURE: ANGIO HEAD W/WO INDICATIONS: visual changes, speech dificulty CONTRAST: 80mL Omni 300 TECHNIQUE: After the administration of intravenous contrast, 1 mm thick sections acquired through the [place]. Postcontrast 4.5 mm thick sections then re-acquired from the foramen magnum to the vertex. 3-dimensional dzggrih-ngeizkpkg-xriwlqqlgc (MIP) and/or volume rendering reformats were acquired of t he central intracranial vasculature. For radiation dose reduction, the following was used: automate d exposure control, adjustment of mA and/or kV according to patient size. COMPARISON: Concurrent CT of the head and CTA of the neck. FINDINGS: Image quality: There is nondiagnostic evaluation of the intracranial vessels due to nonopacification with contrast. CSF spaces: There is moderate cerebral volume loss with prominence of the ventricles and sulci. Basa l cisterns are patent. No extra-axial fluid collections. Brain: No intracranial hemorrhage, mass, or mass effect. There are subcortical and periventricular w aquilino matter hypodensities consistent with moderate chronic small vessel ischemic changes. A small reg ion of cortical and subcortical encephalomalacia is redemonstrated within the posterior left temporal lobe. Skull and face: Calvarium and facial bones appear intact, without suspicious lesions. Sinuses: Visualized sinuses and mastoids are clear. IMPRESSION: 1. Nondiagnostic evaluation of the intracranial vessels due to nonopacification with contrast. 2. No intracranial hemorrhage or mass effect. Findings discussed Dr. White on 03/11/2023 at 11:22 PM. Reviewed by: Julius Disla MD on 03/11/2023 11:29 PM PDT Approved by: Julius Disla MD on 03/11/2023 11:29 PM PDT Station ID: [id number]
--- NOTE | 2023-03-11 23:33 | CT Report ---
PROCEDURE: ANGIO NECK W INDICATIONS: visual changes, difficulty with speech CONTRAST: 80mL Omni 300 TECHNIQUE: After the administration of intravenous contrast, 1.5 mm axial sections acquired from the aortic arch to the [place] of [place]. Coronal 3-D maximum intensity projection (MIP) and/or volume rendering ref ormats were then performed. For radiation dose reduction, the following was used: automated exposur e control, adjustment of mA and/or kV according to patient size. COMPARISON: None. FINDINGS: Image quality: There is beam hardening artifact. There is nonopacification of the head and neck tato aleah due to early phase of image acquisition. Carotid system: Nondiagnostic evaluation due to nonopacification with intravenous contrast. Posterior circulation: Nondiagnostic evaluation due to nonopacification of intravenous contrast. Soft tissues: Visualized neck soft tissues demonstrate no suspicious abnormalities. Bones: No suspicious bony lesions. Visualized cervical spine demonstrates multilevel degenerative d isc disease and facet arthropathy. IMPRESSION: 1. Nondiagnostic evaluation of the head and neck arteries due to nonopacification. Findings discussed with Dr. White on 03/11/2023 at 11:22 PM. The estimate of stenosis included in the report of the imaging study was calculated using the NASCET method Reviewed by: Julius Disla MD on 03/11/2023 11:32 PM PDT Approved by: Julius Disla MD on 03/11/2023 11:32 PM PDT Station ID: [id number]
[2023-03-11 23:34] LABS: BILIRUBIN,URINE NEGATIVE (NEGATIVE); GLUCOSE, URINE (UA) NEGATIVE (NEGATIVE); KETONES,URINE (UA) NEGATIVE (NEGATIVE); LEUKOCYTE ESTERASE, URINE LARGE (NEGATIVE); NITRITE,URINE POSITIVE (NEGATIVE); OCCULT BLOOD,URINE LARGE (NEGATIVE); PROTEIN,URINE 30 mg/dL (NEGATIVE); UROBILINOGEN,URINE 0.2 (NORMAL) E.U./dL (NORMAL)
[2023-03-11 23:38] LABS: CLARITY,URINE CLOUDY (CLEAR)
[2023-03-11 23:44] LABS: BACTERIA,URINE Many /HPF (None Seen); RBC,URINE TNTC /HPF (0-5); SQUAMOUS EPITHELIAL CELL,UR FEW Squamous (<= Few); WBC,URINE >25 /HPF (0-3)
[2023-03-11 23:44] LABS: ALBUMIN 3.5 g/dL (3.2-5.5); ALKALINE PHOSPHATASE 57 IU/L (42-121); ALT ALANINE AMINOTRANSFERASE 11 IU/L (10-60); AST ASPARTATE AMINOTRANSFERASE 14 IU/L (10-42); BILIRUBIN,TOTAL 0.9 mg/dL (0.2-1.0); BUN - BLOOD UREA NITROGEN 20 mg/dL (6-20); CALCIUM 8.7 mg/dL (8.5-10.3); CARBON DIOXIDE - CO2 28 mmol/L (21-32); CHLORIDE 102 mmol/L (101-111); CREATININE 1.1 mg/dL (0.6-1.2); ETOH - ETHANOL < 5.0 mg/dL; GFR - MDRD 64 (>89); GLUCOSE 109 mg/dL (70-100); LIPASE 30 U/L (22-51); POTASSIUM 3.6 mmol/L (3.5-5.0); SODIUM 139 mmol/L (135-145)
--- NOTE | 2023-03-11 23:44 | XRAY Report ---
PROCEDURE: Chest 1 View X-Ray INDICATIONS: visual changes, slurred speech TECHNIQUE: One view of the chest was acquired. COMPARISON: Chest x-ray 01/26/2020. FINDINGS: Surgical changes and devices: Postsurgical changes redemonstrated within the mediastinum. Lungs and pleura: There is mild pulmonary edema. No pleural effusions or pneumothorax. Mediastinum: Mediastinal contours appear unchanged. Heart size is enlarged. Bones and chest wall: No suspicious bony lesions. Overlying soft tissues appear unremarkable. IMPRESSION: 1. Mild pulmonary edema. Reviewed by: Julius Disla MD on 03/11/2023 11:43 PM PDT Approved by: Julius Disla MD on 03/11/2023 11:43 PM PDT Station ID: [id number]
[2023-03-12] MEDS ORDERED: cefTRIAXone 2 GM in SODIUM CHLORIDE 0.9% MINIBAG 100 ML IV STA (01:27)
[2023-03-12] MEDS ORDERED: cefTRIAXone 2 GM VIAL ONE (02:29)
[2023-03-12 03:22] LABS: MUDS CUTOFF CONCENTRATIONS CUTOFF CONC BELOW:
[2023-03-12 03:39] LABS: AMPHETAMINE SCREEN,URINE NEGATIVE (NEGATIVE); BARBITURATE SCREEN,UR NEGATIVE (NEGATIVE); BENZODIAZEPINES SCREEN, URINE NEGATIVE (NEGATIVE); COCAINE SCREEN URINE NEGATIVE (NEGATIVE); METHADONE SCREEN, URINE NEGATIVE (NEGATIVE); METHAMPHETAMINES SCREEN, URINE NEGATIVE (NEGATIVE); OPIATE SCREEN, URINE NEGATIVE (NEGATIVE); OXYCODONE SCREEN, URINE NEGATIVE (NEGATIVE); PROPOXYPHENE SCREEN, URINE NEGATIVE (NEGATIVE); THC CANNABINOID SCREEN, URINE NEGATIVE (NEGATIVE); TRICYCLIC ANTIDEPRESSANT,URINE NEGATIVE (NEGATIVE)
[2023-03-12] MEDS ORDERED: ONDANSETRON 4 MG/2 ML VIAL ONE (03:56)
[2023-03-12] MEDS ORDERED: iohexoL-300 100 ML VIAL IVP ONE (05:31)
--- NOTE | 2023-03-12 10:10 | CT Report ---
PROCEDURE: ANGIO HEAD W/WO INDICATIONS: stroke-like symptoms, inadequate first study CONTRAST: 100mL Omni 300 TECHNIQUE: Precontrast 4.5 mm thick angled axial sections acquired from the foramen magnum to the vertex. Afte r the administration of intravenous contrast, 1 mm thick sections acquired through the [place] of [place] is. Postcontrast 4.5 mm thick sections then re-acquired from the foramen magnum to the vertex. 3-di mensional mldnlxa-isdodvldp-uqkwzltprj (MIP) and/or volume rendering reformats were acquired of the c entral intracranial vasculature. For radiation dose reduction, the following was used: automated ex posure control, adjustment of mA and/or kV according to patient size. COMPARISON: CT head, CTA neck 03/12/2023 FINDINGS: Image quality: Excellent. Anterior circulation: Intracranial internal carotid arteries are normal in size and flow. The flow within the paired anterior cerebral arteries is normal and symmetric. The flow within the middle cer ebral arteries is normal and symmetric. The anterior communicating artery is seen. No aneurysms are seen. Posterior circulation: There is a right vertebral artery dominance. Visualized portions of the verte bral arteries demonstrate normal caliber, and join to form a normal appearing basilar artery. Flow w ithin the right posterior cerebral arteries normal. There is a short segment filling defect identifie d within the lumen in the proximal aspect of the left P1 segment of the posterior cerebral artery bes t seen on series 13 image 93. Portions of the posterior artery distal to this segment are fully opaci fied.. No aneurysms are seen. The ventricular system and cortical sulci demonstrate atrophy, consistent for patient's stated age. There are areas of hypodensity in the periventricular and subcortical white matter. There is no acut e intra or extra-axial fluid collection. No acute hemorrhage, mass lesion or midline shift. Brainst em is unremarkable. Globes are symmetrical. Sinuses are aerated. Osseous structures are intact. IMPRESSION: 1. Short segment partial luminal filling defect within the proximal P1 segment of the left posterior cerebral artery. This may represent an incomplete segmental occlusion of the proximal P1 posterior ce rebral artery. It is noted that there is normal luminal opacification distal to this segment. The above findings are concordant with preliminary report. Reviewed by: Anita Freedman MD on 03/12/2023 10:08 AM PDT Approved by: Anita Freedman MD on 03/12/2023 10:08 AM [facility] Station ID: [id number]
--- NOTE | 2023-03-12 12:28 | MRI Report ---
PROCEDURE: BRAIN WO INDICATIONS: stroke-like symptoms TECHNIQUE: Noncontrast axial T1 spin echo, axial T2 fast spin echo, sagittal and axial FLAIR, coronal T2 fast sp in echo, axial gradient echo, axial diffusion and ADC through the brain. COMPARISON: Same-day CT angiogram and CT head FINDINGS: Image quality: Mild motion artifact CSF spaces: Basal cisterns are patent. Lateral ventricles are symmetric. Volume: Periventricular white matter signal abnormality is commonly seen with chronic microangiopathy . Volume loss is present. These findings are moderate. Brain: Tiny left thalamic infarct. No intracranial hematoma identified. Left posterior temporal encep halomalacia. Craniofacial structures: No displaced fracture. Sinuses are clear. Orbits are intact. IMPRESSION: Small left thalamic acute infarct. Reviewed by: Huy Snider MD on 03/12/2023 12:27 PM PDT Approved by: Huy Snider MD on 03/12/2023 12:27 PM PDT Station ID: [id number]
--- NOTE | 2023-03-12 13:50 | CT Report ---
PROCEDURE: ANGIO NECK W INDICATIONS: stroke-like symptoms, inadequate first study CONTRAST: 100mL Omni 300 TECHNIQUE: After the administration of intravenous contrast, 1.5 mm axial sections acquired from the aortic arch to the [place] of [place]. Coronal 3-D maximum intensity projection (MIP) and/or volume rendering ref ormats were then performed. For radiation dose reduction, the following was used: automated exposur e control, adjustment of mA and/or kV according to patient size. COMPARISON: CT head, CTA head 03/12/2023, CT chest 10/25/2016 FINDINGS: Image quality: Excellent. Carotid system: The great vessels demonstrate a conventional anatomy as they arise from the aortic a rch. The origins of the common carotid arteries appear patent. The common carotid arteries demonstr ate normal calibers and courses. The bifurcation regions appear normal bilaterally. There is approxi mately there is approximately 40-50% stenosis at the origin of the left internal carotid artery and a pproximately 30% at the origin of the right internal carotid artery. Atherosclerotic calcifications a re present. Posterior circulation: There is a right vertebral artery dominance. Small multifocal areas of narrowi ng are present within the left vertebral artery, with the most prominent focal area of narrowing at t he level of the foramen at C4 approximately 60-70%. They join to form a normal appearing basilar tato ry. As identified on CTA head, there is a short segment partial filling defect identified within the lumen at the proximal left P1 segment of the posterior cerebral artery, with distal segments fully o pacified. Soft tissues: Visualized neck soft tissues demonstrate no suspicious abnormalities. The thyroid is normal in size. 4 mm right upper lobe nodule series 2 image 11 is present, stable compared to 2016. Bones: No suspicious bony lesions. Visualized cervical spine appears normally aligned. IMPRESSION: Partial luminal filling defect in the proximal aspect of the left P1 segment of the posterior cerebra l artery. Please see CTA head report for further details. Short segment areas of stenosis within the left vertebral artery the greatest at the level of C4 shirley uring approximately 60-70%. There is distal flow present. 30% left and 40-50% right stenosis at the origin of the internal carotid arteries bilaterally. The estimate of stenosis included in the report of the imaging study was calculated using the NASCET method CLINICAL RECOMMENDATION STATEMENTS: In patients <35 years with an ITN detected on CT, MRI, or extrathyroidal ultrasound, the Committee re commends further evaluation with dedicated thyroid ultrasound if the nodule is "e1 cm and has no susp icious imaging features, and if the patient has normal life expectancy. In patients "e35 years with an ITN detected on CT, MRI, or extrathyroidal ultrasound, the Committee r ecommends further evaluation with dedicated thyroid ultrasound if the nodule is "e1.5 cm and has no s uspicious imaging features, and if the patient has normal life expectancy. (ACR, 2014) Reviewed by: Anita Freedman MD on 03/12/2023 1:47 PM PDT Approved by: Aniat Freedman MD on 03/12/2023 1:47 PM PDT Station ID: [id number]
--- NOTE | 2023-03-12 15:29 | ED Physician Documentation ---
ED Addendum - Addendum Addendum: Patient was signed out to me by overnight physician with suspicion for stroke. An MRI was obtained.The MRI report confirms a small left thalamic acute infarct. Patient has been hypertensive here. As his stroke is acute will not lower his blood pressure quite yet. Patient will require admission. He is boarding In the emergency department awaiting for inpatient beds to become available. [id number] - D/W Dr. Rodriguez. Patient will be admitted. Departure - Departure Disposition: 66 [facility] DC/Xfer Clinical Impression: Cerebrovascular accident (CVA), Anticoagulant long-term use, Uncontrolled hypertension Condition: Good
[2023-03-12] MEDS ORDERED: SODIUM CHLORIDE FLUSH 0.9% 10 ML SYRINGE IVP PRN (17:07)
[2023-03-12] MEDS ORDERED: ONDANSETRON 4 MG/2 ML VIAL IVP PRN (17:07)
[2023-03-12] MEDS ORDERED: ACETAMINOPHEN 325 MG TABLET PO PRN (17:07)
--- NOTE | 2023-03-12 18:20 | HISTORY & PHYSICAL EXAMINATION ---
Chief Complaint - Chief Complaint Chief Complaint: Vision problem <Nemo Feliciano - Last Filed: 03/13/23 18:48> History of Present Illness - Admitted From Admitted From:: ED - History Obtained From Records Reviewed: ED note History obtained from: ED note, patient's son Exam Limitations: patient sleeping <Nemo Feliciano - Last Filed: 03/13/23 18:48> <RodgerchantalMartha cain Agueda - Last Filed: 03/14/23 17:56> - History of Present Illness HPI Comment/Other: Mr. Mark is an 82 yo morbidly obese male presenting due to vision problem. Verbal history was obtained through son, Osvaldo, who is pt's POA, because pt was asleep during this visit. The son states that the pt called 911 on 03/11 when "he couldn't uncross his eyes." He was brought to the ED by ambulance who noted dysarthria. Stroke-like symptoms prompted CT of head and neck, which were inconclusive. A brain MRI revealed a thalamic infarct. tPA was contraindicated due to the pt being on warfarin, and having an INR of 3.0. The son also states the pt did not sleep much in the ED last night, likely why he is very tired at this time. Mr. Mark has a significant past medical history of the following. In the early 1999s, he had an aortic valve replacement. He was then started on prophylactic warfarin that he still takes currently. In 2012 Mr. Mark had a stroke which caused word-finding difficulties. In 2019, pt was admitted to this facility's ICU for alcohol withdrawal. During this admission, he suffered a hypoxic brain injury. He was not able to maintain his airway and was intubated and placed in a coma. Mr. Mark also contracted Covid at this time. Per the son, Mr. Mark has been working on his speech, and has improved over the last 2-3 years. He is also a type 2 diabetic and gas hypertension. His baseline mentation includes orientation to date, time, and place. (Nemo Feliciano) Attestation: I attest that the patient was seen and examined by me with a separate encounter after being seen by the PA student. I reviewed the student's documentation including patient history, physical examination, laboratory, imaging, clinical assessment and treatment plan. I have discussed the management of the patient with the student, with the patient, and there are no changes. (Martha Rodriguez) History - Past Medical History Cardiovascular: reports: Hypertension Neuro: reports: TIA Endocrine/Autoimmune: reports: Type 2 diabetes Psych: reports: Depression MRSA Hx?: No - Past Surgical History Cardiovascular: reports: Valve replacement (bioprosthetic aortic valve replacement 2002) - Family & Social History Living arrangement: At home Living Situation: Alone - POLST Patient has POLST: No <Nemo Feliciano - Last Filed: 03/13/23 18:48> Meds/Allgy <Nemo Feliciano - Last Filed: 03/13/23 18:48> <Martha Rodriguez - Last Filed: 03/14/23 17:56> - Home Medications Home Medications: Ambulatory Orders Medication Instructions Recorded Confirmed Losartan [Cozaar] 100 mg PO DAILY 11/15/14 03/13/23 Warfarin [Coumadin] 5 mg PO .MONTUETHURFRISATSUN 11/15/14 03/13/23 Finasteride 5 mg PO DAILY 01/15/20 03/13/23 Thiamine [Vitamin B-1] 100 mg PO DAILY #10 tablet 01/27/20 03/13/23 Cholecalciferol (Vitamin D3) 1,000 unit PO DAILY 03/13/23 03/13/23 [Vitamin D3] Digestive 8/L.acidoph/Pectin 1 each PO TIDWM 03/13/23 03/13/23 [Digestive Enzymes Tablet] Furosemide [Lasix] 40 mg PO BID 03/13/23 03/13/23 Multivitamin with Minerals 1 each PO DAILY 03/13/23 03/13/23 [Multivitamins with Minerals] Pantoprazole Sodium 20 mg PO DAILY 03/13/23 03/13/23 Potassium Chloride [Micro-K] 10 meq PO DAILY 03/13/23 03/13/23 Warfarin [Coumadin] 2.5 mg PO WE 03/13/23 03/13/23 carvediloL [Coreg] 3.125 mg PO BID 03/13/23 03/13/23 - Allergies Allergies/Adverse Reactions: Allergies Allergy/AdvReac Type Severity Reaction Status Date / Time No Known Drug Allergies Allergy Verified 12/25/21 07:31 Review of Systems <Nemo Feliciano - Last Filed: 03/13/23 18:48> - Other Findings Other Findings: Unable to obtain due to pt being asleep. (Nemo Feliciano) <Nemo Feliciano - Last Filed: 03/13/23 18:48> Prior Level of Functionality: Not able to obtain information at this time. (Nemo Feliciano) Exam - Physical Exam General Appearance: positive: Lethargic Cardiovascular: positive: Bradycardia Peripheral Pulses: positive: 1+ <Nemo Feliciano - Last Filed: 03/13/23 18:48> - Vital Signs Vital Signs: Vital Signs x48h Temp Pulse Resp BP BP Pulse Ox 03/13/23 16:00 98.0 C H 56 L 20 129/71 95 03/13/23 15:00 61 13 126/63 91 L 03/13/23 14:24 58 L 18 124/59 L 94 03/13/23 13:13 59 L 20 145/57 H 93 03/13/23 12:00 68 16 146/59 H 91 L 03/13/23 11:00 52 L 12 134/59 H 96 03/13/23 10:00 49 L 19 120/59 L 93 - Physical Exam Comments/Other: Unable to examine pt due to him being asleep. (Nemo Feliciano) Sepsis Event Note (H) - Evaluation Current Stage of Sepsis: Ruled out <Nemo Feliciano - Last Filed: 03/13/23 18:48> Conclusion/Plan - Problem List (1) Cerebrovascular accident (CVA) Conclusion/Plan: MRI revealed acute left thalamic infarction. Pt has significant neurological deficit in his speech. He was previously communicating with nursing staff before falling asleep prior to my exam. His coagulation labs include PT 30.9, INR 3.0, and aPTT 38.4. tPA was contraindicated due to warfarin use, and INR < 1.7. Pt also had a swallow evaluation. PLAN: Pt is currently on warfarin, and will continue to be managed with anticoag therapy. Will reassess INR. Pt will be placed on a pureed diet, per successful swallow evaluation. He will benefit from starting a statin regimen. Qualifiers: CVA mechanism: other Qualified Code(s): I63.89 - Other cerebral infarction (2) Bradycardia Conclusion/Plan: Pt's HR has been in the 30s, going as low as [facility] Son reports Mr. Mark's HR usually runs in the 50s. Pt was previously on a beta- eleonora, and could likely still have remnants of this medication in his system. Medications still have to be reconciled. PLAN: Pt will be transferred to ICU due to severe bradycardia. If he is still on a beta-eleonora, we will stop the medication and assess if HR increases. He will benefit from an ECHO. He will be monitored closely on telemetry. (3) Uncontrolled hypertension Conclusion/Plan: Pt's bp during this visit was 172/60. PLAN: Due to his contraindications for tPA, we want to keep his bp high in order to ensure proper profusion of the brain. His bp will be reassessed tomorrow for possible antiHTN medications. (4) CALEB on CPAP Conclusion/Plan: Pt's O2 saturations have been stable, currently on 96 on RA. PLAN: Pt will use personal CPAP. O2 will be monitored. (5) Type 2 diabetes mellitus Conclusion/Plan: Pt has a history of Type 2 DM. His glucose on admission was 121. PLAN: Pt will have regular glucose checks. A1c needs to be evaluated. Will start pt on insulin. - Lab Results Jasvir Bones: 03/13/23 04:53 03/13/23 16:25 - Diagnostic Imaging Results Diagnostic Imaging Results: positive: Final report reviewed - EKG Results EKG Interpreted Independently: Yes <Nemo Feliciano - Last Filed: 03/13/23 18:48> - Lab Results Jasvir Bones: 03/13/23 04:53 03/14/23 09:20 <Martha Rodriguez - Last Filed: 03/14/23 17:56> Core Measures - DVT/VTE - Prophylaxis VTE/DVT Device ordered at admit?: Yes - Stroke - Rehab Assessment Rehab services assessment to be ordered?: Yes - AMI - Statin at Admit Aspirin Prescribed on Admit: No <Nemo Feliciano - Last Filed: 03/13/23 18:48>
[2023-03-13] MEDS: SODIUM CHLORIDE FLUSH 0.9% 10 ML SYRINGE IVP SCH ×3 (00:16→17:53)
[2023-03-13 05:19] LABS: BASOPHILS # (AUTO) 0.1 10^3/uL (0.0-0.1); BASOPHILS % (AUTO) 0.5 %; EOSINOPHILS # (AUTO) 0.1 10^3/uL (0.0-0.7); EOSINOPHILS % (AUTO) 1.2 %; HCT - HEMATOCRIT 51.8 % (42.0-52.0); HGB - HEMOGLOBIN 15.5 g/dL (14.0-18.0); LYMPHOCYTES # (AUTO) 1.6 10^3/uL (1.5-3.5); LYMPHOCYTES % (AUTO) 15.8 %; MEAN CORPUSCULAR HEMOGLOBIN 28.7 pg (27.0-31.0); MEAN CORPUSCULAR HGB CONC 29.9 g/dL (32.0-36.0); MEAN CORPUSCULAR VOLUME 95.9 fL (80.0-94.0); MEAN PLATELET VOLUME 11.6 fL (7.4-11.4); MONOCYTES # (AUTO) 0.7 10^3/uL (0.0-1.0); MONOCYTES % (AUTO) 7.2 %; NEUTROPHILS # (AUTO) 7.7 10^3/uL (1.5-6.6); PLT - PLATELET COUNT 165 10^3/uL (130-450); RED CELL DISTRIBUTION WIDTH 15.3 % (12.0-15.0); WHITE BLOOD COUNT 10.3 x10^3/uL (4.8-10.8)
[2023-03-13 05:41] LABS: BUN - BLOOD UREA NITROGEN 16 mg/dL (6-20); CALCIUM 8.8 mg/dL (8.5-10.3); CARBON DIOXIDE - CO2 25 mmol/L (21-32); CHLORIDE 103 mmol/L (101-111); CHOL/HDL RATIO 4.7 (<5.0); CHOLESTEROL 159 mg/dL; CREATININE 0.8 mg/dL (0.6-1.2); GFR - MDRD 92 (>89); GLUCOSE 95 mg/dL (70-100); HDL CHOLESTEROL 34 mg/dL; LDL CHOLESTEROL,CALCULATED 109 mg/dL; LDL/HDL RATIO 3.2 (<3.6); MAGNESIUM 2.5 mg/dL (1.7-2.8); POTASSIUM 3.4 mmol/L (3.5-5.0); SODIUM 139 mmol/L (135-145); TRIGLYCERIDES 78 mg/dL; VLDL CHOLESTEROL 16 mg/dL
[2023-03-13 06:35] LABS: INR 2.3 (0.8-1.2); PT - PROTHROMBIN TIME 24.6 secs (9.9-12.6)
[2023-03-13] MEDS: FUROSEMIDE 40 MG TABLET PO SCH (08:47)
[2023-03-13] MEDS ORDERED: WARFARIN 5 MG TABLET PO SCH (09:00)
[2023-03-13] MEDS: INSULIN LISPRO 300 UNIT/3 ML PEN SUBQ SCH ×3 (12:07→20:24)
[2023-03-13] MEDS: WARFARIN 5 MG TABLET PO SCH (14:34)
[2023-03-13 16:42] LABS: PHOSPHORUS 2.6 mg/dL (2.5-4.6); POTASSIUM 3.5 mmol/L (3.5-5.0)
--- NOTE | 2023-03-13 17:41 | PROVIDER PROGRESS NOTE ---
Subjective - Subjective Pt reports feeling: Improved (He is speaking better, he is inquisitive and asking how everything is turning out) Objective - Vital Signs/Intake & Output Vital Signs: Vital Signs Temp Pulse Resp BP BP Pulse Ox 03/13/23 16:00 98.0 C H 56 L 20 129/71 95 03/13/23 15:00 61 13 126/63 91 L 03/13/23 14:24 58 L 18 124/59 L 94 Intake & Output: Intake & Output 03/10/23 03/11/23 03/12/23 03/13/23 23:59 23:59 23:59 23:59 Intake Total 100 1410 Output Total 0 450 Balance 100 960 - Objective General Appearance: positive: No acute distress, Alert Eyes Bilateral: positive: No lid inflammation ENT: positive: ENT inspection nml Neck: positive: Nml inspection, Other (Cannot evaluate JVP due to morbid obesity) Respiratory: positive: No respiratory distress Cardiovascular: positive: Irregularly irregular Abdomen: positive: Non-tender, Other (Obese with a pannus) Skin: positive: Warm, Dry Extremities: positive: Non-tender, No pedal edema Neurologic/Psychiatric: positive: Oriented x3, Other (Poor memory) - Lab Results Fish Bones: 03/13/23 04:53 03/13/23 16:25 Other Labs: Lab Results x24hrs 03/13/23 03/13/23 03/13/23 Range/Units 17:08 16:25 11:44 WBC (4.8-10.8) x10^3/uL RBC (4.70-6.10) 10^6/uL Hgb (14.0-18.0) g/dL Hct (42.0-52.0) % MCV (80.0-94.0) fL MCH (27.0-31.0) pg MCHC (32.0-36.0) g/dL RDW (12.0-15.0) % Plt Count (130-450) 10^3/uL MPV (7.4-11.4) fL Neut # (Auto) (1.5-6.6) 10^3/uL Lymph # (Auto) (1.5-3.5) 10^3/uL Stoddard # (Auto) (0.0-1.0) 10^3/uL Eos # (Auto) (0.0-0.7) 10^3/uL Baso # (Auto) (0.0-0.1) 10^3/uL Absolute Nucleated RBC x10^3/uL Nucleated RBC % /100WBC PT (9.9-12.6) secs INR (0.8-1.2) Sodium (135-145) mmol/L Potassium 3.5 (3.5-5.0) mmol/L Chloride (101-111) mmol/L Carbon Dioxide (21-32) mmol/L Anion Gap (6-13) BUN (6-20) mg/dL Creatinine (0.6-1.2) mg/dL Estimated GFR (MDRD) (>89) Glucose (70-100) mg/dL POC Whole Bld Glucose 106 H 101 H (70 - 100) mg/dL Calcium (8.5-10.3) mg/dL Phosphorus 2.6 (2.5-4.6) mg/dL Magnesium (1.7-2.8) mg/dL Triglycerides ( - 149) mg/dL Cholesterol ( - 199) mg/dL LDL Cholesterol, Calc ( - 129) mg/dL VLDL Cholesterol mg/dL HDL Cholesterol (60 - ) mg/dL LDL/HDL Ratio (<3.6) Cholesterol/HDL Ratio (<5.0) Nasal Screen MRSA (PCR) (NEGATIVE) 03/13/23 03/13/23 03/13/23 Range/Units 05:54 04:53 04:53 WBC 10.3 (4.8-10.8) x10^3/uL RBC 5.40 (4.70-6.10) 10^6/uL Hgb 15.5 (14.0-18.0) g/dL Hct 51.8 (42.0-52.0) % MCV 95.9 H (80.0-94.0) fL MCH 28.7 (27.0-31.0) pg MCHC 29.9 L (32.0-36.0) g/dL RDW 15.3 H (12.0-15.0) % Plt Count 165 (130-450) 10^3/uL MPV 11.6 H (7.4-11.4) fL Neut # (Auto) 7.7 H (1.5-6.6) 10^3/uL Lymph # (Auto) 1.6 (1.5-3.5) 10^3/uL Stoddard # (Auto) 0.7 (0.0-1.0) 10^3/uL Eos # (Auto) 0.1 (0.0-0.7) 10^3/uL Baso # (Auto) 0.1 (0.0-0.1) 10^3/uL Absolute Nucleated RBC 0.00 x10^3/uL Nucleated RBC % 0.0 /100WBC PT 24.6 H (9.9-12.6) secs INR 2.3 H (0.8-1.2) Sodium 139 (135-145) mmol/L Potassium 3.4 L (3.5-5.0) mmol/L Chloride 103 (101-111) mmol/L Carbon Dioxide 25 (21-32) mmol/L Anion Gap 11.0 (6-13) BUN 16 (6-20) mg/dL Creatinine 0.8 (0.6-1.2) mg/dL Estimated GFR (MDRD) 92 (>89) Glucose 95 (70-100) mg/dL POC Whole Bld Glucose (70 - 100) mg/dL Calcium 8.8 (8.5-10.3) mg/dL Phosphorus (2.5-4.6) mg/dL Magnesium 2.5 (1.7-2.8) mg/dL Triglycerides 78 ( - 149) mg/dL Cholesterol 159 ( - 199) mg/dL LDL Cholesterol, Calc 109 ( - 129) mg/dL VLDL Cholesterol 16 mg/dL HDL Cholesterol 34 L (60 - ) mg/dL LDL/HDL Ratio 3.2 (<3.6) Cholesterol/HDL Ratio 4.7 (<5.0) Nasal Screen MRSA (PCR) (NEGATIVE) 03/12/23 Range/Units 19:50 WBC (4.8-10.8) x10^3/uL RBC (4.70-6.10) 10^6/uL Hgb (14.0-18.0) g/dL Hct (42.0-52.0) % MCV (80.0-94.0) fL MCH (27.0-31.0) pg MCHC (32.0-36.0) g/dL RDW (12.0-15.0) % Plt Count (130-450) 10^3/uL MPV (7.4-11.4) fL Neut # (Auto) (1.5-6.6) 10^3/uL Lymph # (Auto) (1.5-3.5) 10^3/uL Stoddard # (Auto) (0.0-1.0) 10^3/uL Eos # (Auto) (0.0-0.7) 10^3/uL Baso # (Auto) (0.0-0.1) 10^3/uL Absolute Nucleated RBC x10^3/uL Nucleated RBC % /100WBC PT (9.9-12.6) secs INR (0.8-1.2) Sodium (135-145) mmol/L Potassium (3.5-5.0) mmol/L Chloride (101-111) mmol/L Carbon Dioxide (21-32) mmol/L Anion Gap (6-13) BUN (6-20) mg/dL Creatinine (0.6-1.2) mg/dL Estimated GFR (MDRD) (>89) Glucose (70-100) mg/dL POC Whole Bld Glucose (70 - 100) mg/dL Calcium (8.5-10.3) mg/dL Phosphorus (2.5-4.6) mg/dL Magnesium (1.7-2.8) mg/dL Triglycerides ( - 149) mg/dL Cholesterol ( - 199) mg/dL LDL Cholesterol, Calc ( - 129) mg/dL VLDL Cholesterol mg/dL HDL Cholesterol (60 - ) mg/dL LDL/HDL Ratio (<3.6) Cholesterol/HDL Ratio (<5.0) Nasal Screen MRSA (PCR) NEGATIVE (NEGATIVE) Sepsis Event Note (H) - Evaluation Current Stage of Sepsis: Ruled out Assessment/Plan - Problem List (1) Bradycardia Impression: Pt's HR was sustained in the 30s at admission and he was transferred last shaina from med-surg to ICU and external patches were ordered placed, in case external pacing was needed. Pt is on on a beta-eleonora, and the original pharmacy med list said 25 mg Coreg twice daily but that was not a reconciled med list. I suspect he could likely have had remnants of his B-eleonora in his system, causing that severe bradycardia. Today, the medication list still has to be reconciled by pharmacy. Today his severe bradycardia has improved to HRs of 60 at rest PLAN: Remain in the ICU If he is still on a beta-eleonora, we will stop or lower the dose Continue to monitor closely on telemetry. Await Echo result (2) Cerebrovascular accident (CVA) Conclusion/Plan: MRI revealed acute left thalamic infarction. Pt had significant neurological deficit in his speech yesterday. Today he does not sound as dysarthric as yesterday His coagulation labs include a therapeutic range INR of 3.0, due to warfarin use. Since the stroke was not expected with a good INR, we are not sure what caused the stroke and the Echo to evaluate for PFO is still pending. His fasting lipid panel showed an LDL of 105. He was started on Lipitor 40 mg nightly with a target LDL for him is <70. PLAN: Pt is currently on warfarin, and will continue to be managed with anticoag therapy. Follow INR daily. Target INR is 2-3. Since the CVA is not from subtherap[eutic INR in a pt with Afib, will assess for a PFO. Will eval carotids, if not yet imaged. He tolerated a pureed diet,after successful swallow evaluation. We will advance his diet today. He will be seen by PT and OT today. Await for the evaluation to determine if he will need a SNF for rehab We will order a speech therapy evaluation as well, regarding speech and regarding swalowing. Qualifiers: CVA mechanism: other Qualified Code(s): I63.89 - Other cerebral infarction (3) Uncontrolled hypertension Conclusion/Plan: Pt's bp was running 170-180. We were allowing the first 1 to 2 days with permissive hypertension during an acute CVA PLAN: We will restart his BP meds tomorrow and once his medication list is reconciled by pharmacy (4) DM type 2 on Insulin Plan: Continue diabetic diet, fingerstick checks, sliding scale insulin and hypoglycemia protocol Await A1c level (5) CALEB on CPAP Conclusion/Plan: Pt's O2 saturations have been stable, currently on 96 on RA. PLAN: Cont his home CPAP here. O2 will be monitored.
[2023-03-13] MEDS: POTASSIUM CHLORIDE 20 MEQ TABLET PO SCH ×2 (17:52→20:49)
[2023-03-13 18:21] LABS: ESTIMATED AVERAGE GLUCOSE 123 mg/dL (70-100); HEMOGLOBIN A1c% 5.9 % (4.27-6.07)
--- NOTE | 2023-03-13 18:52 | PHARMACY PROGRESS NOTE ---
- Best Possible Medication History Admit Date and Time: 03/12/23 1707 Processed by: Pharmacy Medication History completed: Yes Patient Interview: Pt unable to participate (SPOKE WITH GEOVANY WHO WAS GETTING ON A FLIGHT. TIME WAS LIMITED BUT SHE KNEW THE MEDS VERY WELL, VERBALIZING MED NAMES AND DOSES SUCCINCTLY.) Secondary Source(s): Other family member (SPOKE WITH GEOVANY WHO KNEW PT'S MEDS VERY WELL. SHE WAS GETTING ON A FLIGHT SO TIME WAS LIMITTED BUT SHE VERBALIZED MEDS AND DOSES SUCCINTLY.), Insurance records As the person ultimately responsible for medication therapy, providers are able to order a medication from an existing home medication list in [facility] via the "Reconcile Routine" prior to Confirmation of that medication by technician support engineer. Such practice is discouraged except when the physician, in their clinical judgment, deems that a medical need exists for a medication without regard to previous use.
[2023-03-13] MEDS: ATORVASTATIN 40 MG TABLET PO SCH (20:49)
[2023-03-14 05:08] LABS: INR 2.5 (0.8-1.2); PT - PROTHROMBIN TIME 26.2 secs (9.9-12.6)
[2023-03-14] MEDS: SODIUM CHLORIDE FLUSH 0.9% 10 ML SYRINGE IVP SCH ×4 (06:15→20:46)
[2023-03-14] MEDS ORDERED: ZINC OXIDE 20% OINT 30 GM TUBE TOP ONE (07:06)
[2023-03-14] MEDS: ZINC OXIDE 20% OINT 30 GM TUBE TOP PRN (07:08)
[2023-03-14] MEDS: INSULIN LISPRO 300 UNIT/3 ML PEN SUBQ SCH ×3 (08:41→17:37)
[2023-03-14] MEDS: FUROSEMIDE 40 MG TABLET PO SCH (08:41)
[2023-03-14 09:32] LABS: CALCIUM, IONIZED 1.13 mmol/L (1.15-1.33); VBG PH 7.417 (7.31-7.41)
[2023-03-14] MEDS: NEUTRA-PHOS 250 MG TABLET PO SCH ×2 (13:00→16:15)
[2023-03-14] MEDS: FINASTERIDE 5 MG TABLET PO SCH (13:00)
[2023-03-14] MEDS: WARFARIN 5 MG TABLET PO SCH (13:00)
--- NOTE | 2023-03-14 18:15 | PROVIDER PROGRESS NOTE ---
Subjective - Subjective Pt reports feeling: Improved Objective - Vital Signs/Intake & Output Reviewed Vital Signs: Yes Vital Signs: Vital Signs Temp Pulse Resp BP Pulse Ox 03/14/23 17:35 36.6 C 40 L 18 143/58 H 95 03/14/23 15:14 43 L 12 156/62 H 97 03/14/23 14:00 50 L 11 L 98 Intake & Output: Intake & Output 03/11/23 03/12/23 03/13/23 03/14/23 23:59 23:59 23:59 23:59 Intake Total 100 2370 1640 Output Total 0 575 125 Balance 100 1795 1515 - Objective General Appearance: positive: No acute distress Eyes Bilateral: positive: Normal inspection, No lid inflammation ENT: positive: No signs of dehydration Neck: positive: Nml inspection Respiratory: positive: No respiratory distress Cardiovascular: positive: Regular rate & rhythm, No murmur Abdomen: positive: Non-tender, Other (Obese) Skin: positive: Warm, Dry Extremities: positive: Non-tender, No pedal edema Neurologic/Psychiatric: positive: Oriented x3, Motor nml, Other (Poor memory) - Lab Results Fish Bones: 03/13/23 04:53 03/14/23 09:20 Other Labs: Lab Results x24hrs 03/14/23 03/14/23 03/14/23 Range/Units 17:06 11:38 09:20 PT (9.9-12.6) secs INR (0.8-1.2) VBG pH 7.417 H (7.31-7.41) Ionized Calcium 1.13 L (1.15-1.33) mmol/L Potassium (3.5-5.0) mmol/L POC Whole Bld Glucose 114 H 128 H (70 - 100) mg/dL Estimat Average Glucose (70-100) mg/dL Hemoglobin A1c % (4.27-6.07) % Phosphorus (2.5-4.6) mg/dL Magnesium (1.7-2.8) mg/dL 03/14/23 03/14/23 03/14/23 Range/Units 09:20 09:20 07:28 PT (9.9-12.6) secs INR (0.8-1.2) VBG pH (7.31-7.41) Ionized Calcium (1.15-1.33) mmol/L Potassium 3.6 (3.5-5.0) mmol/L POC Whole Bld Glucose 104 H (70 - 100) mg/dL Estimat Average Glucose (70-100) mg/dL Hemoglobin A1c % (4.27-6.07) % Phosphorus 2.0 L (2.5-4.6) mg/dL Magnesium 2.0 (1.7-2.8) mg/dL 03/14/23 03/13/23 03/13/23 Range/Units 04:20 20:23 11:50 PT 26.2 H (9.9-12.6) secs INR 2.5 H (0.8-1.2) VBG pH (7.31-7.41) Ionized Calcium (1.15-1.33) mmol/L Potassium (3.5-5.0) mmol/L POC Whole Bld Glucose 123 H (70 - 100) mg/dL Estimat Average Glucose 123 H (70-100) mg/dL Hemoglobin A1c % 5.9 (4.27-6.07) % Phosphorus (2.5-4.6) mg/dL Magnesium (1.7-2.8) mg/dL Sepsis Event Note (H) - Evaluation Current Stage of Sepsis: Ruled out Assessment/Plan - Problem List (1) Bradycardia Impression: Pt's HR was sustained in the 30s at admission and he was transferred from med- surg to ICU and external patches were ordered placed, in case external pacing was needed. Pt was on on a beta-eleonora at home, and the original pharmacy med list said 25 mg Coreg twice daily but that was not a reconciled med list. Today we learned from pharmacy reconciled list that he was on Coreg 3.125 mg bid. He likely had effects of his B-eleonora in his system at admission, causing that severe bradycardia. Since he has been off al HR-slwoing meds, HR is now mostly at 45-60 at rest. The Echo was done and showed normal LV systolic function. Today I spoke to his son Cholo by phone and updated him on his father's entire case. When we discussed his heart rate I said I suspect that somebody has decreased his Coreg dose from 25 twice daily down to this small 3.125 twice daily dose. The son recommended that I speak to the patient's ex- Tammy who would know details about this. The son also provided me with contact in formation to the patient's reflexologist: [facility] [phone]. I told the son that if the pt's heart rate is still excessively low, the patient would need a permanent pacemaker implant and I would be reaching out to his [facility] team. PLAN: OK to stop external pacing patches OK to transfer out of the ICU Remain off all HR slowing meds. No Coreg will be resumed. I have written a miscellaneous nursing order that if heart rate sustains under 45 bpm, for more than 45 minutes, to call the provider including the night telemedicine doctor for further orders Continue to monitor closely on telemetry. (2) Cerebrovascular accident (CVA) Conclusion/Plan: MRI revealed acute left thalamic infarction. 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 I suspect that possibly his marked bradycardia in addition to a stenotic area of the vertebral circulation, caused the ischemic stroke in this patient. Pt had significant neurological deficit in his speech yesterday early in the day which improved. The son told me that yesterday the patient tried reading and had to close 1 eye in order to focus on the letters. His nurse describes that today the patient is able to read better His coagulation labs include a therapeutic range INR of 3.0, due to warfarin use (for a mechanical AVR). Echo to evaluate for PFO showed no intracardiac clot and no PFO His fasting lipid panel showed an LDL of 105. He was started on Lipitor 40 mg nightly with a target LDL for him is <70. PLAN: Pt is currently on warfarin, and will continue to be managed with anticoag therapy. Follow INR daily. Target INR is 2.5-3.5 (This target was also confirmed in my phone call with his son today) Await Speech Therapy for speech rehab Continue with PT and OT today. Their evaluation does recommend a SNF for rehab Will request additional vision evaluation by OT (see #6) Qualifiers: CVA mechanism: other Qualified Code(s): I63.89 - Other cerebral infarction (3) Hypertension Conclusion/Plan: We were allowing the first 1 to 2 days with permissive hypertension during an acute CVA PLAN: We will restart his BP meds, avoiding all heart rate-slowing meds (4) DM type 2 on Insulin Plan: Continue diabetic diet, fingerstick checks, sliding scale insulin and hypoglycemia protocol Await A1c level (5) CALEB on CPAP Conclusion/Plan: Pt's O2 saturations have been stable, currently on 96 on RA. PLAN: Cont his home CPAP here. O2 will be monitored. (6) Poor memory In speaking to the patient yesterday he could not remember the name of his reflexologist, what year or hospital he got his mechanical aortic valve replaced in. I confirmed that the patient is forgetful, when I spoke to the son on the phone today. Recently the patient tried to eat a sandwich wrapped in Saran wrap by putting his fork through the Saran wrap but eating the whole thing with wrap. As I described this to the son, he thought that possibly the patient did not see the Saran wrap, which may not be confusion, but because this stroke affected his vision. Plan: RecommendAwait lesions for rehab from PT and OT
[2023-03-14] MEDS: ATORVASTATIN 40 MG TABLET PO SCH (20:45)
[2023-03-15] MEDS: INSULIN LISPRO 300 UNIT/3 ML PEN SUBQ SCH ×5 (00:56→21:34)
[2023-03-15 05:01] LABS: INR 2.4 (0.8-1.2); PT - PROTHROMBIN TIME 25.1 secs (9.9-12.6)
[2023-03-15 05:08] LABS: PHOSPHORUS 3.2 mg/dL (2.5-4.6); POTASSIUM 3.8 mmol/L (3.5-5.0)
[2023-03-15] MEDS: PANTOPRAZOLE 40 MG TABLET PO SCH (06:41)
[2023-03-15] MEDS: THIAMINE 100 MG TABLET PO SCH (08:38)
[2023-03-15] MEDS: FUROSEMIDE 40 MG TABLET PO SCH (08:38)
[2023-03-15] MEDS: FINASTERIDE 5 MG TABLET PO SCH (08:38)
[2023-03-15] MEDS: CHOLECALCIFEROL 25 MCG TABLET PO SCH (08:38)
[2023-03-15] MEDS: MULTIVITAMIN W/MINERALS TABLET PO SCH (08:39)
[2023-03-15] MEDS: SODIUM CHLORIDE FLUSH 0.9% 10 ML SYRINGE IVP SCH ×3 (08:39→20:40)
[2023-03-15] MEDS: ZINC OXIDE 20% OINT 30 GM TUBE TOP PRN (11:36)
[2023-03-15] MEDS: WARFARIN 5 MG TABLET PO SCH (14:27)
--- NOTE | 2023-03-15 16:03 | PROVIDER PROGRESS NOTE ---
Assessment/Plan - Problem List (1) Cerebrovascular accident (CVA) Qualifiers: CVA mechanism: other Qualified Code(s): I63.89 - Other cerebral infarction Assessment/Plan: MRI revealed acute left thalamic infarction. 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 I suspect that possibly his marked bradycardia in addition to a stenotic area of the vertebral circulation, caused the ischemic stroke in this patient. Pt had significant neurological deficit in his speech yesterday early in the day which improved. The son told me that yesterday the patient tried reading and had to close 1 eye in order to focus on the letters. His nurse describes that today the patient is able to read better His coagulation labs include a therapeutic range INR of 3.0, due to warfarin use (for a mechanical AVR). Echo to evaluate for PFO showed no intracardiac clot and no PFO His fasting lipid panel showed an LDL of 105. 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 Today I spoke to his ex- Tammy (her name was changed to Lorenza because she had a stalker), who knows this patient's history better than the son. We discussed his poor memory and abn speech (Word finding difficulty) and continued vision problems. Recommendations are to go to a SNF and this is what the son (the DPOA), and and Tammy want PLAN: Pt is currently on warfarin, and will continue to be managed with anticoag therapy. Follow INR daily. Target INR is 2.5-3.5 Await Speech Therapy for speech rehab Continue with PT and OT. Their evaluation does recommend a SNF for rehab (2) Bradycardia Pt's HR was sustained in the 30s at admission and he was transferred from med- surg to ICU and external patches were ordered placed, in case external pacing was needed. Pt was on on a beta-eleonora at home, and the original pharmacy med list said 25 mg Coreg twice daily but that was not a reconciled med list. Today we learned from pharmacy reconciled list that he was on Coreg 3.125 mg bid. He likely had effects of his B-eleonora in his system at admission, causing that severe bradycardia. Since he has been off al HR-slwoing meds, HR is now mostly at 45-60 at rest. The Echo was done and showed normal LV systolic function. On 03/14 I spoke to his son Cholo by phone and updated him on his father's entire case. When we discussed his heart rate I said I suspect that somebody has decreased his Coreg dose from 25 twice daily down to this small 3.125 twice daily dose. The son recommended that I speak to the patient's ex- Tammy who would know details about this. The son also provided me with contact i nformation to the patient's business office associate: [facility] [phone]. I told the son that if the pt's heart rate is still excessively low, the patient would need a permanent pacemaker implant and I would be reaching out to his [facility] team. Today 03/15, I spoke to the ex- Tammy and updated her about his slow A-fib. She corrected the information from the son; the pt no longer goes to [facility]. He now goes to see either Dr. Mccracken or Dr. Nathan Box at [facility] here at , and their Cardiology number at [facility] is [phone] PLAN: Remain off all HR slowing meds. No Coreg will be resumed. I have written a miscellaneous nursing order that if heart rate sustains under 45 bpm, for more than 45 minutes, to call the provider including the night telemedicine doctor for further orders Continue to monitor closely on telemetry. (3) Hypertension Conclusion/Plan: We allowed the first 2 days with permissive hypertension during an acute CVA PLAN: Cont his other BP meds, avoiding all heart rate-slowing meds (4) DM type 2 on Insulin His A1c level came back at 5.9, indicating excellent control. He told me that all his meals are Meals on Wheels, at home Plan: Continue diabetic diet, fingerstick checks, sliding scale insulin and hypoglycemia protocol (5) CALEB on CPAP Conclusion/Plan: Pt's O2 saturations have been stable PLAN: Cont his home CPAP here. O2 will be monitored. (6) Poor memory In speaking to the patient on 03/13 he could not remember the name of his business office associate, or what year or hospital he got his mechanical aortic valve replaced in. I confirmed that the patient is forgetful, when I spoke to the son on the phone yesterday and ex- Tammy today. Thi is likely from a combination of his past alcoholism, prior stroke and this current stroke When I discussed memory problems with the patient today, he tried to make excuses for some of his wrong answers. 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 Plan: PT and OT are both recommending a SNF and this is what the son and ex- want. 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) This makes aspects of his care more difficult - Current Meds Current Meds: Current Medications Generic Name Dose Route Start Last Admin Trade Name Char PRN Reason Stop Dose Admin Atorvastatin Calcium 40 mg 03/13/23 21:00 03/14/23 20:45 Atorvastatin 40 Mg Tablet PO 40 mg QPM THOMAS Administration Cholecalciferol 25 mcg 03/15/23 09:00 03/15/23 08:38 Cholecalciferol 25 Mcg Tablet PO 25 mcg DAILY THOMAS Administration Finasteride 5 mg 03/14/23 12:00 03/15/23 08:38 Finasteride 5 Mg Tablet PO 5 mg DAILY THOMAS Administration Insulin Human Lispro 1 - 5 unit 03/13/23 12:00 03/15/23 11:34 Insulin Lispro 300 Unit/3 Ml Pen SUBQ Not Given 0800,1200,1700,2100 [facility] Protocol Multi-Ingredient Ointment 1 applic 03/14/23 07:04 03/15/23 11:36 Zinc Oxide 20% Oint 30 Gm Tube TOP 1 applic PRN PRN Administration Skin Care Multivitamins/Minerals 1 tab 03/15/23 08:00 03/15/23 08:39 Multivitamin W/Minerals Tablet PO 1 tab DAILYWM THOMAS Administration Pantoprazole Sodium 40 mg 03/15/23 07:00 03/15/23 06:41 Pantoprazole 40 Mg Tablet PO 40 mg QDAC THOMAS Administration Sodium Chloride 10 ml 03/13/23 01:00 03/15/23 08:39 Sodium Chloride Flush 0.9% 10 Ml Syringe IVP 10 ml 0100,0900,1700 [facility] Administration Thiamine HCl 100 mg 03/15/23 09:00 03/15/23 08:38 Thiamine 100 Mg Tablet PO 100 mg DAILY THOMAS Administration Warfarin Sodium 5 mg 03/15/23 12:11 03/15/23 14:27 Warfarin 5 Mg Tablet PO 5 mg [id number]@1400 [facility] Administration - Lab Result Fish Bone Diagrams: 03/13/23 04:53 03/15/23 04:39 - Additional Planning My Orders: My Active Orders 03/15/23 07:00 Pantoprazole [Protonix] 40 mg PO QDAC 03/15/23 08:00 Multivitamin W/Minerals [Theragran M] 1 tab PO DAILYWM 03/15/23 09:00 Cholecalciferol [Vitamin D3] 25 mcg PO DAILY Thiamine [Vitamin B-1] 100 mg PO DAILY 03/15/23 12:11 Warfarin [Coumadin] 5 mg PO [id number]@1400 03/16/23 05:00 PT WITH INR [COAG] DAILYLAB 03/18/23 08:00 Furosemide [Lasix] 40 mg PO MOWEFR 03/20/23 14:00 Warfarin [Coumadin] 2.5 mg PO WE Subjective - Subjective Patient Reports: Feeling Better, Other (Still has some word finding problems, vision has improved but not yet back to its baseline) Objective Vital Signs: Vital Signs - 24 hr 03/14/23 03/14/23 03/14/23 17:35 18:04 19:00 Temperature 36.6 C Heart Rate [ 40 L 44 L 48 L Brachial] Heart Rate [ Monitoring electrodes] Respiratory 18 17 14 Rate Blood Pressure 143/58 H 121/57 L 162/67 H [Left Brachial artery] O2 Saturation 95 95 98 If not protocol 2 : Oxygen Flow, liters/minute 03/14/23 03/14/23 03/15/23 21:00 23:00 01:00 Temperature 36.7 C Heart Rate [ 43 L 40 L 40 L Brachial] Heart Rate [ Monitoring electrodes] Respiratory 22 17 17 Rate Blood Pressure 161/71 H 124/55 L 151/71 H [Left Brachial artery] O2 Saturation 95 97 98 If not protocol 2 2 : Oxygen Flow, liters/minute 03/15/23 03/15/23 03/15/23 03:00 05:00 07:00 Temperature 36.4 C L Heart Rate [ 49 L 48 L 43 L Brachial] Heart Rate [ Monitoring electrodes] Respiratory 17 19 14 Rate Blood Pressure 166/65 H 156/79 H 135/73 H [Left Brachial artery] O2 Saturation 96 100 96 If not protocol 2 2 : Oxygen Flow, liters/minute 03/15/23 03/15/23 03/15/23 08:34 08:59 10:00 Temperature 36.6 C Heart Rate [ 53 L 52 L Brachial] Heart Rate [ 48 L Monitoring electrodes] Respiratory 12 Rate Blood Pressure 142/55 H [Left Brachial artery] O2 Saturation 98 If not protocol : Oxygen Flow, liters/minute 03/15/23 03/15/23 03/15/23 11:27 12:37 13:53 Temperature 37.1 C Heart Rate [ Brachial] Heart Rate [ 51 L 48 L 44 L Monitoring electrodes] Respiratory 13 15 Rate Blood Pressure 89/73 L 127/94 H 140/69 H [Left Brachial artery] O2 Saturation 96 If not protocol : Oxygen Flow, liters/minute 03/15/23 15:00 Temperature Heart Rate [ Brachial] Heart Rate [ 55 L Monitoring electrodes] Respiratory 21 Rate Blood Pressure 140/69 H [Left Brachial artery] O2 Saturation 94 If not protocol : Oxygen Flow, liters/minute Oxygen O2 Source Room air I&O (Last 24 Hrs): Intake and Output Totals x24h 03/13/23 03/14/23 03/15/23 23:59 23:59 23:59 Intake Total 2370 1640 1430 Output Total 575 225 575 Balance 1795 1415 855 General: Alert, Oriented x3 HEENT: Mucous membr. moist/pink Neck: Supple, No JVD Neuro: Alert, Other (Word finding problems,poor memory) Cardiovascular: Regular rate Respiratory: No respiratory distress Abdomen: Soft, Other (Obese with pannus) Extremities: No clubbing, No edema, No tenderness/swelling - Results Results: Laboratory Results WBC 10.3 x10^3/uL (4.8-10.8) 03/13/23 04:53 RBC 5.40 10^6/uL (4.70-6.10) 03/13/23 04:53 Hgb 15.5 g/dL (14.0-18.0) 03/13/23 04:53 Hct 51.8 % (42.0-52.0) 03/13/23 04:53 MCV 95.9 fL (80.0-94.0) H 03/13/23 04:53 MCH 28.7 pg (27.0-31.0) 03/13/23 04:53 MCHC 29.9 g/dL (32.0-36.0) L 03/13/23 04:53 RDW 15.3 % (12.0-15.0) H 03/13/23 04:53 Plt Count 165 10^3/uL (130-450) 03/13/23 04:53 MPV 11.6 fL (7.4-11.4) H 03/13/23 04:53 Neut # (Auto) 7.7 10^3/uL (1.5-6.6) H 03/13/23 04:53 Lymph # (Auto) 1.6 10^3/uL (1.5-3.5) 03/13/23 04:53 [place] # (Auto) 0.7 10^3/uL (0.0-1.0) 03/13/23 04:53 Eos # (Auto) 0.1 10^3/uL (0.0-0.7) 03/13/23 04:53 Baso # (Auto) 0.1 10^3/uL (0.0-0.1) 03/13/23 04:53 Absolute Nucleated RBC 0.00 x10^3/uL 03/13/23 04:53 Nucleated RBC % 0.0 /100WBC 03/13/23 04:53 PT 25.1 secs (9.9-12.6) H 03/15/23 04:39 INR 2.4 (0.8-1.2) H 03/15/23 04:39 APTT 38.4 secs (24.9-33.3) H 03/11/23 23:07 VBG pH 7.417 (7.31-7.41) H 03/14/23 09:20 Ionized Calcium 1.13 mmol/L (1.15-1.33) L 03/14/23 09:20 Sodium 139 mmol/L (135-145) 03/13/23 04:53 Potassium 3.8 mmol/L (3.5-5.0) 03/15/23 04:39 Chloride 103 mmol/L (101-111) 03/13/23 04:53 Carbon Dioxide 25 mmol/L (21-32) 03/13/23 04:53 Anion Gap 11.0 (6-13) 03/13/23 04:53 BUN 16 mg/dL (6-20) 03/13/23 04:53 Creatinine 0.8 mg/dL (0.6-1.2) 03/13/23 04:53 Estimated GFR (MDRD) 92 (>89) 03/13/23 04:53 Glucose 95 mg/dL (70-100) 03/13/23 04:53 POC Whole Bld Glucose 91 mg/dL (70 - 100) 03/15/23 11:33 Estimat Average Glucose 123 mg/dL (70-100) H 03/13/23 11:50 Hemoglobin A1c % 5.9 % (4.27-6.07) 03/13/23 11:50 Lactic Acid 0.7 mmol/L (0.5-2.2) 03/12/23 01:38 Calcium 8.8 mg/dL (8.5-10.3) 03/13/23 04:53 Phosphorus 3.2 mg/dL (2.5-4.6) 03/15/23 04:39 Magnesium 2.0 mg/dL (1.7-2.8) 03/14/23 09:20 Total Bilirubin 0.9 mg/dL (0.2-1.0) 03/11/23 23:07 AST 14 IU/L (10-42) 03/11/23 23:07 ALT 11 IU/L (10-60) 03/11/23 23:07 Alkaline Phosphatase 57 IU/L (42-121) 03/11/23 23:07 Troponin I High Sens 16.5 ng/L (2.3-19.7) 03/11/23 23:07 Total Protein 7.0 g/dL (6.7-8.2) 03/11/23 23:07 Albumin 3.5 g/dL (3.2-5.5) 03/11/23 23:07 Globulin 3.5 g/dL (2.1-4.2) 03/11/23 23:07 Albumin/Globulin Ratio 1.0 (1.0-2.2) 03/11/23 23:07 Triglycerides 78 mg/dL (-149) 03/13/23 04:53 Cholesterol 159 mg/dL (-199) 03/13/23 04:53 LDL Cholesterol, Calc 109 mg/dL (-129) 03/13/23 04:53 VLDL Cholesterol 16 mg/dL 03/13/23 04:53 HDL Cholesterol 34 mg/dL (60-) L 03/13/23 04:53 LDL/HDL Ratio 3.2 (<3.6) 03/13/23 04:53 Cholesterol/HDL Ratio 4.7 (<5.0) 03/13/23 04:53 Lipase 30 U/L (22-51) 03/11/23 23:07 TSH 1.94 uIU/mL (0.34-5.60) 03/11/23 23:07 Urine Color YELLOW 03/11/23 23:11 Urine Clarity CLOUDY (CLEAR) 03/11/23 23:11 Urine pH 7.0 PH (5.0-7.5) 03/11/23 23:11 Ur Specific [place] 1.020 (1.002-1.030) 03/11/23 23:11 Urine Protein 30 mg/dL (NEGATIVE) H 03/11/23 23:11 Urine Glucose (UA) NEGATIVE mg/dL (NEGATIVE) 03/11/23 23:11 Urine Ketones NEGATIVE mg/dL (NEGATIVE) 03/11/23 23:11 Urine Occult Blood LARGE (NEGATIVE) H 03/11/23 23:11 Urine Nitrite POSITIVE (NEGATIVE) H 03/11/23 23:11 Urine Bilirubin NEGATIVE (NEGATIVE) 03/11/23 23:11 Urine Urobilinogen 0.2 (NORMAL) E.U./dL (NORMAL) 03/11/23 23:11 Ur Leukocyte Esterase LARGE (NEGATIVE) H 03/11/23 23:11 Urine RBC TNTC /HPF (0-5) H 03/11/23 23:11 Urine WBC >25 /HPF (0-3) H 03/11/23 23:11 Ur Squamous Epith Cells FEW Squamous (<= Few) 03/11/23 23:11 Urine Bacteria Many /HPF (None Seen) H 03/11/23 23:11 Ur Microscopic Review INDICATED 03/11/23 23:11 Urine Culture Comments INDICATED 03/11/23 23:11 Nasal Screen MRSA (PCR) NEGATIVE (NEGATIVE) 03/12/23 19:50 Urine Opiates Screen NEGATIVE (NEGATIVE) 03/11/23 23:11 Ur Oxycodone Screen NEGATIVE (NEGATIVE) 03/11/23 23:11 Urine Methadone Screen NEGATIVE (NEGATIVE) 03/11/23 23:11 Ur Propoxyphene Screen NEGATIVE (NEGATIVE) 03/11/23 23:11 Ur Barbiturates Screen NEGATIVE (NEGATIVE) 03/11/23 23:11 Ur Tricyclics Screen NEGATIVE (NEGATIVE) 03/11/23 23:11 Ur Phencyclidine Scrn NEGATIVE (NEGATIVE) 03/11/23 23:11 Ur Amphetamine Screen NEGATIVE (NEGATIVE) 03/11/23 23:11 U Methamphetamines Scrn NEGATIVE (NEGATIVE) 03/11/23 23:11 U Benzodiazepines Scrn NEGATIVE (NEGATIVE) 03/11/23 23:11 Urine Cocaine Screen NEGATIVE (NEGATIVE) 03/11/23 23:11 U Cannabinoids Screen NEGATIVE (NEGATIVE) 03/11/23 23:11 Ethyl Alcohol < 5.0 mg/dL 03/11/23 23:07 - Procedures Procedures: Procedures INSERTION OF ENDOTRACHEAL AIRWAY INTO TRACHEA, VIA OPENING (01/16/20) INSPECTION OF UPPER INTESTINAL TRACT, ENDO (01/16/20) RESPIRATORY VENTILATION, LESS THAN 24 CONSECUTIVE HOURS (01/16/20) TRANSFUSE NONAUT RED BLOOD CELLS IN PERIPH VEIN, PERC (01/16/20) Sepsis Event Note (H) - Evaluation Current Stage of Sepsis: Ruled out
[2023-03-15] MEDS: ATORVASTATIN 40 MG TABLET PO SCH (20:39)
[2023-03-16 05:38] LABS: INR 2.4 (0.8-1.2); PT - PROTHROMBIN TIME 25.1 secs (9.9-12.6)
[2023-03-16] MEDS: PANTOPRAZOLE 40 MG TABLET PO SCH (06:03)
[2023-03-16] MEDS: INSULIN LISPRO 300 UNIT/3 ML PEN SUBQ SCH ×4 (08:49→20:39)
[2023-03-16] MEDS: polyethylene glycoL 3350 17 GM PACKET PO SCH (08:50)
[2023-03-16] MEDS: MULTIVITAMIN W/MINERALS TABLET PO SCH (08:50)
[2023-03-16] MEDS: CHOLECALCIFEROL 25 MCG TABLET PO SCH (08:50)
[2023-03-16] MEDS: THIAMINE 100 MG TABLET PO SCH (08:50)
[2023-03-16] MEDS: FINASTERIDE 5 MG TABLET PO SCH (08:50)
[2023-03-16] MEDS: SODIUM CHLORIDE FLUSH 0.9% 10 ML SYRINGE IVP SCH ×2 (08:51→15:41)
--- NOTE | 2023-03-16 12:29 | PROVIDER PROGRESS NOTE ---
Assessment/Plan - Problem List (1) Cerebrovascular accident (CVA) Qualifiers: CVA mechanism: other Qualified Code(s): I63.89 - Other cerebral infarction Assessment/Plan: MRI revealed acute left thalamic infarction. 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 I suspect that possibly his marked bradycardia in addition to a stenotic area of the vertebral circulation, caused the ischemic stroke in this patient. Pt had significant neurological deficit in his speech yesterday early in the day which improved. The son told me that yesterday the patient tried reading and had to close 1 eye in order to focus on the letters. His nurse describes that today the patient is able to read better His coagulation labs include a therapeutic range INR of 3.0, due to warfarin use (for a mechanical AVR). Echo to evaluate for PFO showed no intracardiac clot and no PFO His fasting lipid panel showed an LDL of 105. He was started on Lipitor 40 mg nightly with a target LDL for him is <70. 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 I spoke to his ex- Tammy (her name was changed to Lorenza because she had a stalker), who knows this patient's history better than the son. We discussed his poor memory and abn speech (word finding difficulty) and continued vision problems. Recommendations are to go to a SNF and this is what the son (the DPOA), and the ex- Tammy want PLAN: Pt is currently on warfarin, and will continue to be managed with anticoag therapy. Follow INR daily. Target INR is 2.5-3.5 Continue with PT and OT. Their evaluation did recommend a SNF for rehab. The plan is now to go to SNF for rehab. The son and daughter are in agreement with this. We are now waiting for a facility to accept him, as he is medically cleared for [facility]. (2) Bradycardia Pt's HR was sustained in the 30s at admission and he was transferred from med- surg to ICU and external patches were ordered placed, in case external pacing was needed. Pt was on on a beta-eleonora at home, and the original pharmacy med list said 25 mg Coreg twice daily but that was not a reconciled med list. Today we learned from pharmacy reconciled list that he was on Coreg 3.125 mg bid. He likely had effects of his B-eleonora in his system at admission, causing that severe bradycardia. Since he has been off al HR-slwoing meds, HR is now mostly at 45-60 at rest. The Echo was done and showed normal LV systolic function. On 03/14 I spoke to his son Cholo.The son recommended that I speak to the patient's ex- Tammy who would know details about this. The son also provided me with contact information to the patient's hand thermal cutter: [facility] [phone]. I told the son that if the pt's heart rate is still excessively low, the patient would need a permanent pacemaker implant and I would be reaching out to his [facility] team. Today 03/15, I spoke to the ex- Tammy and updated her about his slow A-fib. She corrected the information from the son; the pt no longer goes to [facility]. He now goes to see either Dr. Mccracken or Dr. Nathan Box at [facility] here at , and their Cardiology number at [facility] is [phone] PLAN: Remain off all HR slowing meds. No Coreg will be resumed. I have written a miscellaneous nursing order that if heart rate sustains under 45 bpm, for more than 45 minutes, to call the provider including the night telemedicine doctor for further orders Continue to monitor on telemetry while here. (3) Hypertension Conclusion/Plan: We allowed the first 2 days with permissive hypertension during an acute CVA PLAN: Cont his other BP meds, avoiding all heart rate-slowing meds (4) DM type 2 on Insulin His A1c level came back at 5.9, indicating excellent control. He told me that all his meals are Meals on Wheels, at home Plan: Continue diabetic diet, fingerstick checks, sliding scale insulin and hypoglycemia protocol (5) CALEB on CPAP Conclusion/Plan: Pt's O2 saturations have been stable PLAN: Cont his home CPAP here. (6) Poor memory In speaking to the patient on 03/13 he could not remember the name of his hand thermal cutter, or what year or hospital he got his mechanical aortic valve replaced in. I confirmed that the patient is forgetful, when I spoke to the son on the phone yesterday and ex- Tammy today. Thi is likely from a combination of his past alcoholism, prior stroke and this current stroke When I discussed memory problems with the patient today, he tried to make excuses for some of his wrong answers. 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 Plan: PT and OT are both recommending a SNF and this is what the son and ex- want. 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) This makes aspects of his care more difficult - Current Meds Current Meds: Current Medications Generic Name Dose Route Start Last Admin Trade Name Freq PRN Reason Stop Dose Admin Atorvastatin Calcium 40 mg 03/13/23 21:00 03/15/23 20:39 Atorvastatin 40 Mg Tablet PO 40 mg QPM THOMAS Administration Cholecalciferol 25 mcg 03/15/23 09:00 03/16/23 08:50 Cholecalciferol 25 Mcg Tablet PO 25 mcg DAILY THOMAS Administration Finasteride 5 mg 03/14/23 12:00 03/16/23 08:50 Finasteride 5 Mg Tablet PO 5 mg DAILY THOMAS Administration Insulin Human Lispro 1 - 5 unit 03/13/23 12:00 03/16/23 08:49 Insulin Lispro 300 Unit/3 Ml Pen SUBQ Not Given 0800,1200,1700,2100 [facility] Protocol Multi-Ingredient Ointment 1 applic 03/14/23 07:04 03/15/23 11:36 Zinc Oxide 20% Oint 30 Gm Tube TOP 1 applic PRN PRN Administration Skin Care Multivitamins/Minerals 1 tab 03/15/23 08:00 03/16/23 08:50 Multivitamin W/Minerals Tablet PO 1 tab DAILYWM THOMAS Administration Pantoprazole Sodium 40 mg 03/15/23 07:00 03/16/23 06:03 Pantoprazole 40 Mg Tablet PO 40 mg QDAC THOMAS Administration Polyethylene Glycol 17 gm 03/16/23 09:00 03/16/23 08:50 Polyethylene Glycol 3350 17 Gm Packet PO 17 gm DAILY THOMAS Administration Sodium Chloride 10 ml 03/13/23 01:00 03/16/23 08:51 Sodium Chloride Flush 0.9% 10 Ml Syringe IVP 10 ml 0100,0900,1700 THOMAS Administration Thiamine HCl 100 mg 03/15/23 09:00 03/16/23 08:50 Thiamine 100 Mg Tablet PO 100 mg DAILY THOMAS Administration Warfarin Sodium 5 mg 03/15/23 12:11 03/15/23 14:27 Warfarin 5 Mg Tablet PO 5 mg SuMoTuThFrSa@1400 THOMAS Administration - Lab Result Fish Bone Diagrams: 03/13/23 04:53 03/15/23 04:39 - Additional Planning My Orders: My Active Orders 03/15/23 12:11 Warfarin [Coumadin] 5 mg PO SuMoTuThFrSa@1400 03/16/23 00:12 RT [Oxygen Therapy] [RC] .PRN 03/16/23 09:00 polyethylene glycoL 3350 [Miralax] 17 gm PO DAILY 03/18/23 08:00 Furosemide [Lasix] 40 mg PO MOWEFR 03/20/23 14:00 Warfarin [Coumadin] 2.5 mg PO WE Subjective - Subjective Patient Reports: Other (Eyesight is still not back to its usual. He is eager to be discharged and wants to go home.) Objective Vital Signs: Vital Signs - 24 hr 03/15/23 03/15/23 03/15/23 12:37 13:53 15:00 Temperature Heart Rate [ 48 L 44 L 55 L Monitoring electrodes] Respiratory 15 21 Rate Blood Pressure 127/94 H 140/69 H 140/69 H [Left Brachial artery] Blood Pressure [Right Brachial artery] O2 Saturation 94 If not protocol : Oxygen Flow, liters/minute 03/15/23 03/15/23 03/15/23 17:00 18:00 21:00 Temperature 36.9 C 36.5 C Heart Rate [ 46 L 57 L 47 L Monitoring electrodes] Respiratory 13 14 18 Rate Blood Pressure 160/85 H [Left Brachial artery] Blood Pressure 143/70 H [Right Brachial artery] O2 Saturation 97 95 94 If not protocol : Oxygen Flow, liters/minute 03/15/23 03/16/23 03/16/23 23:50 01:00 04:00 Temperature 36.8 C Heart Rate [ 55 L 41 L Monitoring electrodes] Respiratory 16 16 Rate Blood Pressure [Left Brachial artery] Blood Pressure 138/71 H 152/60 H [Right Brachial artery] O2 Saturation 96 96 If not protocol 2 2 2 : Oxygen Flow, liters/minute 03/16/23 09:00 Temperature 36.7 C Heart Rate [ 57 L Monitoring electrodes] Respiratory 16 Rate Blood Pressure [Left Brachial artery] Blood Pressure 165/49 H [Right Brachial artery] O2 Saturation 99 If not protocol : Oxygen Flow, liters/minute Oxygen O2 Source Room air I&O (Last 24 Hrs): Intake and Output Totals x24h 03/14/23 03/15/23 03/16/23 23:59 23:59 23:59 Intake Total 1640 1910 690 Output Total 225 1025 550 Balance 1415 885 140 General: Alert, No acute distress HEENT: Mucous membr. moist/pink Neck: Supple Neuro: Alert, Other (Eyesight still abnormal, has word finding difficulty, no more garbled speech) Cardiovascular: No murmurs Respiratory: No respiratory distress Abdomen: Soft, Other (Obese with a pannus) Extremities: No clubbing, No edema, Other (Has on BON stockings plus Yinka wrap) - Results Results: Laboratory Results WBC 10.3 x10^3/uL (4.8-10.8) 03/13/23 04:53 RBC 5.40 10^6/uL (4.70-6.10) 03/13/23 04:53 Hgb 15.5 g/dL (14.0-18.0) 03/13/23 04:53 Hct 51.8 % (42.0-52.0) 03/13/23 04:53 MCV 95.9 fL (80.0-94.0) H 03/13/23 04:53 MCH 28.7 pg (27.0-31.0) 03/13/23 04:53 MCHC 29.9 g/dL (32.0-36.0) L 03/13/23 04:53 RDW 15.3 % (12.0-15.0) H 03/13/23 04:53 Plt Count 165 10^3/uL (130-450) 03/13/23 04:53 MPV 11.6 fL (7.4-11.4) H 03/13/23 04:53 Neut # (Auto) 7.7 10^3/uL (1.5-6.6) H 03/13/23 04:53 Lymph # (Auto) 1.6 10^3/uL (1.5-3.5) 03/13/23 04:53 Mower # (Auto) 0.7 10^3/uL (0.0-1.0) 03/13/23 04:53 Eos # (Auto) 0.1 10^3/uL (0.0-0.7) 03/13/23 04:53 Baso # (Auto) 0.1 10^3/uL (0.0-0.1) 03/13/23 04:53 Absolute Nucleated RBC 0.00 x10^3/uL 03/13/23 04:53 Nucleated RBC % 0.0 /100WBC 03/13/23 04:53 PT 25.1 secs (9.9-12.6) H 03/16/23 04:34 INR 2.4 (0.8-1.2) H 03/16/23 04:34 APTT 38.4 secs (24.9-33.3) H 03/11/23 23:07 VBG pH 7.417 (7.31-7.41) H 03/14/23 09:20 Ionized Calcium 1.13 mmol/L (1.15-1.33) L 03/14/23 09:20 Sodium 139 mmol/L (135-145) 03/13/23 04:53 Potassium 3.8 mmol/L (3.5-5.0) 03/15/23 04:39 Chloride 103 mmol/L (101-111) 03/13/23 04:53 Carbon Dioxide 25 mmol/L (21-32) 03/13/23 04:53 Anion Gap 11.0 (6-13) 03/13/23 04:53 BUN 16 mg/dL (6-20) 03/13/23 04:53 Creatinine 0.8 mg/dL (0.6-1.2) 03/13/23 04:53 Estimated GFR (MDRD) 92 (>89) 03/13/23 04:53 Glucose 95 mg/dL (70-100) 03/13/23 04:53 POC Whole Bld Glucose 113 mg/dL (70 - 100) H 03/16/23 11:34 Estimat Average Glucose 123 mg/dL (70-100) H 03/13/23 11:50 Hemoglobin A1c % 5.9 % (4.27-6.07) 03/13/23 11:50 Lactic Acid 0.7 mmol/L (0.5-2.2) 03/12/23 01:38 Calcium 8.8 mg/dL (8.5-10.3) 03/13/23 04:53 Phosphorus 3.2 mg/dL (2.5-4.6) 03/15/23 04:39 Magnesium 2.0 mg/dL (1.7-2.8) 03/14/23 09:20 Total Bilirubin 0.9 mg/dL (0.2-1.0) 03/11/23 23:07 AST 14 IU/L (10-42) 03/11/23 23:07 ALT 11 IU/L (10-60) 03/11/23 23:07 Alkaline Phosphatase 57 IU/L (42-121) 03/11/23 23:07 Troponin I High Sens 16.5 ng/L (2.3-19.7) 03/11/23 23:07 Total Protein 7.0 g/dL (6.7-8.2) 03/11/23 23:07 Albumin 3.5 g/dL (3.2-5.5) 03/11/23 23:07 Globulin 3.5 g/dL (2.1-4.2) 03/11/23 23:07 Albumin/Globulin Ratio 1.0 (1.0-2.2) 03/11/23 23:07 Triglycerides 78 mg/dL (-149) 03/13/23 04:53 Cholesterol 159 mg/dL (-199) 03/13/23 04:53 LDL Cholesterol, Calc 109 mg/dL (-129) 03/13/23 04:53 VLDL Cholesterol 16 mg/dL 03/13/23 04:53 HDL Cholesterol 34 mg/dL (60-) L 03/13/23 04:53 LDL/HDL Ratio 3.2 (<3.6) 03/13/23 04:53 Cholesterol/HDL Ratio 4.7 (<5.0) 03/13/23 04:53 Lipase 30 U/L (22-51) 03/11/23 23:07 TSH 1.94 uIU/mL (0.34-5.60) 03/11/23 23:07 Urine Color YELLOW 03/11/23 23:11 Urine Clarity CLOUDY (CLEAR) 03/11/23 23:11 Urine pH 7.0 PH (5.0-7.5) 03/11/23 23:11 Ur Specific [place] 1.020 (1.002-1.030) 03/11/23 23:11 Urine Protein 30 mg/dL (NEGATIVE) H 03/11/23 23:11 Urine Glucose (UA) NEGATIVE mg/dL (NEGATIVE) 03/11/23 23:11 Urine Ketones NEGATIVE mg/dL (NEGATIVE) 03/11/23 23:11 Urine Occult Blood LARGE (NEGATIVE) H 03/11/23 23:11 Urine Nitrite POSITIVE (NEGATIVE) H 03/11/23 23:11 Urine Bilirubin NEGATIVE (NEGATIVE) 03/11/23 23:11 Urine Urobilinogen 0.2 (NORMAL) E.U./dL (NORMAL) 03/11/23 23:11 Ur Leukocyte Esterase LARGE (NEGATIVE) H 03/11/23 23:11 Urine RBC TNTC /HPF (0-5) H 03/11/23 23:11 Urine WBC >25 /HPF (0-3) H 03/11/23 23:11 Ur Squamous Epith Cells FEW Squamous (<= Few) 03/11/23 23:11 Urine Bacteria Many /HPF (None Seen) H 03/11/23 23:11 Ur Microscopic Review INDICATED 03/11/23 23:11 Urine Culture Comments INDICATED 03/11/23 23:11 Nasal Screen MRSA (PCR) NEGATIVE (NEGATIVE) 03/12/23 19:50 Urine Opiates Screen NEGATIVE (NEGATIVE) 03/11/23 23:11 Ur Oxycodone Screen NEGATIVE (NEGATIVE) 03/11/23 23:11 Urine Methadone Screen NEGATIVE (NEGATIVE) 03/11/23 23:11 Ur Propoxyphene Screen NEGATIVE (NEGATIVE) 03/11/23 23:11 Ur Barbiturates Screen NEGATIVE (NEGATIVE) 03/11/23 23:11 Ur Tricyclics Screen NEGATIVE (NEGATIVE) 03/11/23 23:11 Ur Phencyclidine Scrn NEGATIVE (NEGATIVE) 03/11/23 23:11 Ur Amphetamine Screen NEGATIVE (NEGATIVE) 03/11/23 23:11 U Methamphetamines Scrn NEGATIVE (NEGATIVE) 03/11/23 23:11 U Benzodiazepines Scrn NEGATIVE (NEGATIVE) 03/11/23 23:11 Urine Cocaine Screen NEGATIVE (NEGATIVE) 03/11/23 23:11 U Cannabinoids Screen NEGATIVE (NEGATIVE) 03/11/23 23:11 Ethyl Alcohol < 5.0 mg/dL 03/11/23 23:07 - Procedures Procedures: Procedures INSERTION OF ENDOTRACHEAL AIRWAY INTO TRACHEA, VIA OPENING (01/16/20) INSPECTION OF UPPER INTESTINAL TRACT, ENDO (01/16/20) RESPIRATORY VENTILATION, LESS THAN 24 CONSECUTIVE HOURS (01/16/20) TRANSFUSE NONAUT RED BLOOD CELLS IN PERIPH VEIN, PERC (01/16/20) Sepsis Event Note (H) - Evaluation Current Stage of Sepsis: Ruled out
[2023-03-16] MEDS: WARFARIN 5 MG TABLET PO SCH (13:43)
[2023-03-16] MEDS: ATORVASTATIN 40 MG TABLET PO SCH (20:45)
[2023-03-17] MEDS: SODIUM CHLORIDE FLUSH 0.9% 10 ML SYRINGE IVP SCH ×3 (01:58→15:33)
[2023-03-17] MEDS: PANTOPRAZOLE 40 MG TABLET PO SCH (07:49)
[2023-03-17] MEDS: MULTIVITAMIN W/MINERALS TABLET PO SCH (07:49)
[2023-03-17] MEDS: THIAMINE 100 MG TABLET PO SCH (08:45)
[2023-03-17] MEDS: CHOLECALCIFEROL 25 MCG TABLET PO SCH (08:45)
[2023-03-17] MEDS: FINASTERIDE 5 MG TABLET PO SCH (08:45)
[2023-03-17] MEDS: polyethylene glycoL 3350 17 GM PACKET PO SCH (08:45)
[2023-03-17] MEDS: INSULIN LISPRO 300 UNIT/3 ML PEN SUBQ SCH ×4 (08:46→21:40)
[2023-03-17] MEDS: WARFARIN 5 MG TABLET PO SCH (13:58)
--- NOTE | 2023-03-17 14:29 | PROVIDER PROGRESS NOTE ---
Assessment/Plan - Problem List (1) Cerebrovascular accident (CVA) Assessment/Plan: MRI revealed acute left thalamic infarction. 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 I suspect that possibly his marked bradycardia caused hypoperfusion, in addition to having a stenotic area of the vertebral circulation, and these caused the ischemic stroke in this patient. Pt had significant neurological deficit in his speech on presentation which has improved to word-finding difficulty. The son told me that the patient tried reading and has to close 1 eye in order to focus on the letters. 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 He needs further vision eval and management (PT and OT Rehab and an vascular sonographer). His coagulation labs include a good, therapeutic range INR of 3.0, from warfarin use for his mechanical AVR. Echo to evaluate for PFO showed no intracardiac clot and no PFO His fasting lipid panel showed an LDL of 105. He was started on Lipitor 40 mg nightly with a target LDL for him is <70. I spoke to his ex- Tamym (her name was changed to Lorenza because she had a stalker), who knows this patient's history better than the son. We discussed his poor memory and word finding difficulty and continued vision problems. Recommendations are to go to a SNF and this is what the son (the DPDAVID), and the ex- Tammy want PLAN: Pt is currently on warfarin, and will continue to be managed with anticoag t herapy. Follow INR daily. Target INR is 2.5-3.5 Continue with PT and OT. The plan is now to go to SNF for rehab. The son and ex- are in agreement with this. We are now waiting for a [facility] facility to accept him, since he is medically cleared for DC. The son would like him in [place], where the son lives. (2) Atrial fibrillation with slow ventricular response Assessment/Plan: Pt's HR was sustained in the 30s at admission and he was transferred from med- surg to ICU and external patches were ordered placed, in case external pacing was needed. Pt was on on a beta-eleonora at home, and the original pharmacy med list said Coreg 25 mg twice daily, but that was not a reconciled med list. Then we learned from a pharmacy-reconciled list that he was on Coreg 3.125 mg bid. He likely had effects of his B-eleonora in his system at admission, causing that severe bradycardia. I did not restart Coreg, and his HR is now mostly at 45-60 at rest. The Echo was done and showed normal LV systolic function. On 03/14 I spoke to his son Cholo, the DPOA. The son recommended that I speak to the patient's ex- Tammy who would know details about his heart. On 03/15, I spoke to the ex- Tammy and updated her about the patient's slow A-fib. The pt no longer goes to [facility]. He now goes to see either Dr. Mccracken or Dr. Nathan Box at [facility] here at , and their Cardiology number at [facility] is [phone]. I told the son and ex- that if, off all HR- slowing meds, the pt's slow heart rate makes him symptomatic, he would need a permanent pacemaker implanted, and then we would be reaching out to Dr Mccracken. PLAN: Remain off all HR slowing meds. No Coreg will be resumed. I have written a miscellaneous nursing order that if heart rate sustains under 45 bpm, for more than 45 minutes, to call the provider including the night telemedicine doctor for further orders Continue to monitor on telemetry while here. (3) Mechanical heart valve present Assessment/Plan: He has a [employer] Yvan mechanical AVR placed in 2001. An Echo was done this admission and shows good prosthetic AVR function. He is on Coumadin and the target INR is 2.5-3.5 (4) Hypertension Conclusion/Plan: We allowed the first 2 days with permissive hypertension during an acute CVA PLAN: Cont his other BP meds, avoiding all heart rate-slowing meds (5) DM type 2 on Insulin Conclusion/Plan: His A1c level came back at 5.9, indicating excellent control. He told me that all his meals are Meals on Wheels, at home Plan: Continue diabetic diet, fingerstick checks, sliding scale insulin and hypoglycemia protocol (6) CALEB on CPAP Conclusion/Plan: Pt's O2 saturations have been stable PLAN: Cont his home CPAP here. (7) Poor memory Conclusion/Plan: I got Hx from ex- Tammy. His poor memory is likely from a combination of his past alcoholism, prior stroke and this current stroke I discussed with the son and ex- that the patient probably has significant cognitive impairment and now also has balance problems, vision problems and speech problems which will require for him to have more caregiving than just 1 day/week, which he has had up until now, plus 4 hours during 1 day of housecleaning help. Plan: PT and OT are both recommending a SNF and this is what the son and ex- want. I encourage them to arrange for more caregiving or different living location, after SNF, and they both agreed. 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) Conclusion/Plan: This makes aspects of his care more difficult - Current Meds Current Meds: Current Medications Generic Name Dose Route Start Last Admin Trade Name Freq PRN Reason Stop Dose Admin Atorvastatin Calcium 40 mg 03/13/23 21:00 03/16/23 20:45 Atorvastatin 40 Mg Tablet PO 40 mg QPM THOMAS Administration Cholecalciferol 25 mcg 03/15/23 09:00 03/17/23 08:45 Cholecalciferol 25 Mcg Tablet PO 25 mcg DAILY THOMAS Administration Finasteride 5 mg 03/14/23 12:00 03/17/23 08:45 Finasteride 5 Mg Tablet PO 5 mg DAILY THOMAS Administration Insulin Human Lispro 1 - 5 unit 03/13/23 12:00 03/17/23 11:41 Insulin Lispro 300 Unit/3 Ml Pen SUBQ Not Given 0800,1200,1700,2100 [facility] Protocol Multi-Ingredient Ointment 1 applic 03/14/23 07:04 03/15/23 11:36 Zinc Oxide 20% Oint 30 Gm Tube TOP 1 applic PRN PRN Administration Skin Care Multivitamins/Minerals 1 tab 03/15/23 08:00 03/17/23 07:49 Multivitamin W/Minerals Tablet PO 1 tab DAILYWM THOMAS Administration Ondansetron HCl 4 mg 03/12/23 17:07 03/17/23 01:57 Ondansetron 4 Mg/2 Ml Vial IVP 4 mg Q6HR PRN Administration Nausea / Vomiting Pantoprazole Sodium 40 mg 03/15/23 07:00 03/17/23 07:49 Pantoprazole 40 Mg Tablet PO 40 mg QDAC THOMAS Administration Polyethylene Glycol 17 gm 03/16/23 09:00 03/17/23 08:45 Polyethylene Glycol 3350 17 Gm Packet PO 17 gm DAILY THOMAS Administration Sodium Chloride 10 ml 03/13/23 01:00 03/17/23 08:46 Sodium Chloride Flush 0.9% 10 Ml Syringe IVP 10 ml 0100,0900,1700 THOMAS Administration Thiamine HCl 100 mg 03/15/23 09:00 03/17/23 08:45 Thiamine 100 Mg Tablet PO 100 mg DAILY THOMAS Administration Warfarin Sodium 5 mg 03/15/23 12:11 03/17/23 13:58 Warfarin 5 Mg Tablet PO 5 mg Bubba@1400 THOMAS Administration - Lab Result Fish Bone Diagrams: 03/13/23 04:53 03/15/23 04:39 - Additional Planning My Orders: My Active Orders 03/18/23 08:00 Furosemide [Lasix] 40 mg PO MOWEFR 03/20/23 14:00 Warfarin [Coumadin] 2.5 mg PO WE Subjective - Subjective Patient Reports: Resting Comfortably, Other (Wants to go home) Objective Vital Signs: Vital Signs - 24 hr 03/16/23 03/16/23 03/16/23 15:39 20:05 20:39 Temperature 36.5 C 36.5 C Heart Rate [ Brachial] Heart Rate [ 56 L 43 L 48 L Monitoring electrodes] Respiratory 16 20 Rate Blood Pressure 138/66 H [Left Brachial artery] Blood Pressure 153/69 H 162/59 H [Right Brachial artery] O2 Saturation 98 97 If not protocol : Oxygen Flow, liters/minute 03/16/23 03/16/23 03/17/23 23:00 23:47 04:49 Temperature 36.8 C 36.6 C Heart Rate [ 54 L Brachial] Heart Rate [ 40 L Monitoring electrodes] Respiratory 18 18 Rate Blood Pressure [Left Brachial artery] Blood Pressure 165/68 H 177/66 H [Right Brachial artery] O2 Saturation 100 96 If not protocol 2 2 : Oxygen Flow, liters/minute 03/17/23 03/17/23 06:22 07:50 Temperature 36.6 C Heart Rate [ Brachial] Heart Rate [ 48 L Monitoring electrodes] Respiratory 18 Rate Blood Pressure [Left Brachial artery] Blood Pressure 128/51 L 144/80 H [Right Brachial artery] O2 Saturation 96 If not protocol : Oxygen Flow, liters/minute Oxygen O2 Source Room air I&O (Last 24 Hrs): Intake and Output Totals x24h 03/15/23 03/16/23 03/17/23 23:59 23:59 23:59 Intake Total 1910 1680 1350 Output Total 1025 1050 950 Balance 885 630 400 General: Alert, Oriented x3 HEENT: Mucous membr. moist/pink Neck: Supple Neuro: Alert, Other (visual overton are not equal, has word findi g difficulty, has poor memory) Cardiovascular: No murmurs, Other (Irreg) Respiratory: No respiratory distress Abdomen: Normal bowel sounds, Soft, Other (Obese with pannus) Extremities: No clubbing, No edema, No tenderness/swelling - Results Results: Laboratory Results WBC 10.3 x10^3/uL (4.8-10.8) 03/13/23 04:53 RBC 5.40 10^6/uL (4.70-6.10) 03/13/23 04:53 Hgb 15.5 g/dL (14.0-18.0) 03/13/23 04:53 Hct 51.8 % (42.0-52.0) 03/13/23 04:53 MCV 95.9 fL (80.0-94.0) H 03/13/23 04:53 MCH 28.7 pg (27.0-31.0) 03/13/23 04:53 MCHC 29.9 g/dL (32.0-36.0) L 03/13/23 04:53 RDW 15.3 % (12.0-15.0) H 03/13/23 04:53 Plt Count 165 10^3/uL (130-450) 03/13/23 04:53 MPV 11.6 fL (7.4-11.4) H 03/13/23 04:53 Neut # (Auto) 7.7 10^3/uL (1.5-6.6) H 03/13/23 04:53 Lymph # (Auto) 1.6 10^3/uL (1.5-3.5) 03/13/23 04:53 Harris # (Auto) 0.7 10^3/uL (0.0-1.0) 03/13/23 04:53 Eos # (Auto) 0.1 10^3/uL (0.0-0.7) 03/13/23 04:53 Baso # (Auto) 0.1 10^3/uL (0.0-0.1) 03/13/23 04:53 Absolute Nucleated RBC 0.00 x10^3/uL 03/13/23 04:53 Nucleated RBC % 0.0 /100WBC 03/13/23 04:53 PT 25.1 secs (9.9-12.6) H 03/16/23 04:34 INR 2.4 (0.8-1.2) H 03/16/23 04:34 APTT 38.4 secs (24.9-33.3) H 03/11/23 23:07 VBG pH 7.417 (7.31-7.41) H 03/14/23 09:20 Ionized Calcium 1.13 mmol/L (1.15-1.33) L 03/14/23 09:20 Sodium 139 mmol/L (135-145) 03/13/23 04:53 Potassium 3.8 mmol/L (3.5-5.0) 03/15/23 04:39 Chloride 103 mmol/L (101-111) 03/13/23 04:53 Carbon Dioxide 25 mmol/L (21-32) 03/13/23 04:53 Anion Gap 11.0 (6-13) 03/13/23 04:53 BUN 16 mg/dL (6-20) 03/13/23 04:53 Creatinine 0.8 mg/dL (0.6-1.2) 03/13/23 04:53 Estimated GFR (MDRD) 92 (>89) 03/13/23 04:53 Glucose 95 mg/dL (70-100) 03/13/23 04:53 POC Whole Bld Glucose 136 mg/dL (70 - 100) H 03/17/23 11:30 Estimat Average Glucose 123 mg/dL (70-100) H 03/13/23 11:50 Hemoglobin A1c % 5.9 % (4.27-6.07) 03/13/23 11:50 Lactic Acid 0.7 mmol/L (0.5-2.2) 03/12/23 01:38 Calcium 8.8 mg/dL (8.5-10.3) 03/13/23 04:53 Phosphorus 3.2 mg/dL (2.5-4.6) 03/15/23 04:39 Magnesium 2.0 mg/dL (1.7-2.8) 03/14/23 09:20 Total Bilirubin 0.9 mg/dL (0.2-1.0) 03/11/23 23:07 AST 14 IU/L (10-42) 03/11/23 23:07 ALT 11 IU/L (10-60) 03/11/23 23:07 Alkaline Phosphatase 57 IU/L (42-121) 03/11/23 23:07 Troponin I High Sens 16.5 ng/L (2.3-19.7) 03/11/23 23:07 Total Protein 7.0 g/dL (6.7-8.2) 03/11/23 23:07 Albumin 3.5 g/dL (3.2-5.5) 03/11/23 23:07 Globulin 3.5 g/dL (2.1-4.2) 03/11/23 23:07 Albumin/Globulin Ratio 1.0 (1.0-2.2) 03/11/23 23:07 Triglycerides 78 mg/dL (-149) 03/13/23 04:53 Cholesterol 159 mg/dL (-199) 03/13/23 04:53 LDL Cholesterol, Calc 109 mg/dL (-129) 03/13/23 04:53 VLDL Cholesterol 16 mg/dL 03/13/23 04:53 HDL Cholesterol 34 mg/dL (60-) L 03/13/23 04:53 LDL/HDL Ratio 3.2 (<3.6) 03/13/23 04:53 Cholesterol/HDL Ratio 4.7 (<5.0) 03/13/23 04:53 Lipase 30 U/L (22-51) 03/11/23 23:07 TSH 1.94 uIU/mL (0.34-5.60) 03/11/23 23:07 Urine Color YELLOW 03/11/23 23:11 Urine Clarity CLOUDY (CLEAR) 03/11/23 23:11 Urine pH 7.0 PH (5.0-7.5) 03/11/23 23:11 Ur Specific [place] 1.020 (1.002-1.030) 03/11/23 23:11 Urine Protein 30 mg/dL (NEGATIVE) H 03/11/23 23:11 Urine Glucose (UA) NEGATIVE mg/dL (NEGATIVE) 03/11/23 23:11 Urine Ketones NEGATIVE mg/dL (NEGATIVE) 03/11/23 23:11 Urine Occult Blood LARGE (NEGATIVE) H 03/11/23 23:11 Urine Nitrite POSITIVE (NEGATIVE) H 03/11/23 23:11 Urine Bilirubin NEGATIVE (NEGATIVE) 03/11/23 23:11 Urine Urobilinogen 0.2 (NORMAL) E.U./dL (NORMAL) 03/11/23 23:11 Ur Leukocyte Esterase LARGE (NEGATIVE) H 03/11/23 23:11 Urine RBC TNTC /HPF (0-5) H 03/11/23 23:11 Urine WBC >25 /HPF (0-3) H 03/11/23 23:11 Ur Squamous Epith Cells FEW Squamous (<= Few) 03/11/23 23:11 Urine Bacteria Many /HPF (None Seen) H 03/11/23 23:11 Ur Microscopic Review INDICATED 03/11/23 23:11 Urine Culture Comments INDICATED 03/11/23 23:11 Nasal Screen MRSA (PCR) NEGATIVE (NEGATIVE) 03/12/23 19:50 Urine Opiates Screen NEGATIVE (NEGATIVE) 03/11/23 23:11 Ur Oxycodone Screen NEGATIVE (NEGATIVE) 03/11/23 23:11 Urine Methadone Screen NEGATIVE (NEGATIVE) 03/11/23 23:11 Ur Propoxyphene Screen NEGATIVE (NEGATIVE) 03/11/23 23:11 Ur Barbiturates Screen NEGATIVE (NEGATIVE) 03/11/23 23:11 Ur Tricyclics Screen NEGATIVE (NEGATIVE) 03/11/23 23:11 Ur Phencyclidine Scrn NEGATIVE (NEGATIVE) 03/11/23 23:11 Ur Amphetamine Screen NEGATIVE (NEGATIVE) 03/11/23 23:11 U Methamphetamines Scrn NEGATIVE (NEGATIVE) 03/11/23 23:11 U Benzodiazepines Scrn NEGATIVE (NEGATIVE) 03/11/23 23:11 Urine Cocaine Screen NEGATIVE (NEGATIVE) 03/11/23 23:11 U Cannabinoids Screen NEGATIVE (NEGATIVE) 03/11/23 23:11 Ethyl Alcohol < 5.0 mg/dL 03/11/23 23:07 - Procedures Procedures: Procedures INSERTION OF ENDOTRACHEAL AIRWAY INTO TRACHEA, VIA OPENING (01/16/20) INSPECTION OF UPPER INTESTINAL TRACT, ENDO (01/16/20) RESPIRATORY VENTILATION, LESS THAN 24 CONSECUTIVE HOURS (01/16/20) TRANSFUSE NONAUT RED BLOOD CELLS IN PERIPH VEIN, PERC (01/16/20) Sepsis Event Note (H) - Evaluation Current Stage of Sepsis: Ruled out
[2023-03-17] MEDS: ATORVASTATIN 40 MG TABLET PO SCH (20:57)
[2023-03-18] MEDS: SODIUM CHLORIDE FLUSH 0.9% 10 ML SYRINGE IVP SCH ×3 (01:10→20:37)
[2023-03-18] MEDS: PANTOPRAZOLE 40 MG TABLET PO SCH (06:30)
[2023-03-18] MEDS ORDERED: FUROSEMIDE 40 MG TABLET PO SCH (08:00)
[2023-03-18] MEDS: MULTIVITAMIN W/MINERALS TABLET PO SCH (09:46)
[2023-03-18] MEDS: FINASTERIDE 5 MG TABLET PO SCH (09:46)
[2023-03-18] MEDS: DOCUSATE SODIUM 250 MG CAPSULE PO SCH (09:47)
[2023-03-18] MEDS: THIAMINE 100 MG TABLET PO SCH (09:47)
[2023-03-18] MEDS: INSULIN LISPRO 300 UNIT/3 ML PEN SUBQ SCH ×4 (09:47→20:37)
[2023-03-18] MEDS: CHOLECALCIFEROL 25 MCG TABLET PO SCH (09:47)
[2023-03-18] MEDS: polyethylene glycoL 3350 17 GM PACKET PO SCH (09:47)
[2023-03-18] MEDS ORDERED: WARFARIN 1 MG TABLET PO ONE (11:00)
[2023-03-18] MEDS: WARFARIN 5 MG TABLET PO SCH (15:56)
--- NOTE | 2023-03-18 20:29 | PROVIDER PROGRESS NOTE ---
Progress Note March 18, 2023 8:24 PM Comfortably sitting up in a chair. Cannot figure out how to use his phone and call his Sister Tabitha. He has her name written down in a address book. But he does not have her number in his phone and he is struggling trying to read the book and then use his phone to call. When I ask him if he would like me to add her number to his phone he protest and tells me that he is not a man who can think quickly. He says it dismayed him to think about transferring her number from the address book to the phone address book. He has to think about it before he is going to do that. He also would like me to look at his finger. His fourth right finger has been infected for a few days. It is painful, red, and he would like me to look at it. He does not remember how he hurt it. He thinks that we gave him an infection some help. Otherwise he denies chest pain, shortness of breath. Active Medications Acetaminophen (Acetaminophen 325 Mg Tablet) 650 mg PO Q4HR PRN PRN Reason: Pain 1 to 4, or Fever Atorvastatin Calcium (Atorvastatin 40 Mg Tablet) 40 mg PO QPM [facility] Last Admin: 03/17/23 20:57 Dose: 40 mg Cholecalciferol (Cholecalciferol 25 Mcg Tablet) 25 mcg PO DAILY [facility] Last Admin: 03/18/23 09:47 Dose: 25 mcg Docusate Sodium (Docusate Sodium 250 Mg Capsule) 250 - 500 mg PO DAILY [facility] Last Admin: 03/18/23 09:47 Dose: 250 mg Finasteride (Finasteride 5 Mg Tablet) 5 mg PO DAILY [facility] Last Admin: 03/18/23 09:46 Dose: 5 mg Furosemide (Furosemide 40 Mg Tablet) 40 mg PO MOWEFR [facility] Last Admin: 03/18/23 09:47 Dose: 40 mg Insulin Human Lispro (Insulin Lispro 300 Unit/3 Ml Pen) 1 - 5 unit SUBQ 0800,1200,1700,2100 [facility]; Protocol Last Admin: 03/18/23 17:35 Dose: Not Given Multi-Ingredient Ointment (Zinc Oxide 20% Oint 30 Gm Tube) 1 applic TOP PRN PRN PRN Reason: Skin Care Last Admin: 03/15/23 11:36 Dose: 1 applic Multivitamins/Minerals (Multivitamin W/Minerals Tablet) 1 tab PO DAILYWM [facility] Last Admin: 03/18/23 09:46 Dose: 1 tab Ondansetron HCl (Ondansetron 4 Mg/2 Ml Vial) 4 mg IVP Q6HR PRN PRN Reason: Nausea / Vomiting Last Admin: 03/17/23 01:57 Dose: 4 mg Pantoprazole Sodium (Pantoprazole 40 Mg Tablet) 40 mg PO QDAC [facility] Last Admin: 03/18/23 06:30 Dose: 40 mg Polyethylene Glycol (Polyethylene Glycol 3350 17 Gm Packet) 17 gm PO DAILY [facility] Last Admin: 03/18/23 09:47 Dose: Not Given Sodium Chloride (Sodium Chloride Flush 0.9% 10 Ml Syringe) 10 ml IVP PRN PRN PRN Reason: NEEDED PER PROVIDER ORDERS Sodium Chloride (Sodium Chloride Flush 0.9% 10 Ml Syringe) 10 ml IVP 0100,0900,1700 [facility] Last Admin: 03/18/23 09:48 Dose: 10 ml Thiamine HCl (Thiamine 100 Mg Tablet) 100 mg PO DAILY [facility] Last Admin: 03/18/23 09:47 Dose: 100 mg Warfarin Sodium (Warfarin 5 Mg Tablet) 5 mg PO [id number] [facility] Last Admin: 03/18/23 15:56 Dose: 5 mg Warfarin Sodium (Warfarin 1 Mg Tablet) 3 mg PO [facility] Home Meds: Losartan [Cozaar] 100 mg PO DAILY 11/15/14 Warfarin [Coumadin] 5 mg PO .MONTUETHURFRISATSUN 11/15/14 Finasteride 5 mg PO DAILY 01/15/20 Cholecalciferol (Vitamin D3) [Vitamin D3] 1,000 unit PO DAILY 03/13/23 Digestive 8/L.acidoph/Pectin [Digestive Enzymes Tablet] 1 each PO TIDWM 03/13/23 Furosemide [Lasix] 40 mg PO BID 03/13/23 Multivitamin with Minerals [Multivitamins with Minerals] 1 each PO DAILY Pantoprazole Sodium 20 mg PO DAILY 03/13/23 Potassium Chloride [Micro-K] 10 meq PO DAILY 03/13/23 Warfarin [Coumadin] 2.5 mg PO WE 03/13/23 carvediloL [Coreg] 3.125 mg PO BID 03/13/23 Exam: Temperature 36.5, heart rate is consistently bradycardic. This morning he was in the 50s, this afternoon he is 36 or 39. Blood pressure is 151/79. Respirations are 19. He is 98% on room air. Morbidly obese white male, 128.5 kg, 6 foot tall Dimitry face coloring No facial asymmetry, Speech is slow and methodical and he carefully tries to enunciate words and use his tongue Neck has a thick neck without JVD, I do not hear carotid bruits Diminished breath sounds at the bases but otherwise without crackles rhonchi or wheezing or respiratory distress Very slow ventricular response with what I hear is a regular rate and rhythm but telemetry shows me to be A-fib with bradycardia Abdomen is obese, protuberant, soft, nontender Legs have trace edema Neurologically he is easily overwhelmed by thought process, but no focal deficits, no facial asymmetry Glucose today has been 123, 105, 104. He has eaten 100% of breakfast lunch and dinner. Assessment/Plan - Problem List (1) Left thalamic stroke Assessment/Plan: MRI revealed acute left thalamic infarction. 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 We suspect that possibly his marked bradycardia caused hypoperfusion, in addition to having a stenotic area of the vertebral circulation, and these caused the ischemic stroke in this patient. And he continues to have bradycardia. Pt had significant neurological deficit in his speech on presentation which has improved to word-finding difficulty. The son told me that the patient tried reading and has to close 1 eye in order to focus on the letters. 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 He needs further vision eval and management (PT and OT Rehab and an reception interviewer). Initial INR on March 11 was 3.0. Since that time his INR has been 2.4 for the last 2 days from warfarin use for his mechanical AVR. Echo to evaluate for PFO showed no intracardiac clot and no PFO His fasting lipid panel showed an LDL of 105. He was started on Lipitor 40 mg nightly with a target LDL for him is <70. I spoke to his ex- Tammy (her name was changed to Lorenza because she had a stalker), who knows this patient's history better than the son. We discussed his poor memory and word finding difficulty and continued vision problems. Recommendations are to go to a SNF and this is what the son (the DPDAVID), and the ex- Tammy want PLAN: Pt is currently on warfarin, and will continue to be managed with anticoag therapy. Follow INR daily. Target INR is 2.5-3.5 . See treatment below. Continue with PT and OT. We have not had any physical therapy since last week. That will resume tomorrow. The plan is now to go to SNF for rehab. The son and ex- are in agreement with this. We are now waiting for a [place]-approved facility to accept him, since he is medically cleared for DC. The son would like him in [place], where the son lives. [place] is awaiting further PT notes. Hopefully that will happen tomorrow. (2) Atrial fibrillation with slow ventricular response Assessment/Plan: Pt's HR was sustained in the 30s at admission and he was transferred from med- surg to ICU and external patches were ordered placed, in case external pacing was needed. Pt was on on a beta-eleonora at home, and the original pharmacy med list said Coreg 25 mg twice daily, but that was not a reconciled med list. Then we learned from a pharmacy-reconciled list that he was on Coreg 3.125 mg bid. He likely had effects of his B-eleonora in his system at admission, causing that severe bradycardia. The previous hospitalist did not restart Coreg, and his HR is now mostly at 45-60 at rest.Today, however, he is in the 30s.Blood pressure is good with this. The Echo was done and showed normal LV systolic function. The pt no longer goes to [facility]. He now goes to see either Dr. Mccracken or Dr. Nathan Box at [facility] here at , and their Cardiology number at [facility] is [phone]. He has been off Coreg now for several days. In spite of being off of beta-eleonora, he continues to be bradycardic. He does not have hypotension with this. His only manifestation is his neurological deficits. I do not know if this would make him a candidate for an permanent pacemaker. PLAN: Remain off all HR slowing meds. No Coreg will be resumed. I have written a miscellaneous nursing order that if heart rate sustains under 45 bpm, for more than 45 minutes, to call the provider including the night telemedicine doctor for further orders Continue to monitor on telemetry while here. I will discuss with cardiology tomorrow. She will be in the [facility] clinic then (3) Mechanical heart valve present Assessment/Plan: He has a [employer] Yvan mechanical AVR placed in 2001. An Echo was done this admission and shows good prosthetic AVR function. He is on Coumadin and the target INR is 2.5-3.5. His INR has been 2.4. He is current Coumadin dose is 5 mg a day except for Wednesdays when he is 2.5 mg. I will simply increase the Saturday Coumadin to 3 mg. And will give 1 extra milligram of Coumadin today. (4) Hypertension Conclusion/Plan: We allowed the first 2 days with permissive hypertension during an acute CVA PLAN: Cont his other BP meds, avoiding all heart rate-slowing meds (5) DM type 2 on Insulin Conclusion/Plan: His A1c level came back at 5.9, indicating excellent control. He told me that all his meals are Meals on Wheels, at home Plan: Continue diabetic diet, fingerstick checks, sliding scale insulin and hypoglycemia protocol (6) CALEB on CPAP Conclusion/Plan: Pt's O2 saturations have been stable PLAN: Cont his home CPAP here. (7) Poor memory Conclusion/Plan: Previous hospitalist obtained history from ex- Tammy. His poor memory is likely from a combination of his past alcoholism, prior stroke and this current stroke Hospitalist discussed with the son and ex- that the patient probably has significant cognitive impairment and now also has balance problems, vision problems and speech problems which will require for him to have more caregiving than just 1 day/week, which he has had up until now, plus 4 hours during 1 day of housecleaning help. Plan: PT and OT are both recommending a SNF and this is what the son and ex- want. I encourage them to arrange for more caregiving or different living location, after SNF, and they both agreed. We are awaiting further physical therapy evaluation, with those notes to be submitted to [place] tomorrow. [place] will then give us an idea of where he will go 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) Conclusion/Plan: This makes aspects of his care more difficult
[2023-03-18] MEDS: ATORVASTATIN 40 MG TABLET PO SCH (20:36)
[2023-03-19] MEDS: SODIUM CHLORIDE FLUSH 0.9% 10 ML SYRINGE IVP SCH ×2 (02:25→09:05)
[2023-03-19] MEDS: PANTOPRAZOLE 40 MG TABLET PO SCH (06:14)
[2023-03-19] MEDS: INSULIN LISPRO 300 UNIT/3 ML PEN SUBQ SCH ×2 (09:02→12:15)
[2023-03-19] MEDS: DOCUSATE SODIUM 250 MG CAPSULE PO SCH (09:04)
[2023-03-19] MEDS: THIAMINE 100 MG TABLET PO SCH (09:05)
[2023-03-19] MEDS: MULTIVITAMIN W/MINERALS TABLET PO SCH (09:05)
[2023-03-19] MEDS: FINASTERIDE 5 MG TABLET PO SCH (09:05)
[2023-03-19] MEDS: polyethylene glycoL 3350 17 GM PACKET PO SCH (09:05)
[2023-03-19] MEDS: CHOLECALCIFEROL 25 MCG TABLET PO SCH (09:05)
--- NOTE | 2023-03-19 11:27 | Discharge Plan ---
Discharge Plan for SNF / [facility] - Discharge Plan And Transition Orders Problem Reviewed?: Yes Disposition: 03 SNF DC/Xfer Condition: Good Allergies and Adverse Reactions: Allergies Allergy/AdvReac Type Severity Reaction Status Date / Time No Known Drug Allergies Allergy Verified 12/25/21 07:31 Health Concerns: Mr. Mark is an 82 yo morbidly obese male presenting due to vision problem. Verbal history was obtained through son, Osvaldo, who is pt's POA, because pt was asleep during this visit. The son states that the pt called 911 on 03/11 when "he couldn't uncross his eyes." He was brought to the ED by ambulance who noted dysarthria. Stroke-like symptoms prompted CT of head and neck, which were inconclusive. A brain MRI revealed a thalamic infarct. tPA was contraindicated due to the pt being on warfarin, and having an INR of 3.0. The son also states the pt did not sleep much in the ED last night, likely why he is very tired at this time. Mr. Mark has a significant past medical history of the following. In the early 1999s, he had an aortic valve replacement. He was then started on prophylactic warfarin that he still takes currently. In 2012 Mr. Mark had a stroke which caused word-finding difficulties. In 2019, pt was admitted to this facility's ICU for alcohol withdrawal. During this admission, he suffered a hypoxic brain injury. He was not able to maintain his airway and was intubated and placed in a coma. Mr. Mark also contracted Covid at this time. Per the son, Mr. Mark has been working on his speech, and has improved over the last 2-3 years. He is also a type 2 diabetic and has hypertension. His baseline mentation includes orientation to date, time, and place. Plan of Treatment: He had significant speech deficit on presentation and that improved by discharge to word finding difficulty. He also gets easily flustered if he is to process more than 1 thing at a time and he has to process it very slowly. 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 He needs further vision evaluation and management with digital project coordinator or dock supervisor. Echo shows no intracardiac clot and no PFO. Lipitor was added to his drug regimen. INR was monitored during his stay. We needed to change his Coumadin dose in a small way. He takes 5 mg a day except Wednesdays and takes 2.5 mg on Wednesdays. INR was 2.4 with this. As such his Coumadin was changed from 2.5 mg on Wednesdays to 3 mg on Wednesdays. Another problem identified it was possible sick sinus syndrome. He is bradycardic on his Coreg so Coreg was discontinued. Even with Coreg discontinued, his heart rate will sometimes drop into the 30s. Blood pressure was well maintained. When his heart rate was 36, his blood pressure was 151/79. We would recommend that he be evaluated for possible pacemaker if he becomes symptomatic with bradycardia. We also recommend that his Coreg or any other rate lowering drug not be used in this gentleman. A1c was done to evaluate his diabetes. A1c was 5.9%. During his stay he did not require any medication and was only on a diabetic diet. He does have obstructive sleep apnea and uses a CPAP. He states that his right fourth finger has bothered him since admission. On examination he has a superficial cellulitis. Keflex was started at discharge. On admission he was on a diuretic, beta-eleonora, and ARB drug. Beta-eleonora has been discontinued. And his diuretic is gone from daily to 3 times a week. We found that he was getting intravascularly depleted and dehydrated with daily diuretic. Care Goals: To return to his baseline status with mild cognitive deficits, but ability to fl uidly express himself, and complete his activities of daily living. He will return to his own home where he lives with his son Assessment: Patient is alert, oriented to the fact that he is in a facility, but not aware of the date or the time. Oriented to self. He understands that [facility]. - SNF / HALF-WAY Transition Orders Admit to (Facility): [facility] Under the care of (Name): Anamika Diego Discharge Diagnosis: 1. Left thalamic stroke 2. Cognitive deficit 3. Chronic atrial fibrillation with slow ventricular response (may have sick sinus syndrome and need pacer) 4. Bradycardia 5. [place] mechanical aortic valve replacement 6. Hypertension 7. Type 2 diabetes mellitus, without complications, on long-term insulin, controlled 8. Obstructive sleep apnea on CPAP 9. Morbid obesity 10. Cellulitis right fourth finger Medicare Certification Statement: I certify that [facility] is medically necessary on a continuing basis for any of the conditions for which she/he is receiving care during hospitalization. Notify PCP of admission and forward orders to primary provider for signature. Weight on admission and: Weekly Other Notification Orders: Call PCP immediately if patient develops dyspnea, chest pain/tightness or edema. Additional Bowel Program Orders: If no BM after 2 days, nurse may give M.O.M. 30ml PO PRN and/or ducolax Supp 1 IN and/or LACEY 250mg P.O., and/or senna 1-2 tabs PO. On day 3 nurse may give repeat above order until residents constipation is resolved. Medication Orders: PLEASE REFER TO THE DISCHARGE MEDICATION LIST. - Medications New Prescriptions: Warfarin [Coumadin] 3 mg PO Q7D #1 tablet cephALEXin [Keflex] 250 mg PO Q6H #28 - Diet Type: No added sugar Texture: Regular Liquids: Thin May have monthly special meal: Yes - Therapies | Activity Therapy: Evaluation | Treat if indicated: Speech, PT, OT Rehabilitation Potential: Return to independent living Activity: Activity as Tolerated Weight Bearing: Full Weight Assistance Devices: Walker
[2023-03-19 12:56] VITALS: BP 146/57
--- NOTE | 2023-03-19 18:40 | DISCHARGE SUMMARY ---
Discharge Summary Admit Date: 03/12/23 Discharge Date: 03/19/23 Discharging Provider: Julianna Baltazar MD Primary Care Provider: Anamika Diego Code Status: Attempt Resuscitation Condition at Discharge: Good Discharge Disposition: SNF DC/Xfer - DIAGNOSES Discharge Diagnoses with Status of Each Condition: 1. Left thalamic stroke 2. Cognitive deficit 3. Chronic atrial fibrillation with slow ventricular response (may have sick sinus syndrome and need pacer) 4. Bradycardia 5. [place] mechanical aortic valve replacement 6. Hypertension 7. Type 2 diabetes mellitus, without complications, on long-term insulin, controlled 8. Obstructive sleep apnea on CPAP 9. Morbid obesity 10. Cellulitis right fourth finger - HPI History of Present Illness: Mr. Mark is an 82 yo morbidly obese male presenting due to vision problem. Verbal history was obtained through son, Osvaldo, who is pt's POA, because pt was asleep during this visit. The son states that the pt called 911 on 03/11 when "he couldn't uncross his eyes." He was brought to the ED by ambulance who noted dysarthria. Stroke-like symptoms prompted CT of head and neck, which were inconclusive. A brain MRI revealed a thalamic infarct. tPA was contraindicated due to the pt being on warfarin, and having an INR of 3.0. The son also states the pt did not sleep much in the ED last night, likely why he is very tired at this time. Mr. Mark has a significant past medical history of the following. In the early 1999s, he had an aortic valve replacement. He was then started on prophylactic warfarin that he still takes currently. In 2012 Mr. Mark had a stroke which caused word-finding difficulties. In 2019, pt was admitted to this facility's ICU for alcohol withdrawal. During this admission, he suffered a hypoxic brain injury. He was not able to maintain his airway and was intubated and placed in a coma. Mr. Mark also contracted Covid at this time. Per the son, Mr. Mark has been working on his speech, and has improved over the last 2-3 years. He is also a type 2 diabetic and gas hypertension. His baseline mentation includes orientation to date, time, and place. - Past Medical History Cardiovascular: reports: Hypertension Neuro: reports: TIA Endocrine/Autoimmune: reports: Type 2 diabetes Psych: reports: Depression MRSA Hx?: No - Past Surgical History Cardiovascular: reports: Valve replacement (bioprosthetic aortic valve replacement 2002) - CONSULTS | PROCEDURES Procedures: 1. Head CT with limited study due to motion and streak artifact. No definite intracranial hemorrhage. 2. Neck and head CT angiogram nondiagnostic evaluation of head and neck due to nonopacification. No intracranial hemorrhage seen. As such a repeat head and neck CT angiogram was done the next day and he has a short segment partial luminal filling defect within the proximal P1 segment of the left posterior cerebral artery. This may represent an incomplete segmental occlusion of the proximal P1 posterior cerebral artery. 3. MRI shows a small left thalamic infarct that is acute. 4. Echocardiogram had normal LV size and systolic function. Ejection fraction 55 to 60%. Dilated RV and normal systolic function. No significant valvular pathology. No PFO. - HOSPITAL COURSE Hospital Course: Patient has significant neurologic deficit in his speech when he was admitted. It is improved to word finding difficulty. He was already on Coumadin for his history of atrial fibrillation. Coumadin was adjusted to achieve a target INR of between 2.5 and 3.5. He was noted to have a very slow ventricular response with his atrial fibrillation. At times his pulse went into the 30s. Carvedilol had been stopped and he was not receiving any rate lowering drugs. After several days he still had occasional drops into the 30s with a blood pressure th at was well-maintained with this. It is felt that he may have had hypoperfusion with his bradycardia and combined with the small amount of stenosis that was seen on his angiogram, that caused the stroke. If he continues to have bradycardia and it becomes symptomatic he may be a candidate for a pacemaker. He already had poor memory from his past history of alcoholism, prior stroke and this current stroke definitely made it worse. He found simple tasks such as using the phone very frustrating. He was continued on his home CPAP mask for his CALEB here. His diabetes was controlled with sliding scale insulin but he never needed any insulin before meals. Permissive hypertension was allowed the first 2 days and then his Lasix was continued. However it was changed to Saturday.Lipitor was added.His Coumadin was changed. He was on 5 mg every day except Wednesdays. And he took 2.5 mg on Wednesdays. When INR was not elevated enough, his Coumadin was changed to 3 mg on Wednesdays. At discharge INR is 2.4. He was given an extra 2 mg before discharge to the care home facility. He should have his INR checked regularly. He was medically clear for several days prior to discharge. However his insurance company needed to get authorization for which care home facility he was to be discharged to. We finally received authorization and he was discharged to [facility]. Discharged exam had a temperature of 36.5. Heart rate of 48. Blood pressure 1 46/57. Respirations 18. 98% on room air. He is a morbidly obese male at 128.5 kg. 6 foot tall. Pleasant, cooperative. Word finding difficulties present. But no facial asymmetry. Neck was supple. Lungs have diminished breath sounds at the bases but were otherwise clear. No respiratory distress. A very slow regular rate and rhythm that I really could not hear as irregular unless I saw it on telemetry. Protuberant, protuberant obese belly with normal bowel sounds. Nontender. Last bowel movement was March 14. Extremities had trace edema around his ankles. He is occasionally incontinent of urine with urgency. He is hard of hearing, skin has ecchymosis from blood draws and IVs. Right fourth finger is red on top with areas were blistering started to recur. He does not know where the finger was infected. But it was present on admission. I told him to keep it clean and dry but wash it every day. And he was started on Keflex before discharge. Cellulitis did not extend beyond the finger. Greater than 30 minutes was spent coordinating discharge This document was made in part using voice recognition software. While efforts are made to proofread this document, sound alike and grammatical errors may occur. - ALLERGIES Allergies/Adverse Reactions: Allergies Allergy/AdvReac Type Severity Reaction Status Date / Time No Known Drug Allergies Allergy Verified 12/25/21 07:31 - MEDICATIONS Home Medications: Ambulatory Orders Medication Instructions Recorded Confirmed Losartan [Cozaar] 100 mg PO DAILY 11/15/14 03/13/23 Finasteride 5 mg PO DAILY 01/15/20 03/13/23 Digestive 8/L.acidoph/Pectin 1 each PO TIDWM 03/13/23 03/13/23 [Digestive Enzymes Tablet] Furosemide [Lasix] 40 mg PO BID 03/13/23 03/13/23 Potassium Chloride [Micro-K] 10 meq PO DAILY 03/13/23 03/13/23 Acetaminophen [Tylenol] 650 mg PO Q4HR PRN tab 03/19/23 Atorvastatin [Lipitor] 40 mg PO QPM tab 03/19/23 Cholecalciferol (Vitamin D3) 1,000 unit PO DAILY #0 03/19/23 03/13/23 [Vitamin D3] Furosemide [Lasix] 40 mg PO MOWEFR tab 03/19/23 Multivitamin with Minerals 1 each PO DAILY #0 03/19/23 03/13/23 [Multivitamins with Minerals] Pantoprazole Sodium 20 mg PO DAILY #0 03/19/23 03/13/23 Thiamine [Vitamin B-1] 100 mg PO DAILY #10 03/19/23 03/13/23 Warfarin [Coumadin] 3 mg PO Q7D #1 tablet 03/19/23 Warfarin [Coumadin] 5 mg PO .MONTUETHURFRISATSUN #1 03/19/23 03/13/23 cephALEXin [Keflex] 250 mg PO Q6H #28 03/19/23 - LABS Result Diagrams: 03/13/23 04:53 03/15/23 04:39 - SEPSIS Current Stage of Sepsis: Ruled out
[2023-03-20] MEDS ORDERED: WARFARIN 1 MG TABLET PO SCH (10:29)
[2023-03-20] MEDS ORDERED: WARFARIN 2.5 MG TABLET PO SCH (14:00)
== END 2023-03-19 14:05 | DRG 65 ==
LOC: EDUNIT# → ED 22:43 → MS2 03-12 17:07 → ICU 03-12 19:34 → MS2 03-16 15:57
PROVIDERS: ADMIT Internal Medicine; ATTEND Specialist
DX: I63.9 Cerebral infarction, unspecified (principal); I63.212 Cerebral infarction due to unspecified occlusion or stenosis of left vertebral artery; R47.81 Slurred speech; R47.01 Aphasia; H53.9 Unspecified visual disturbance; I48.20 Chronic atrial fibrillation, unspecified; N39.0 Urinary tract infection, site not specified; R47.1 Dysarthria and anarthria; H53.8 Other visual disturbances; E66.9 Obesity, unspecified; R29.706 NIHSS score 6; R41.89 Other symptoms and signs involving cognitive functions and awareness; I49.5 Sick sinus syndrome; I10 Essential (primary) hypertension; E11.9 Type 2 diabetes mellitus without complications; G47.33 Obstructive sleep apnea (adult) (pediatric); E66.01 Morbid (severe) obesity due to excess calories; L03.011 Cellulitis of right finger; F32.A Depression, unspecified; Z68.38 Body mass index [BMI] 38.0-38.9, adult; Z79.01 Long term (current) use of anticoagulants; Z79.4 Long term (current) use of insulin; Z79.899 Other long term (current) drug therapy; Z95.2 Presence of prosthetic heart valve
CPT/HCPCS: 36415; 70450; 70496; 70498; 70551; 71045; 80048; 80053; 80061; 80306; 81001; 82330; 83036; 83605; 83690; 83735; 84100; 84132; 84443; 84484; 85025; 85610; 85730; 87086; 87150; 93005; 93306; 96365; 97110; 97116; 97163; 97167; 97530; 97535; 99285; A9270; G0480; Q9967; 80320; 81003; 83721

== ENCOUNTER 2023-11-28 13:10 | Outpatient (CLI) | payer MEDICARE ==
[2023-11-28 20:08] LABS: BASOPHILS % (AUTO) 0.4 %; EOSINOPHILS # (AUTO) 0.1 10^3/uL (0.0-0.7); EOSINOPHILS % (AUTO) 0.9 %; HCT - HEMATOCRIT 43.1 % (42.0-52.0); HGB - HEMOGLOBIN 13.2 g/dL (14.0-18.0); LYMPHOCYTES # (AUTO) 1.5 10^3/uL (1.5-3.5); LYMPHOCYTES % (AUTO) 19.9 %; MEAN CORPUSCULAR HEMOGLOBIN 29.2 pg (27.0-31.0); MEAN CORPUSCULAR HGB CONC 30.6 g/dL (32.0-36.0); MEAN CORPUSCULAR VOLUME 95.4 fL (80.0-94.0); MEAN PLATELET VOLUME 11.7 fL (7.4-11.4); MONOCYTES # (AUTO) 0.5 10^3/uL (0.0-1.0); MONOCYTES % (AUTO) 6.9 %; NEUTROPHILS # (AUTO) 5.5 10^3/uL (1.5-6.6); NEUTROPHILS % (AUTO) 71.6 %; PLT - PLATELET COUNT 188 10^3/uL (130-450); RED BLOOD COUNT 4.52 10^6/uL (4.70-6.10); RED CELL DISTRIBUTION WIDTH 15.6 % (12.0-15.0); WHITE BLOOD COUNT 7.6 x10^3/uL (4.8-10.8)
[2023-11-28 20:13] LABS: INR 2.9 (0.8-1.2); PT - PROTHROMBIN TIME 29.6 secs (9.9-12.6)
[2023-11-28 20:23] LABS: CALCIUM 9.5 mg/dL (8.5-10.3); CREATININE 0.8 mg/dL (0.6-1.3); POTASSIUM 3.9 mmol/L (3.5-4.5)
== END 2023-11-28 13:11 | disposition home or self-care (01) ==
LOC: LAB.S 13:10
PROVIDERS: ATTEND Internal Medicine
DX: R00.1 Bradycardia, unspecified (principal)
CPT/HCPCS: 36415; 80048; 85025; 85610

== ENCOUNTER 2025-01-02 15:48 | Inpatient (IN) ==
--- NOTE | 2025-01-02 16:18 | ED Physician Documentation ---
History of Present Illness Stated complaint Stated Complaint: GLF Chief complaint Chief Complaint: Trauma Hd/Nk History obtained from History obtained from: Patient and EMS Additonal information Additional information: Patient is a 84-year-old male who reportedly tried to go to the bathroom at around midnight. He tripped, fell and was wedged between the door and the vanity in the bathroom. He takes warfarin for A-fib. Unknown last tetanus shot. States that he has an abrasion to the right side of the neck, abrasions to the knee and slight abrasion to the abdomen. No fevers. No chills. History of aortic valve replacement. EMS estimates the patient was on the ground for approximately 14 to 15 hours. Patient states he has generalized aches and pains, he is very hard of hearing. No specific pain. Review of Systems Constitutional Denies: Fever or Chills Ears, nose, mouth, and throat Denies: Neck pain Cardiovascular Denies: chest pain Respiratory Denies: Cough Gastrointestinal Denies: Abdominal pain or Vomiting Musculoskeletal Denies: Back pain or Neck pain Meds/Allgy Home Medications Ambulatory Orders Medication Instructions Recorded Confirmed losartan 50 mg tablet 100 mg PO DAILY 11/15/14 11/25/24 finasteride 5 mg tablet 5 mg PO DAILY 01/15/20 11/25/24 digestive no.8-L.acidophilus 50 1 ea PO TIDWM 03/13/23 11/25/24 million cell-pectin 100 mg tablet (Digestive Enzyme (acidophilus, pectin, bromelain)) potassium chloride 10 mEq 10 meq PO DAILY 03/13/23 11/25/24 capsule,extended release acetaminophen 325 mg tablet 650 mg (2 x 325 mg) PO Q4HR PRN 03/19/23 11/25/24 Pain 1 to 4, or Fever atorvastatin 40 mg tablet 40 mg PO QPM for stroke 03/19/23 11/25/24 cholecalciferol (vitamin D3) 25 1,000 unit PO DAILY low vitamin D 03/19/23 11/25/24 mcg (1,000 unit) capsule ##0 furosemide 40 mg tablet 40 mg PO MOWEFR chronic chf 03/19/23 11/25/24 multivitamin with minerals (Daily 1 ea PO DAILY diet supplement ##0 03/19/23 11/25/24 Multivitamin-Minerals tablet) pantoprazole 20 mg tablet,delayed 20 mg PO DAILY gerd ##0 03/19/23 11/25/24 release thiamine mononitrate (vit B1) 100 100 mg PO DAILY diet supplement 03/19/23 11/25/24 mg tablet (Vitamin B-1 ##10 (mononitrate)) warfarin 1 mg tablet 3 mg (3 x 1 mg) PO Q7D aovr #1 tab 03/19/23 11/25/24 warfarin 5 mg tablet (Jantoven) 5 mg PO .ENOZ AoVR 03/19/23 11/25/24 ##1 hydralazine 25 mg tablet 25 mg PO BID 10/12/24 11/25/24 hydrocodone 5 mg-acetaminophen 325 1 tab PO Q4H PRN Pain #10 tabs 10/12/24 11/25/24 mg tablet Allergies Allergies Allergy/AdvReac Type Severity Reaction Status Date / Time No Known Drug Allergies Allergy Verified 01/02/25 15:57 PFSH Active Problems All Active Problems (Updated 01/02/25 @ 19:29 by Oneil Funk MD) Acute urinary retention (Acute) Rhabdomyolysis (Acute) Alcoholism (Acute) Phimosis (Acute) Mechanical heart valve present (Acute) Atrial fibrillation with slow ventricular response (Acute) Type 2 diabetes mellitus (Acute) Bradycardia (Acute) UTI (urinary tract infection) (Acute) Uncontrolled hypertension (Acute) Anticoagulant long-term use (Acute) Cerebrovascular accident (CVA) (Acute) Chronic ulcer of lower extremity (Acute) Venous insufficiency (Acute) Non-pressure chronic ulcer left lower leg, limited to breakdown skin (Acute) Chronic venous hypertension with ulcer (Acute) Alcohol-induced persisting dementia (Acute) Weakness acquired in ICU (Acute) Anasarca (Acute) CALEB on CPAP (Acute) Morbid obesity (Acute) Hypokalemia (Acute) Altered mental status (Acute) Acute tracheitis with airway obstruction (Acute) Paraphimosis (Acute) Upper GI bleed (Acute) Hypernatremia (Acute) Shortness of breath (Acute) Alcohol withdrawal (Acute) Atrial fibrillation (Acute) Acute blood loss anemia (Acute) At risk for unsafe behavior (Acute) Type 2 diabetes mellitus with complication, without long-term current use of insulin (Acute) HTN (hypertension) (Acute) Alcohol abuse (Acute) Aortic valve prosthesis present (Acute) Supratherapeutic INR (Acute) Over-anticoagulated (Acute) Hematemesis (Acute) Peripheral edema (Acute) Cellulitis (Acute) Tinea pedis (Acute) Urinary tract infectious disease (Acute) Medical History Medical History (Updated 01/02/25 @ 19:29 by Oneil Funk MD) Leukocytosis Pacemaker Surgical History Surgical History (Updated 01/02/25 @ 19:29 by Oneil Funk MD) Heart valve replaced Social History Social History Smoking Status: Never smoker If you are a former smoker, when did you quit? (Date/Year): n/a Number of Years Smoked: 0 How many cigarettes a day do you smoke? (20 cigarettes=1 Pk): 0 Do you dip or chew tobacco?: No Patient requests smoking cessation consult: No Initiate information on smoking cessation: No Living arrangement: At home Living Condition: Alone Relationship: Home Mobility Equipment: Wheeled walker and Wheelchair Do you feel safe in your home environment?: Yes Suffered physical, verbal, emotional, or financial abuse?: No History of Abuse: No Frequency: Occasional POLST Patient has POLST: No Exam Constitutional no apparent distress HENMT normocephalic and TMs normal bilaterally Bruising and mild swelling to the left side of the face. Eyes PERRL and EOMs intact bilaterally Neck/C-Spine visual inspection normal, trachea midline, cervical spine nontender and cervical full ROM noted No tenderness to palpation or percussion. No step-off or deformity. Chest inspection of chest normal and palpation of chest normal Respiratory breath sounds equal bilaterally, normal respiratory effort and clear to auscultation bilaterally Cardiovascular normal heart rate noted and regular rhythm noted Gastrointestinal abdomen normal to inspection, abdomen soft to palpation, nontender to palpation, nontender to percussion and nondistended Genitourinary no CVA tenderness Back/Pelvis spine normal to inspection, no thoracic spine tenderness and no lumbar spine tenderness No tenderness to palpation or percussion. No step-off or deformity over the thoracolumbar spine Extremities normal to inspection, no tenderness, full ROM and no deformity Neurology gauger chief delivery II-XII intact and GCS 15 Psychiatry mental status grossly normal and oriented x3 Skin skin color normal Image Patient with multiple abrasions, some are over the right side of the neck. Others over the bilateral knees and 1 over the upper abdomen. Results Vitals Vitals: Vital Signs - 24 hr 01/02/25 15:52 01/02/25 15:57 01/02/25 16:15 Temperature 36.6 C Temperature Source Oral Pulse Rate 78 74 83 Respiratory Rate 20 16 20 Blood Pressure 162/82 H 193/99 H 163/100 H O2 Saturation 93 92 92 O2 Source Room air Room air Room air Pain Intensity 8 2 01/02/25 16:45 01/02/25 17:00 01/02/25 18:00 Temperature Temperature Source Pulse Rate 71 77 77 Respiratory Rate 20 19 20 Blood Pressure 189/83 H 188/76 H 172/91 H O2 Saturation 98 93 94 O2 Source Room air Room air Room air Pain Intensity 2 Oxygen O2 Source Room air EKG (time done) 1552: EKG releavant findings:: EKG personally interpreted by author of this note. Relevant findings are: Rate: Other (78 bpm. Ventricular paced) Labs Labs: Laboratory Tests 01/02/25 01/02/25 16:21 18:15 WBC 19.7 H RBC 5.39 Hgb 15.7 Hct 49.4 MCV 91.7 MCH 29.1 MCHC 31.8 L RDW 14.7 Plt Count 186 MPV 10.7 Neut # (Auto) 18.2 H Lymph # (Auto) 0.4 L Clark # (Auto) 0.9 Eos # (Auto) 0.0 Baso # (Auto) 0.0 Absolute Nucleated RBC 0.00 Nucleated RBC % 0.0 PT 58.8 H INR 6.1 H* Sodium 141 Potassium 3.6 Chloride 106 Carbon Dioxide 21 Anion Gap 14.0 H BUN 15 Creatinine 0.6 Estimated GFR (MDRD) 128 Glucose 129 H Calcium 9.3 Total Bilirubin 1.3 H AST 67 H ALT 26 Alkaline Phosphatase 69 Total Creatine Kinase 3471 H* Troponin I High Sens 64.4 H* Total Protein 7.6 Albumin 4.3 Globulin 3.3 Albumin/Globulin Ratio 1.3 Lipase < 10 L Urine Color YELLOW Urine Clarity CLEAR Urine pH 5.5 Ur Specific [place] 1.025 Urine Protein 100 H Urine Glucose (UA) NEGATIVE Urine Ketones 15 H Urine Occult Blood LARGE H Urine Nitrite NEGATIVE Urine Bilirubin NEGATIVE Urine Urobilinogen 0.2 (NORMAL) Ur Leukocyte Esterase NEGATIVE Urine RBC 6-10 H Urine WBC 0-3 Ur Squamous Epith Cells FEW Squamous Urine Bacteria Rare Urine Casts 0-2 Hyaline Casts Urine Culture Comments NOT INDICATED Ethyl Alcohol < 10.0 Rads (name of study) CT head, maxillofacial CT, cervical spine CT, chest CT and abdomen/pelvis CT : Relevant Findings:: Final report received PD Medical Decision Making ED course Complexity details: reviewed results, re-evaluated patient, considered different ial and d/w patient ED course: CT head, maxillofacial CT, cervical spine CT, chest CT and abdomen/pelvis CT did not show any acute abnormalities. INR is significantly elevated at 6.1. Patient is in rhabdomyolysis with a CK greater than 3000. Mild troponin elevation, no chest pain or shortness of breath. EKG is paced. No evidence of acute coronary syndrome. Likely elevation secondary to the physiological stress of the fall and subsequent entrapment. Likely will place on IV fluids. Has urinary retention and a catheter was placed. Discussed the case with the hospitalist who accepts. This document was made in part using voice recognition software. While efforts are made to proofread this document, sound alike and grammatical errors may occur. Discharge Plan Discharge Patient Disposition: 66 [facility] DC/Xfer Condition: Stable Clinical Impression: Supratherapeutic INR, Aortic valve prosthesis present Rhabdomyolysis Qualifiers: Rhabdomyolysis type: traumatic Encounter type: initial encounter Qualified Code(s): T79.6XXA - Traumatic ischemia of muscle, initial encounter Interventions: ED Admission Assessment Last Done: 01/02/25 18:45
[2025-01-02 16:26] LABS: BASOPHILS % (AUTO) 0.1 %; HCT - HEMATOCRIT 49.4 % (42.0-52.0); HGB - HEMOGLOBIN 15.7 g/dL (14.0-18.0); LYMPHOCYTES # (AUTO) 0.4 10^3/uL (1.5-3.5); LYMPHOCYTES % (AUTO) 2.2 %; MEAN CORPUSCULAR HEMOGLOBIN 29.1 pg (27.0-31.0); MEAN CORPUSCULAR HGB CONC 31.8 g/dL (32.0-36.0); MEAN CORPUSCULAR VOLUME 91.7 fL (80.0-94.0); MEAN PLATELET VOLUME 10.7 fL (7.4-11.4); MONOCYTES # (AUTO) 0.9 10^3/uL (0.0-1.0); MONOCYTES % (AUTO) 4.7 %; NEUTROPHILS # (AUTO) 18.2 10^3/uL (1.5-6.6); NEUTROPHILS % (AUTO) 92.5 %; PLT - PLATELET COUNT 186 10^3/uL (130-450); RED BLOOD COUNT 5.39 10^6/uL (4.70-6.10); RED CELL DISTRIBUTION WIDTH 14.7 % (12.0-15.0); WHITE BLOOD COUNT 19.7 x10^3/uL (4.8-10.8)
[2025-01-02 16:44] LABS: ALBUMIN 4.3 g/dL (3.2-5.5); ALBUMIN/GLOBULIN RATIO 1.3 (1.0-2.2); ALKALINE PHOSPHATASE 69 IU/L (42-121); ALT ALANINE AMINOTRANSFERASE 26 IU/L (10-60); AST ASPARTATE AMINOTRANSFERASE 67 IU/L (10-42); BILIRUBIN,TOTAL 1.3 mg/dL (0.2-1.0); BUN - BLOOD UREA NITROGEN 15 mg/dL (6-20); CALCIUM 9.3 mg/dL (8.5-10.3); CARBON DIOXIDE - CO2 21 mmol/L (21-32); CHLORIDE 106 mmol/L (101-111); CREATININE 0.6 mg/dL (0.6-1.3); GFR - MDRD 128 (>89); GLUCOSE 129 mg/dL (74-104); POTASSIUM 3.6 mmol/L (3.5-4.5); SODIUM 141 mmol/L (135-145); TOTAL PROTEIN 7.6 g/dL (6.4-8.9)
[2025-01-02 16:54] LABS: TROPONIN I HIGH SENSITIVITY 64.4 ng/L (2.3-19.7)
[2025-01-02 16:55] LABS: LIPASE < 10 U/L (11-82)
[2025-01-02 16:58] LABS: CK- CREATINE KINASE 3471 IU/L (30-223)
[2025-01-02 17:08] LABS: PT - PROTHROMBIN TIME 58.8 secs (9.9-12.6)
[2025-01-02 17:10] LABS: INR 6.1 (0.8-1.2)
--- NOTE | 2025-01-02 17:25 | CT Report ---
PROCEDURE: CT Head WO INDICATIONS: fall TECHNIQUE: Noncontrast 4.5 mm thick angled axial sections acquired from the foramen magnum to the vertex. For r adiation dose reduction, the following was used: automated exposure control, adjustment of mA and/or kV according to patient size. COMPARISON: None. FINDINGS: Image quality: Excellent. Evaluation of the posterior fossa is limited by metallic artifact. CSF spaces: Basal cisterns are patent. No extra-axial fluid collections. Ventricles are normal in size and shape. Brain: No midline shift. No intracranial masses or hemorrhage. Flanagan-white matter interface is norm al. Skull and face: Calvarium and visualized facial bones are intact, without suspicious lesions. Sinuses: Visualized sinuses and mastoids are clear. IMPRESSION: No acute intracranial pathology. Reviewed by: Dee Guevara MD on 01/02/2025 4:24 PM [facility] [place] Approved by: Dee Guevara MD on 01/02/2025 4:24 PM [facility] [place] Station ID: [id number]
[2025-01-02] MEDS: SODIUM CHLORIDE 0.9% 1,000 ML IV STA ×2 (17:27→18:03)
--- NOTE | 2025-01-02 17:27 | CT Report ---
PROCEDURE: CT Cervical Spine WO INDICATIONS: fall TECHNIQUE: Noncontrast 3 mm thick sections acquired from the skull base to the T4 level. Sagittal and coronal r eformats were then constructed. For radiation dose reduction, the following was used: automated exp osure control, adjustment of mA and/or kV according to patient size. COMPARISON: None. FINDINGS: Image quality: Excellent. Bones: No fractures or dislocations. Visualized superior ribs are intact. Degenerative changes of the cervical spine are most prominent at C4-C5. Soft tissues: Prevertebral soft tissues are normal in thickness. No paravertebral hematomas. No ap ical pneumothoraces. IMPRESSION: No acute cervical osseous abnormality. Moderate cervical degenerative disc disease. Reviewed by: Dee Guevara MD on 01/02/2025 4:25 PM [facility] Approved by: Dee Guevara MD on 01/02/2025 4:25 PM [facility] Station ID: [id number]
--- NOTE | 2025-01-02 17:29 | CT Report ---
PROCEDURE: CT Maxillofacial WO INDICATIONS: fall TECHNIQUE: Noncontrast 1.5 mm thick axial images acquired from the mandible through the frontal sinuses, with co anabell and sagittal reformatting. For radiation dose reduction, the following was used: automated ex posure control, adjustment of mA and/or kV according to patient size. COMPARISON: None. FINDINGS: Image quality: Excellent. Bones and teeth: Orbital sheth are intact. Sinus sehth show no fracture or deformity. Nasal bones and septum are intact. Visualized portions of the mandible demonstrate no fractures or subluxation. Zygomatic arches are intact. Pterygoid plates are intact. Visualized portions of the skull base an d auditory canals are intact. Sinuses: Paranasal sinuses are aerated, without fluid levels, mucosal thickening, or mucoceles. Mas toid air cells are aerated. Soft tissues: No edema, masses, or fluid collections. No enlarged lymph nodes. No soft tissue lace rations or debris. Vascular: Visualized vascular structures appear normal in the absence of contrast. Bony vascular fo ramina and canals are intact. IMPRESSION: No facial bone fracture or significant soft tissue injury. Reviewed by: Dee Guevara MD on 01/02/2025 4:27 PM [facility] Approved by: Dee Guevara MD on 01/02/2025 4:27 PM [facility] Station ID: [id number]
--- NOTE | 2025-01-02 17:34 | CT Report ---
PROCEDURE: CT Chest WO INDICATIONS: fall, on floor x 15 hours TECHNIQUE: A CT scan of the chest was performed. Intravenous contrast media was not administered. Images were re corded and evaluated at appropriate window settings. Reformats: axial MIP of the chest, coronal and s agittal. For radiation dose reduction, the following was used: automated exposure control, adjustment of mA and/or kV according to patient size. COMPARISON: None. FINDINGS: Image quality: Diagnostic. Chest wall and lower neck: No thyroid nodule which requires sonographic follow up. No axillary or sup raclavicular adenopathy by size. Left chest wall cardiac device is present. Lungs and pleura: No consolidation. No pleural effusions. No pneumothorax. No suspicious pulmonary n odules which require follow up. Mediastinum: Heart size is normal. No pericardial effusion. No large vessel abnormality excepting ath erosclerosis. No mediastinal adenopathy by size criteria. The prosthetic aortic valve is present. Bones: No aggressive osseous abnormality. Upper Abdomen: Unremarkable. IMPRESSION: No acute cardiopulmonary or osseous abnormality. Reviewed by: Dee Guevara MD on 01/02/2025 4:33 PM [facility] Approved by: Dee Guevara MD on 01/02/2025 4:33 PM [facility] Station ID: [id number]
--- NOTE | 2025-01-02 17:36 | CT Report ---
PROCEDURE: CT Abdomen/Pelvis WO INDICATIONS: fall, on ground x 15 hours TECHNIQUE: A CT scan of the abdomen and pelvis was performed without the use of intravenous contrast. Images we re recorded and evaluated at appropriate window settings. Reformats: coronal and sagittal. For radiat ion dose reduction, the following was used: automated exposure control, adjustment of mA and/or kV ac cording to patient size. COMPARISON: None. FINDINGS: Image quality: Diagnostic. 4 Liver: No contour-deforming mass. Gallbladder: Multiple intraluminal stones without associated wall thickening or pericholecystic fluid . Biliary tree: No intrahepatic or extrahepatic dilation, accounting for age. Spleen: No splenomegaly. Pancreas: No pancreatic ductal dilation. Adrenals: No adrenal nodule. Kidneys and ureters: No hydronephrosis. No contour-deforming mass. Stomach, bowel and peritoneum: No gastric or small bowel dilation. No abnormal wall thickening. No pa thologic free fluid. Lymph nodes: No central or retroperitoneal adenopathy. Vessels: No infrarenal aortic aneurysm. Reproductive organs: Unremarkable. Bladder: Bladder wall thickness is normal, accounting for underdistention. No calcified bladder stone s. Pelvic lymph nodes: No adenopathy by size criteria. Bones: No aggressive osseous abnormality. Other: Bilateral fat-containing inguinal hernias are shown. There is a small fat-containing umbilical hernia as well. IMPRESSION: No acute abnormality of the abdomen or pelvis. Specifically, no fracture or evidence of intra-abdomin al inflammatory process. Reviewed by: Dee Guevara MD on 01/02/2025 4:35 PM [facility] Approved by: Dee Guevara MD on 01/02/2025 4:35 PM [facility] Station ID: [id number]
[2025-01-02 18:56] LABS: BILIRUBIN,URINE NEGATIVE (NEGATIVE); GLUCOSE, URINE (UA) NEGATIVE (NEGATIVE); KETONES,URINE (UA) 15 mg/dL (NEGATIVE); LEUKOCYTE ESTERASE, URINE NEGATIVE (NEGATIVE); NITRITE,URINE NEGATIVE (NEGATIVE); OCCULT BLOOD,URINE LARGE (NEGATIVE); PH,URINE 5.5 PH (5.0-7.5); PROTEIN,URINE 100 mg/dL (NEGATIVE); UROBILINOGEN,URINE 0.2 (NORMAL) E.U./dL (NORMAL)
--- NOTE | 2025-01-02 19:00 | HISTORY & PHYSICAL EXAMINATION ---
Chief Complaint Chief Complaint Chief Complaint: fall History of Present Illness Admitted From Admitted From:: home History Obtained From Records Reviewed: [facility] urology and past admission notes History obtained from: patient. Independent historian, Caregiver, Tammy. History of Present Illness HPI Comment/Other: 84-year-old male who presents to the emergency department via EMS after laying on the floor of his bathroom all night. He has a past medical history of diet-controlled diabetes, mechanical aortic valve, atrial fibrillation, recurrent urinary tract infections, hypertension, thalamic CVA, anoxic brain injury, chronic venous insufficiency with ulceration of the lower extremities, alcoholism. he was found by the lady who comes to clean his house once a week. She called 911 first and then called his regular caregiver whose name is Tammy. The estimation is that he was on the floor for 14 to 15 hours. He tells me that he got confused during the night and tried to pee and somehow fell down. The cleaning lady told his caregiver that there were alcohol bottles both empty and full scattered about the house. He has a history of alcoholism but is not supposed to be drinking. Current medications are (as read to me by his caregiver Tammy) Coreg 3.125 mg twice daily, digestive enzymes, Jantoven 5 mg daily, warfarin 2.5 mg on Sundays and 5 mg all other days furosemide 20 mg 3 times daily, losartan 100 mg daily probiotic twice a day pantoprazole 40 mg daily vitamin daily potassium chloride 10 mill equivalents daily vitamin B1 100 mg daily finasteride 5 mg daily, d-mannose supplement, AALA supplement His PCP was MARCELO Hernandez. he has an appt with Ebonie Worrell on 01/06. His surrogate for medical decisions is his son Osvaldo. Tammy was surprised to hear that he wants to be FULL CODE as she stated to me that he signed a "DNR" recently. Meds/Allgy Home Medications Ambulatory Orders Medication Instructions Recorded Confirmed losartan 50 mg tablet 100 mg PO DAILY 11/15/14 11/25/24 finasteride 5 mg tablet 5 mg PO DAILY 01/15/20 11/25/24 digestive no.8-L.acidophilus 50 1 ea PO TIDWM 03/13/23 11/25/24 million cell-pectin 100 mg tablet (Digestive Enzyme (acidophilus, pectin, bromelain)) potassium chloride 10 mEq 10 meq PO DAILY 03/13/23 11/25/24 capsule,extended release acetaminophen 325 mg tablet 650 mg (2 x 325 mg) PO Q4HR PRN 03/19/23 11/25/24 Pain 1 to 4, or Fever atorvastatin 40 mg tablet 40 mg PO QPM for stroke 03/19/23 11/25/24 cholecalciferol (vitamin D3) 25 1,000 unit PO DAILY low vitamin D 03/19/23 11/25/24 mcg (1,000 unit) capsule ##0 furosemide 40 mg tablet 40 mg PO MOWEFR chronic chf 03/19/23 11/25/24 multivitamin with minerals (Daily 1 ea PO DAILY diet supplement ##0 03/19/23 11/25/24 Multivitamin-Minerals tablet) pantoprazole 20 mg tablet,delayed 20 mg PO DAILY gerd ##0 03/19/23 11/25/24 release thiamine mononitrate (vit B1) 100 100 mg PO DAILY diet supplement 03/19/23 11/25/24 mg tablet (Vitamin B-1 ##10 (mononitrate)) warfarin 1 mg tablet 3 mg (3 x 1 mg) PO Q7D aovr #1 tab 03/19/23 11/25/24 warfarin 5 mg tablet (Jantoven) 5 mg PO .MONTUETHURFRISATSUN AoVR 03/19/23 11/25/24 ##1 hydralazine 25 mg tablet 25 mg PO BID 10/12/24 11/25/24 hydrocodone 5 mg-acetaminophen 325 1 tab PO Q4H PRN Pain #10 tabs 10/12/24 11/25/24 mg tablet Allergies Allergies Allergy/AdvReac Type Severity Reaction Status Date / Time No Known Drug Allergies Allergy Verified 01/02/25 15:57 PFSH Active Problems All Active Problems (Updated 01/02/25 @ 19:29 by Oneil Funk MD) Acute urinary retention (Acute) Rhabdomyolysis (Acute) Alcoholism (Acute) Phimosis (Acute) Mechanical heart valve present (Acute) Atrial fibrillation with slow ventricular response (Acute) Type 2 diabetes mellitus (Acute) Bradycardia (Acute) UTI (urinary tract infection) (Acute) Uncontrolled hypertension (Acute) Anticoagulant long-term use (Acute) Cerebrovascular accident (CVA) (Acute) Chronic ulcer of lower extremity (Acute) Venous insufficiency (Acute) Non-pressure chronic ulcer left lower leg, limited to breakdown skin (Acute) Chronic venous hypertension with ulcer (Acute) Alcohol-induced persisting dementia (Acute) Weakness acquired in ICU (Acute) Anasarca (Acute) CALEB on CPAP (Acute) Morbid obesity (Acute) Hypokalemia (Acute) Altered mental status (Acute) Acute tracheitis with airway obstruction (Acute) Paraphimosis (Acute) Upper GI bleed (Acute) Hypernatremia (Acute) Shortness of breath (Acute) Alcohol withdrawal (Acute) Atrial fibrillation (Acute) Acute blood loss anemia (Acute) At risk for unsafe behavior (Acute) Type 2 diabetes mellitus with complication, without long-term current use of insulin (Acute) HTN (hypertension) (Acute) Alcohol abuse (Acute) Aortic valve prosthesis present (Acute) Supratherapeutic INR (Acute) Over-anticoagulated (Acute) Hematemesis (Acute) Peripheral edema (Acute) Cellulitis (Acute) Tinea pedis (Acute) Urinary tract infectious disease (Acute) Medical History Medical History (Updated 01/02/25 @ 19:29 by Oneil Funk MD) Leukocytosis Pacemaker Surgical History Surgical History (Updated 01/02/25 @ 19:29 by Oneil Funk MD) Heart valve replaced Social History Social History Smoking Status: Never smoker If you are a former smoker, when did you quit? (Date/Year): n/a Number of Years Smoked: 0 How many cigarettes a day do you smoke? (20 cigarettes=1 Pk): 0 Do you dip or chew tobacco?: No Patient requests smoking cessation consult: No Initiate information on smoking cessation: No Living arrangement: At home Living Condition: Alone Relationship: Home Mobility Equipment: Wheeled walker and Wheelchair Do you feel safe in your home environment?: Yes Suffered physical, verbal, emotional, or financial abuse?: No History of Abuse: No Frequency: Occasional POLST Patient has POLST: No POLST Status: Full Code Review of Systems Status of ROS: 10 or more systems reviewed and unremarkable except as noted in history and below Constitutional Denies: Fatigue, Chills or Weakness Eyes Denies: Change in vision Ears, nose, mouth, and throat Reports: Hearing loss and Hearing aids; Denies: Change in hearing Cardiovascular Denies: Irregular heart rate, chest pain, palpitations, swelling of feet/ankles, Syncope, shortness of breath with exertion or shortness of breath when lying down Respiratory Denies: Shortness of breath or Cough Gastrointestinal Denies: Abdominal pain, Abdominal distention, Nausea, Vomiting or Km blood emesis Genitourinary Reports: Incontinence, Urinary frequency, Urinary urgency and Nocturia Musculoskeletal Denies: Extremity pain Integumentary/Breast Denies: Rash Neurological Denies: Headache, General weakness, Focal weakness or Weakness in extremities Psychiatric Denies: Anxiety Endocrine Denies: Excessive urination or Fatigue Hematologic/Lymphatic Denies: Easy bruising or Petechiae Prior Level of Functionality: lives alone. does not drive. has caregiver assistance most days Exam Constitutional no apparent distress disshevled. HENMT normocephalic and external ears normal very hard of hearing, although hearing aids are in and on, abrasions on the left side of his face. Eyes mild scleral icterus Neck/C-Spine visual inspection normal, trachea midline and cervical spine nontender Lymph no lymphadenopathy noted Chest inspection of chest normal and palpation of chest normal Respiratory breath sounds equal bilaterally, normal respiratory effort and clear to auscultation bilaterally Cardiovascular normal heart rate noted, regular rhythm noted and no additional abnormal heart sounds Gastrointestinal easily reducible umbilical hernia. obese abdomen. Genitourinary penis normal and scrotum normal Extremities venous stasis skin changes, very small wounds, almost healed at the left anterior tibial area. Neurology expansion joint finisher II-XII intact, no movement abnormality noted and GCS 15 Psychiatry mental status grossly normal, oriented x3, thought process normal, cooperative and affect normal Skin skin tears at the left anterior shoulder/supraclavicular area. Conclusion/Plan Problem List (1) Rhabdomyolysis: Plan: Presents to the emergency department via EMS after lying on the floor for 14 to 15 hours. Laboratory findings of significance include a CK of 3471, normal renal function, normal potassium. This patient is a poor historian. He has no explanation for how it was he fell or why he fell. Upon further investigation and discussion with his caregiver it is quite possible that he consumed too much alcohol which caused him to fall and lay up on the floor. We will treat his rhabdomyolysis with IV hydration,Normal saline with 20 of K at 100 mL an hour for 2 L monitoring of renal function and potassium level I will repeat his CK measurement in the morning. I will check BMP in the morning. Discussed with Dr. Funk in the emergency department decision was made to admit this patient to observation status for treatment and monitoring of his rhabdomyolysis Qualifiers: Encounter type: initial encounter Rhabdomyolysis type: traumatic Q ualified Code(s): T79.6XXA - Traumatic ischemia of muscle, initial encounter (2) Supratherapeutic INR: Plan: His INR is 6.1 on admission. His goal INR is 2.5-3.5 with a mechanical valve in place. I am somewhat suspicious that he may be taking more warfarin than is prescribed, as when his caregiver listed his medications she told me that he takes Jantoven which is a brand-name warfarin 5 mg a day and then she also told me that he is taking warfarin 2.5 mg on Saturday and 5 mg all other days. There is no evidence of active bleeding, therefore no indication for acute reversal. Will allow INR to drift down. (3) Acute urinary retention: Plan: Patient is urinating independently. He had just urinated into his brief prior to placement of Beckman in the emergency department. I was present for placement of Beckman and observed greater than 1 L of urine from his bladder. The urine is yellow, not cloudy and does not appear tea-colored. We will leave Beckman catheter in place for several days to heal from stretch injury then attempt Beckman removal. Plan to assess PVRs after Beckman removal.He is actively seeing urology. He has had recurrent urinary tract infections in the past. Dr. Garcia has alluded to the fact that his UTIs may be secondary to poor bladder emptying. He is taking d-mannose supplements. (4) Leukocytosis: Plan: He has a leukocytosis of 19.7. He has had imaging of his head, cervical spine, facial bones, chest, abdomen and pelvis. No infectious source found there. His urine does not show signs of infection. Systemically he does not show signs of sepsis he does not have hypotension. He does not have tachycardia, he does not have fever. His respiratory rate is within normal limits and his lungs are clear to auscultation. His O2 saturation is within normal limits on room air. At this time I will assume that this leukocytosis is stress-induced and repeat the CBC in the morning. Qualifiers: Leukocytosis type: unspecified Qualified Code(s): D72.829 - Elevated white blood cell count, unspecified (5) Alcoholism: Plan: History of alcoholism. Caregiver relates to me that there were both partially full and empty bottles of alcohol scattered about his home when the cleaning lady came in to assess things this morning. It is possible that he has resumed his drinking behaviors. If this is true he may go into alcohol withdrawal this admission. His alcohol level was less than 10 when tested in the emergency department If he has resumed alcohol consumption this could also be a reason for the supratherapeutic INR. I have ordered CIWA protocol with Ativan 1 mg IV every 30 minutes as needed CIWA greater than 8. (6) Mechanical heart valve present: Plan: History of aortic valve replacement. This is a mechanical valve. His goal INR is 2.5-3.5 according to his caregiver. His fixed income manager is Dr. Mccracken at [facility]. (7) Type 2 diabetes mellitus: Plan: This is diet controlled. I will add an A1c onto his morning labs. (8) Uncontrolled hypertension: Plan: I will observe hypertension for now. He is on losartan 100 mg daily and Coreg 3.125 mg twice daily at home. Additionally he takes Lasix 20 mg 3 times daily. I will not restart the losartan. I will restart his Coreg and his Lasix. (9) Pacemaker: Plan: On EKG his rhythm is paced. He does not describe any syncope or presyncopal episodes. Although the etiology of his fall is unclear with the given history of alcohol bottles strewn about I think it is likely that he was intoxicated. Plan I have spent 90 minutes in the care of this patient today. This includes time [id number], review and ordering of diagnostic imaging and laboratory studies and consultation with other providers, and gathering history from an independent historian.. Monitoring the patient's signs symptoms, evaluation of medication effectiveness and patient's response to treatment. Lab Results Lab results reviewed: Yes 01/02/25 16:21 01/02/25 16:21 Diagnostic Imaging Results Diagnostic Imaging Results: positive Final report reviewed Diagnostic Imaging Results Comments: Results reviewed from CT head, CT facial bones, CT cervical spine, CT chest and CT abdomen pelvis. No significant findings. Core Measures Anticipated LOS I expect patient to be DC'd or transferred within 96 hours.: Yes Issues Hospital Issues and Management Plan: Patient's rhabdomyolysis will be monitored and treated, his leukocytosis will be monitored and treated if indicated, he will be monitored for signs and symptoms of alcohol withdrawal, we will allow his INR to drift down to therapeutic range while observing him for any bleeding complications. DVT/VTE - Prophylaxis VTE/DVT Device ordered at admit?: Yes VTE/DVT Prophylaxis med ordered at admit?: No Not Ordered - Medical Reason: Not indicated
[2025-01-02] MEDS ORDERED: SODIUM CHLORIDE FLUSH 0.9% 10 ML SYRINGE IVP PRN (19:03)
[2025-01-02] MEDS ORDERED: ONDANSETRON 4 MG/2 ML VIAL IVP PRN (19:03)
[2025-01-02 19:08] LABS: BACTERIA,URINE Rare /HPF (None Seen); CASTS, URINE 0-2 Hyaline Casts /LPF; CLARITY,URINE CLEAR (CLEAR); SQUAMOUS EPITHELIAL CELL,UR FEW Squamous (<= Few); WBC,URINE 0-3 /HPF (0-3)
[2025-01-02] MEDS ORDERED: LORazepam 2 MG/ML VIAL IVP PRN (19:27)
[2025-01-02 20:44] LABS: PT - PROTHROMBIN TIME 63.4 secs (9.9-12.6)
[2025-01-02 21:01] LABS: INR 6.6 (0.8-1.2)
[2025-01-02] MEDS: NS W/20 MEQ KCL 1,000 ML IV SCH (23:50)
[2025-01-02] MEDS: BACITRACIN ZINC OINT 1 PACKET TOP SCH (23:51)
[2025-01-02] MEDS: NYSTATIN POWDER 15 GM TOP SCH (23:51)
[2025-01-02] MEDS: SODIUM CHLORIDE FLUSH 0.9% 10 ML SYRINGE IVP SCH (23:54)
[2025-01-03] MEDS: HYDROmorphone 0.5 MG/0.5 ML SYRINGE IVP PRN (05:31)
[2025-01-03 05:48] LABS: BASOPHILS % (AUTO) 0.2 %; EOSINOPHILS % (AUTO) 0.1 %; HCT - HEMATOCRIT 44.7 % (42.0-52.0); HGB - HEMOGLOBIN 14.4 g/dL (14.0-18.0); LYMPHOCYTES % (AUTO) 6.1 %; MEAN CORPUSCULAR HEMOGLOBIN 29.4 pg (27.0-31.0); MEAN CORPUSCULAR HGB CONC 32.2 g/dL (32.0-36.0); MEAN CORPUSCULAR VOLUME 91.4 fL (80.0-94.0); MEAN PLATELET VOLUME 11.7 fL (7.4-11.4); MONOCYTES # (AUTO) 1.3 10^3/uL (0.0-1.0); MONOCYTES % (AUTO) 8.5 %; NEUTROPHILS # (AUTO) 13.4 10^3/uL (1.5-6.6); NEUTROPHILS % (AUTO) 84.7 %; PLT - PLATELET COUNT 166 10^3/uL (130-450); RED BLOOD COUNT 4.89 10^6/uL (4.70-6.10); RED CELL DISTRIBUTION WIDTH 14.7 % (12.0-15.0); WHITE BLOOD COUNT 15.8 x10^3/uL (4.8-10.8)
[2025-01-03 05:52] LABS: PT - PROTHROMBIN TIME 79.1 secs (9.9-12.6)
[2025-01-03 06:06] LABS: CALCIUM 8.2 mg/dL (8.5-10.3); CREATININE 0.7 mg/dL (0.6-1.3); MAGNESIUM 1.8 mg/dL (1.7-2.3); PHOSPHORUS 1.8 mg/dL (2.5-5.0); POTASSIUM 3.5 mmol/L (3.5-4.5)
[2025-01-03 06:10] LABS: INR 8.3 (0.8-1.2)
[2025-01-03] MEDS: PHYTONADIONE 10 MG/ML AMP PO ONE (08:45)
[2025-01-03] MEDS: CHERRY SYRUP 10 ML UDC PO ONE (08:45)
[2025-01-03] MEDS: PRENATAL VITAMIN TABLET PO SCH (08:47)
[2025-01-03] MEDS: THIAMINE 100 MG TABLET PO SCH (08:47)
[2025-01-03] MEDS: FUROSEMIDE 40 MG/4 ML VIAL IVP SCH (08:48)
[2025-01-03] MEDS: BACITRACIN ZINC OINT 1 PACKET TOP SCH (08:48)
[2025-01-03] MEDS: SODIUM PHOSPHATE 15 MMOL in SODIUM CHLORIDE 0.9% 250 ML IV ONE (12:44)
--- NOTE | 2025-01-03 14:25 | PROVIDER PROGRESS NOTE ---
Subjective Prog Note Date Prog Note Date: 01/03/25 Subjective Subjective: Doing OK. denies any soreness or pain from falling. needs to have a BM Current Medications Current Medications Current Medications: Current Medications Generic Name Dose Route Start Last Admin Trade Name Freq PRN Reason Stop Dose Admin Acetaminophen 650 mg 01/02/25 19:03 Acetaminophen 325 Mg Tablet PO Q4HR PRN Pain 1 to 4, or Fever Bacitracin 3 packet 01/03/25 09:00 01/03/25 08:48 Bacitracin Zinc Oint 1 Packet TOP 3 packet BID THOMAS Administration Furosemide 40 mg 01/03/25 09:00 01/03/25 08:48 Furosemide 40 Mg/4 Ml Vial IVP 40 mg DAILY THOMAS Administration Hydromorphone HCl 0.5 mg 01/02/25 19:03 01/03/25 05:31 Hydromorphone 0.5 Mg/0.5 Ml Syringe IVP 0.5 mg Q2H PRN Administration Pain 8 to 10 Potassium Chloride/Sodium Chloride 1,000 mls @ 100 mls/hr 01/02/25 19:03 01/03/25 12:44 Normal Saline 0.9% W/20 Meq Kcl IV 01/03/25 15:02 100 mls/hr .Q10H THOMAS Infusion Sodium Phosphate 15 mmol/ 255 mls @ 63.75 mls/hr 01/03/25 12:30 01/03/25 12:44 Sodium Chloride IV 01/03/25 16:29 63.75 mls/hr ONCE ONE Administration Lorazepam 1 mg 01/02/25 19:27 Lorazepam 2 Mg/Ml Vial IVP Q30M PRN CIWA >8 Protocol Nystatin 1 applic 01/02/25 21:00 01/03/25 08:48 Nystatin Powder 15 Gm TOP 1 applic BID THOMAS Administration Ondansetron HCl 4 mg 01/02/25 19:03 Ondansetron 4 Mg/2 Ml Vial IVP Q6HR PRN Nausea / Vomiting Multivit/Folic Acid/Iron 1 tab 01/03/25 09:00 01/03/25 08:47 Vitamin Tablet PO 1 tab DAILY THOMAS Administration Sodium Chloride 10 ml 01/02/25 19:03 Sodium Chloride Flush 0.9% 10 Ml Syringe IVP PRN PRN NEEDED PER PROVIDER ORDERS Sodium Chloride 10 ml 01/03/25 01:00 01/03/25 08:48 Sodium Chloride Flush 0.9% 10 Ml Syringe IVP Not Given 0100,0900,1700 THOMAS Thiamine HCl 100 mg 01/03/25 09:00 01/03/25 08:47 Thiamine 100 Mg Tablet PO 100 mg DAILY THOMAS Administration Objective Vital Signs/Intake & Output Reviewed Vital Signs: Yes Vital Signs: Vital Signs x48h Temp Pulse Resp BP Pulse Ox 01/03/25 12:16 36.6 C 73 20 130/62 93 01/03/25 08:17 36.6 C 72 20 145/82 H 96 Intake & Output: Intake & Output 12/31/24 01/01/25 01/02/25 01/04/25 23:59 23:59 23:59 00:59 Intake Total 680 / 680 5198 / 5198 Output Total 1150 / 1150 1600 / 1600 Balance -470 / -470 3598 / 3598 Weight (kg) 118.5 kg Objective General Appearance: positive No acute distress and Alert Eyes Bilateral: positive Normal inspection ENT: positive ENT inspection nml Neck: positive Nml inspection Respiratory: positive No respiratory distress and Breath sounds nml Cardiovascular: positive Regular rate & rhythm and Other (click associated with valve) Abdomen: positive Non-tender and No distention Skin: positive Other (abrasions at right supraclavicular area) Extremities: positive Non-tender, No pedal edema and Other (wound at left anterior tibial area w minimal drainage) Neurologic/Psychiatric: positive Oriented x3 and Mood/affect nml Lab Results 01/03/25 05:00 01/03/25 05:00 Other Labs: Lab Results x24hrs 01/03/25 01/02/25 01/02/25 Range/Units 05:00 23:01 20:09 WBC 15.8 H (4.8-10.8) x10^3/uL RBC 4.89 (4.70-6.10) 10^6/uL Hgb 14.4 (14.0-18.0) g/dL Hct 44.7 (42.0-52.0) % MCV 91.4 (80.0-94.0) fL MCH 29.4 (27.0-31.0) pg MCHC 32.2 (32.0-36.0) g/dL RDW 14.7 (12.0-15.0) % Plt Count 166 (130-450) 10^3/uL MPV 11.7 H (7.4-11.4) fL Neut # (Auto) 13.4 H (1.5-6.6) 10^3/uL Lymph # (Auto) 1.0 L (1.5-3.5) 10^3/uL Bremer # (Auto) 1.3 H (0.0-1.0) 10^3/uL Eos # (Auto) 0.0 (0.0-0.7) 10^3/uL Baso # (Auto) 0.0 (0.0-0.1) 10^3/uL Absolute Nucleated RBC 0.00 x10^3/uL Nucleated RBC % 0.0 /100WBC PT 79.1 H 63.4 H (9.9-12.6) secs INR 8.3 H* 6.6 H* (0.8-1.2) Sodium 140 (135-145) mmol/L Potassium 3.5 (3.5-4.5) mmol/L Chloride 109 (101-111) mmol/L Carbon Dioxide 25 (21-32) mmol/L Anion Gap 6.0 (6-13) BUN 17 (6-20) mg/dL Creatinine 0.7 (0.6-1.3) mg/dL Estimated GFR (MDRD) 107 (>89) Glucose 104 (74-104) mg/dL Calcium 8.2 L (8.5-10.3) mg/dL Phosphorus 1.8 L (2.5-5.0) mg/dL Magnesium 1.8 (1.7-2.3) mg/dL Total Bilirubin (0.2-1.0) mg/dL AST (10-42) IU/L ALT (10-60) IU/L Alkaline Phosphatase (42-121) IU/L Total Creatine Kinase (30-223) IU/L Troponin I High Sens 168.6 H* 175.8 H* (2.3-19.7) ng/L Total Protein (6.4-8.9) g/dL Albumin (3.2-5.5) g/dL Globulin (2.1-4.2) g/dL Albumin/Globulin Ratio (1.0-2.2) Lipase (11-82) U/L Urine Color Urine Clarity (CLEAR) Urine pH (5.0-7.5) PH Ur Specific [place] (1.002-1.030) Urine Protein (NEGATIVE) mg/dL Urine Glucose (UA) (NEGATIVE) mg/dL Urine Ketones (NEGATIVE) mg/dL Urine Occult Blood (NEGATIVE) Urine Nitrite (NEGATIVE) Urine Bilirubin (NEGATIVE) Urine Urobilinogen (NORMAL) E.U./dL Ur Leukocyte Esterase (NEGATIVE) Urine RBC (0-5) /HPF Urine WBC (0-3) /HPF Ur Squamous Epith Cells (<= Few) Urine Bacteria (None Seen) /HPF Urine Casts /LPF Urine Culture Comments Ethyl Alcohol mg/dL 01/02/25 01/02/25 Range/Units 18:15 16:21 WBC 19.7 H (4.8-10.8) x10^3/uL RBC 5.39 (4.70-6.10) 10^6/uL Hgb 15.7 (14.0-18.0) g/dL Hct 49.4 (42.0-52.0) % MCV 91.7 (80.0-94.0) fL MCH 29.1 (27.0-31.0) pg MCHC 31.8 L (32.0-36.0) g/dL RDW 14.7 (12.0-15.0) % Plt Count 186 (130-450) 10^3/uL MPV 10.7 (7.4-11.4) fL Neut # (Auto) 18.2 H (1.5-6.6) 10^3/uL Lymph # (Auto) 0.4 L (1.5-3.5) 10^3/uL Bremer # (Auto) 0.9 (0.0-1.0) 10^3/uL Eos # (Auto) 0.0 (0.0-0.7) 10^3/uL Baso # (Auto) 0.0 (0.0-0.1) 10^3/uL Absolute Nucleated RBC 0.00 x10^3/uL Nucleated RBC % 0.0 /100WBC PT 58.8 H (9.9-12.6) secs INR 6.1 H* (0.8-1.2) Sodium 141 (135-145) mmol/L Potassium 3.6 (3.5-4.5) mmol/L Chloride 106 (101-111) mmol/L Carbon Dioxide 21 (21-32) mmol/L Anion Gap 14.0 H (6-13) BUN 15 (6-20) mg/dL Creatinine 0.6 (0.6-1.3) mg/dL Estimated GFR (MDRD) 128 (>89) Glucose 129 H (74-104) mg/dL Calcium 9.3 (8.5-10.3) mg/dL Phosphorus (2.5-5.0) mg/dL Magnesium (1.7-2.3) mg/dL Total Bilirubin 1.3 H (0.2-1.0) mg/dL AST 67 H (10-42) IU/L ALT 26 (10-60) IU/L Alkaline Phosphatase 69 (42-121) IU/L Total Creatine Kinase 3471 H* (30-223) IU/L Troponin I High Sens 64.4 H* (2.3-19.7) ng/L Total Protein 7.6 (6.4-8.9) g/dL Albumin 4.3 (3.2-5.5) g/dL Globulin 3.3 (2.1-4.2) g/dL Albumin/Globulin Ratio 1.3 (1.0-2.2) Lipase < 10 L (11-82) U/L Urine Color YELLOW Urine Clarity CLEAR (CLEAR) Urine pH 5.5 (5.0-7.5) PH Ur Specific [place] 1.025 (1.002-1.030) Urine Protein 100 H (NEGATIVE) mg/dL Urine Glucose (UA) NEGATIVE (NEGATIVE) mg/dL Urine Ketones 15 H (NEGATIVE) mg/dL Urine Occult Blood LARGE H (NEGATIVE) Urine Nitrite NEGATIVE (NEGATIVE) Urine Bilirubin NEGATIVE (NEGATIVE) Urine Urobilinogen 0.2 (NORMAL) (NORMAL) E.U./dL Ur Leukocyte Esterase NEGATIVE (NEGATIVE) Urine RBC 6-10 H (0-5) /HPF Urine WBC 0-3 (0-3) /HPF Ur Squamous Epith Cells FEW Squamous (<= Few) Urine Bacteria Rare (None Seen) /HPF Urine Casts 0-2 Hyaline Casts /LPF Urine Culture Comments NOT INDICATED Ethyl Alcohol < 10.0 mg/dL Assessment/Plan Problem List (1) Rhabdomyolysis: Impression: Presents to the emergency department via EMS after lying on the floor for 14 to 15 hours. Laboratory findings of significance include a CK of 3471, normal renal function, normal potassium. This patient is a poor historian. He has no explanation for how it was he fell or why he fell. Upon further investigation and discussion with his caregiver it is quite possible that he consumed too much alcohol which caused him to fall and lay upon the floor. Renal function is stable. CK is 3639 from 3471. He is eating and drinking well. I will let his body metabolize. He has adequate urine output, he is positive 3L for the admission, but this is with bolus given in ED and a period of dehydration. [id number] stopped by his room today and delivered personal items and his CPAP. I discussed with her his probable course. I am awaiting PT and OT evaluations. I do not have either of those services available to the patient today. I expressed to her that it was likely he will need to go to rehab, and she states understanding. Family has some concerns about him living alone. He also is fiercely independent and loves his home. He did not even recall that they had set up an Olivia system where all he had to do was call out for help and could have done that from the floor. She is aware that likely he needs a life alert button. And if he does discharge to home from this hospitalization we will need to try to accomplish this for him. Awaiting DNR documentation. Qualifiers: Encounter type: initial encounter Rhabdomyolysis type: traumatic Q ualified Code(s): T79.6XXA - Traumatic ischemia of muscle, initial encounter (2) Supratherapeutic INR: Impression: unclear etiology. His INR is 6.1 on admission. His goal INR is 2.5-3.5 with a mechanical valve in place. I am somewhat suspicious that he may be taking more warfarin than is prescribed, as when his caregiver listed his medications she told me that he takes Jantoven which is a brand-name warfarin 5 mg a day and then she also told me that he is taking warfarin 2.5 mg on Saturday and 5 mg all other days. Also could be related to Etoh consumption. given Vit K this AM due to rising INR. has not shown any signs of bleeding complications. has not had a BM. Hgb is stable. I have ordered repeat INR for the AM 2 Laboratory Tests 01/02/25 01/02/25 01/03/25 16:21 20:09 05:00 INR 6.1 H* 6.6 H* 8.3 H* (3) Acute urinary retention: Impression: We will leave Beckman catheter in place for several days to heal from stretch injury then attempt Beckman removal. Plan to assess PVRs after Beckman removal. He is actively seeing urology. He has had recurrent urinary tract infections in the past. Dr. Garcia has alluded to the fact that his UTIs may be secondary to poor bladder emptying. He is taking d-mannose supplements at home. UA at the time of admit shows no signs of infection. (4) Leukocytosis: Impression: Systemically he does not show signs of sepsis he does not have hypotension. He does not have tachycardia, he does not have fever. His respiratory rate is within normal limits and his lungs are clear to auscultation. His O2 saturation is within normal limits on room air. I will continue to assume that this leukocytosis is stress-induced and repeat the CBC in the morning. Laboratory Tests 01/02/25 01/03/25 16:21 05:00 WBC 19.7 H 15.8 H Qualifiers: Leukocytosis type: unspecified Qualified Code(s): D72.829 - Elevated white blood cell count, unspecified (5) Alcoholism: Impression: History of alcoholism. Caregiver relates to me that there were both partially full and empty bottles of alcohol scattered about his home when the cleaning lady came in. It is possible that he has resumed his drinking behaviors. If this is true he may go into alcohol withdrawal this admission. His alcohol level was less than 10 when tested in the emergency department If he has resumed alcohol consumption this could also be a reason for the supratherapeutic INR. I have ordered CIWA protocol with Ativan 1 mg IV every 30 minutes as needed CIWA greater than 8. CIWA scores have been 1-2. He has not required any ativan. I will leave CIWA scoring in place for at least another day. (6) Mechanical heart valve present: Impression: History of aortic valve replacement. This is a mechanical valve. His goal INR is 2.5-3.5 according to his caregiver. His concrete analyst is Dr. Mccracken at [facility]. (7) Type 2 diabetes mellitus: Impression: Diet controlled. A1C is pending at this time. Qualifiers: Diabetes mellitus complication status: without complication Diabetes mellitus fpc insulin use: without intermission coordinator use Qualified Code(s): E11.9 - Type 2 diabetes mellitus without complications (8) Uncontrolled hypertension: Impression: His blood pressures have been high, into the 180s here. At home the only medication I see that could be controlling his hypertension is Lasix 40 mg on Saturday. Would recommend primary care follow-up for further evaluation of his blood pressure. (9) Pacemaker: Impression: On EKG his rhythm is paced. He does not describe any syncope or presyncopal episodes. Although the etiology of his fall is unclear with the given history of alcohol bottles strewn about I think it is likely that he was intoxicated. I have spent 40 minutes in the care of this patient today. This includes time [id number], review and ordering of diagnostic imaging and laboratory studies. Monitoring the patient's signs symptoms, evaluation of medication effectiveness and patient's response to treatment.
[2025-01-03 15:49] LABS: TROPONIN I HIGH SENSITIVITY 88.8 ng/L (2.3-19.7)
--- NOTE | 2025-01-03 16:01 | PHARMACY PROGRESS NOTE ---
Best Possible Medication History Admit Date and Time: 01/03/25 [id number] Home Medications Medication Instructions Recorded Confirmed Type losartan 50 mg tablet 100 mg PO DAILY 11/15/14 01/03/25 History finasteride 5 mg tablet 5 mg PO DAILY 01/15/20 01/03/25 History digestive no.8-L.acidophilus 50 1 ea PO TIDWM 03/13/23 01/03/25 History million cell-pectin 100 mg tablet (Digestive Enzyme (acidophilus, pectin, bromelain)) potassium chloride 10 mEq 10 meq PO DAILY 03/13/23 01/03/25 History capsule,extended release acetaminophen 325 mg tablet 650 mg (2 x 325 mg) PO Q4HR PRN 03/19/23 01/03/25 Rx Pain 1 to 4, or Fever atorvastatin 40 mg tablet 40 mg PO QPM for stroke 03/19/23 01/03/25 Rx cholecalciferol (vitamin D3) 25 1,000 unit PO DAILY low vitamin D 03/19/23 01/03/25 Rx mcg (1,000 unit) capsule ##0 furosemide 40 mg tablet 40 mg PO MOWEFR chronic chf 03/19/23 01/03/25 Rx multivitamin with minerals (Daily 1 ea PO DAILY diet supplement ##0 03/19/23 01/03/25 Rx Multivitamin-Minerals tablet) pantoprazole 20 mg tablet,delayed 20 mg PO DAILY gerd ##0 03/19/23 01/03/25 Rx release thiamine mononitrate (vit B1) 100 100 mg PO DAILY diet supplement 03/19/23 01/03/25 Rx mg tablet (Vitamin B-1 ##10 (mononitrate)) warfarin 1 mg tablet 3 mg (3 x 1 mg) PO Q7D aovr #1 tab 03/19/23 01/03/25 Rx warfarin 5 mg tablet (Jantoven) 5 mg PO .ENZO AoVR 03/19/23 01/03/25 Rx ##1 hydralazine 25 mg tablet 25 mg PO BID 10/12/24 01/03/25 History Processed by: Pharmacy Medications reviewed in ED?: Yes Medication History completed: No Patient Interview: Pt unable to participate Secondary Source(s): Insurance records [facility] Statement: Pt unable to participate in interview. Pt gave [facility] phone contact of family member to participate. Multiple calls to family member unsuccessful. [facility] Rx records reviewed along with rotary shear worker helper med list. As the person ultimately responsible for medication therapy, providers are able to order a medication from an existing home medication list in [facility] via the "Reconcile Routine" prior to Confirmation of that medication by account support associate. Such practice is discouraged except when the physician, in their clinical judgment, deems that a medical need exists for a medication without regard to previous use.
[2025-01-03 16:03] LABS: ESTIMATED AVERAGE GLUCOSE 126 mg/dL (70-100)
[2025-01-04 06:01] LABS: BASOPHILS % (AUTO) 0.3 %; EOSINOPHILS # (AUTO) 0.1 10^3/uL (0.0-0.7); EOSINOPHILS % (AUTO) 0.9 %; HGB - HEMOGLOBIN 13.4 g/dL (14.0-18.0); LYMPHOCYTES # (AUTO) 1.3 10^3/uL (1.5-3.5); LYMPHOCYTES % (AUTO) 11.6 %; MEAN CORPUSCULAR HEMOGLOBIN 29.3 pg (27.0-31.0); MEAN CORPUSCULAR HGB CONC 31.9 g/dL (32.0-36.0); MEAN CORPUSCULAR VOLUME 91.9 fL (80.0-94.0); MEAN PLATELET VOLUME 11.3 fL (7.4-11.4); MONOCYTES # (AUTO) 0.9 10^3/uL (0.0-1.0); NEUTROPHILS % (AUTO) 78.8 %; PLT - PLATELET COUNT 147 10^3/uL (130-450); RED BLOOD COUNT 4.57 10^6/uL (4.70-6.10); RED CELL DISTRIBUTION WIDTH 15.1 % (12.0-15.0); WHITE BLOOD COUNT 11.4 x10^3/uL (4.8-10.8)
[2025-01-04 06:11] LABS: PT - PROTHROMBIN TIME 20.6 secs (9.9-12.6)
[2025-01-04 06:21] LABS: CALCIUM 8.9 mg/dL (8.5-10.3); CREATININE 0.7 mg/dL (0.6-1.3); POTASSIUM 3.6 mmol/L (3.5-4.5)
[2025-01-04] MEDS: ACETAMINOPHEN 325 MG TABLET PO PRN (10:13)
--- NOTE | 2025-01-04 13:12 | PROVIDER PROGRESS NOTE ---
Subjective Prog Note Date Prog Note Date: 01/04/25 Subjective Pt reports feeling: Improved Subjective: He is awake and alert, has been eating and drinking. Is able to make his needs known. I spoke to his caregiver Tammy on the phone on speaker while with the patient today. Victorino has concerns about his right arm. He says that he recalls that before he fell, he thinks that his right arm was not working well, and he got tangled up in a shirt, which is what caused the abrasions on his right shoulder area. Caregiver is asking for MRI of the brain. CT is negative. She is concerned bc at the time of his last CVA, CT was neg but MRI was positive. As the day goes on, and pain control with Tylenol for his right arm is more effective, he is using his arm more, and feeling better. He believes strongly that he needs physical therapy, and I agree with him. he is willing to go to SNF. Current Medications Current Medications Current Medications: Current Medications Generic Name Dose Route Start Last Admin Trade Name Char PRN Reason Stop Dose Admin Acetaminophen 650 mg 01/02/25 19:03 01/04/25 10:13 Acetaminophen 325 Mg Tablet PO 650 mg Q4HR PRN Administration Pain 1 to 4, or Fever Bacitracin 3 packet 01/03/25 09:00 01/04/25 09:40 Bacitracin Zinc Oint 1 Packet TOP 3 packet BID THOMAS Administration Furosemide 20 mg 01/05/25 09:00 Furosemide 20 Mg Tablet PO DAILY THOMAS Hydromorphone HCl 0.5 mg 01/02/25 19:03 01/04/25 10:12 Hydromorphone 0.5 Mg/0.5 Ml Syringe IVP 0.5 mg Q2H PRN Administration Pain 8 to 10 Lorazepam 1 mg 01/02/25 19:27 Lorazepam 2 Mg/Ml Vial IVP Q30M PRN CIWA >8 Protocol Nystatin 1 applic 01/02/25 21:00 01/04/25 09:40 Nystatin Powder 15 Gm TOP 1 applic BID THOMAS Administration Ondansetron HCl 4 mg 01/02/25 19:03 Ondansetron 4 Mg/2 Ml Vial IVP Q6HR PRN Nausea / Vomiting Multivit/Folic Acid/Iron 1 tab 01/03/25 09:00 01/04/25 09:40 Vitamin Tablet PO 1 tab DAILY THOMAS Administration Sodium Chloride 10 ml 01/02/25 19:03 Sodium Chloride Flush 0.9% 10 Ml Syringe IVP PRN PRN NEEDED PER PROVIDER ORDERS Sodium Chloride 10 ml 01/03/25 01:00 01/04/25 09:40 Sodium Chloride Flush 0.9% 10 Ml Syringe IVP 10 ml 0100,0900,1700 THOMAS Administration Thiamine HCl 100 mg 01/03/25 09:00 01/04/25 09:40 Thiamine 100 Mg Tablet PO 100 mg DAILY THOMAS Administration Warfarin Sodium 2.5 mg 01/04/25 14:00 Warfarin 2.5 Mg Tablet PO QDWARFARIN [facility] Objective Vital Signs/Intake & Output Reviewed Vital Signs: Yes Vital Signs: Vital Signs x48h Temp Pulse Resp BP BP Pulse Ox 01/04/25 11:57 36.5 C 64 20 151/68 H 94 01/04/25 08:40 36.8 C 68 20 152/78 H 93 01/04/25 05:46 36.5 C 69 20 131/91 H 95 Intake & Output: Intake & Output 01/01/25 01/02/25 01/04/25 01/04/25 23:59 23:59 00:59 23:59 Intake Total 680 / 680 7235 / 7235 1200 / 1200 Output Total 1150 / 1150 2600 / 2600 2074 / 2075 Balance -470 / -470 4635 / 4635 -875 / -875 Weight (kg) 118.5 kg Objective General Appearance: positive No acute distress and Alert Eyes Bilateral: positive Normal inspection, PERRL, EOMI and Conjunctivae nml ENT: positive ENT inspection nml Neck: positive Nml inspection and Trachea midline Respiratory: positive No respiratory distress and Breath sounds nml Cardiovascular: positive Regular rate & rhythm Abdomen: positive Non-tender and No distention Back: positive Nml inspection Skin: positive Color nml and Other (abrasions right supraclavicular area. healing) Extremities: positive Non-tender and Other (mild generalized edema of the right UE) Neurologic/Psychiatric: positive Oriented x3, CN's nml (2-12) and Mood/affect nml Lab Results 01/04/25 05:54 01/04/25 05:54 Other Labs: Lab Results x24hrs 01/04/25 01/03/25 01/03/25 Range/Units 05:54 15:16 05:00 WBC 11.4 H (4.8-10.8) x10^3/uL RBC 4.57 L (4.70-6.10) 10^6/uL Hgb 13.4 L (14.0-18.0) g/dL Hct 42.0 (42.0-52.0) % MCV 91.9 (80.0-94.0) fL MCH 29.3 (27.0-31.0) pg MCHC 31.9 L (32.0-36.0) g/dL RDW 15.1 H (12.0-15.0) % Plt Count 147 (130-450) 10^3/uL MPV 11.3 (7.4-11.4) fL Neut # (Auto) 9.0 H (1.5-6.6) 10^3/uL Lymph # (Auto) 1.3 L (1.5-3.5) 10^3/uL [place] # (Auto) 0.9 (0.0-1.0) 10^3/uL Eos # (Auto) 0.1 (0.0-0.7) 10^3/uL Baso # (Auto) 0.0 (0.0-0.1) 10^3/uL Absolute Nucleated RBC 0.00 x10^3/uL Nucleated RBC % 0.0 /100WBC PT 20.6 H (9.9-12.6) secs INR 2.0 H (0.8-1.2) Sodium 139 (135-145) mmol/L Potassium 3.6 (3.5-4.5) mmol/L Chloride 109 (101-111) mmol/L Carbon Dioxide 25 (21-32) mmol/L Anion Gap 5.0 L (6-13) BUN 17 (6-20) mg/dL Creatinine 0.7 (0.6-1.3) mg/dL Estimated GFR (MDRD) 107 (>89) Glucose 116 H (74-104) mg/dL Estimat Average Glucose 126 H (70-100) mg/dL Hemoglobin A1c % 6.0 (4.27-6.07) % Calcium 8.9 (8.5-10.3) mg/dL Total Creatine Kinase 3639 H* (30-223) IU/L Troponin I High Sens 88.8 H* (2.3-19.7) ng/L Assessment/Plan Problem List (1) Rhabdomyolysis: Impression: Presents to the emergency department via EMS after lying on the floor for 14 to 15 hours. Laboratory findings of significance include a CK of 3471, normal renal function, normal potassium. This patient is a poor historian. He has no explanation for how it was he fell or why he fell. Upon further investigation and discussion with his caregiver it is quite possible that he consumed too much alcohol which caused him to fall and lay upon the floor. Renal function is stable. CK is 3639 from 3471. He is eating and drinking well. I will let his body metabolize. Will not trend the CK. He is now - 600ml in this 24h period. Discussed his care today with caregiver Tammy. Tammy would like him to have an MRI. he has a pacemaker that is MRI conditional, however, I do not have device support here at this facility, therefore he cannot have MRI here. I have been on the phone twice with Tammy today, once to discuss the MRI that she wanted and a second time to discuss the fact that we cannot get that test and the fact that an MRI will not change his care plan in any way. If I thought MRI would policy change clerk, I would transfer him to a higher level of care. Qualifiers: Encounter type: initial encounter Rhabdomyolysis type: traumatic Q ualified Code(s): T79.6XXA - Traumatic ischemia of muscle, initial encounter (2) Supratherapeutic INR: Impression: unclear etiology. His INR is 6.1 on admission. His goal INR is 2.5-3.5 with a mechanical valve in place. I am somewhat suspicious that he may be taking more warfarin than is prescribed, as when his caregiver listed his medications she told me that he takes Jantoven which is a brand-name warfarin 5 mg a day and then she also told me that he is taking warfarin 2.5 mg on Saturday and 5 mg all other days. Also could be related to Etoh consumption. He has received Vit K, INR is below goal currently, will give Warfarin 2.5mg today. Laboratory Tests 01/02/25 01/02/25 01/03/25 16:21 20:09 05:00 INR 6.1 H* 6.6 H* 8.3 H* 01/04/25 05:54 INR 2.0 H (3) Acute urinary retention: Impression: We will leave Beckman catheter in place for several days to heal from stretch injury then attempt Beckman removal. Plan to assess PVRs after Beckman removal. He is actively seeing urology. He has had recurrent urinary tract infections in the past. Dr. Garcia has alluded to the fact that his UTIs may be secondary to poor bladder emptying. He is taking d-mannose supplements at home. UA at the time of admit shows no signs of infection. (4) Leukocytosis: Impression: Systemically he does not show signs of sepsis he does not have hypotension. He does not have tachycardia, he does not have fever. His respiratory rate is within normal limits and his lungs are clear to auscultation. His O2 saturation is within normal limits on room air. I will continue to assume that this leukocytosis is stress-induced and repeat the CBC in the morning. Laboratory Tests 01/02/25 01/03/25 01/04/25 16:21 05:00 05:54 WBC 19.7 H 15.8 H 11.4 H Qualifiers: Leukocytosis type: unspecified Qualified Code(s): D72.829 - Elevated white blood cell count, unspecified (5) Alcoholism: Impression: History of alcoholism. Caregiver relates to me that there were both partially full and empty bottles of alcohol scattered about his home when the cleaning lady came in. It is possible that he has resumed his drinking behaviors. If this is true he may go into alcohol withdrawal this admission. His alcohol level was less than 10 when tested in the emergency department If he has resumed alcohol consumption this could also be a reason for the supratherapeutic INR. At admit, I ordered CIWA protocol with Ativan 1 mg IV every 30 minutes as needed CIWA greater than 8. CIWA scores have been 1-2. He has not required any ativan. I am discontinuing CIWA protocol now. (6) Mechanical heart valve present: Impression: History of aortic valve replacement. This is a mechanical valve. His goal INR is 2.5-3.5 according to his caregiver. His deck hand is Dr. Mccracken at [facility]. (7) Type 2 diabetes mellitus: Impression: Diet controlled. A1C 6.0%, there is no indication for additional treatment. 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 At home the only medication I see that could be controlling his hypertension is Lasix 40 mg on Saturday. Would recommend primary care follow-up for further evaluation of his blood pressure. Blood pressure has come down as his pain level has been controlled. (9) Pacemaker: Impression: On EKG his rhythm is paced. He does not describe any syncope or presyncopal episodes. Although the etiology of his fall is unclear with the given history of alcohol bottles strewn about I think it is likely that he was intoxicated. I have the data on Pacer device, it is MRI conditional, but no rep available to reset the device post MRI. I have spent 52 minutes in the care of this patient today. This includes time [id number], review and ordering of diagnostic imaging and laboratory studies. Monitoring the patient's signs symptoms, evaluation of medication effectiveness and patient's response to treatment. Time spent researching pacemaker, discussing with patient and family why an MRI is not possible at this facility and not indicated at this time.
--- NOTE | 2025-01-04 14:21 | OT Plan of Care ---
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 PMhx of diet-controlled diabetes, mechanical aortic valve, atrial fibrillation, recurrent urinary tract infections, hypertension, thalamic CVA, anoxic brain injury, chronic venous insufficiency with ulceration of the lower extremities, alcoholism. Adm for tx of rhabdomyolysis, dehydration, and possible CIWA monitoring. Met supine in bed, A&Ox4, follows 100% commands. Noted R sided weakness compared to R in UE and LE coordination appears in tact and symmetrical; sensation in tact. Vision WFL. Grossly deconditioned requiring MAX Ax2 and HOB raised supine to sit EOB Unsafe for attempted sit to stand using RW at this time. Currently MAX A ADLs bed level Rec bedpan with nursing and CYNTHIA to chair as appropriate. Overall presents with decreased endurance, activity tolerance and ADL status. Will elza efit from cont OT services during acute stay. Rec d/c to SNF at this time. -Activities of Daily Living Improve Upper Extremity Dressing to:: Modified Independent Improve Lower Extremity Dressing to:: Modified Independent Improve Grooming/Hygiene to:: Modified Independent Improve Bathing to:: Standby Assist Improve Toileting to:: Modified Independent - Upper Extremity Function Goals Improve Strength to:: Good OT Inpatient Plan PLAN Treatment Frequency: 1x/day Duration: Until discharge -Discharge Recommendations [facility] Support/Services Needed: With assist Recommended Equipment: Raised Toilet Seat, Commode, Grab bars, Shower/bath chair, Adaptive Self Care Devices and Other Transport Needs at Discharge: [employer]
[2025-01-04] MEDS: WARFARIN 2.5 MG TABLET PO SCH (14:43)
[2025-01-05 05:38] LABS: BASOPHILS % (AUTO) 0.4 %; EOSINOPHILS # (AUTO) 0.2 10^3/uL (0.0-0.7); EOSINOPHILS % (AUTO) 2.1 %; HCT - HEMATOCRIT 42.2 % (42.0-52.0); HGB - HEMOGLOBIN 13.2 g/dL (14.0-18.0); LYMPHOCYTES # (AUTO) 1.1 10^3/uL (1.5-3.5); LYMPHOCYTES % (AUTO) 11.5 %; MEAN CORPUSCULAR HEMOGLOBIN 28.7 pg (27.0-31.0); MEAN CORPUSCULAR HGB CONC 31.3 g/dL (32.0-36.0); MEAN CORPUSCULAR VOLUME 91.7 fL (80.0-94.0); MEAN PLATELET VOLUME 11.4 fL (7.4-11.4); MONOCYTES # (AUTO) 0.8 10^3/uL (0.0-1.0); MONOCYTES % (AUTO) 8.1 %; NEUTROPHILS # (AUTO) 7.6 10^3/uL (1.5-6.6); NEUTROPHILS % (AUTO) 77.5 %; PLT - PLATELET COUNT 149 10^3/uL (130-450); WHITE BLOOD COUNT 9.7 x10^3/uL (4.8-10.8)
[2025-01-05 05:43] LABS: INR 1.3 (0.8-1.2); PT - PROTHROMBIN TIME 14.5 secs (9.9-12.6)
[2025-01-05 05:53] LABS: CALCIUM 8.7 mg/dL (8.5-10.3); CREATININE 0.6 mg/dL (0.6-1.3); POTASSIUM 3.4 mmol/L (3.5-4.5)
[2025-01-05] MEDS: FUROSEMIDE 20 MG TABLET PO SCH (08:50)
[2025-01-05] MEDS: ZINC OXIDE 20% OINT 30 GM TUBE TOP PRN (08:51)
--- NOTE | 2025-01-05 11:55 | PROVIDER PROGRESS NOTE ---
Subjective Prog Note Date Prog Note Date: 01/05/25 Subjective Pt reports feeling: Improved Subjective: He is feeling good, he likes the sit to stand lift. He is eager to go to SNF. he feels like his right arm is getting better. he feels that he can move it. He knows that he needs rehab to get stronger and better, but he is ready to do this. Current Medications Current Medications Current Medications: Current Medications Generic Name Dose Route Start Last Admin Trade Name Freq PRN Reason Stop Dose Admin Acetaminophen 650 mg 01/02/25 19:03 01/04/25 20:15 Acetaminophen 325 Mg Tablet PO 650 mg Q4HR PRN Administration Pain 1 to 4, or Fever Bacitracin 3 packet 01/03/25 09:00 01/05/25 08:50 Bacitracin Zinc Oint 1 Packet TOP 3 packet BID THOMAS Administration Enoxaparin Sodium 120 mg 01/05/25 11:30 Enoxaparin 120 Mg/0.8 Ml Syringe SUBQ BID THOMAS Furosemide 20 mg 01/05/25 09:00 01/05/25 08:50 Furosemide 20 Mg Tablet PO 20 mg DAILY THOMAS Administration Hydromorphone HCl 0.5 mg 01/02/25 19:03 01/04/25 10:12 Hydromorphone 0.5 Mg/0.5 Ml Syringe IVP 0.5 mg Q2H PRN Administration Pain 8 to 10 Multi-Ingredient Ointment 1 applic 01/04/25 20:10 01/05/25 08:51 Zinc Oxide 20% Oint 30 Gm Tube TOP 1 applic PRN PRN Administration Skin Care Nystatin 1 applic 01/02/25 21:00 01/05/25 08:50 Nystatin Powder 15 Gm TOP 1 applic BID THOMAS Administration Ondansetron HCl 4 mg 01/02/25 19:03 Ondansetron 4 Mg/2 Ml Vial IVP Q6HR PRN Nausea / Vomiting Multivit/Folic Acid/Iron 1 tab 01/03/25 09:00 01/05/25 08:50 Vitamin Tablet PO 1 tab DAILY THOMAS Administration Sodium Chloride 10 ml 01/02/25 19:03 Sodium Chloride Flush 0.9% 10 Ml Syringe IVP PRN PRN NEEDED PER PROVIDER ORDERS Sodium Chloride 10 ml 01/03/25 01:00 01/05/25 08:51 Sodium Chloride Flush 0.9% 10 Ml Syringe IVP 10 ml 0100,0900,1700 THOMAS Administration Thiamine HCl 100 mg 01/03/25 09:00 01/05/25 08:50 Thiamine 100 Mg Tablet PO 100 mg DAILY THOMAS Administration Warfarin Sodium 2.5 mg 01/04/25 14:00 01/04/25 14:43 Warfarin 2.5 Mg Tablet PO 2.5 mg QDWARFARIN THOMAS Administration Objective Vital Signs/Intake & Output Vital Signs: Vital Signs x48h Temp Pulse Resp BP Pulse Ox O2 Flow Rate 01/05/25 11:43 36.4 C L 71 16 140/72 H 94 01/05/25 08:48 36.6 C 71 18 154/75 H 95 01/05/25 05:00 36.9 C 74 18 156/78 H 96 3 Intake & Output: Intake & Output 01/02/25 01/04/25 01/04/25 01/05/25 23:59 00:59 23:59 23:59 Intake Total 680 / 680 7235 / 7235 2540 / 2540 240 / 240 Output Total 1150 / 1150 2600 / 2600 2575 / 2575 350 / 350 Balance -470 / -470 4635 / 4635 -35 / -35 -110 / -110 Weight (kg) 118.5 kg Objective General Appearance: positive No acute distress and Alert Eyes Bilateral: positive Normal inspection, PERRL, EOMI and Conjunctivae nml ENT: positive ENT inspection nml Neck: positive Nml inspection and Trachea midline Respiratory: positive No respiratory distress and Breath sounds nml Cardiovascular: positive Regular rate & rhythm Abdomen: positive Non-tender and No distention Back: positive Nml inspection Skin: positive Color nml and Other (abrasions right supraclavicular area. healing) Extremities: positive Non-tender and Other (mild generalized edema of the right UE) Neurologic/Psychiatric: positive Oriented x3, CN's nml (2-12) and Mood/affect nml Lab Results 01/05/25 05:12 01/05/25 05:12 Other Labs: Lab Results x24hrs 01/05/25 Range/Units 05:12 WBC 9.7 (4.8-10.8) x10^3/uL RBC 4.60 L (4.70-6.10) 10^6/uL Hgb 13.2 L (14.0-18.0) g/dL Hct 42.2 (42.0-52.0) % MCV 91.7 (80.0-94.0) fL MCH 28.7 (27.0-31.0) pg MCHC 31.3 L (32.0-36.0) g/dL RDW 15.0 (12.0-15.0) % Plt Count 149 (130-450) 10^3/uL MPV 11.4 (7.4-11.4) fL Neut # (Auto) 7.6 H (1.5-6.6) 10^3/uL Lymph # (Auto) 1.1 L (1.5-3.5) 10^3/uL [place] # (Auto) 0.8 (0.0-1.0) 10^3/uL Eos # (Auto) 0.2 (0.0-0.7) 10^3/uL Baso # (Auto) 0.0 (0.0-0.1) 10^3/uL Absolute Nucleated RBC 0.00 x10^3/uL Nucleated RBC % 0.0 /100WBC PT 14.5 H (9.9-12.6) secs INR 1.3 H (0.8-1.2) Sodium 140 (135-145) mmol/L Potassium 3.4 L (3.5-4.5) mmol/L Chloride 108 (101-111) mmol/L Carbon Dioxide 27 (21-32) mmol/L Anion Gap 5.0 L (6-13) BUN 18 (6-20) mg/dL Creatinine 0.6 (0.6-1.3) mg/dL Estimated GFR (MDRD) 128 (>89) Glucose 125 H (74-104) mg/dL Calcium 8.7 (8.5-10.3) mg/dL Assessment/Plan Problem List (1) Rhabdomyolysis: Impression: Presents to the emergency department via EMS after lying on the floor for 14 to 15 hours. Laboratory findings of significance include a CK of 3471, normal renal function, normal potassium. This patient is a poor historian. He has no explanation for how it was he fell or why he fell. Upon further investigation and discussion with his caregiver it is quite possible that he consumed too much alcohol which caused him to fall and lay upon the floor. Renal function is stable. Cr is 0,6. No longer trending CK He is eating and drinking well. He is -217cc for the day. Right arm function is improving. I am highly suspicious that he laid on his right arm for a period of time. Medically clear for discharge today. Qualifiers: Encounter type: initial encounter Rhabdomyolysis type: traumatic Q ualified Code(s): T79.6XXA - Traumatic ischemia of muscle, initial encounter (2) Supratherapeutic INR: Impression: unclear etiology. His INR is 6.1 on admission. His goal INR is 2.5-3.5 with a mechanical valve in place. I am somewhat suspicious that he may be taking more warfarin than is prescribed, as when his caregiver listed his medications she told me that he takes Jantoven which is a brand-name warfarin 5 mg a day and then she also told me that he is taking warfarin 2.5 mg on Saturday and 5 mg all other days. Also could be related to Etoh consumption. He has received Vit K, INR is below goal currently, will give Warfarin 5 mg today. I am starting therapeutic Lovenox today. Laboratory Tests 01/02/25 01/02/25 01/03/25 16:21 20:09 05:00 INR 6.1 H* 6.6 H* 8.3 H* 01/04/25 01/05/25 05:54 05:12 INR 2.0 H 1.3 H (3) Acute urinary retention: Impression: We will leave Beckman catheter in place for several days to heal from stretch injury then attempt Beckman removal. Plan to assess PVRs after Beckman removal. He is actively seeing urology. He has had recurrent urinary tract infections in the past. Dr. Garcia has alluded to the fact that his UTIs may be secondary to poor bladder emptying. He is taking d-mannose supplements at home. UA at the time of admit shows no signs of infection. (4) Leukocytosis: Impression: Systemically he does not show signs of sepsis he does not have hypotension. He does not have tachycardia, he does not have fever. His respiratory rate is within normal limits and his lungs are clear to auscultation. His O2 saturation is within normal limits on room air. WBC is normal today . 01/02/25 01/03/2501/04/25 16:21 05:00 05:54 WBC 19.7 H 15.8 H 11.4 H 01/05/25 05:12 WBC 9.7 Qualifiers: Leukocytosis type: unspecified Qualified Code(s): D72.829 - Elevated white blood cell count, unspecified (5) Alcoholism: Impression: History of alcoholism. Caregiver relates to me that there were both partially full and empty bottles of alcohol scattered about his home when the cleaning lady came in. It is possible that he has resumed his drinking behaviors. If this is true he may go into alcohol withdrawal this admission. His alcohol level was less than 10 when tested in the emergency department If he has resumed alcohol consumption this could also be a reason for the supratherapeutic INR. At admit, I ordered CIWA protocol with Ativan 1 mg IV every 30 minutes as needed CIWA greater than 8. CIWA scores have been 1-2. He has not required any ativan. I am discontinuing CIWA protocol now. (6) Mechanical heart valve present: Impression: History of aortic valve replacement. This is a mechanical valve. His goal INR is 2.5-3.5 according to his caregiver. 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 Mccracken at [facility]. See above discussion of supratherapeutic INR which has resolved. (7) Type 2 diabetes mellitus: Impression: Diet controlled. A1C 6.0%, there is no indication for additional treatment. Qualifiers: Diabetes mellitus complication status: without complication Diabetes mellitus terminal superintendent insulin use: without prison use Qualified Code(s): E11.9 - Type 2 diabetes mellitus without complications (8) Uncontrolled hypertension: Impression: His blood pressures have been high, into the 180s here. At home the only medication I see that could be controlling his hypertension is Lasix 40 mg on Saturday. Would recommend primary care follow-up for further evaluation of his blood pressure. Blood pressure has come down as his pain level has been controlled. (9) Pacemaker: Impression: On EKG his rhythm is paced. He does not describe any syncope or presyncopal episodes. Although the etiology of his fall is unclear with the given history of alcohol bottles strewn about I think it is likely that he was intoxicated. I have the data on Pacer device, it is MRI conditional, but no rep available to reset the device post MRI. I have spent 36 minutes in the care of this patient today. This includes time [id number], review and ordering of diagnostic imaging and laboratory studies.
[2025-01-05] MEDS: ENOXAPARIN 120 MG/0.8 ML SYRINGE SUBQ SCH (14:52)
--- NOTE | 2025-01-05 14:58 | PT Plan of Care ---
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 Admitted with rhabdo. History of thalamic CVA, pacemaker. Please see medical record for complete hx. Pt is mildly confused and tangential so limited PLOF information available. Pt reportedly amb with cane and or walker at home short distances. Upon PT eval, pt on RA, sats WNL, attempted BP check but cuff malfunctioned. Last BP 140s/80s. Pt transfers to EOB with maxAx2, requires mod multimodal cueing and additional time to complete all tasks. Scoots forward and able to stand with modAx2 and FWW. Limited steps with FWW and minAx2, transfers to b/s chair with mod to max cueing for safety. Pt presents below reported baseline and requires 2 person skilled assist for all transfers. Will benefit from skilled PT in acute setting to improve functional mobility and progress ambulation. When medically clear, PT rec dc to SNF. GOALS Improve supine to sit to:: Moderate Assist Improve sit to stand to:: Minimal Assist Improve pivot transfer ability to:: Minimal Assist Improve sit to supine to:: Minimal Assist Improve gait ability to:: Min A Advance Assistive Device to:: Front Wheeled Walker Increase distance walked to (in feet):: 30 Improve Lower Extremity ROM to:: Limited/End Range Improve Lower Extremity Strength to:: Fair Improve Upper Extremity ROM to:: WFL Improve Upper Extremity Strength to:: Good Improve Sitting Balance to:: Good PLAN Frequency: 1-2x/day Duration: Until goals are met DISCHARGE RECOMMENDATIONS Discharge Location: [facility] Equipment Recommended: Front wheeled walker Other Discharge Equipment: has walker Transport Needs at Discharge: B[facility]
[2025-01-06 06:31] LABS: BASOPHILS % (AUTO) 0.5 %; EOSINOPHILS # (AUTO) 0.2 10^3/uL (0.0-0.7); EOSINOPHILS % (AUTO) 2.7 %; HCT - HEMATOCRIT 40.2 % (42.0-52.0); LYMPHOCYTES # (AUTO) 1.3 10^3/uL (1.5-3.5); LYMPHOCYTES % (AUTO) 15.2 %; MEAN CORPUSCULAR HGB CONC 32.3 g/dL (32.0-36.0); MEAN CORPUSCULAR VOLUME 92.6 fL (80.0-94.0); MONOCYTES # (AUTO) 0.6 10^3/uL (0.0-1.0); MONOCYTES % (AUTO) 7.4 %; NEUTROPHILS # (AUTO) 6.1 10^3/uL (1.5-6.6); NEUTROPHILS % (AUTO) 73.7 %; PLT - PLATELET COUNT 153 10^3/uL (130-450); RED BLOOD COUNT 4.34 10^6/uL (4.70-6.10); WHITE BLOOD COUNT 8.2 x10^3/uL (4.8-10.8)
[2025-01-06 06:34] LABS: INR 1.5 (0.8-1.2); PT - PROTHROMBIN TIME 15.7 secs (9.9-12.6)
[2025-01-06 06:42] LABS: CALCIUM 8.7 mg/dL (8.5-10.3); CREATININE 0.6 mg/dL (0.6-1.3); POTASSIUM 3.5 mmol/L (3.5-4.5)
--- NOTE | 2025-01-06 18:58 | PROVIDER PROGRESS NOTE ---
Subjective Prog Note Date Prog Note Date: 01/06/25 Subjective Pt reports feeling: Improved Current Medications Current Medications Current Medications: Current Medications Generic Name Dose Route Start Last Admin Trade Name Freq PRN Reason Stop Dose Admin Acetaminophen 650 mg 01/02/25 19:03 01/05/25 16:03 Acetaminophen 325 Mg Tablet PO 650 mg Q4HR PRN Administration Pain 1 to 4, or Fever Bacitracin 3 packet 01/03/25 09:00 01/06/25 10:31 Bacitracin Zinc Oint 1 Packet TOP 3 packet BID THOMAS Administration Enoxaparin Sodium 120 mg 01/05/25 11:30 01/06/25 10:30 Enoxaparin 120 Mg/0.8 Ml Syringe SUBQ 120 mg BID THOMAS Administration Furosemide 20 mg 01/05/25 09:00 01/06/25 10:32 Furosemide 20 Mg Tablet PO 20 mg DAILY THOMAS Administration Hydromorphone HCl 0.5 mg 01/02/25 19:03 01/06/25 12:55 Hydromorphone 0.5 Mg/0.5 Ml Syringe IVP 0.5 mg Q2H PRN Administration Pain 8 to 10 Multi-Ingredient Ointment 1 applic 01/04/25 20:10 01/05/25 08:51 Zinc Oxide 20% Oint 30 Gm Tube TOP 1 applic PRN PRN Administration Skin Care Nystatin 1 applic 01/02/25 21:00 01/06/25 10:31 Nystatin Powder 15 Gm TOP 1 applic BID THOMAS Administration Ondansetron HCl 4 mg 01/02/25 19:03 Ondansetron 4 Mg/2 Ml Vial IVP Q6HR PRN Nausea / Vomiting Multivit/Folic Acid/Iron 1 tab 01/03/25 09:00 01/06/25 10:31 Vitamin Tablet PO 1 tab DAILY THOMAS Administration Sodium Chloride 10 ml 01/02/25 19:03 Sodium Chloride Flush 0.9% 10 Ml Syringe IVP PRN PRN NEEDED PER PROVIDER ORDERS Sodium Chloride 10 ml 01/03/25 01:00 01/06/25 16:34 Sodium Chloride Flush 0.9% 10 Ml Syringe IVP 10 ml 0100,0900,1700 THOMAS Administration Thiamine HCl 100 mg 01/03/25 09:00 01/06/25 10:32 Thiamine 100 Mg Tablet PO 100 mg DAILY THOMAS Administration Warfarin Sodium 2.5 mg 01/04/25 14:00 01/06/25 14:44 Warfarin 2.5 Mg Tablet PO 2.5 mg QDWARFARIN THOMAS Administration Objective Vital Signs/Intake & Output Reviewed Vital Signs: Yes Vital Signs: Vital Signs x48h Temp Pulse Resp BP BP Pulse Ox 01/06/25 16:02 36.6 C 71 20 146/78 H 95 01/06/25 12:08 36.4 C L 71 20 154/75 H 96 Intake & Output: Intake & Output 01/04/25 01/04/25 01/05/25 01/06/25 00:59 23:59 23:59 23:59 Intake Total 7235 / 7235 2540 / 2540 758 / 758 1800 / 1800 Output Total 2600 / 2600 2575 / 2575 1075 / 1075 900 / 900 Balance 4635 / 4635 -35 / -35 -317 / -317 900 / 900 Objective General Appearance: positive No acute distress and Alert Eyes Bilateral: positive Normal inspection, PERRL, EOMI and Conjunctivae nml ENT: positive ENT inspection nml Neck: positive Nml inspection and Trachea midline Respiratory: positive No respiratory distress and Breath sounds nml Cardiovascular: positive Regular rate & rhythm Abdomen: positive Non-tender and No distention Back: positive Nml inspection Skin: positive Color nml and Other (abrasions right supraclavicular area. healing) Extremities: positive Non-tender and Other (mild generalized edema of the right UE) Neurologic/Psychiatric: positive Oriented x3, CN's nml (2-12) and Mood/affect nml Lab Results 01/06/25 06:08 01/06/25 06:08 Other Labs: Lab Results x24hrs 01/06/25 Range/Units 06:08 WBC 8.2 (4.8-10.8) x10^3/uL RBC 4.34 L (4.70-6.10) 10^6/uL Hgb 13.0 L (14.0-18.0) g/dL Hct 40.2 L (42.0-52.0) % MCV 92.6 (80.0-94.0) fL MCH 30.0 (27.0-31.0) pg MCHC 32.3 (32.0-36.0) g/dL RDW 15.0 (12.0-15.0) % Plt Count 153 (130-450) 10^3/uL MPV 11.0 (7.4-11.4) fL Neut # (Auto) 6.1 (1.5-6.6) 10^3/uL Lymph # (Auto) 1.3 L (1.5-3.5) 10^3/uL Morrow # (Auto) 0.6 (0.0-1.0) 10^3/uL Eos # (Auto) 0.2 (0.0-0.7) 10^3/uL Baso # (Auto) 0.0 (0.0-0.1) 10^3/uL Absolute Nucleated RBC 0.00 x10^3/uL Nucleated RBC % 0.0 /100WBC PT 15.7 H (9.9-12.6) secs INR 1.5 H (0.8-1.2) Sodium 139 (135-145) mmol/L Potassium 3.5 (3.5-4.5) mmol/L Chloride 109 (101-111) mmol/L Carbon Dioxide 27 (21-32) mmol/L Anion Gap 3.0 L (6-13) BUN 18 (6-20) mg/dL Creatinine 0.6 (0.6-1.3) mg/dL Estimated GFR (MDRD) 128 (>89) Glucose 115 H (74-104) mg/dL Calcium 8.7 (8.5-10.3) mg/dL Assessment/Plan Problem List (1) Rhabdomyolysis: Impression: Resolved. Medically clear for discharge Qualifiers: Rhabdomyolysis type: traumatic Encounter type: initial encounter Q ualified Code(s): T79.6XXA - Traumatic ischemia of muscle, initial encounter (2) Supratherapeutic INR: Impression: unclear etiology. His INR is 6.1 on admission. His goal INR is 2.5-3.5 with a mechanical valve in place. I am somewhat suspicious that he may be taking more warfarin than is prescribed, as when his caregiver listed his medications she told me that he takes Jantoven which is a brand-name warfarin 5 mg a day and then she also told me that he is taking warfarin 2.5 mg on Saturday and 5 mg all other days. Also could be related to Etoh consumption. 01/06/2025: His INR is 1.5 today. I am continuing his Lovenox bridge and will continue to check coag panel to monitor for warfarin toxicity (3) Acute urinary retention: Impression: We will leave Beckman catheter in place for several days to heal from stretch injury then attempt Beckman removal. Plan to assess PVRs after Beckman removal. He is actively seeing urology. He has had recurrent urinary tract infections in the past. Dr. Garcia has alluded to the fact that his UTIs may be secondary to poor bladder emptying. He is taking d-mannose supplements at home. UA at the time of admit shows no signs of infection. (4) Leukocytosis: Impression: WBC 8.2 today. Resolved Qualifiers: Leukocytosis type: unspecified Qualified Code(s): D72.829 - Elevated white blood cell count, unspecified (5) Alcoholism: Impression: History of alcoholism. Caregiver relates to me that there were both partially full and empty bottles of alcohol scattered about his home when the cleaning lady came in. It is possible that he has resumed his drinking behaviors. If this is true he may go into alcohol withdrawal this admission. His withdrawal has resolved (6) Mechanical heart valve present: Impression: History of aortic valve replacement. This is a mechanical valve. His goal INR is 2.5-3.5 according to his caregiver. His magazine keeper is Dr. Mccracken at [facility]. See above discussion of supratherapeutic INR which has resolved. (7) Type 2 diabetes mellitus: Impression: Diet controlled. A1C 6.0%, there is no indication for additional treatment. Qualifiers: Diabetes mellitus assisted insulin use: without assisted use Diabetes mellitus complication status: without complication Qualified Code(s): E11.9 - Type 2 diabetes mellitus without complications (8) Uncontrolled hypertension: Impression: His blood pressures have been high, into the 180s here. At home the only medication I see that could be controlling his hypertension is Lasix 40 mg on Saturday. Would recommend primary care follow-up for further evaluation of his blood pressure. Blood pressure has come down as his pain level has been controlled. (9) Pacemaker: Impression: On EKG his rhythm is paced. He does not describe any syncope or presyncopal episodes. Although the etiology of his fall is unclear with the given history of alcohol bottles strewn about I think it is likely that he was intoxicated. I have the data on Pacer device, it is MRI conditional, but no rep available to reset the device post MRI.
[2025-01-07 06:01] LABS: BASOPHILS % (AUTO) 0.5 %; EOSINOPHILS # (AUTO) 0.3 10^3/uL (0.0-0.7); EOSINOPHILS % (AUTO) 3.3 %; HCT - HEMATOCRIT 40.1 % (42.0-52.0); HGB - HEMOGLOBIN 13.2 g/dL (14.0-18.0); LYMPHOCYTES # (AUTO) 1.3 10^3/uL (1.5-3.5); LYMPHOCYTES % (AUTO) 16.2 %; MEAN CORPUSCULAR HEMOGLOBIN 30.1 pg (27.0-31.0); MEAN CORPUSCULAR HGB CONC 32.9 g/dL (32.0-36.0); MEAN CORPUSCULAR VOLUME 91.6 fL (80.0-94.0); MEAN PLATELET VOLUME 11.1 fL (7.4-11.4); MONOCYTES # (AUTO) 0.7 10^3/uL (0.0-1.0); MONOCYTES % (AUTO) 8.2 %; NEUTROPHILS # (AUTO) 5.7 10^3/uL (1.5-6.6); NEUTROPHILS % (AUTO) 70.9 %; PLT - PLATELET COUNT 161 10^3/uL (130-450); RED BLOOD COUNT 4.38 10^6/uL (4.70-6.10); WHITE BLOOD COUNT 8.1 x10^3/uL (4.8-10.8)
[2025-01-07 06:13] LABS: CALCIUM 8.6 mg/dL (8.5-10.3); CREATININE 0.6 mg/dL (0.6-1.3); POTASSIUM 3.6 mmol/L (3.5-4.5)
[2025-01-07 06:17] LABS: INR 1.5 (0.8-1.2); PT - PROTHROMBIN TIME 16.1 secs (9.9-12.6)
[2025-01-07 10:00] VITALS: BP 138/78; TEMP 98.8; O2SAT 93
--- NOTE | 2025-01-07 14:19 | Discharge Summary ---
Discharge Summary Admit Date: 01/02/25 Discharge Date: 01/07/25 Discharging Provider: Efrain Bullock NP Primary Care Provider: Ebonie Worrell Code Status: Attempt Resuscitation Discharge Facility Name: [facility] DIAGNOSES Admission Diagnoses: Rhabdomyolysis Supratherapeutic INR Acute urinary retention Leukocytosis Alcoholism Mechanical heart valve present Diabetes mellitus with hyperglycemia Uncontrolled hypertension Pacemaker Discharge Diagnoses with Status of Each Condition: Rhabdomyolysisresolved Supratherapeutic INRreceived vitamin K now low. Bridging with Lovenox Acute urinary retentionFoley Leukocytosisresolved Alcoholismchronic Mechanical heart valve presentchronic Diabetes mellitus with hyperglycemiachronic hypertensionchronic Pacemakerchronic HPI History of Present Illness: 84-year-old male who presents to the emergency department via EMS after laying on the floor of his bathroom all night. He has a past medical history of diet-controlled diabetes, mechanical aortic valve, atrial fibrillation, recurrent urinary tract infections, hypertension, thalamic CVA, anoxic brain injury, chronic venous insufficiency with ulceration of the lower extremities, alcoholism. he was found by the lady who comes to clean his house once a week. She called 911 first and then called his regular caregiver whose name is Tammy. The estimation is that he was on the floor for 14 to 15 hours. He tells me that he got confused during the night and tried to pee and somehow fell down. The cleaning lady told his caregiver that there were alcohol bottles both empty and full scattered about the house. He has a history of alcoholism but is not supposed to be drinking. Current medications are (as read to me by his caregiver Tammy) Coreg 3.125 mg twice daily, digestive enzymes, Jantoven 5 mg daily, warfarin 2.5 mg on Sundays and 5 mg all other days furosemide 20 mg 3 times daily, losartan 100 mg daily probiotic twice a day pantoprazole 40 mg daily vitamin daily potassium chloride 10 mill equivalents daily vitamin B1 100 mg daily finasteride 5 mg daily, d-mannose supplement, AALA supplement HOSPITAL COURSE Hospital Course: He was admitted into the hospital and started on aggressive IV fluid resuscitation. His rhabdomyolysis has resolved. He received a dose of vitamin K for supratherapeutic INR. His INR is now low, so he is being bridged with Lovenox until it is back up to therapeutic level for his mechanical heart valve. He is discharged on a Beckman catheter to be managed at [place] [facility] ALLERGIES Allergies Allergy/AdvReac Type Severity Reaction Status Date / Time No Known Drug Allergies Allergy Verified 01/02/25 15:57 MEDICATIONS Ambulatory Orders Medication Instructions Recorded Confirmed losartan 50 mg tablet 100 mg PO DAILY 11/15/14 01/03/25 finasteride 5 mg tablet 5 mg PO DAILY 01/15/20 01/03/25 digestive no.8-L.acidophilus 50 1 ea PO TIDWM 03/13/23 01/03/25 million cell-pectin 100 mg tablet (Digestive Enzyme (acidophilus, pectin, bromelain)) potassium chloride 10 mEq 10 meq PO DAILY 03/13/23 01/03/25 capsule,extended release acetaminophen 325 mg tablet 650 mg (2 x 325 mg) PO Q4HR PRN 03/19/23 01/03/25 Pain 1 to 4, or Fever atorvastatin 40 mg tablet 40 mg PO QPM for stroke 03/19/23 01/03/25 cholecalciferol (vitamin D3) 25 1,000 unit PO DAILY low vitamin D 03/19/23 01/03/25 mcg (1,000 unit) capsule ##0 furosemide 40 mg tablet 40 mg PO MOWEFR chronic chf 03/19/23 01/03/25 pantoprazole 20 mg tablet,delayed 20 mg PO DAILY gerd ##0 03/19/23 01/03/25 release thiamine mononitrate (vit B1) 100 100 mg PO DAILY diet supplement 03/19/23 01/03/25 mg tablet (Vitamin B-1 ##10 (mononitrate)) warfarin 1 mg tablet 3 mg (3 x 1 mg) PO Q7D aovr #1 tab 03/19/23 01/03/25 warfarin 5 mg tablet (Jantoven) 5 mg PO .TARYNTHURFRISATSUN AoVR 03/19/23 01/03/25 ##1 hydralazine 25 mg tablet 25 mg PO BID 10/12/24 01/03/25 bacitracin 500 unit/gram topical 1 applic topical Q8H #1,022.4 grams 01/06/25 ointment enoxaparin 120 mg/0.8 mL 120 mg (0.8 mL) subcut BID #8 mL 01/06/25 subcutaneous syringe nystatin 100,000 unit/gram topical 1 applic topical BID 30 days #15 01/06/25 powder (Nyamyc) grams vit,calcium 27-ferrous 1 tab PO DAILY 30 days #30 tabs 01/06/25 fum 60 mg iron-folic acid 1 mg tablet (Trinatal Rx 1) PHYSICAL EXAM AT DISCHARGE General Appearance: positive No acute distress and Alert Eyes Bilateral: positive Normal inspection ENT: positive ENT inspection nml Neck: positive Nml inspection Respiratory: positive Chest non-tender Cardiovascular: positive Regular rate & rhythm Peripheral Pulses: positive 2+ Abdomen: positive Non-tender Skin: positive Color nml and Other (Abrasion on right shoulder) Extremities: positive Non-tender Neurologic/Psychiatric: positive Oriented x3 LABS 01/07/25 05:45 01/07/25 05:45 FOLLOW UP Follow Up: With PCP TIME SPENT Time Spent in Discharge (Minutes): 25 Discharge Plan Discharge Patient Disposition: 03 [facility] DC/Xfer Condition: Stable Medically Cleared Date:: 01/05/25 Prescriptions: New bacitracin 500 unit/gram ointment 1 applic topical Q8H Qty: 1022.4 0RF enoxaparin 120 mg/0.8 mL Syringe 120 mg subcut BID Qty: 8 0RF nystatin [[facility]] 100,000 unit/gram Powder 1 applic topical BID 30 Days Qty: 15 0RF Trinatal Rx 1 60 mg iron-1 mg Tablet 1 tab PO DAILY 30 Days Qty: 30 0RF Continued losartan 50 MG tablet 100 mg PO DAILY finasteride 5 MG tablet 5 mg PO DAILY potassium chloride 10 MEQ capsule, extended release 10 meq PO DAILY Digestive Enzyme (acidoph,pec) 1 EACH tablet 1 ea PO TIDWM furosemide 40 MG tablet 40 mg PO MOWEFR 0RF Patient Comments: took 20mg this am atorvastatin 40 MG tablet 40 mg PO QPM 0RF acetaminophen 325 MG tablet 650 mg PO Q4HR PRN (Reason: Pain 1 to 4, or Fever) 0RF warfarin 1 MG tablet 3 mg PO Q7D Qty: 1 0RF Rx Instructions: give this only on saturday pantoprazole 20 MG tablet,delayed release (DR/EC) 20 mg PO DAILY Qty: 0 0RF warfarin [Jantoven] 5 MG tablet 5 mg PO .OCTAVIANOATSUN Qty: 1 0RF Rx Instructions: 5MG EVERYDAY EXCEPT WED (3 MG) cholecalciferol (vitamin D3) 25 MCG capsule 1,000 unit PO DAILY Qty: 0 0RF thiamine mononitrate (vit B1) [Vitamin B-1 (mononitrate)] 100 MG tablet 100 mg PO DAILY Qty: 10 0RF hydralazine 25 mg tablet 25 mg PO BID Discontinued Daily Multivitamin-Minerals 1 EACH tablet 1 ea PO DAILY Qty: 0 0RF Activity Restrictions: Activity as Tolerated Diet: Diabetic Health Concerns: You were found down at home and were brought into the hospital. You were found to be in rhabdomyolysis, which has resolved after we gave you a lot of IV fluids. You were also found to have a high INR. You were given vitamin K for this and now it is below goal. I am sending you home with Lovenox shots to take twice daily until your INR is back to normal level. I would like for you to work with physical therapy to regain as much function as you can Print Language: Cambodian Patient Instructions: Rhabdomyolysis Stand Alone Forms: SNF Discharge, PCP List Follow-up Care: LISSETT REAL MD [Primary Care Provider] -
== END 2025-01-07 09:30 | DRG 566 ==
LOC: MS2 15:48 → ED 15:48 → MS2 18:49
PROVIDERS: ADMIT Physician Assistant Medical; ATTEND Physician Assistant Medical
DX: Z95.0 Presence of cardiac pacemaker; R35.0 Frequency of micturition; S80.212A Abrasion, left knee, initial encounter; Z79.01 Long term (current) use of anticoagulants; T79.6XXA Traumatic ischemia of muscle, initial encounter; Z60.2 Problems related to living alone; S80.211A Abrasion, right knee, initial encounter; Z86.73 Personal history of transient ischemic attack (TIA), and cerebral infarction without residual deficits; F10.20 Alcohol dependence, uncomplicated; Y92.002 Bathroom of unspecified non-institutional (private) residence as the place of occurrence of the external cause; E86.0 Dehydration; R32 Unspecified urinary incontinence; W01.0XXA Fall on same level from slipping, tripping and stumbling without subsequent striking against object, initial encounter; S10.91XA Abrasion of unspecified part of neck, initial encounter; Z95.2 Presence of prosthetic heart valve; E11.9 Type 2 diabetes mellitus without complications; R35.1 Nocturia; R79.1 Abnormal coagulation profile; R39.15 Urgency of urination; F10.21 Alcohol dependence, in remission; S10.81XA Abrasion of other specified part of neck, initial encounter; E11.65 Type 2 diabetes mellitus with hyperglycemia; R79.89 Other specified abnormal findings of blood chemistry; I48.91 Unspecified atrial fibrillation; I10 Essential (primary) hypertension; S30.811A Abrasion of abdominal wall, initial encounter; Z87.440 Personal history of urinary (tract) infections; D72.829 Elevated white blood cell count, unspecified; R33.9 Retention of urine, unspecified